=== PATIENT | female | born 1950 | race Caucasian/White ===

== ENCOUNTER → 2020-01-16 13:05 | Outpatient (BNVA) | payer MEDICARE, MEDICAID, SELFPAY | PROVIDERS: PCP Internal Medicine; Referring Provider Internal Medicine; Visit Provider Internal Medicine Cardiovascular Disease | DX: I49.3 Ventricular premature depolarization (principal); I10 Essential (primary) hypertension; R00.0 Tachycardia, unspecified; T42.4X5D Adverse effect of benzodiazepines, subsequent encounter | CPT/HCPCS: 99213 ==

== ENCOUNTER → 2020-01-19 10:00 | Outpatient (REF) | payer MEDICARE, MEDICAID, SELFPAY ==
--- NOTE | 2020-01-19 | NM_ITS ---
EXAMINATION: THYROID UPTAKE AND SCAN CLINICAL INFORMATION: Hyperthyroidism. COMPARISON: No previous thyroid uptake and scan is available for comparison. Thyroid ultrasound dated 10/31/2019 is available for comparison. TECHNIQUE: Following the oral administration of 288 microcuries of I-123 sodium iodide, thyroid uptake was performed and expressed as a percentage of the administrated dose. Gamma scintillation camera images of the thyroid in the anterior and right and left anterior oblique views were obtained using a pinhole collimator following the administration of 10 mCi Tc-99m pertechnetate. FINDINGS: The uptake is 21.2% at 4 hours and 53.3% at 24 hours (Normal radioiodine uptake at 24 hours is 10% to 30%). The radioiodine uptake is moderately elevated. The radiopertechnetate thyroid scintigram demonstrates the thyroid gland to be normal in size, shape, and position. There is homogeneous distribution of activity within the the gland with no focal abnormalities noted. A faint pyramidal lobe is visualized. The trapping function appears moderately increased diffusely. A single anterior radioiodine image obtained at the time of the 24-hour uptake measurement is similar to the radio pertechnetate image. NM/NM thyroid w uptake IMPRESSION: Moderately increased radioiodine uptake and trapping function diffusely. Normal thyroid scan with no nodules visualized. Small subcentimeter thyroid nodules visualized on the 10/31/2019 thyroid ultrasound are below the resolution of this radionuclide technique and are not visualized. In the clinical setting of hyperthyroidism, these findings are most consistent with Graves' disease.
== END ==
LOC: HO.NUCMED 10:00
PROVIDERS: PCP Internal Medicine; Visit Provider Internal Medicine Endocrinology, Diabetes & Metabolism
DX: E05.90 Thyrotoxicosis, unspecified without thyrotoxic crisis or storm (principal)
CPT/HCPCS: 78014; A9512; A9516

== ENCOUNTER → 2020-02-13 10:19 | Outpatient (BNVA) | payer MEDICARE, MEDICAID, SELFPAY | PROVIDERS: PCP Internal Medicine; Visit Provider Internal Medicine Endocrinology, Diabetes & Metabolism | DX: Z13.89 Encounter for screening for other disorder (principal) | CPT/HCPCS: Q3014 ==

== ENCOUNTER 2020-02-28 13:16 | Inpatient (IN) | payer MEDICARE, MEDICAID, SELFPAY ==
[2020-02-28] VITALS (7 sets, daily range): BP systolic 91–105; BP diastolic 43–58; PULSE 100–108; RESP 18–33; TEMP 36.9–37.3; O2SAT 92–95; BMI 19.3
--- NOTE | 2020-02-28 13:25 | ED.URI ---
HPI - URI/Sore Throat General Chief Complaint: Weakness Stated Complaint: WEAKNESS Time Seen by Provider: 02/28/20 13:22 Source: patient Mode of arrival: ambulatory Limitations: no limitations History of Present Illness HPI Narrative: Ms. Gerber is a 69-year-old female who resides at the [facility] she has a history of depression, bipolar disorder as well as history of COPD, diabetes, gastroesophageal reflux disease, hypertension, hyperlipidemia, hypernatremia, IgA, essential tremor, TIA in the past 2012, she was diagnosed with lung CA about a year ago so according to the staff at bedside currently undergoing chemotherapy here followed by Dr. Tony whom she actually saw today for planned chemo however today she appeared slightly more lethargic and weak which she usually somewhat more active and usually gets like this when she either has aspiration pneumonia or a UTI. Per staff at bedside patient did complain of some chest pain over the past 2 days at the house she was given Tylenol by the nursing staff and she has had similar complaint of past where she had the aspiration pneumonia. In addition she also had urinary incontinence this morning which is unusual for her. Patient otherwise does soft/slow spoken she is alert and oriented x3. She overall reports is feeling more lethargic over past day or so but denies any pain or discomfort at this time. Per staff there was also a in direct contact with another staff member who was exposed to a person with COVID but patient does not have any direct exposure to COVID. Denies any cough or runny nose. No abdominal pain, nausea vomiting or diarrhea. Related Data Home Medications Medication Instructions Recorded Confirmed acetaminophen 650 mg PO Q6H PRN 01/04/20 02/28/20 albuterol 90 mcg INHALATION Q6H PRN 01/04/20 02/28/20 ascorbic acid (vitamin C) [Vitamin 500 mg PO BID 01/04/20 02/28/20 C] aspirin 81 mg PO DAILY 01/04/20 02/29/20 benztropine [Cogentin] 1 mg PO BID 01/04/20 02/28/20 carvedilol [Coreg] 3.125 mg PO BID 01/04/20 02/28/20 cholecalciferol (vitamin D3) 50 mcg PO DAILY 01/04/20 02/28/20 [Vitamin D3] clozapine [Clozaril] 50 mg PO BEDTIME 01/04/20 02/28/20 ferrous sulfate 325 mg PO BID 01/04/20 02/28/20 fluticasone propion-salmeterol 1 inh INHALATION BID 01/04/20 02/28/20 [Advair Diskus] haloperidol [Haldol] 5 mg PO BEDTIME 01/04/20 02/28/20 mirabegron 50 mg PO DAILY 01/04/20 02/28/20 nivolumab [Opdivo] 240 mg IV Q2W 01/04/20 02/28/20 trazodone 100 mg PO BEDTIME 01/04/20 02/28/20 valproic acid 750 mg PO BID 01/04/20 02/28/20 estradiol [Estrace] 1 g VAGINAL BEDTIME 01/31/20 02/28/20 glipizide 1 tab PO DAILY 02/28/20 02/28/20 Previous Rx's Medication Instructions Recorded omeprazole 20 mg capsule,delayed 20 mg PO QAM #30 cap 01/02/20 release atorvastatin 10 mg tablet 10 mg PO BEDTIME #30 tab 01/23/20 methimazole 10 mg tablet 10 mg PO DAILY 30 Days #30 tab 02/07/20 blood sugar diagnostic #150 ea 02/13/20 metformin 500 mg tablet 500 mg PO BID 30 Days #60 tab 02/13/20 alendronate 35 mg tablet 35 mg PO QWEEK #4 tab 02/27/20 Allergies Allergy/AdvReac Type Severity Reaction Status Date / Time No Known Allergies Allergy Verified 01/16/20 13:13 [No Known Allergies*] [facility] Past Medical History Medical History (Updated 02/29/20 @ 01:53 by CALVIN Nolasco) Anemia Charcot's arthropathy COPD (chronic obstructive pulmonary disease) Diabetes Diabetes type 2, uncontrolled GERD (gastroesophageal reflux disease) Hyperlipidemia Hypernatremia Hypertension Hypertension Hyperthyroidism Iron deficiency anemia Lung mass Osteopenia Osteoporosis PVC (premature ventricular contraction) Tachycardia TIA (transient ischemic attack) (~2012) Tremor Umbilical hernia Surgical History (Updated 01/17/20 @ 14:35 by Mari Tony MD) History of appendectomy Family History Family History (Updated 01/03/20 @ 11:43 by Manasa Rodriguez RN) Father Lung cancer Mother Colorectal cancer Social History Social History Alcohol intake: never Smoking Status: Former smoker Packs Per Day: 1 Years Smoked: 50 Smoked in Last 30 Days: No Use of substances other than those prescribed or required for medical reasons: No Currently Displaying Signs/Symptoms of Drug Intoxication Withdrawal: No Advance Directives: No Advance Directives Information Provided: No Do you have thoughts of harming others: None Do you have a plan to hurt others: No Plan service: No Current occupational status: disabled Physical Exam Vital Signs: Vital Signs: Last Vital Signs Temp 97.4 F 02/29/20 08:00 Pulse 104 H 02/29/20 09:27 Resp 18 02/29/20 08:00 BP 103/58 L 02/29/20 08:00 Pulse Ox 95 02/29/20 08:00 Body Mass Index 19.3 Course Consultations Consultation #1: CDW Hospitalist for admit MDM - URI/Sore Throat MDM Narrative Medical decision making narrative: 1345 Patient had a CBC/Chem outpatient basis this is pending Additional workup as ordered including influenza/RSV/COVID screen, lactic acid blood cultures and chest x-ray. Patient on room air 87% with 2 L improved to 98 to 99%. Offers no complaints Will treat with gradual fluids, neb and steroid. 1420 CBC without leukocytosis. Labs are pending Labs have not yet been drawn. 1600 Chest x-ray shows increase density in the right hilar region and right lung base question mass versus adenopathy versus pneumonia/atelectasis. CT of the chest ordered. Will be given dose of Levaquin. Medical Records Attestation: I reviewed the patient's medical records. Lab Data Attestation: I reviewed the patient's lab results. Labs: Lab Results 02/28/20 02/28/20 02/28/20 Range/Units 14:16 14:16 15:45 PT (10.8-13.0) SEC INR (0.9-1.1) APTT (24.1-38.0) SEC Lactic Acid (0.5-2.0) mmol/L Lactate Dehydrogenase (122-220) U/L Troponin I High Sens (<3.5-17.0) ng/L B-Natriuretic Peptide (<100) pg/mL Procalcitonin 0.11 ng/mL Urine Color YELLOW Urine Appearance CLOUDY Urine pH 6.0 (5.0-8.0) Ur Specific [place] 1.015 (1.005-1.025) Urine Protein TRACE (NEG-TRACE) MG/DL Urine Glucose (UA) NEG (NEG) MG/DL Urine Ketones NEG (NEG) MG/DL Urine Blood NEG (NEG) Urine Nitrite NEG (NEG) Ur Leukocyte Esterase 3+ H (NEG) Urine RBC 1-4 (0) /HPF Urine WBC 76-150 H (0-4) /HPF Ur Squamous Epith Cells 3+ /LPF Urine Bacteria 1+ /LPF Coronavirus (PCR) NEGATIVE (Negative) Influenza Type A (PCR) NEGATIVE (Negative) Influenza Type B (PCR) NEGATIVE (Negative) RSV RNA Qual (PCR) NEGATIVE (Negative) 02/28/20 02/28/20 02/28/20 Range/Units 15:45 15:45 15:45 PT 17.6 H (10.8-13.0) SEC INR 1.5 H (0.9-1.1) APTT 46.3 H (24.1-38.0) SEC Lactic Acid (0.5-2.0) mmol/L Lactate Dehydrogenase (122-220) U/L Troponin I High Sens < 3.5 (<3.5-17.0) ng/L B-Natriuretic Peptide 48 (<100) pg/mL Procalcitonin ng/mL Urine Color Urine Appearance Urine pH (5.0-8.0) Ur Specific [place] (1.005-1.025) Urine Protein (NEG-TRACE) MG/DL Urine Glucose (UA) (NEG) MG/DL Urine Ketones (NEG) MG/DL Urine Blood (NEG) Urine Nitrite (NEG) Ur Leukocyte Esterase (NEG) Urine RBC (0) /HPF Urine WBC (0-4) /HPF Ur Squamous Epith Cells /LPF Urine Bacteria /LPF Coronavirus (PCR) (Negative) Influenza Type A (PCR) (Negative) Influenza Type B (PCR) (Negative) RSV RNA Qual (PCR) (Negative) 02/28/20 02/28/20 Range/Units 15:46 15:46 PT (10.8-13.0) SEC INR (0.9-1.1) APTT (24.1-38.0) SEC Lactic Acid 0.8 (0.5-2.0) mmol/L Lactate Dehydrogenase 87 L (122-220) U/L Troponin I High Sens (<3.5-17.0) ng/L B-Natriuretic Peptide (<100) pg/mL Procalcitonin ng/mL Urine Color Urine Appearance Urine pH (5.0-8.0) Ur Specific [place] (1.005-1.025) Urine Protein (NEG-TRACE) MG/DL Urine Glucose (UA) (NEG) MG/DL Urine Ketones (NEG) MG/DL Urine Blood (NEG) Urine Nitrite (NEG) Ur Leukocyte Esterase (NEG) Urine RBC (0) /HPF Urine WBC (0-4) /HPF Ur Squamous Epith Cells /LPF Urine Bacteria /LPF Coronavirus (PCR) (Negative) Influenza Type A (PCR) (Negative) Influenza Type B (PCR) (Negative) RSV RNA Qual (PCR) (Negative) Imaging Data Chest x-ray: Radiologist's impression: [place] [id number] XRay Report Signed Patient: Lupe Gerber#: [id number] : 1Acct:[id number] Age/Sex: 69 / FADM Date: 02/28/20 Loc: .ED Attending Dr: Ordering Physician: Sha Duron NP Date of Service: 02/28/20 Procedure(s): XR chest 1V Accession Number(s): [id number] cc: Sha Duron ELASTIC ATTACHER CHAINSTITCH~ EXAMINATION: XR CHEST CLINICAL INFORMATION: Weakness COMPARISON: Previous chest x-ray most recent August [address] of the chest November 2019 TECHNIQUE: Frontal view of the chest was obtained. FINDINGS: The cardiac silhouette does not appear enlarged. There is increasing density at the right lung base and right hilar region. Appearance is a questionable for worsening central mass or adenopathy and postobstructive atelectasis or pneumonia. There is an increasing [id number] right pleural effusion. This may be loculated in a fissure. The left lung is clear. There is no left pleural effusion. There is a left jugular port with tip projecting over the SVC. XR/XR chest 1V IMPRESSION: Increasing density in the right hilar region and the right lung base, question representing increasing central mass or adenopathy and postobstructive atelectasis/pneumonia. Increasing right pleural effusion. 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
--- NOTE | 2020-02-28 13:28 | XR_ITS ---
EXAMINATION: XR CHEST CLINICAL INFORMATION: Weakness COMPARISON: Previous chest x-ray most recent August [address] of the chest November 2019 TECHNIQUE: Frontal view of the chest was obtained. FINDINGS: The cardiac silhouette does not appear enlarged. There is increasing density at the right lung base and right hilar region. Appearance is a questionable for worsening central mass or adenopathy and postobstructive atelectasis or pneumonia. There is an increasing [id number] right pleural effusion. This may be loculated in a fissure. The left lung is clear. There is no left pleural effusion. There is a left jugular port with tip projecting over the SVC. XR/XR chest 1V IMPRESSION: Increasing density in the right hilar region and the right lung base, question representing increasing central mass or adenopathy and postobstructive atelectasis/pneumonia. Increasing right pleural effusion.
--- NOTE | 2020-02-28 13:28 | ECG_ITS ---
Test Reason : WEAKNESS Blood Pressure : / mmHG Vent. Rate : 105 BPM Atrial Rate : 105 BPM P-R Int : 184 ms QRS Dur : 094 ms QT Int : 358 ms P-R-T Axes : 030 016 005 degrees QTc Int : 473 ms Sinus tachycardia Low voltage QRS Nonspecific T wave abnormality Abnormal ECG When compared to the previous EKG of Premature ventricular complexes are no longer Present Referred By: Sha Duron Electronically Signed By:HARMONY HERNANDEZ MD
[2020-02-28] MEDS: 0.9 % Sodium Chloride 1,000 ML 1000 ML IV (14:05)
[2020-02-28 14:31] LABS: Glucose Urine UA NEG (NEG); Leukocyte Esterase Urine 3+ (NEG); Nitrite Urine NEG (NEG); Specific Gravity - Urine 1.015 (1.005-1.025); Urine Blood NEG (NEG); Urine Ketones NEG (NEG); Urine Protein TRACE MG/DL (NEG-TRACE)
[2020-02-28 14:34] LABS: Appearance Urine CLOUDY; Color Urine YELLOW
[2020-02-28 14:47] LABS: Bacteria Urine 1+ /LPF; Squamous Epithelial Cell Urine 3+ /LPF
[2020-02-28 15:42] LABS: Influenza A PCR NEGATIVE (Negative); Influenza B PCR NEGATIVE (Negative); Resp Syncy Virus RNA Qual PCR NEGATIVE (Negative); SARS COV2 PCR INHOUSE NEGATIVE (Negative)
--- NOTE | 2020-02-28 16:06 | CT_ITS ---
EXAMINATION: CT CHEST WITHOUT CONTRAST CLINICAL INFORMATION: Lung cancer. Abnormal chest x-ray. COMPARISON: Chest x-ray 02/28/2020. CT chest 12/21/2019. TECHNIQUE: Multidetector volumetric CT imaging of the chest was done. Axial MIP volume rendering provided. Sagittal and coronal reformatted images were obtained. This CT examination was performed using dose optimization techniques as appropriate, variously including the following: *Automated exposure control *Adjustment of mA and/or kV according to patient size (this includes techniques or standardized protocols for targeted exams where dose is matched to indication/reason for exam; i.e. extremities or head) *Use of iterative reconstruction technique DLP: 195 mGy-cm FINDINGS: LUNGS: Worsening disease in the lungs since prior CT scan 12/21/2019. There is increasing volume loss overall of the right hemithorax. There is increasing parenchymal opacity in the right perihilar lung. Focal area of consolidation at the posterior medial right lung base increased since November 2019. Left lung remains normally aerated. MEDIASTINUM: Difficult to assess hilar regions without IV contrast. There is confluent opacity from the consolidation of atelectasis around the right hilum. Left hilum is unchanged since prior study. No mediastinal significant lymphadenopathy. Small shotty subcentimeter lymph nodes in the pretracheal retrovascular space and AP window. PLEURA: Large volume right pleural effusion. Increasing volume of right pleural effusion extending around the entire right hemithorax pleural space. No left pleural effusion. AXILLA: No lymphadenopathy. UPPER ABDOMEN: Unremarkable OSSEOUS STRUCTURES: Degenerative spondylosis of the spine. CT/CT chest wo con IMPRESSION: Worsening disease in the right hemithorax since prior study of 12/21/2019. There is increasing airspace opacity and confluent density in the right perihilar lung and posterior medial right lung base. There is increasing volume of the right pleural pleural effusion. The volume of the right pleural effusion is now large extending around the entire right pleural space.
[2020-02-28 16:12] LABS: INTERNATIONAL NORM RATIO 1.5 (0.9-1.1); Prothrombin Time 17.6 SEC (10.8-13.0)
[2020-02-28 16:14] LABS: Partial Thromboplastin Time 46.3 SEC (24.1-38.0)
[2020-02-28 16:17] LABS: Lactic Acid 0.8 mmol/L (0.5-2.0)
--- NOTE | 2020-02-28 16:23 | PC.NURSE ---
pt to radiology via stretcher
[2020-02-28] MEDS: levoFLOXacin/D5W 750 MG/150 ML PIGGYBACK 100 MG IV (16:31)
[2020-02-28 16:32] LABS: Lactate Dehydrogenase 87 U/L (122-220)
[2020-02-28 16:37] LABS: Troponin-I High Sensitivity < 3.5 ng/L (<3.5-17.0)
[2020-02-28 16:38] LABS: B Type Natriuretic Peptide 48 pg/mL (<100)
[2020-02-28 16:52] LABS: Procalcitonin 0.11 ng/mL
[2020-02-28] MEDS: Albuterol Sulfate 90 MCG 8 GM INHALER 4 PUFF INHALE (18:09)
[2020-02-28] MEDS: methylPREDNISolone Sod Succ/PF 125 MG/2 ML VIAL IVPUSH (18:12)
--- NOTE | 2020-02-28 18:40 | PC.NURSE ---
hospitalist at bedside. pt eating ground food at this time.
--- NOTE | 2020-02-28 20:08 | PC.NURSE ---
[place] [facility] [place] ROSIE MARIANO STATES THAT PATIENT IS TO BE HELD IN THE ED.
--- NOTE | 2020-02-28 20:40 | PC.NURSE ---
On bedpan for urine. Unlabored resp. Awaiting transfer to floor.
[2020-02-29] VITALS (10 sets, daily range): BP systolic 95–114; BP diastolic 28–73; PULSE 64–112; RESP 16–30; TEMP 36.2–37.1; O2SAT 95–100
--- NOTE | 2020-02-29 | XR_ITS ---
EXAMINATION: XR CHEST CLINICAL INFORMATION: Post thoracentesis COMPARISON: February 28, 2020 TECHNIQUE: AP portable view of the chest was obtained. FINDINGS: Since previous study of the right pleural effusion is smaller. No pneumothorax is evident. Left sided port catheter seen in place with tip in junction of the left nominate vein and superior vena cava. Heart normal size. No evidence of pulmonary edema. Right lung mass density present in the region of the hilum. XR/XR chest 1V IMPRESSION: Somewhat improved right pleural effusion status post thoracentesis. No pneumothorax.
--- NOTE | 2020-02-29 | US_ITS ---
EXAMINATION: RIGHT THORACENTESIS CLINICAL INFORMATION: Pleural effusion. COMPARISON: February 28, 2020 TECHNIQUE: Ultrasound-guided thoracentesis FINDINGS: Ultrasound scanning demonstrates a large right pleural effusion. Informed consent was obtained from the patient prior to the procedure. During this process, the procedure and potential alternatives were explained, along with the intended outcome and benefits. The risks of the procedure, as well as the risk of not doing the procedure, were discussed. The patient was given the opportunity to ask questions regarding the procedure and appeared competent to make medical decisions. A signed consent form which documents this discussion was placed in the medical record. Using sterile technique and ultrasound guidance a 5 Bengali Yueh needle was placed into the right pleural space from a posterior approach. Approximately 1.1 L of clear yellow-greenish fluid was then drained. Patient tolerated procedure without difficulty. US/US thoracentesis IMPRESSION: Right thoracentesis with removal of 1.1 L of fluid.
--- NOTE | 2020-02-29 02:41 | PM.EVENT ---
Event Note Date of Service: 02/29/20 Event Note: 69 y/o female who presented from home due to worening lethargy and malaise. To be admitted due to COPD exacerbation likely secondary to suspected post obstructive PNA and worsening right pleural effusion. ROS and Physical exam as per H and P. PMHX: Anemia Charcot's arthropathy COPD (chronic obstructive pulmonary disease) Diabetes Diabetes type 2, uncontrolled GERD (gastroesophageal reflux disease) Hyperlipidemia Hypernatremia Hypertension Hypertension Hyperthyroidism Iron deficiency anemia Lung mass Osteopenia Osteoporosis PVC (premature ventricular contraction) Tachycardia TIA (transient ischemic attack) Onset Date: ~2012 Tremor Umbilical hernia PSx: Appendectomy Toxic habits: No hx of alcohol abuse, smoking or IVDA Assessment/plan: 1- COPD exacerbation likely secondary to post obstructive PNA and worsening pleural effusion: Continue with Oxygen supplementation and titrate off as tolerated Continue with IV antbx and follow up Bcx Continue with IV steroid and taper as tolerated Thoracentesis to be done as ordered Dr Tony Oncology Pulmonology consult in am Rest of the plan as discussed with JONI Allan per H and P
[2020-02-29] MEDS: Albuterol/Iprat 2.5/0.5MG 3 ML AMPUL.NEB INHALE ×3 (07:27→19:32)
--- NOTE | 2020-02-29 08:04 | PC.NURSE ---
Meenakshi was admitted to room 458-1 from the ED at approximately 06:45, VSS, she is alert/talkative and understands why she is being admitted today. Her breath sounds are coarse rhonchi, she has a non productive cough, she denies any pain. Her portacath is accessed on the left chest, she denies any dysuria upon assessing her. She stated she was recently treated for a urinary tract infection. Her skin is completely intact, she was placed on her left side upon admit to her room here on [facility] and education was done with regards to turning/repositioning for pressure relief. She verbalized an understanding of this education via teach back method. White board updated, admission assessment completed.
[2020-02-29] MEDS: levoFLOXacin/D5W 500 MG/100 ML PIGGYBACK 100 MG IV (08:23)
[2020-02-29] MEDS: Valproic Acid 250 MG CAPSULE 750 MG PO ×2 (08:23→19:41)
[2020-02-29] MEDS: Omeprazole 20 MG CAPSULE.DR PO (08:23)
[2020-02-29] MEDS: Cholecalciferol (Vitamin D3) 25 MCG TABLET 50 MCG PO (08:23)
[2020-02-29] MEDS: metFORMIN HCl 500 MG TABLET PO ×2 (08:23→22:48)
[2020-02-29] MEDS: Ferrous Sulfate 324 MG TABLET.DR PO ×2 (08:23→19:42)
[2020-02-29] MEDS: Ascorbic Acid 500 MG TABLET PO ×2 (08:24→19:42)
[2020-02-29] MEDS: Benztropine Mesylate 1 MG TABLET PO ×2 (08:24→19:41)
--- NOTE | 2020-02-29 09:00 | MHC.CM.PN ---
CM met with Patient. Patient lives in a [address] in [place] and the goal is for her to return there. CM has initiated and will follow for dc planning. IMM addressed with Patient and the original has been given to her and a copy has been placed on the chart. /Lukasz at [phone] is the HCP and Dr. Valery Kilpatrick is the PCP.Patient has both a cane and a walker to assist with mobility PRN.
[2020-02-29] MEDS: Fluticasone/Vilanterol 100/25 BLST.W.DEV 1 PUFF INHALE (09:24)
[2020-02-29] MEDS: glipiZIDE XL 2.5 MG TAB.ER.24 PO (10:17)
[2020-02-29] MEDS: methIMAzole 10 MG TABLET PO (10:17)
[2020-02-29] MEDS: 0.9 % Sodium Chloride Flush 3 ML SYRINGE IVFLUSH ×3 (10:17→22:51)
[2020-02-29] MEDS: Mirabegron 50 MG TAB.ER.24H PO (10:18)
[2020-02-29 11:04] LABS: Lactate Dehydrogenase 77 U/L (122-220)
[2020-02-29] MEDS: Lidocaine HCl 1 % MPF 5 ML VIAL SUBCUT (12:41)
[2020-02-29 12:44] LABS: Glucose, Whole Blood 142 mg/dL (60-115)
[2020-02-29 13:20] LABS: MN% 92.5 %; PMN% 7.5 %; WBC Pleural Fluid 0.361 X10*3/uL
[2020-02-29 13:21] LABS: RBC Pleural Fluid < 0.002 X10*3/uL
[2020-02-29 13:53] LABS: BF Shift QC OK YES; Eosinophils Pleural Fluid 1 %; Lymphocytes Pleural Fluid 2 %; Monocytes Pleural Fluid 8 %; Neutrophils Pleural Fluid 10 %; Other Cells Plerual Fl 79 %
--- NOTE | 2020-02-29 14:04 | P.CONPL_ITS ---
History of Present Illness History of Present Illness Consult date: 02/29/20 Reason for consult: pneumonia and pleural effusion Chief complaint: COPD,UTI,CAP Narrative: Ms. Gerber is a 69-year-old female who resides at the [facility] she has a history of depression, bipolar disorder as well as history of COPD, or and history of postobstructive pneumonia due to lung cancer. She did have significant endobronchial obstruction in biopsy-proven squamous cell carcinoma. She was treated with radiation a along with chemotherapy and now receiving immune therapy. She has been getting therapies closely through Oncology at [facility] and radiation she has completed at [facility]. On the day of the admission she was evaluated by her oncologist who felt that she was having some issues with shortness of breath malaise and lethargy. Therefore the patient is transferred to the ER for further evaluation. She did undergo a CT scan of the chest demonstrating moderate-sized pleural effusion along with increasing airspace disease and also consistent with lung cancer and likely postobstructive pneumonia. She was placed on IV antibiotics and also underwent a thoracentesis draining out a little more than a L of pleural fluid. She is currently on nasal cannula oxygen. Overall she feels well. It is likely that she has further progression of her cancer. Review of Systems Constitutional: Constitutional: Reports fatigue, Reports lethargy, Reports malaise and Denies night sweats ENT: Denies change in voice, Denies lip swelling, Denies mouth pain, Reports nasal congestion, Reports nasal discharge and Denies tongue swelling Cardiovascular: Cardiovascular: Denies chest pain and Reports dyspnea Respiratory: Respiratory: Reports cough and Reports dyspnea Gastrointestinal: Gastrointestinal: Denies abdominal pain Musculoskeletal: Musculoskeletal: Denies no additional musculoskeletal complaints Neurologic: Denies Neuro-related abnormal movements Psychiatric: Psychiatric: Denies no additional psychiatric complaints Endocrine: Endocrine: Reports fatigue Hematologic/Lymphatic: Hematologic/Lymphatic: Denies easy bleeding and Denies lymphadenopathy Allergic/Immunologic: Allergic/Immunologic: Denies lip swelling and Denies tongue swelling [facility] Past Medical History Medical History (Updated 02/29/20 @ 14:13 by Chaparro Allan MD) Anemia Charcot's arthropathy COPD (chronic obstructive pulmonary disease) Diabetes Diabetes type 2, uncontrolled GERD (gastroesophageal reflux disease) Hyperlipidemia Hypernatremia Hypertension Hypertension Hyperthyroidism Iron deficiency anemia Lung mass Osteopenia Osteoporosis Pleural effusion PVC (premature ventricular contraction) Tachycardia TIA (transient ischemic attack) (~2012) Tremor Umbilical hernia Family History Family History (Updated 01/03/20 @ 11:43 by Manasa Rodriguez RN) Father Lung cancer Mother Colorectal cancer Surgical History Surgical History (Updated 01/17/20 @ 14:35 by Mari Tony MD) History of appendectomy Social History Social History Alcohol intake: never Smoking Status: Former smoker Packs Per Day: 1 Years Smoked: 50 Smoked in Last 30 Days: No Use of substances other than those prescribed or required for medical reasons: No Currently Displaying Signs/Symptoms of Drug Intoxication Withdrawal: No Advance Directives: No Advance Directives Information Provided: No Do you have thoughts of harming others: None Do you have a plan to hurt others: No Plan service: No Current occupational status: disabled Meds Allergies Allergy/AdvReac Type Severity Reaction Status Date / Time No Known Allergies Allergy Verified 01/16/20 13:13 [No Known Allergies*] Home Medications Medication Instructions Recorded Confirmed Type acetaminophen 650 mg PO Q6H PRN 01/04/20 02/28/20 History albuterol 90 mcg INHALATION Q6H PRN 01/04/20 02/28/20 History ascorbic acid (vitamin C) [Vitamin 500 mg PO BID 01/04/20 02/28/20 History C] aspirin 81 mg PO DAILY 01/04/20 02/29/20 History benztropine [Cogentin] 1 mg PO BID 01/04/20 02/28/20 History carvedilol [Coreg] 3.125 mg PO BID 01/04/20 02/28/20 History cholecalciferol (vitamin D3) 50 mcg PO DAILY 01/04/20 02/28/20 History [Vitamin D3] clozapine [Clozaril] 50 mg PO BEDTIME 01/04/20 02/28/20 History ferrous sulfate 325 mg PO BID 01/04/20 02/28/20 History fluticasone propion-salmeterol 1 inh INHALATION BID 01/04/20 02/28/20 History [Advair Diskus] haloperidol [Haldol] 5 mg PO BEDTIME 01/04/20 02/28/20 History mirabegron 50 mg PO DAILY 01/04/20 02/28/20 History nivolumab [Opdivo] 240 mg IV Q2W 01/04/20 02/28/20 History trazodone 100 mg PO BEDTIME 01/04/20 02/28/20 History valproic acid 750 mg PO BID 01/04/20 02/28/20 History estradiol [Estrace] 1 g VAGINAL BEDTIME 01/31/20 02/28/20 History glipizide 1 tab PO DAILY 02/28/20 02/28/20 History Physical Exam Vital Signs: Vital Signs: Last Vital Signs Temp 97.4 F 02/29/20 08:00 Pulse 104 H 02/29/20 09:27 Resp 18 02/29/20 08:00 BP 103/58 L 02/29/20 08:00 Pulse Ox 95 02/29/20 08:00 Body Mass Index 19.3 Const: General: alert HENMT: General nose exam: Abnormal external nose present and Nasal discharge present Eyes: Pupils: Equal, round and reactive pupils present Neck: Neck: Yes normal visual inspection, Yes full ROM and Yes no lymphadenopathy Chest: Chest palpation & inspection: normal inspection of the chest Resp: Auscultation: diminished lung sounds Cardio: Rate: regular rate Rhythm: regular rhythm Heart sounds: S1 normal heart sound present and S2 normal heart sound present GI: Palpation (GI): Soft to palpation and nontender Auscultation: normal bowel sounds : General: Yes no CVA tenderness Back/Spine/Pelvis: Back: no CVA tenderness Skin: General skin exam: rashes and/or lesions noted Neuro: Cranial nerves: Yes Equal, round and reactive pupils present Results Laboratory Findings ABG, PT/INR, D-dimer: PT/INR, D-dimer PT 17.6 SEC (10.8-13.0) H 02/28/20 15:45 INR 1.5 (0.9-1.1) H 02/28/20 15:45 Abnormal lab findings: Abnormal Labs 02/28/20 02/28/20 02/28/20 14:16 15:45 15:46 PT 17.6 H INR 1.5 H APTT 46.3 H POC Glucose Lactate Dehydrogenase 87 L Ur Leukocyte Esterase 3+ H Urine WBC 76-150 H 02/29/20 02/29/20 10:18 12:37 PT INR APTT POC Glucose 142 H Lactate Dehydrogenase 77 L Ur Leukocyte Esterase Urine WBC Microbiology: Microbiology 02/28/20 14:35 Urine clean catch - Clean Catch Midstream Urine Culture - Final Assessment and Plan (1) Pneumonia: Status: Acute Continue current IV antibiotics (2) Non-small cell carcinoma of lung: Problem details: The patient has nonoperable squamous cell carcinoma. 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 However, also likely has progression of the cancer. Currently taking immune therapy. The patient does carry a poor prognosis. Specially now with what appears to be progression of her cancer. Status: Acute (3) Pleural effusion: Problem details: Likely malignant from progression of her cancer. Status: Acute I waiting results of the thoracentesis including cytology and also the LDH and protein.
--- NOTE | 2020-02-29 15:17 | HO.PM.IMPN ---
Subjective Subjective Date of Service: 03/01/20 Interval History: pneumonia Review of Systems Patient still mild short of breath, has some cough. Otherwise denies any chest pain or abdominal pain or fever or chills or palpitations. Physical Exam Vital Signs: Vital Signs: Last Vital Signs Temp 97.4 F 02/29/20 08:00 Pulse 104 H 02/29/20 09:27 Resp 18 02/29/20 08:00 BP 103/58 L 02/29/20 08:00 Pulse Ox 95 02/29/20 08:00 Body Mass Index 19.3 Physical exam: heent: eyes anicteric , no discharge Cvs: rrr, [id number] , no murmur res: Grossly fair air entry, diminished at the right base more than left. abd: no rebound or guarding ,nt, bs present. ext pulses present , no cyanosis neuro: axo3 , nonfocal. Objective Data Current Medications Generic Name Dose Route Start Last Admin Trade Name Freq PRN Reason Stop Dose Admin Acetaminophen 650 mg 02/29/20 05:34 Acetaminophen 325 Mg Tablet PO Q6H PRN Pain, Mild (Pain Scale 1-3) Albuterol/Ipratropium 3 ml 02/29/20 05:34 02/29/20 12:06 Albuterol/Iprat 2.5/0.5mg 3 Ml Ampul.Neb INHALE Not Given RQ4H WHILE AWAKE ANUJ Ascorbic Acid 500 mg 02/29/20 05:34 02/29/20 08:24 Ascorbic Acid 500 Mg Tablet PO 500 mg BID ANUJ Administration Atorvastatin Calcium 10 mg 02/29/20 05:34 02/29/20 05:44 Atorvastatin Calcium 10 Mg Tablet PO Not Given BEDTIME ANUJ Benztropine Mesylate 1 mg 02/29/20 05:34 02/29/20 08:24 Benztropine Mesylate 1 Mg Tablet PO 1 mg BID ANUJ Administration Clozapine 50 mg 02/29/20 21:00 Clozapine 25 Mg Tablet PO BEDTIME ANUJ Ferrous Sulfate 324 mg 02/29/20 09:00 02/29/20 08:23 Ferrous Sulfate 324 Mg Tablet. PO 324 mg BID ANUJ Administration Fluticasone/Vilanterol 1 puff 02/29/20 09:00 02/29/20 09:24 Fluticasone/Vilanterol 100/25 Blst.W.Dev INHALE 1 puff DAILY ANUJ Administration Glipizide 2.5 mg 02/29/20 09:00 02/29/20 10:17 Glipizide Xl 2.5 Mg Tab.Er.24 PO 2.5 mg DAILY [facility] Administration Haloperidol 5 mg 02/29/20 05:34 02/29/20 05:44 Haloperidol 5 Mg Tablet PO Not Given BEDTIME ANUJ Levofloxacin 500 mg in 100 mls @ 100 mls/hr 02/29/20 08:00 02/29/20 10:10 Levaquin IV Infused Q24H [facility] Infusion Insulin Human Lispro 0 unit 02/29/20 05:34 02/29/20 12:41 Insulin Lispro 100 Unit/Ml 3 Ml Vial SUBCUT Not Given QIDACHS [facility] Protocol Metformin HCl 500 mg 02/29/20 05:34 02/29/20 08:23 Metformin Hcl 500 Mg Tablet PO 500 mg BID [facility] Administration Methimazole 10 mg 02/29/20 09:00 02/29/20 10:17 Methimazole 10 Mg Tablet PO 10 mg DAILY [facility] Administration Methylprednisolone Sodium Succinate 40 mg 02/29/20 05:34 02/29/20 14:20 Methylprednisolone Sod Succ/Pf 40 Mg/Ml Vial IVPUSH 40 mg Q8H [facility] Administration Mirabegron 50 mg 02/29/20 09:00 02/29/20 10:18 Mirabegron 50 Mg Tab.Er.24h PO 50 mg DAILY [facility] Administration Non-Formulary Medication 35 mg 02/29/20 05:34 Alendronate PO Finney [facility] Omeprazole 20 mg 02/29/20 06:30 02/29/20 08:23 Omeprazole 20 Mg Capsule.Dr PO 20 mg DAILY@0630 [facility] Administration Ondansetron HCl 4 mg 02/29/20 05:34 Ondansetron Hcl 4 Mg/2 Ml Vial IVPUSH Q8H PRN Nausea and Vomiting Pharmacy Consult 1 each 02/28/20 18:48 Consult Rx Perform Med Rec MISCELLANE ONCE PRN Consult order Sodium Chloride 3 ml 02/29/20 05:34 02/29/20 10:17 0.9 % Sodium Chloride Flush 3 Ml Syringe IVFLUSH 3 ml QSHIFT [facility] Administration Trazodone HCl 100 mg 02/29/20 05:34 02/29/20 05:47 Trazodone Hcl 100 Mg Tablet PO Not Given BEDTIME [facility] Valproic Acid 750 mg 02/29/20 05:34 02/29/20 08:23 Valproic Acid 250 Mg Capsule PO 750 mg BID [facility] Administration Vitamin D 50 mcg 02/29/20 09:00 02/29/20 08:23 Cholecalciferol (Vitamin D3) 25 Mcg Tablet PO 50 mcg DAILY ANUJ Administration Microbiology Microbiology Results: Microbiology 02/28/20 14:35 Urine clean catch - Clean Catch Midstream Urine Culture - Final Assessment and Plan (1) Pleural effusion: Problem details: Likely malignant from progression of her cancer. Status: Acute (2) Pneumonia: Problem details: Concern over aspiration There is concern over anerobes,gram negative, Status: Acute (3) Acute exacerbation of chronic obstructive pulmonary disease: Problem details: Likely infectious process exacerbating the breathing. Although, the immune therapy for her cancer can also resulting worsening respiratory since Status: Acute Assessment and Plan: 69-year-old woman who is being admitted with chronic obstructive pulmonary disease exacerbation, urinary tract infection and pleural effusion. She possibly has a pneumonia to which may be better seen after her thoracentesis. 1. Community-acquired pneumonia. continue IV Levaquin, continue supplemental oxygen as needed ,status post thoracentesis, pleural fluid prelim-seems more exudative Urine culture and culture, pleural culture also sent Seen by infectious disease and pulmonary: Patient probably has non-small cell lung cancer as per Pulmonary. 2. Urinary tract infection. Levaquin. Follow urine culture. 3. Chronic obstructive pulmonary disease exacerbation. Continue DuoNebs every 4 hours while awake and IV Solu-Medrol. 4.Hypotension. hold carvedilol for now. She is not on any other antihypertensives. 5.Hyperthyroidism. Continue home medications. 6. Diabetes mellitus sliding scale, ADA diet. Continue metformin and glipizide. 7. Anemia. Continue iron supplementation. 8. Depression. Continue home medications. 10. Hyperlipidemia. Continue statin. 11. Gastroesophageal reflux disease. Continue PPI.
--- NOTE | 2020-02-29 15:31 | HP_ITS ---
DATE OF SERVICE: 02/28/2020 CHIEF COMPLAINT: Weakness. HISTORY OF PRESENT ILLNESS: A 69-year-old woman with multiple medical problems, who resides in a care home, is presenting from her oncologist's office. She had a planned chemotherapy session. However, she appeared weak and lethargic. She also had an episode of urinary incontinence at her care home this morning. She denies chest pain. She reported some mild shortness of breath with dry cough. She did not have a fever. Her coronavirus PCR was negative. No white blood cell count noted. She was noted to be anemic, which is chronic. AST was 62, ALT 38, alkaline phosphatase 322. Urinalysis showed 3+ leukocyte esterase and 76 to 150 wbc's with 1+ bacteria. She had a chest CT, which showed worsening disease in the right hemithorax with increasing airspace opacity and confluent density in the right perihilar lung and posterior medial right lung base. There appears to be increase in volume of the right pleural effusion extending around the entire right pleural space. She currently is under treatment for non-small cell lung cancer and being treated by [facility]. At this time, she appears that she has urinary tract infection and possible pneumonia, but she does have a large pleural effusion, which may need to get drained. She received Levaquin, a liter of IV fluids, Solu-Medrol, and albuterol. She will be admitted for further management and treatment of pneumonia and UTI. PAST MEDICAL HISTORY: 1. Non-small cell lung cancer. 2. Anemia. 3. Charcot arthropathy. 4. COPD. 5. GERD. 6. Hyperlipidemia. 7. Hypertension. 8. Hyperthyroidism. 9. Osteopenia. 10. Osteoporosis. 11. PVC. 12. TIA. 13. Chronic tremors. 14. Umbilical hernia. FAMILY HISTORY: Father had lung cancer. Mother had colorectal cancer. SURGICAL HISTORY: History of appendectomy. SOCIAL HISTORY: Former smoker. Denies alcohol or illicit drugs. ALLERGIES: NO KNOWN ALLERGIES. MEDICATIONS: 1. Acetaminophen 650 mg p.o. q.6 hours p.r.n. 2. Albuterol 90 mcg inhalation q.6 hours p.r.n. 3. Alendronate 35 mg tablets q.week. 4. Ascorbic acid and vitamin C 500 mg p.o. b.i.d. 5. Aspirin 81 mg p.o. daily. 6. Atorvastatin calcium 10 mg p.o. at bedtime. 7. Cogentin 1 mg p.o. b.i.d. 8. Carvedilol 3.125 mg p.o. b.i.d. 9. Cholecalciferol 50 mcg p.o. daily. 10. Clozaril 50 mg p.o. at bedtime. 11. Estradiol 1 g vaginally at bedtime. 12. Ferrous sulfate 325 mg p.o. b.i.d. 13. Advair 1 inhalation b.i.d. 14. Glipizide 1 tab p.o. daily. 15. Haloperidol 5 mg p.o. at bedtime. 16. Metformin 500 mg p.o. b.i.d. 17. Methimazole 10 mg p.o. daily. 18. Mirabegron 50 mg p.o. daily. 19. Opdivo 240 mg IV q.2 weeks. 20. Omeprazole 20 mg p.o. daily. 21. Trazodone 100 mg p.o. at bedtime. 22. Valproic acid 750 mg p.o. b.i.d. REVIEW OF SYSTEMS: CONSTITUTIONAL: Denies any recent fever, decrease in appetite. RESPIRATORY: See HPI. CARDIOVASCULAR: Denies any chest pain, orthopnea, PND, or edema. GASTROINTESTINAL: Denies any dysphagia, abdominal pain, nausea, vomiting, or diarrhea. GENITOURINARY: Denies any dysuria, frequency, or hematuria. MUSCULOSKELETAL: Denies any joint pain or swelling. NEUROPSYCH: Denies any weakness or seizures. All other systems are reviewed and are negative. PHYSICAL EXAMINATION: CONSTITUTIONAL: Resting in bed. No acute distress. VITAL SIGNS: 99.2, 22, 102, 93/55, and 95% on 3 L. SKIN: Intact. No recent or open sores. HEENT: Head is normocephalic, atraumatic. Eyes, pupils are PERRLA. Sclerae anicteric. Mouth and throat, mucous membranes are intact and moist. NECK: Supple. No lymphadenopathy. No JVD noted. CHEST: Diminished throughout. HEART: Regular rate and rhythm, clear S2. No murmurs, rubs, gallops. ABDOMEN: Positive bowel sounds. Soft, nontender. No hepatomegaly or splenomegaly noted. NEURO: The patient is alert and oriented x3. Cranial nerves II through XII are grossly intact without focal deficits. LABORATORY DATA: Sodium 138, potassium 3.8, chloride 109, BUN is 19, creatinine is 1.14. WBC 7.6, hemoglobin 10.7, hematocrit 36.2, and platelets 256. Urinalysis positive. COVID-19 negative. ASSESSMENT AND PLAN: A 69-year-old woman who is being admitted with chronic obstructive pulmonary disease exacerbation, urinary tract infection and pleural effusion. She possibly has a pneumonia to which may be better seen after her thoracentesis. 1. Community-acquired pneumonia. We will treat with IV Levaquin, continue supplemental oxygen as needed. 2. Urinary tract infection. Levaquin. Follow urine culture. 3. Chronic obstructive pulmonary disease exacerbation. Mild. DuoNebs every 4 hours while awake and IV Solu-Medrol. 4. Large pleural effusion. Increased from previous CAT scan. Thoracentesis for tomorrow. 5. Hypotension. Monitor blood pressure closely. We will hold carvedilol for now. She is not on any other antihypertensives. 6. Hyperthyroidism. Continue home medications. 7. Diabetes mellitus sliding scale, ADA diet. Continue metformin and glipizide. 8. Anemia. Continue iron supplementation. 9. Depression. Continue home medications. 10. Hyperlipidemia. Continue statin. 11. Gastroesophageal reflux disease. Continue PPI. 12. Deep vein thrombosis prophylaxis with heparin. 13. Case discussed with Dr. Sal. 14. Full code. JONI Lozada JR/ELLA / [id number]
--- NOTE | 2020-02-29 15:46 | W.PM.IDCN ---
History of Present Illness Data of Consult Service Date: 02/29/20 Requesting physician: Eufemia Reinoso Primary Care Provider: Valery Kilpatrick MD HPI Reason for consult: CAP She presents to hospital with chest pain She has 7/10 chest pain She has pneumonia with effusion right and tap done Results are pending Review of Systems Respiratory: Respiratory: Reports pain on inspiration Neurologic: Denies Neuro-related abnormal movements PMFSH Past Medical History Medical History Anemia Charcot's arthropathy COPD (chronic obstructive pulmonary disease) Diabetes Diabetes type 2, uncontrolled GERD (gastroesophageal reflux disease) Hyperlipidemia Hypernatremia Hypertension Hypertension Hyperthyroidism Iron deficiency anemia Lung mass Osteopenia Osteoporosis Pleural effusion PVC (premature ventricular contraction) Tachycardia TIA (transient ischemic attack) (~2012) Tremor Umbilical hernia Family History Family History Father Lung cancer Mother Colorectal cancer Surgical History Surgical History History of appendectomy Social History Social History Alcohol intake: never Smoking Status: Former smoker Packs Per Day: 1 Years Smoked: 50 Smoked in Last 30 Days: No Use of substances other than those prescribed or required for medical reasons: No Currently Displaying Signs/Symptoms of Drug Intoxication Withdrawal: No Advance Directives: No Advance Directives Information Provided: No Do you have thoughts of harming others: None Do you have a plan to hurt others: No Plan service: No Current occupational status: disabled Meds Allergies Allergy/AdvReac Type Severity Reaction Status Date / Time No Known Allergies Allergy Verified 01/16/20 13:13 [No Known Allergies*] Home Medications Medication Instructions Recorded Confirmed Type acetaminophen 650 mg PO Q6H PRN 01/04/20 02/28/20 History albuterol 90 mcg INHALATION Q6H PRN 01/04/20 02/28/20 History ascorbic acid (vitamin C) [Vitamin 500 mg PO BID 01/04/20 02/28/20 History C] aspirin 81 mg PO DAILY 01/04/20 02/29/20 History benztropine [Cogentin] 1 mg PO BID 01/04/20 02/28/20 History carvedilol [Coreg] 3.125 mg PO BID 01/04/20 02/28/20 History cholecalciferol (vitamin D3) 50 mcg PO DAILY 01/04/20 02/28/20 History [Vitamin D3] clozapine [Clozaril] 50 mg PO BEDTIME 01/04/20 02/28/20 History ferrous sulfate 325 mg PO BID 01/04/20 02/28/20 History fluticasone propion-salmeterol 1 inh INHALATION BID 01/04/20 02/28/20 History [Advair Diskus] haloperidol [Haldol] 5 mg PO BEDTIME 01/04/20 02/28/20 History mirabegron 50 mg PO DAILY 01/04/20 02/28/20 History nivolumab [Opdivo] 240 mg IV Q2W 01/04/20 02/28/20 History trazodone 100 mg PO BEDTIME 01/04/20 02/28/20 History valproic acid 750 mg PO BID 01/04/20 02/28/20 History estradiol [Estrace] 1 g VAGINAL BEDTIME 01/31/20 02/28/20 History glipizide 1 tab PO DAILY 02/28/20 02/28/20 History Physical Exam Vital Signs: Vital Signs: Last Vital Signs Temp 97.4 F 02/29/20 08:00 Pulse 104 H 02/29/20 09:27 Resp 18 02/29/20 08:00 BP 103/58 L 02/29/20 08:00 Pulse Ox 95 02/29/20 08:00 Body Mass Index 19.3 Const: General: cooperative HENMT: Head: Yes normal to inspection Eyes: General: appearance normal, both eyes and all related structures Resp: Effort & Inspection: normal respiratory effort Cardio: Rate: regular rate Rhythm: regular rhythm GI: Inspection: Yes normal to inspection Extrem: General: Yes normal to inspection Assessment and Plan (1) Pleural effusion: Problem details: Likely malignant from progression of her cancer. Status: Acute (2) Pneumonia: Problem details: Concern over aspiration There is concern over anerobes,gram negative, Status: Acute Would continue coverage Levaquin Await pleural effusion studies Results Microbiology Microbiology Results: Microbiology 02/28/20 14:35 Urine clean catch - Clean Catch Midstream Urine Culture - Final
[2020-02-29 16:39] LABS: Glucose, Whole Blood 221 mg/dL (60-115)
[2020-02-29] MEDS: Insulin Lispro 100 UNIT/ML 3 ML VIAL SUBCUT ×2 (18:28→22:49)
[2020-02-29] MEDS: Atorvastatin Calcium 10 MG TABLET PO (19:40)
[2020-02-29] MEDS: traZODone HCL 100 MG TABLET PO (19:41)
[2020-02-29] MEDS: HaloperidoL 5 MG TABLET PO (19:41)
[2020-02-29] MEDS: cloZAPine 25 MG TABLET 50 MG PO (19:41)
[2020-02-29 21:29] LABS: Glucose, Whole Blood 190 mg/dL (60-115)
[2020-02-29] MEDS: Heparin Sodium,Porcine 5,000 UNIT/ML VIAL 5000 UNIT SUBCUT (22:49)
[2020-03-01] VITALS (10 sets, daily range): BP systolic 94–110; BP diastolic 50–65; PULSE 102–115; RESP 18–20; TEMP 36.4–36.7; O2SAT 93–100
[2020-03-01] MEDS: Omeprazole 20 MG CAPSULE.DR PO (05:58)
[2020-03-01 07:02] LABS: pH Pleural Fluid 7.38
[2020-03-01 07:11] LABS: Total Protein Pleural Fluid 4.8
[2020-03-01 07:12] LABS: Glucose Pleural Fluid 175
[2020-03-01] MEDS: Albuterol/Iprat 2.5/0.5MG 3 ML AMPUL.NEB INHALE ×4 (07:40→20:17)
[2020-03-01] MEDS: Fluticasone/Vilanterol 100/25 BLST.W.DEV 1 PUFF INHALE (07:40)
[2020-03-01 07:43] LABS: Glucose, Whole Blood 174 mg/dL (60-115)
[2020-03-01] MEDS: levoFLOXacin/D5W 500 MG/100 ML PIGGYBACK 100 MG IV (08:09)
[2020-03-01] MEDS: 0.9 % Sodium Chloride Flush 3 ML SYRINGE IVFLUSH ×2 (08:09→14:29)
[2020-03-01] MEDS: Cholecalciferol (Vitamin D3) 25 MCG TABLET 50 MCG PO (08:10)
[2020-03-01] MEDS: Mirabegron 50 MG TAB.ER.24H PO (08:10)
[2020-03-01] MEDS: Benztropine Mesylate 1 MG TABLET PO ×2 (08:10→21:44)
[2020-03-01] MEDS: Valproic Acid 250 MG CAPSULE 750 MG PO ×2 (08:10→21:38)
[2020-03-01] MEDS: glipiZIDE XL 2.5 MG TAB.ER.24 PO (08:10)
[2020-03-01] MEDS: metFORMIN HCl 500 MG TABLET PO ×2 (08:10→21:39)
[2020-03-01] MEDS: Ferrous Sulfate 324 MG TABLET.DR PO ×2 (08:10→21:39)
[2020-03-01] MEDS: methIMAzole 10 MG TABLET PO (08:10)
[2020-03-01] MEDS: Ascorbic Acid 500 MG TABLET PO ×2 (08:10→21:38)
[2020-03-01] MEDS: Insulin Lispro 100 UNIT/ML 3 ML VIAL SUBCUT ×2 (08:33→12:18)
[2020-03-01] MEDS: Heparin Sodium,Porcine 5,000 UNIT/ML VIAL 5000 UNIT SUBCUT ×2 (10:49→21:48)
[2020-03-01 11:52] LABS: Glucose, Whole Blood 186 mg/dL (60-115)
--- NOTE | 2020-03-01 13:25 | PM.PNPUL ---
Subjective Subjective Date of Service: 03/01/20 Interval history: Patient was seen on exam. She is feeling a little better after the thoracentesis. Still having some shortness of breath. Her x-ray post thoracentesis still demonstrates significant opacity due to her malignancy and likely some degree of radiation changes. Objective Data Labs Labs: Laboratory Results - last 24 hr 02/29/20 02/29/20 02/29/20 12:01 12:57 12:57 POC Glucose Pleural pH 7.38 Pleural Neutrophils 10 Pleural Lymphocytes 2 Pleural Monocytes 8 Pleural Eosinophils 1 Pleural Other Cells 79 Pleural Total Protein 4.8 Pleural Glucose 175 02/29/20 02/29/20 03/01/20 16:34 21:11 07:33 POC Glucose 221 H 190 H 174 H Pleural pH Pleural Neutrophils Pleural Lymphocytes Pleural Monocytes Pleural Eosinophils Pleural Other Cells Pleural Total Protein Pleural Glucose 03/01/20 11:44 POC Glucose 186 H Pleural pH Pleural Neutrophils Pleural Lymphocytes Pleural Monocytes Pleural Eosinophils Pleural Other Cells Pleural Total Protein Pleural Glucose Microbiology Microbiology Results: Microbiology 02/29/20 Unknown Pleural Fluid Gram Stain - Final 02/29/20 Unknown Pleural Fluid Routine Culture - Preliminary No growth to date. 02/28/20 16:31 Blood - Venous Blood Culture - Preliminary No growth after 24 hours. 02/28/20 15:45 Blood - Venous Blood Culture - Preliminary No growth after 24 hours. 02/28/20 14:35 Urine clean catch - Clean Catch Midstream Urine Culture - Final Review of Systems Constitutional: Denies night sweats Denies change in voice, Denies lip swelling, Denies mouth pain, Reports nasal congestion, Reports nasal discharge and Denies tongue swelling Cardiovascular: Denies chest pain and Reports dyspnea Respiratory: Reports cough and Reports dyspnea Gastrointestinal: Denies abdominal pain Musculoskeletal: Denies no additional musculoskeletal complaints Denies Neuro-related abnormal movements Psychiatric: Denies no additional psychiatric complaints Hematologic/Lymphatic: Denies easy bleeding and Denies lymphadenopathy Allergic/Immunologic: Denies lip swelling and Denies tongue swelling Physical Exam Vital Signs: Vital Signs: Last Vital Signs Temp 97.9 F 03/01/20 12:00 Pulse 113 H 03/01/20 12:00 Resp 18 03/01/20 12:00 BP 96/58 L 03/01/20 12:00 Pulse Ox 99 03/01/20 12:00 Body Mass Index 19.3 Const: General: alert HENMT: General nose exam: Abnormal external nose present and Nasal discharge present Eyes: Pupils: Equal, round and reactive pupils present Neck: Neck: Yes normal visual inspection, Yes full ROM and Yes no lymphadenopathy Chest: Chest palpation & inspection: normal inspection of the chest Resp: Auscultation: diminished lung sounds Cardio: Rate: regular rate Rhythm: regular rhythm Heart sounds: S1 normal heart sound present and S2 normal heart sound present GI: Palpation (GI): Soft to palpation and nontender Auscultation: normal bowel sounds : General: Yes no CVA tenderness Back/Spine/Pelvis: Back: no CVA tenderness Skin: General skin exam: rashes and/or lesions noted Neuro: Cranial nerves: Yes Equal, round and reactive pupils present Assessment and Plan Assessment and plan (1) Pleural effusion: Problem details: Likely malignant from progression of her cancer. Status: Acute Assessment and Plan: Status post thoracentesis. Awaiting cytology results. Hopefully the pleural effusion does not come back to quickly. If it does a PleurX catheter may be warranted. The patient will need close follow-up as an outpatient (2) Pneumonia: Problem details: Concern over aspiration There is concern over anerobes,gram negative, Status: Acute Assessment and Plan: Continue IV antibiotics Continue oxygen therapy Consider rehab Close outpatient follow-up upon discharge. (3) Acute exacerbation of chronic obstructive pulmonary disease: Problem details: Likely infectious process exacerbating the breathing. Although, the immune therapy for her cancer can also resulting worsening respiratory since Status: Acute (4) Non-small cell carcinoma of lung: Problem details: The patient has nonoperable squamous cell carcinoma. 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 However, also likely has progression of the cancer. Currently taking immune therapy. The patient does carry a poor prognosis. Specially now with what appears to be progression of her cancer. Status: Acute Assessment and Plan: The patient carries a poor prognosis with did is nonoperable cancer now on immune therapy. Unfortunately the prednisone will be affecting the benefits that she will get from the immune therapy. Time Spent With Patient Time: Total time spent is greater than 50% in coordination of care (as documented) at patient's floor/unit and/or counseling patient: Time with patient: 15 - 24 minutes
--- NOTE | 2020-03-01 15:32 | P.PNIM_ITS ---
Subjective Subjective Date of Service: 03/01/20 Interval History: pneumonia Review of Systems Patient still has shortness of breath denies any cough No fever or abdominal pain or urinary complaints or weakness or numbness. Physical Exam Vital Signs: Vital Signs: Last Vital Signs Temp 97.9 F 03/01/20 12:00 Pulse 113 H 03/01/20 12:00 Resp 18 03/01/20 12:00 BP 96/58 L 03/01/20 12:00 Pulse Ox 99 03/01/20 12:00 Body Mass Index 19.3 Physical exam: Constitutional: Does not seem to be in distress Lying comfortably Cvs: rrr, [id number] , no murmur res:Grossly fair air entry, diminished at the right base more than left. abd: no rebound or guarding ,nt, bs present. ext pulses present , no cyanosis neuro: axo3 , nonfocal. Objective Data Current Medications Generic Name Dose Route Start Last Admin Trade Name Freq PRN Reason Stop Dose Admin Acetaminophen 650 mg 02/29/20 05:34 Acetaminophen 325 Mg Tablet PO Q6H PRN Pain, Mild (Pain Scale 1-3) Albuterol/Ipratropium 3 ml 02/29/20 05:34 03/01/20 15:30 Albuterol/Iprat 2.5/0.5mg 3 Ml Ampul.Neb INHALE 3 ml RQ4H WHILE AWAKE ANUJ Administration Ascorbic Acid 500 mg 02/29/20 05:34 03/01/20 08:10 Ascorbic Acid 500 Mg Tablet PO 500 mg BID ANUJ Administration Atorvastatin Calcium 10 mg 02/29/20 05:34 02/29/20 19:40 Atorvastatin Calcium 10 Mg Tablet PO 10 mg BEDTIME ANUJ Administration Benztropine Mesylate 1 mg 02/29/20 05:34 03/01/20 08:10 Benztropine Mesylate 1 Mg Tablet PO 1 mg BID ANUJ Administration Clozapine 50 mg 02/29/20 21:00 02/29/20 19:41 Clozapine 25 Mg Tablet PO 50 mg BEDTIME ANUJ Administration Ferrous Sulfate 324 mg 02/29/20 09:00 03/01/20 08:10 Ferrous Sulfate 324 Mg Tablet. PO 324 mg BID ANUJ Administration Fluticasone/Vilanterol 1 puff 02/29/20 09:00 03/01/20 07:40 Fluticasone/Vilanterol 100/25 Blst.W.Dev INHALE 1 puff DAILY ANUJ Administration Glipizide 2.5 mg 02/29/20 09:00 03/01/20 08:10 Glipizide Xl 2.5 Mg Tab.Er.24 PO 2.5 mg DAILY ANUJ Administration Haloperidol 5 mg 02/29/20 05:34 02/29/20 19:41 Haloperidol 5 Mg Tablet PO 5 mg BEDTIME ANUJ Administration Heparin Sodium (Porcine) 5,000 unit 02/29/20 22:00 03/01/20 10:49 Heparin Sodium,Porcine 5,000 Unit/Ml Vial SUBCUT 5,000 unit Q12H ANUJ Administration Levofloxacin 500 mg in 100 mls @ 100 mls/hr 02/29/20 08:00 03/01/20 09:31 Levaquin IV Infused Q24H ANUJ Infusion Insulin Human Lispro 0 unit 02/29/20 05:34 03/01/20 12:18 Insulin Lispro 100 Unit/Ml 3 Ml Vial SUBCUT 2 unit QIDACHS ANUJ Administration Protocol Metformin HCl 500 mg 02/29/20 05:34 03/01/20 08:10 Metformin Hcl 500 Mg Tablet PO 500 mg BID ANUJ Administration Methimazole 10 mg 02/29/20 09:00 03/01/20 08:10 Methimazole 10 Mg Tablet PO 10 mg DAILY ANUJ Administration Methylprednisolone Sodium Succinate 40 mg 02/29/20 05:34 03/01/20 14:29 Methylprednisolone Sod Succ/Pf 40 Mg/Ml Vial IVPUSH 40 mg Q8H ANUJ Administration Mirabegron 50 mg 02/29/20 09:00 03/01/20 08:10 Mirabegron 50 Mg Tab.Er.24h PO 50 mg DAILY ANUJ Administration Omeprazole 20 mg 02/29/20 06:30 03/01/20 05:58 Omeprazole 20 Mg Capsule.Dr PO 20 mg DAILY@0630 ANUJ Administration Ondansetron HCl 4 mg 02/29/20 05:34 Ondansetron Hcl 4 Mg/2 Ml Vial IVPUSH Q8H PRN Nausea and Vomiting Pharmacy Consult 1 each 02/28/20 18:48 Consult Rx Perform Med Rec MISCELLANE ONCE PRN Consult order Sodium Chloride 3 ml 02/29/20 05:34 03/01/20 14:29 0.9 % Sodium Chloride Flush 3 Ml Syringe IVFLUSH 3 ml QSHIFT ANUJ Administration Trazodone HCl 100 mg 02/29/20 05:34 02/29/20 19:41 Trazodone Hcl 100 Mg Tablet PO 100 mg BEDTIME ANUJ Administration Valproic Acid 750 mg 02/29/20 05:34 03/01/20 08:10 Valproic Acid 250 Mg Capsule PO 750 mg BID ANUJ Administration Vitamin D 50 mcg 02/29/20 09:00 03/01/20 08:10 Cholecalciferol (Vitamin D3) 25 Mcg Tablet PO 50 mcg DAILY ANUJ Administration Microbiology Microbiology Results: Microbiology 02/29/20 Unknown Pleural Fluid Gram Stain - Final 02/29/20 Unknown Pleural Fluid Routine Culture - Preliminary No growth to date. 02/28/20 16:31 Blood - Venous Blood Culture - Preliminary No growth after 24 hours. 02/28/20 15:45 Blood - Venous Blood Culture - Preliminary No growth after 24 hours. 02/28/20 14:35 Urine clean catch - Clean Catch Midstream Urine Culture - Final Assessment and Plan (1) Pneumonia: Status: Acute (2) Pleural effusion: Problem details: Likely malignant from progression of her cancer. Status: Acute (3) Acute exacerbation of chronic obstructive pulmonary disease: Problem details: Likely infectious process exacerbating the breathing. Although, the immune th erapy for her cancer can also resulting worsening respiratory since Status: Acute Assessment and Plan: 69-year-old woman who is being admitted with chronic obstructive pulmonary disease exacerbation, urinary tract infection and pleural effusion. She possibly has a pneumonia to which may be better seen after her thoracentesis. 1. Community-acquired pneumonia. continue IV Levaquin, continue supplemental oxygen as needed ,status post thoracentesis, pleural fluid prelim-seems more exudative Urine culture and culture, pleural culture pending Seen by infectious disease and pulmonary: Patient probably has non-small cell lung cancer as per Pulmonary. pleural studies seems more transudative 2. Urinary tract infection. Levaquin. Follow urine culture. 3. Chronic obstructive pulmonary disease exacerbation. Continue DuoNebs every 4hr hours while awake and IV Solu-Medrol. 4. Blood pressure fluctuating on the softer side: hold carvedilol . 5.Hyperthyroidism. Continue home medications. 6. Diabetes mellitus sliding scale, ADA diet. fs 140-180 Continue metformin and glipizide. 7. Anemia. Continue iron supplementation. 8. Depression. Continue home medications. 10. Hyperlipidemia. Continue statin. 11. Gastroesophageal reflux disease. Continue PPI.
--- NOTE | 2020-03-01 18:49 | PC.NURSE ---
1844 Patient up to bathroom, Rn returned patient to bed and found port tubing on night side table, questioning patient what happened, she stated, I pulled it out, to see the blood return.
[2020-03-01 20:53] LABS: Glucose, Whole Blood 124 mg/dL (60-115)
[2020-03-01] MEDS: Atorvastatin Calcium 10 MG TABLET PO (21:39)
[2020-03-01] MEDS: cloZAPine 25 MG TABLET 50 MG PO (21:42)
[2020-03-01] MEDS: HaloperidoL 5 MG TABLET PO (21:44)
[2020-03-01] MEDS: traZODone HCL 100 MG TABLET PO (21:44)
[2020-03-02] VITALS (11 sets, daily range): BP systolic 93–133; BP diastolic 61–71; PULSE 80–114; RESP 18–20; TEMP 36.1–37; O2SAT 95–99
[2020-03-02] MEDS: 0.9 % Sodium Chloride Flush 3 ML SYRINGE IVFLUSH ×4 (00:11→23:35)
[2020-03-02] MEDS: Omeprazole 20 MG CAPSULE.DR PO (06:06)
[2020-03-02] MEDS: Fluticasone/Vilanterol 100/25 BLST.W.DEV 1 PUFF INHALE (07:31)
[2020-03-02] MEDS: Albuterol/Iprat 2.5/0.5MG 3 ML AMPUL.NEB INHALE ×4 (07:31→19:46)
[2020-03-02 08:03] LABS: Glucose, Whole Blood 141 mg/dL (60-115)
[2020-03-02 08:56] LABS: Basophils Percent Auto 0.2 % (0-2); Hematocrit 33.2 % (37-47); Imm Gran Abs Auto 0.12 X10*3/uL (0.00-0.03); Imm Gran Pct Auto 2.1 % (0.0-0.4); Lymphocytes Absolute Auto 0.7 X10*3/uL (1.2-4.9); Lymphocytes Percent Auto 11.7 % (20-40); MANUAL DIFF FLAG SCAN; Mean Corpuscular HGB Conc 30.1 g/dl (31.0-35.0); Mean Corpuscular Volume 96.2 fL (80-98); Mean Platelet Volume 9.4 fL (9.4-12.3); Monocytes Absolute Auto 0.2 X10*3/uL (0.1-1.2); Monocytes Percent Auto 3.6 % (2-11); Neutrophils Absolute Auto 4.8 X10*3/uL (2.0-8.3); Neutrophils Percent Auto 82.4 % (45-73); Platelet Count 275 X10*3/uL (160-400); Red Blood Count 3.45 X10*6/uL (4.20-5.50); Red Cell Distribution Width 14.4 % (11.0-16.0); SCAN SMEAR FLAG 1; White Blood Count 5.8 X10*3/uL (4.8-10.8)
[2020-03-02 09:22] LABS: Anion Gap 10 (12-20); Blood Urea Nitrogen 30 mg/dL (9-16); Calcium 10.4 mg/dL (8.4-10.2); Carbon Dioxide 23 mmol/L (22-29); Chloride 107 mmol/L (96-108); Creatinine Clr Calc Pharmacy 43.3; Estimated Glomerular Filt Rate 60; Glucose Random 153 mg/dL (60-115); Potassium 4.4 mmol/l (3.3-5.1); Sodium 136 mmol/L (135-145)
[2020-03-02 09:38] LABS: SLIDE REVIEW VERIFIED
[2020-03-02] MEDS: Mirabegron 50 MG TAB.ER.24H PO (10:07)
[2020-03-02] MEDS: levoFLOXacin/D5W 500 MG/100 ML PIGGYBACK 100 MG IV (10:08)
[2020-03-02] MEDS: Cholecalciferol (Vitamin D3) 25 MCG TABLET 50 MCG PO (10:09)
[2020-03-02] MEDS: Heparin Sodium,Porcine 5,000 UNIT/ML VIAL 5000 UNIT SUBCUT ×2 (10:09→20:40)
[2020-03-02] MEDS: Benztropine Mesylate 1 MG TABLET PO ×2 (10:09→20:41)
[2020-03-02] MEDS: methIMAzole 10 MG TABLET PO (10:09)
[2020-03-02] MEDS: Ferrous Sulfate 324 MG TABLET.DR PO ×2 (10:09→20:44)
[2020-03-02] MEDS: Valproic Acid 250 MG CAPSULE 750 MG PO ×2 (10:09→20:46)
[2020-03-02] MEDS: glipiZIDE XL 2.5 MG TAB.ER.24 PO (10:09)
[2020-03-02] MEDS: metFORMIN HCl 500 MG TABLET PO (10:10)
[2020-03-02] MEDS: Ascorbic Acid 500 MG TABLET PO ×2 (10:10→20:40)
[2020-03-02 11:28] LABS: Glucose, Whole Blood 214 mg/dL (60-115)
[2020-03-02] MEDS: Insulin Lispro 100 UNIT/ML 3 ML VIAL SUBCUT (12:00)
--- NOTE | 2020-03-02 13:07 | MHC.CM.PN ---
Addendum entered by Machelle Jeong 03/02/20 14:43: CM spoke with Christa who reports patient is alert and oriented x 4. Instructed MD wants to keep her another day. House number to [facility] is [phone], Pharmacy used closes at 2pm Thursday so will need discharge meds faxed prior to then. Original Note: MARY spoke with Christa from [facility] [phone] who states their fax/phone is not working, unable to fax paperwork needed at discharge. Christa states a signed discharge summary will do for discharge orders. CM will continue to follow for discharge needs.
--- NOTE | 2020-03-02 15:27 | HO.PM.IMPN ---
Subjective Subjective Date of Service: 03/02/20 Interval History: pneumonia Review of Systems Patient seen and examined at bedside Patient reported shortness of breath improving Physical Exam Vital Signs: Vital Signs: Last Vital Signs Temp 97.8 F 03/02/20 15:08 Pulse 114 H 03/02/20 15:11 Resp 19 03/02/20 15:08 BP 93/66 03/02/20 15:08 Pulse Ox 97 03/02/20 15:08 Body Mass Index 19.3 Const: General: cooperative and alert HENMT: Head: Yes normal to inspection General nose exam: Abnormal external nose present and Nasal discharge present Eyes: General: appearance normal, both eyes and all related structures Pupils: Equal, round and reactive pupils present Neck: Neck: Yes normal visual inspection, Yes full ROM and Yes no lymphadenopathy Chest: Chest palpation & inspection: normal inspection of the chest Resp: Effort & Inspection: normal respiratory effort Auscultation: diminished lung sounds Cardio: Rate: regular rate Rhythm: regular rhythm Heart sounds: S1 normal heart sound present and S2 normal heart sound present GI: Inspection: Yes normal to inspection Palpation (GI): Soft to palpation and nontender Auscultation: normal bowel sounds : General: Yes no CVA tenderness Back/Spine/Pelvis: Back: no CVA tenderness Skin: General skin exam: rashes and/or lesions noted Neuro: Cranial nerves: Yes Equal, round and reactive pupils present Extrem: General: Yes normal to inspection Objective Data Current Medications Generic Name Dose Route Start Last Admin Trade Name Freq PRN Reason Stop Dose Admin Acetaminophen 650 mg 02/29/20 05:34 Acetaminophen 325 Mg Tablet PO Q6H PRN Pain, Mild (Pain Scale 1-3) Albuterol/Ipratropium 3 ml 02/29/20 05:34 03/02/20 15:07 Albuterol/Iprat 2.5/0.5mg 3 Ml Ampul.Neb INHALE 3 ml RQ4H WHILE AWAKE ANUJ Administration Ascorbic Acid 500 mg 02/29/20 05:34 03/02/20 10:10 Ascorbic Acid 500 Mg Tablet PO 500 mg BID ANUJ Administration Atorvastatin Calcium 10 mg 02/29/20 05:34 03/01/20 21:39 Atorvastatin Calcium 10 Mg Tablet PO 10 mg BEDTIME ANUJ Administration Benztropine Mesylate 1 mg 02/29/20 05:34 03/02/20 10:09 Benztropine Mesylate 1 Mg Tablet PO 1 mg BID ANUJ Administration Clozapine 50 mg 02/29/20 21:00 03/01/20 21:42 Clozapine 25 Mg Tablet PO 50 mg BEDTIME ANUJ Administration Ferrous Sulfate 324 mg 02/29/20 09:00 03/02/20 10:09 Ferrous Sulfate 324 Mg Tablet.Dr PO 324 mg BID ANUJ Administration Fluticasone/Vilanterol 1 puff 02/29/20 09:00 03/02/20 07:31 Fluticasone/Vilanterol 100/25 Blst.W.Dev INHALE 1 puff DAILY ANUJ Administration Glipizide 2.5 mg 02/29/20 09:00 03/02/20 10:09 Glipizide Xl 2.5 Mg Tab.Er.24 PO 2.5 mg DAILY ANUJ Administration Haloperidol 5 mg 02/29/20 05:34 03/01/20 21:44 Haloperidol 5 Mg Tablet PO 5 mg BEDTIME ANUJ Administration Heparin Sodium (Porcine) 5,000 unit 02/29/20 22:00 03/02/20 10:09 Heparin Sodium,Porcine 5,000 Unit/Ml Vial SUBCUT 5,000 unit Q12H ANUJ Administration Levofloxacin 500 mg in 100 mls @ 100 mls/hr 02/29/20 08:00 03/02/20 11:11 Levaquin IV Infused Q24H ANUJ Infusion Insulin Human Lispro 0 unit 02/29/20 05:34 03/02/20 12:00 Insulin Lispro 100 Unit/Ml 3 Ml Vial SUBCUT 4 unit QIDACHS ANUJ Administration Protocol Metformin HCl 500 mg 02/29/20 05:34 03/02/20 10:10 Metformin Hcl 500 Mg Tablet PO 500 mg BID ANUJ Administration Methimazole 10 mg 02/29/20 09:00 03/02/20 10:09 Methimazole 10 Mg Tablet PO 10 mg DAILY ANUJ Administration Methylprednisolone Sodium Succinate 40 mg 02/29/20 05:34 03/02/20 13:18 Methylprednisolone Sod Succ/Pf 40 Mg/Ml Vial IVPUSH 40 mg Q8H ANUJ Administration Mirabegron 50 mg 02/29/20 09:00 03/02/20 10:07 Mirabegron 50 Mg Tab.Er.24h PO 50 mg DAILY ANUJ Administration Omeprazole 20 mg 02/29/20 06:30 03/02/20 06:06 Omeprazole 20 Mg Capsule. PO 20 mg DAILY@0630 ANUJ Administration Ondansetron HCl 4 mg 02/29/20 05:34 Ondansetron Hcl 4 Mg/2 Ml Vial IVPUSH Q8H PRN Nausea and Vomiting Pharmacy Consult 1 each 02/28/20 18:48 Consult Rx Perform Med Rec MISCELLANE ONCE PRN Consult order Sodium Chloride 3 ml 02/29/20 05:34 03/02/20 10:05 0.9 % Sodium Chloride Flush 3 Ml Syringe IVFLUSH 3 ml QSHIFT ANUJ Administration Trazodone HCl 100 mg 02/29/20 05:34 03/01/20 21:44 Trazodone Hcl 100 Mg Tablet PO 100 mg BEDTIME ANUJ Administration Valproic Acid 750 mg 02/29/20 05:34 03/02/20 10:09 Valproic Acid 250 Mg Capsule PO 750 mg BID ANUJ Administration Vitamin D 50 mcg 02/29/20 09:00 03/02/20 10:09 Cholecalciferol (Vitamin D3) 25 Mcg Tablet PO 50 mcg DAILY ANUJ Administration Labs CBC & Chem 7: 03/02/20 08:29 03/02/20 08:29 Microbiology Microbiology Results: Microbiology 02/29/20 Unknown Pleural Fluid Gram Stain - Final 02/29/20 Unknown Pleural Fluid Routine Culture - Final No growth after 2 days 02/28/20 16:31 Blood - Venous Blood Culture - Preliminary No growth after 48 hours. 02/28/20 15:45 Blood - Venous Blood Culture - Preliminary No growth after 48 hours. 02/28/20 14:35 Urine clean catch - Clean Catch Midstream Urine Culture - Final Assessment and Plan (1) Pneumonia: Status: Acute (2) Pleural effusion: Problem details: Likely malignant from progression of her cancer. Status: Acute (3) Acute exacerbation of chronic obstructive pulmonary disease: Problem details: Likely infectious process exacerbating the breathing. Although, the immune therapy for her cancer can also resulting worsening respiratory since Status: Acute Assessment and Plan: 69-year-old woman who is being admitted with chronic obstructive pulmonary disease exacerbation, urinary tract infection and pleural effusion. She possibly has a pneumonia to which may be better seen after her thoracentesis. Community-acquired pneumonia. continue IV Levaquin, continue supplemental oxygen as needed ,status post thoracentesis, pleural fluid prelim-seems more exudative Urine culture and culture, pleural culture pending Seen by infectious disease and pulmonary: Patient probably has non-small cell lung cancer as per Pulmonary. pleural studies seems more transudative Urinary tract infection. received Levaquin urine culture grew multiple organism will switch to p.o. Ceftin Chronic obstructive pulmonary disease exacerbation. improving Continue DuoNebs every 4hr hours while awake and IV Solu-Medrol. .Hyperthyroidism. Continue home medications. Diabetes mellitus continue sliding scale, ADA diet. fs 140-180 Continue metformin and glipizide. Anemia. Continue iron supplementation. Depression. Continue home medications. Hyperlipidemia. Continue statin. Gastroesophageal reflux disease. Continue PPI. DVT prophylaxis heparin subcu
[2020-03-02 15:54] LABS: Pt Ventilation O2% ROOM AIR
[2020-03-02 15:57] LABS: ABG PCO2 37 mmhg (32-45); HCO3 ABG 21 mmol/l (22-26); PO2 ABG 72 mmhg (83-108); pH ABG 7.38 (7.35-7.45)
[2020-03-02 15:58] LABS: Base Excess ABG -3.3; Oxygen Saturation ABG 94.6 %
[2020-03-02 16:05] LABS: Glucose, Whole Blood 116 mg/dL (60-115)
[2020-03-02] MEDS: carvediloL 3.125 MG TABLET PO (20:40)
[2020-03-02] MEDS: cloZAPine 25 MG TABLET 50 MG PO (20:41)
[2020-03-02] MEDS: HaloperidoL 5 MG TABLET PO (20:44)
[2020-03-02] MEDS: traZODone HCL 100 MG TABLET PO (20:44)
[2020-03-02 20:45] LABS: Glucose, Whole Blood 52 mg/dL (60-115)
[2020-03-02] MEDS: Atorvastatin Calcium 10 MG TABLET PO (21:08)
--- NOTE | 2020-03-02 22:52 | PC.NURSE ---
Pt has been very restless and made several attempts to exit bed without assistance. She is able to get OOB easily and had to be redirected several times back to bed. Pt hears voices and has conversations with these voices. She states there are people in the room but is oriented and able to report where she is and why she is here, and will converse appropriately.
[2020-03-03] VITALS (11 sets, daily range): BP systolic 95–138; BP diastolic 53–74; PULSE 85–109; RESP 18–19; TEMP 35.8–37; O2SAT 94–97
[2020-03-03 01:41] LABS: Glucose, Whole Blood 130 mg/dL (60-115)
[2020-03-03] MEDS: Omeprazole 20 MG CAPSULE.DR PO (06:20)
[2020-03-03 06:32] LABS: MANUAL DIFF FLAG NO
[2020-03-03 07:05] LABS: Basophils Percent Auto 0.2 % (0-2); Hematocrit 39.3 % (37-47); Hemoglobin 11.9 g/dl (12.0-16.0); Imm Gran Abs Auto 0.19 X10*3/uL (0.00-0.03); Lymphocytes Absolute Auto 1.3 X10*3/uL (1.2-4.9); Lymphocytes Percent Auto 20.5 % (20-40); Mean Corpuscular HGB Conc 30.3 g/dl (31.0-35.0); Mean Corpuscular Hemoglobin 29.2 pg (27.0-33.0); Mean Corpuscular Volume 96.6 fL (80-98); Mean Platelet Volume 9.9 fL (9.4-12.3); Monocytes Absolute Auto 0.5 X10*3/uL (0.1-1.2); Monocytes Percent Auto 7.4 % (2-11); Neutrophils Absolute Auto 4.3 X10*3/uL (2.0-8.3); Neutrophils Percent Auto 68.9 % (45-73); Platelet Count 295 X10*3/uL (160-400); Red Blood Count 4.07 X10*6/uL (4.20-5.50); Red Cell Distribution Width 14.6 % (11.0-16.0); White Blood Count 6.2 X10*3/uL (4.8-10.8)
[2020-03-03 07:28] LABS: Glucose, Whole Blood 108 mg/dL (60-115)
[2020-03-03] MEDS: Albuterol/Iprat 2.5/0.5MG 3 ML AMPUL.NEB INHALE ×3 (07:41→19:59)
[2020-03-03] MEDS: Fluticasone/Vilanterol 100/25 BLST.W.DEV 1 PUFF INHALE (07:43)
[2020-03-03 08:10] LABS: Anion Gap 15 (12-20); Blood Urea Nitrogen 26 mg/dL (9-16); Calcium 10.4 mg/dL (8.4-10.2); Carbon Dioxide 21 mmol/L (22-29); Chloride 108 mmol/L (96-108); Creatinine Clr Calc Pharmacy 45.2; Estimated Glomerular Filt Rate > 60; Glucose Random 122 mg/dL (60-115); Potassium 5.9 mmol/l (3.3-5.1); Sodium 138 mmol/L (135-145)
[2020-03-03] MEDS: Heparin Sodium,Porcine 5,000 UNIT/ML VIAL 5000 UNIT SUBCUT ×2 (09:02→21:36)
[2020-03-03] MEDS: methIMAzole 10 MG TABLET PO (09:03)
[2020-03-03] MEDS: Valproic Acid 250 MG CAPSULE 750 MG PO ×2 (09:03→21:36)
[2020-03-03] MEDS: Cholecalciferol (Vitamin D3) 25 MCG TABLET 50 MCG PO (09:03)
[2020-03-03] MEDS: metFORMIN HCl 500 MG TABLET PO ×2 (09:04→21:36)
[2020-03-03] MEDS: Benztropine Mesylate 1 MG TABLET PO ×2 (09:04→21:36)
[2020-03-03] MEDS: Ascorbic Acid 500 MG TABLET PO ×2 (09:04→21:36)
[2020-03-03] MEDS: glipiZIDE XL 2.5 MG TAB.ER.24 PO (09:04)
[2020-03-03] MEDS: carvediloL 3.125 MG TABLET PO ×2 (09:04→21:36)
[2020-03-03] MEDS: Ferrous Sulfate 324 MG TABLET.DR PO ×2 (09:04→21:36)
[2020-03-03] MEDS: Mirabegron 50 MG TAB.ER.24H PO (09:04)
[2020-03-03] MEDS: 0.9 % Sodium Chloride Flush 3 ML SYRINGE IVFLUSH ×2 (09:09→16:55)
[2020-03-03 09:10] LABS: Potassium 4.9 mmol/l (3.3-5.1)
--- NOTE | 2020-03-03 11:03 | P.DS_ITS ---
DS: Providers Provider Date of admission: 02/28/20 19:40 Primary care physician: Valery Kilpatrick MD Consults: 02/29/20 07:48 Consult to Pulmonology Routine Consulting Provider: Chaparro Allan Reason for consultation: Pneumonia/copd exceerbation , lung ca Has provider been notified: No 02/29/20 07:49 Consult to Infectious Diseases Routine Consulting Provider: Chary Hutchins Reason for consultation: lung ca/ pneumonia/ hx of cdiff Has provider been notified: No DS: Diagnosis Discharge Diagnosis (1) Pneumonia: Status: Acute (2) Pleural effusion: Status: Acute Problem details: Likely malignant from progression of her cancer. (3) Acute exacerbation of chronic obstructive pulmonary disease: Status: Acute Problem details: Likely infectious process exacerbating the breathing. Although, the immune therapy for her cancer can also resulting worsening respiratory since DS: Medications Discharge Medications Home Medications: Home Medications Medication Instructions Recorded Confirmed Opdivo 240 mg IV Q2W 01/04/20 02/28/20 acetaminophen 650 mg PO Q6H PRN 01/04/20 02/28/20 albuterol 90 mcg INHALATION Q6H PRN 01/04/20 02/28/20 ascorbic acid (vitamin C) [Vitamin 500 mg PO BID 01/04/20 02/28/20 C] aspirin 81 mg PO DAILY 01/04/20 02/29/20 benztropine 1 mg PO BID 01/04/20 02/28/20 carvedilol [Coreg] 3.125 mg PO BID 01/04/20 02/28/20 cholecalciferol (vitamin D3) 50 mcg PO DAILY 01/04/20 02/28/20 [Vitamin D3] clozapine [Clozaril] 50 mg PO BEDTIME 01/04/20 02/28/20 ferrous sulfate 325 mg PO BID 01/04/20 02/28/20 fluticasone propion-salmeterol 1 inh INHALATION BID 01/04/20 02/28/20 [Advair Diskus] haloperidol 5 mg PO BEDTIME 01/04/20 02/28/20 mirabegron 50 mg PO DAILY 01/04/20 02/28/20 trazodone 100 mg PO BEDTIME 01/04/20 02/28/20 valproic acid 750 mg PO BID 01/04/20 02/28/20 estradiol [Estrace] 1 g VAGINAL BEDTIME 01/31/20 02/28/20 glipizide 1 tab PO DAILY 02/28/20 02/28/20 Previous Rx's Medication Instructions Recorded omeprazole 20 mg capsule,delayed 20 mg PO QAM #30 cap 01/02/20 release atorvastatin 10 mg tablet 10 mg PO BEDTIME #30 tab 01/23/20 methimazole 10 mg tablet 10 mg PO DAILY 30 Days #30 tab 02/07/20 blood sugar diagnostic #150 ea 02/13/20 metformin 500 mg tablet 500 mg PO BID 30 Days #60 tab 02/13/20 alendronate 35 mg tablet 35 mg PO QWEEK #4 tab 02/27/20 cefuroxime axetil 500 mg PO BID 5 Days #10 tab 03/03/20 prednisone 20 mg PO DAILY #5 tab 03/03/20 DS: Summary Time Spent with Patient Time attestation: Total time spent providing and/or coordinating discharge services: Physical Exam Vital Signs: Vital Signs: Last Vital Signs Temp 97.4 F 03/03/20 07:57 Pulse 93 03/03/20 09:04 Resp 18 03/03/20 07:57 BP 113/74 03/03/20 09:04 Pulse Ox 97 03/03/20 07:57 Body Mass Index 19.3 DS: Data Data Completed and Pending Pending studies at discharge: Pending at discharge 02/29/20 09:21 Cytology [PTH] Routine 02/29/20 16:58 Cytology [PTH] Urgent Labs on day of discharge: 02/28/20 13:27 0.9 % Sodium Chloride [Ns] 1,000 ml IV 1,000 mls/hr 02/28/20 13:28 ECG 12 lead EKG Stat EKG Documentation DIRECTED XR chest 1V Stat 02/28/20 14:16 SARS-CoV2/FLU/RSV Stat 02/28/20 14:35 Urine Culture Routine 02/28/20 15:45 B Type Natriuretic Peptide Stat Partial Thromboplastin Time Stat Procalcitonin Stat Prothrombin Time INR Stat Troponin-I High Sensitivity Stat 02/28/20 15:46 Lactate Dehydrogenase Stat Lactic Acid Stat 02/28/20 16:06 CT chest wo con Stat levoFLOXacin/D5W [Levaquin] 750 mg in 150 ml IV ONCE 02/28/20 17:39 Albuterol Sulfate [Ventolin] 4 puff INHALE ONCE ONE methylPREDNISolone Sod Succ/PF [SOLU-MedroL] 125 mg IVPUSH ONCE ONE 02/28/20 19:35 Transfer Order Routine 02/29/20 XR chest 1V Stat Routine Culture w Gram Stain Routine US thoracentesis Routine 02/29/20 05:34 alendronate 35 mg PO [place] levoFLOXacin/D5W [Levaquin] 500 mg in 100 ml IV Q24H 02/29/20 05:34 Vital Signs Q4H 02/29/20 08:00 levoFLOXacin/D5W [Levaquin] 500 mg in 100 ml IV Q24H 02/29/20 09:21 Vital Signs Q4H 02/29/20 09:32 Vital Signs Q4H 02/29/20 Breakfast Low Sodium Diet 02/29/20 10:18 Lactate Dehydrogenase Routine 02/29/20 12:01 pH Pleural Fluid Routine Lidocaine HCl 1 % MPF [Xylocaine 1 % MPF] 5 ml SUBCUT ONCE ONE 02/29/20 12:37 Glucose, Whole Blood Routine 02/29/20 12:57 Cell Count w Diff Pleural Fld Routine Glucose Pleural Fluid Routine Total Protein Pleural Fluid Routine 02/29/20 16:34 Glucose, Whole Blood Routine 02/29/20 18:13 Add Laboratory Test Stat 02/29/20 21:11 Glucose, Whole Blood Routine 03/01/20 07:33 Glucose, Whole Blood Routine 03/01/20 11:44 Glucose, Whole Blood Routine 03/01/20 20:47 Glucose, Whole Blood Routine 03/02/20 07:59 Glucose, Whole Blood Routine 03/02/20 08:29 Basic Metabolic Panel Routine Complete Blood Count Auto Diff Routine SLIDE REVIEW Routine 03/02/20 11:25 Glucose, Whole Blood Routine 03/02/20 15:43 Arterial Blood Gas Routine 03/02/20 15:58 Glucose, Whole Blood Routine 03/02/20 19:37 Albuterol/Iprat 2.5/0.5MG 3 ML [Duoneb] 3 ml INHALE .STK-MED ONE 03/02/20 20:35 Glucose, Whole Blood Routine 03/03/20 01:38 Glucose, Whole Blood Routine 03/03/20 05:50 Basic Metabolic Panel DAILY@0600 Complete Blood Count Auto Diff DAILY@0600 03/03/20 07:16 Glucose, Whole Blood Routine 03/03/20 08:35 Potassium Stat Laboratory Last Values WBC 6.2 X10*3/uL (4.8-10.8) 03/03/20 05:50 RBC 4.07 X10*6/uL (4.20-5.50) L 03/03/20 05:50 Hgb 11.9 g/dl (12.0-16.0) L 03/03/20 05:50 Hct 39.3 % (37-47) 03/03/20 05:50 MCV 96.6 fL (80-98) 03/03/20 05:50 MCH 29.2 pg (27.0-33.0) 03/03/20 05:50 MCHC 30.3 g/dl (31.0-35.0) L 03/03/20 05:50 RDW 14.6 % (11.0-16.0) 03/03/20 05:50 Plt Count 295 X10*3/uL (160-400) 03/03/20 05:50 MPV 9.9 fL (9.4-12.3) 03/03/20 05:50 Immature Gran % (Auto) 3.0 % (0.0-0.4) H 03/03/20 05:50 Neut % (Auto) 68.9 % (45-73) 03/03/20 05:50 Lymph % (Auto) 20.5 % (20-40) 03/03/20 05:50 [place] % (Auto) 7.4 % (2-11) 03/03/20 05:50 Eos % (Auto) 0.0 % (0-4) 03/03/20 05:50 Baso % (Auto) 0.2 % (0-2) 03/03/20 05:50 Lymph # (Auto) 1.3 X10*3/uL (1.2-4.9) 03/03/20 05:50 [place] # (Auto) 0.5 X10*3/uL (0.1-1.2) 03/03/20 05:50 Eos # (Auto) 0.0 X10*3/uL (0.0-0.4) 03/03/20 05:50 Baso # (Auto) 0.0 X10*3/uL (0.0-0.2) 03/03/20 05:50 Abs Immat Gran (auto) 0.19 X10*3/uL (0.00-0.03) H 03/03/20 05:50 Absolute Neuts (auto) 4.3 X10*3/uL (2.0-8.3) 03/03/20 05:50 Absolute Nucleated RBC 0.000 X10*3/uL (0.0-0.012) 03/03/20 05:50 Nucleated RBC % (auto) 0.0 /100WBC (0.0-0.2) 03/03/20 05:50 Smear Tech's Comments VERIFIED 03/02/20 08:29 PT 17.6 SEC (10.8-13.0) H 02/28/20 15:45 INR 1.5 (0.9-1.1) H 02/28/20 15:45 APTT 46.3 SEC (24.1-38.0) H 02/28/20 15:45 ABG pH 7.38 (7.35-7.45) 03/02/20 15:43 ABG pCO2 37 mmhg (32-45) 03/02/20 15:43 ABG pO2 72 mmhg (83-108) L 03/02/20 15:43 ABG HCO3 21 mmol/l (22-26) L 03/02/20 15:43 ABG O2 Saturation 94.6 % 03/02/20 15:43 ABG Base Excess -3.3 03/02/20 15:43 Oxygen Given ROOM AIR 03/02/20 15:43 Sodium 138 mmol/L (135-145) 03/03/20 05:50 Potassium 4.9 mmol/l (3.3-5.1) 03/03/20 08:35 Chloride 108 mmol/L (96-108) 03/03/20 05:50 Carbon Dioxide 21 mmol/L (22-29) L 03/03/20 05:50 Anion Gap 15 (-20) 03/03/20 05:50 BUN 26 mg/dL (9-16) H 03/03/20 05:50 Creatinine 0.89 mg/dL (0.5-1.4) 03/03/20 05:50 Estim Creat Clear Calc 45.2 03/03/20 05:50 Estimated GFR > 60 03/03/20 05:50 POC Glucose 108 mg/dL (60-115) 03/03/20 07:16 Random Glucose 122 mg/dL (60-115) H 03/03/20 05:50 Lactic Acid 0.8 mmol/L (0.5-2.0) 02/28/20 15:46 Calcium 10.4 mg/dL (8.4-10.2) H 03/03/20 05:50 Lactate Dehydrogenase 77 U/L (122-220) L 02/29/20 10:18 Troponin I High Sens < 3.5 ng/L (<3.5-17.0) 02/28/20 15:45 B-Natriuretic Peptide 48 pg/mL (<100) 02/28/20 15:45 Procalcitonin 0.11 ng/mL 02/28/20 15:45 Urine Color YELLOW 02/28/20 14:16 Urine Appearance CLOUDY 02/28/20 14:16 Urine pH 6.0 (5.0-8.0) 02/28/20 14:16 Ur Specific [place] 1.015 (1.005-1.025) 02/28/20 14:16 Urine Protein TRACE MG/DL (NEG-TRACE) 02/28/20 14:16 Urine Glucose (UA) NEG MG/DL (NEG) 02/28/20 14:16 Urine Ketones NEG MG/DL (NEG) 02/28/20 14:16 Urine Blood NEG (NEG) 02/28/20 14:16 Urine Nitrite NEG (NEG) 02/28/20 14:16 Ur Leukocyte Esterase 3+ (NEG) H 02/28/20 14:16 Urine RBC 1-4 /HPF (0) 02/28/20 14:16 Urine WBC 76-150 /HPF (0-4) H 02/28/20 14:16 Ur Squamous Epith Cells 3+ /LPF 02/28/20 14:16 Urine Bacteria 1+ /LPF 02/28/20 14:16 Pleural pH 7.38 02/29/20 12:01 Pleural WBC 0.361 X10*3/uL 02/29/20 12:57 Pleural RBC < 0.002 X10*3/uL 02/29/20 12:57 Pleural Neutrophils 10 % 02/29/20 12:57 Pleural Lymphocytes 2 % 02/29/20 12:57 Pleural Monocytes 8 % 02/29/20 12:57 Pleural Eosinophils 1 % 02/29/20 12:57 Pleural Other Cells 79 % 02/29/20 12:57 Pleural Total Protein 4.8 02/29/20 12:57 Pleural Glucose 175 02/29/20 12:57 Coronavirus (PCR) NEGATIVE (Negative) 02/28/20 14:16 Influenza Type A (PCR) NEGATIVE (Negative) 02/28/20 14:16 Influenza Type B (PCR) NEGATIVE (Negative) 02/28/20 14:16 RSV RNA Qual (PCR) NEGATIVE (Negative) 02/28/20 14:16 Preliminary micro results at discharge 02/28/20 16:31 Blood Culture - Preliminary Blood - Venous No growth after 48 hours. 02/28/20 15:45 Blood Culture - Preliminary Blood - Venous No growth after 48 hours. Discharge Plan Discharge Anticipated Discharge Date/Time: 03/03/20 11:01 Patient Disposition: Xfer Other Referrals: Valery Kilpatrick MD [Primary Care Provider] - Discharge Medications: New cefuroxime axetil 500 mg tablet 500 mg PO BID 5 Days Qty: 10 RF: 0 prednisone 20 mg tablet 20 mg PO DAILY Qty: 5 RF: 0 Continued omeprazole 20 mg capsule,delayed release(DR/EC) 20 mg PO QAM Qty: 30 RF: 6 atorvastatin 10 mg tablet 10 mg PO BEDTIME Qty: 30 RF: 5 methimazole 10 mg tablet 10 mg PO DAILY 30 Days Qty: 30 RF: 4 alendronate 35 mg tablet 35 mg PO QWEEK Qty: 4 RF: 5 haloperidol 5 mg Tablet 5 mg PO BEDTIME RF: 0 valproic acid 250 mg Capsule 750 mg PO BID RF: 0 acetaminophen 650 mg Tablet 650 mg PO Q6H PRN (Reason: Fever Or Pain) RF: 0 carvedilol [Coreg] 3.125 mg Tablet 3.125 mg PO BID RF: 0 ascorbic acid (vitamin C) [Vitamin C] 500 mg Tablet 500 mg PO BID RF: 0 trazodone 100 mg Tablet 100 mg PO BEDTIME RF: 0 ferrous sulfate 325 mg (65 mg iron) Tablet 325 mg PO BID RF: 0 benztropine 1 mg Tablet 1 mg PO BID RF: 0 aspirin 81 mg Tablet 81 mg PO DAILY RF: 0 albuterol 90 mcg/actuation Aerosol 90 mcg INHALATION Q6H PRN (Reason: Wheezing) RF: 0 fluticasone propion-salmeterol [Advair Diskus] 100-50 mcg/dose Blister With Device 1 inh INHALATION BID RF: 0 clozapine [Clozaril] 50 mg Tablet 50 mg PO BEDTIME RF: 0 cholecalciferol (vitamin D3) [Vitamin D3] 50 mcg (2,000 unit) Capsule 50 mcg PO DAILY RF: 0 mirabegron 50 mg Tablet Extended Release 24 Hr 50 mg PO DAILY RF: 0 Opdivo 240 mg/24 mL Solution 240 mg IV Q2W RF: 0 estradiol [Estrace] 0.01 % (0.1 mg/gram) cream 1 g vaginal BEDTIME RF: 0 glipizide 2.5 mg tablet extended release 24hr 1 tab PO DAILY RF: 0 metformin 500 mg tablet 500 mg PO BID 30 Days Qty: 60 RF: 5 No Action (DME) Contour Next Test Strips Strip See Rx Instructions .ROUTE .MEDSUPPLY Qty: 150 RF: 6 Discharge Orders: Discharge Order (Routine); Ordered 03/03/20 Ordered By: Julio Perez Diet: advance to usual diet Activity on Discharge: As tolerated Visit Report Forms: Patient Portal Discharge page Care Plan Goals: treat copd and pneumonia Health Concerns: pneumonia lung cancer Plan of Treatment: po antibiotics and small cell cancer
[2020-03-03 11:41] LABS: Glucose, Whole Blood 173 mg/dL (60-115)
[2020-03-03] MEDS: Insulin Lispro 100 UNIT/ML 3 ML VIAL SUBCUT (12:46)
--- NOTE | 2020-03-03 13:33 | MHC.CM.PN ---
CM called [facility] several times and left 3 VM messages at [phone]. MARY also left a VM for Christa, the director of [facility] ([phone]) informing her that the pt would be discharged today and that CM contacted pharmacy to ensure the meds were ready
--- NOTE | 2020-03-03 13:53 | MHC.CM.PN ---
CM called [facility] ([phone]) and spoke to the pharmacist who reports he has been trying to contact the [facility]ts [facility] all day to arrange for the [employer] of her meds. He reports no one has answered. He reports he will continue to try to reach [facility] staff and plans to be there until about 1500 hours. Of note, previous CM PN indicates the [facility] was having difficulty with their telephone/fax lines. CM will continue to attempt to contact [facility] staff
--- NOTE | 2020-03-03 15:39 | HO.PM.IMPN ---
Subjective Subjective Date of Service: 03/03/20 Interval History: pneumonia Review of Systems Patient seen and examined at bedside Patient reported feeling better Constitutional Constitutional: Reports fatigue, Reports lethargy, Reports malaise and Denies night sweats ENT Ears, Nose, Mouth, and Throat: Denies change in voice, Denies lip swelling, Denies mouth pain, Reports nasal congestion, Reports nasal discharge and Denies tongue swelling Cardiovascular Cardiovascular: Denies chest pain and Reports dyspnea Respiratory Respiratory: Reports cough, Reports pain on inspiration and Reports dyspnea Gastrointestinal Gastrointestinal: Denies abdominal pain Musculoskeletal Musculoskeletal: Denies no additional musculoskeletal complaints Neurologic Neurologic: Denies Neuro-related abnormal movements Psychiatric Psychiatric: Denies no additional psychiatric complaints Endocrine Endocrine: Reports fatigue Hematologic/Lymphatic Hematologic/Lymphatic: Denies easy bleeding and Denies lymphadenopathy Allergic/Immunologic Allergic/Immunologic: Denies lip swelling and Denies tongue swelling Physical Exam Vital Signs: Vital Signs: Last Vital Signs Temp 97.5 F 03/03/20 15:10 Pulse 100 03/03/20 15:10 Resp 19 03/03/20 15:10 BP 102/54 L 03/03/20 15:10 Pulse Ox 97 03/03/20 15:10 Body Mass Index 19.3 Const: General: cooperative and alert HENMT: Head: Yes normal to inspection General nose exam: Abnormal external nose present and Nasal discharge present Eyes: General: appearance normal, both eyes and all related structures Pupils: Equal, round and reactive pupils present Neck: Neck: Yes normal visual inspection, Yes full ROM and Yes no lymphadenopathy Chest: Chest palpation & inspection: normal inspection of the chest Resp: Effort & Inspection: normal respiratory effort Auscultation: diminished lung sounds Cardio: Rate: regular rate Rhythm: regular rhythm Heart sounds: S1 normal heart sound present and S2 normal heart sound present GI: Inspection: Yes normal to inspection Palpation (GI): Soft to palpation and nontender Auscultation: normal bowel sounds : General: Yes no CVA tenderness Back/Spine/Pelvis: Back: no CVA tenderness Skin: General skin exam: rashes and/or lesions noted Neuro: Cranial nerves: Yes Equal, round and reactive pupils present Extrem: General: Yes normal to inspection Objective Data Current Medications Generic Name Dose Route Start Last Admin Trade Name Freq PRN Reason Stop Dose Admin Acetaminophen 650 mg 02/29/20 05:34 Acetaminophen 325 Mg Tablet PO Q6H PRN Pain, Mild (Pain Scale 1-3) Albuterol/Ipratropium 3 ml 02/29/20 05:34 03/03/20 15:17 Albuterol/Iprat 2.5/0.5mg 3 Ml Ampul.Neb INHALE Not Given RQ4H WHILE AWAKE ANUJ Ascorbic Acid 500 mg 02/29/20 05:34 03/03/20 09:04 Ascorbic Acid 500 Mg Tablet PO 500 mg BID ANUJ Administration Atorvastatin Calcium 10 mg 02/29/20 05:34 03/02/20 21:08 Atorvastatin Calcium 10 Mg Tablet PO 10 mg BEDTIME ANUJ Administration Benztropine Mesylate 1 mg 02/29/20 05:34 03/03/20 09:04 Benztropine Mesylate 1 Mg Tablet PO 1 mg BID ANUJ Administration Carvedilol 3.125 mg 03/02/20 21:00 03/03/20 09:04 Carvedilol 3.125 Mg Tablet PO 3.125 mg BID ANUJ Administration Protocol Cefuroxime Axetil 250 mg 03/02/20 17:00 03/03/20 06:19 Cefuroxime Axetil 250 Mg Tablet PO 250 mg Q12H ANUJ Administration Clozapine 50 mg 02/29/20 21:00 03/02/20 20:41 Clozapine 25 Mg Tablet PO 50 mg BEDTIME ANUJ Administration Ferrous Sulfate 324 mg 02/29/20 09:00 03/03/20 09:04 Ferrous Sulfate 324 Mg Tablet.Dr PO 324 mg BID ANUJ Administration Fluticasone/Vilanterol 1 puff 02/29/20 09:00 03/03/20 07:43 Fluticasone/Vilanterol 100/25 Blst.W.Dev INHALE 1 puff DAILY ANUJ Administration Glipizide 2.5 mg 02/29/20 09:00 03/03/20 09:04 Glipizide Xl 2.5 Mg Tab.Er.24 PO 2.5 mg DAILY ANUJ Administration Haloperidol 5 mg 02/29/20 05:34 03/02/20 20:44 Haloperidol 5 Mg Tablet PO 5 mg BEDTIME ANUJ Administration Heparin Sodium (Porcine) 5,000 unit 02/29/20 22:00 03/03/20 09:02 Heparin Sodium,Porcine 5,000 Unit/Ml Vial SUBCUT 5,000 unit Q12H ANUJ Administration Insulin Human Lispro 0 unit 02/29/20 05:34 03/03/20 12:46 Insulin Lispro 100 Unit/Ml 3 Ml Vial SUBCUT 2 unit QIDACHS [facility] Administration Protocol Metformin HCl 500 mg 02/29/20 05:34 03/03/20 09:04 Metformin Hcl 500 Mg Tablet PO 500 mg BID ANUJ Administration Methimazole 10 mg 02/29/20 09:00 03/03/20 09:03 Methimazole 10 Mg Tablet PO 10 mg DAILY ANUJ Administration Methylprednisolone Sodium Succinate 40 mg 02/29/20 05:34 03/03/20 12:47 Methylprednisolone Sod Succ/Pf 40 Mg/Ml Vial IVPUSH 40 mg Q8H ANUJ Administration Mirabegron 50 mg 02/29/20 09:00 03/03/20 09:04 Mirabegron 50 Mg Tab.Er.24h PO 50 mg DAILY ANUJ Administration Omeprazole 20 mg 02/29/20 06:30 03/03/20 06:20 Omeprazole 20 Mg Capsule.Dr PO 20 mg DAILY@0630 [facility] Administration Ondansetron HCl 4 mg 02/29/20 05:34 Ondansetron Hcl 4 Mg/2 Ml Vial IVPUSH Q8H PRN Nausea and Vomiting Pharmacy Consult 1 each 02/28/20 18:48 Consult Rx Perform Med Rec MISCELLANE ONCE PRN Consult order Sodium Chloride 3 ml 02/29/20 05:34 03/03/20 09:09 0.9 % Sodium Chloride Flush 3 Ml Syringe IVFLUSH 3 ml QSHIFT [facility] Administration Trazodone HCl 100 mg 02/29/20 05:34 03/02/20 20:44 Trazodone Hcl 100 Mg Tablet PO 100 mg BEDTIME ANUJ Administration Valproic Acid 750 mg 02/29/20 05:34 03/03/20 09:03 Valproic Acid 250 Mg Capsule PO 750 mg BID [facility] Administration Vitamin D 50 mcg 02/29/20 09:00 03/03/20 09:03 Cholecalciferol (Vitamin D3) 25 Mcg Tablet PO 50 mcg DAILY [facility] Administration Labs CBC & Chem 7: 03/03/20 05:50 03/03/20 08:35 Microbiology Microbiology Results: Microbiology 02/29/20 Unknown Pleural Fluid Gram Stain - Final 02/29/20 Unknown Pleural Fluid Routine Culture - Final No growth after 2 days 02/28/20 16:31 Blood - Venous Blood Culture - Preliminary No growth after 48 hours. 02/28/20 15:45 Blood - Venous Blood Culture - Preliminary No growth after 48 hours. 02/28/20 14:35 Urine clean catch - Clean Catch Midstream Urine Culture - Final Assessment and Plan (1) Pneumonia: Status: Acute (2) Pleural effusion: Problem details: Likely malignant from progression of her cancer. Status: Acute (3) Acute exacerbation of chronic obstructive pulmonary disease: Problem details: Likely infectious process exacerbating the breathing. Although, the immune therapy for her cancer can also resulting worsening respiratory since Status: Acute Assessment and Plan: 69-year-old woman who is being admitted with chronic obstructive pulmonary disease exacerbation, urinary tract infection and pleural effusion. She possibly has a pneumonia to which may be better seen after her thoracentesis. Community-acquired pneumonia. resolving status post thoracentesis, Received IV Levaquin, switched to p.o. Ceftin continue supplemental oxygen as needed , pleural fluid seems more exudative blood culture and fluid culture negative Seen by infectious disease and pulmonary Urinary tract infection. received Levaquin urine culture grew multiple organism switch to p.o. Ceftin Chronic obstructive pulmonary disease exacerbation. improving Continue DuoNebs every 4hr hours while awake received IV Solu-Medrol. .Hyperthyroidism. Continue home medications. Diabetes mellitus continue sliding scale, ADA diet. Anemia. Continue iron supplementation Depression. Continue home medications. Hyperlipidemia. Continue statin. Gastroesophageal reflux disease. Continue PPI. DVT prophylaxis heparin subcu medically stable case management tried contacting intermediate multiple times , per case management no response from intermediate, possible discharge tomorrow
[2020-03-03 15:53] LABS: Glucose, Whole Blood 139 mg/dL (60-115)
--- NOTE | 2020-03-03 18:24 | PC.NURSE ---
Patient pulled out adame needle to left check port and placed on bedside table. Nursing supervisor/port director notified to obtain new adame needle to have port reaccessed.
[2020-03-03 20:54] LABS: Glucose, Whole Blood 211 mg/dL (60-115)
[2020-03-03] MEDS: cloZAPine 25 MG TABLET 50 MG PO (21:36)
[2020-03-03] MEDS: Atorvastatin Calcium 10 MG TABLET PO (21:36)
[2020-03-03] MEDS: HaloperidoL 5 MG TABLET PO (21:36)
[2020-03-03] MEDS: traZODone HCL 100 MG TABLET PO (21:36)
[2020-03-04] VITALS (12 sets, daily range): BP systolic 94–146; BP diastolic 52–80; PULSE 66–120; RESP 16–19; TEMP 36–36.9; O2SAT 93–98
--- NOTE | 2020-03-04 | XR_ITS ---
EXAMINATION: XR CHEST CLINICAL INFORMATION: Pleural effusion. Lung cancer. COMPARISON: Recent priors. CT scan of 02/27. TECHNIQUE: 2 views of the chest were obtained. FINDINGS: The left IJ Port-A-Cath remains in stable position with the tip at the level of the mid SVC. There is a residual small right pleural effusion status post thoracentesis. No pneumothorax. There is persistent patchy airspace opacity in the right mid and lower lung consistent with atelectasis and/or pneumonia. There is minimal patchy opacity at the left base. Heart size is normal. XR/XR chest 2V IMPRESSION: Small right pleural effusion status post thoracentesis. No pneumothorax. Persistent patchy airspace opacity right mid and lower lung with minimal patchy opacity at the left base.
[2020-03-04 06:21] LABS: MANUAL DIFF FLAG NO
[2020-03-04] MEDS: Omeprazole 20 MG CAPSULE.DR PO (06:40)
[2020-03-04 06:53] LABS: Basophils Percent Auto 0.2 % (0-2); Eosinophils Percent Auto 0.6 % (0-4); Hematocrit 36.1 % (37-47); Hemoglobin 10.8 g/dl (12.0-16.0); Imm Gran Abs Auto 0.26 X10*3/uL (0.00-0.03); Imm Gran Pct Auto 4.2 % (0.0-0.4); Lymphocytes Percent Auto 32.6 % (20-40); Mean Corpuscular HGB Conc 29.9 g/dl (31.0-35.0); Mean Corpuscular Hemoglobin 28.9 pg (27.0-33.0); Mean Corpuscular Volume 96.5 fL (80-98); Mean Platelet Volume 9.4 fL (9.4-12.3); Monocytes Absolute Auto 0.7 X10*3/uL (0.1-1.2); Neutrophils Absolute Auto 3.1 X10*3/uL (2.0-8.3); Neutrophils Percent Auto 50.4 % (45-73); Platelet Count 263 X10*3/uL (160-400); Red Blood Count 3.74 X10*6/uL (4.20-5.50); Red Cell Distribution Width 14.7 % (11.0-16.0); White Blood Count 6.2 X10*3/uL (4.8-10.8)
[2020-03-04 07:05] LABS: Anion Gap 12 (12-20); Blood Urea Nitrogen 29 mg/dL (9-16); Calcium 10.2 mg/dL (8.4-10.2); Carbon Dioxide 23 mmol/L (22-29); Chloride 109 mmol/L (96-108); Creatinine Clr Calc Pharmacy 51.6; Estimated Glomerular Filt Rate > 60; Glucose Random 73 mg/dL (60-115); Potassium 4.3 mmol/l (3.3-5.1); Sodium 140 mmol/L (135-145)
[2020-03-04] MEDS: Fluticasone/Vilanterol 100/25 BLST.W.DEV 1 PUFF INHALE (07:41)
[2020-03-04] MEDS: Albuterol/Iprat 2.5/0.5MG 3 ML AMPUL.NEB INHALE ×3 (07:41→19:50)
[2020-03-04] MEDS: glipiZIDE XL 2.5 MG TAB.ER.24 PO (08:12)
[2020-03-04] MEDS: Ferrous Sulfate 324 MG TABLET.DR PO ×2 (08:12→20:00)
[2020-03-04] MEDS: methIMAzole 10 MG TABLET PO (08:12)
[2020-03-04] MEDS: Cholecalciferol (Vitamin D3) 25 MCG TABLET 50 MCG PO (08:12)
[2020-03-04] MEDS: Valproic Acid 250 MG CAPSULE 750 MG PO ×2 (08:12→19:59)
[2020-03-04] MEDS: carvediloL 3.125 MG TABLET PO ×2 (08:12→20:01)
[2020-03-04] MEDS: Ascorbic Acid 500 MG TABLET PO ×2 (08:12→20:02)
[2020-03-04 08:13] LABS: Glucose, Whole Blood 65 mg/dL (60-115)
[2020-03-04] MEDS: metFORMIN HCl 500 MG TABLET PO ×2 (08:13→20:01)
[2020-03-04] MEDS: Benztropine Mesylate 1 MG TABLET PO ×2 (08:13→20:02)
[2020-03-04] MEDS: Mirabegron 50 MG TAB.ER.24H PO (08:13)
[2020-03-04 09:06] LABS: Procalcitonin 0.04 ng/mL
[2020-03-04] MEDS: Heparin Sodium,Porcine 5,000 UNIT/ML VIAL 5000 UNIT SUBCUT ×2 (09:42→20:03)
[2020-03-04] MEDS: predniSONE 20 MG TABLET 40 MG PO (09:43)
[2020-03-04 12:01] LABS: Glucose, Whole Blood 91 mg/dL (60-115)
--- NOTE | 2020-03-04 13:56 | HO.PM.IMPN ---
Subjective Subjective Date of Service: 03/04/20 Interval History: Cough/dyspnea improved Denies chest pain No fever Physical Exam Vital Signs: Vital Signs: Last Vital Signs Temp 97.1 F 03/04/20 07:26 Pulse 96 03/04/20 11:34 Resp 16 03/04/20 11:34 BP 102/52 L 03/04/20 11:34 Pulse Ox 95 03/04/20 11:34 Body Mass Index 19.3 Gen: in no acute distress HEENT: sclera anicteric, moist mucus membranes Neck: supple Lungs: lung sounds diminished at R base Heart: regular rate and rhythm, no murmurs Abd: soft, non-tender, non-distended Ext: no edema Skin: warm/well-perfused Neuro: alert and oriented x3, no focal findings Psych: tangential speech Objective Data Current Medications Generic Name Dose Route Start Last Admin Trade Name Freq PRN Reason Stop Dose Admin Acetaminophen 650 mg 02/29/20 05:34 Acetaminophen 325 Mg Tablet PO Q6H PRN Pain, Mild (Pain Scale 1-3) Albuterol/Ipratropium 3 ml 02/29/20 05:34 03/04/20 11:10 Albuterol/Iprat 2.5/0.5mg 3 Ml Ampul.Neb INHALE Not Given RQ4H WHILE AWAKE ANUJ Ascorbic Acid 500 mg 02/29/20 05:34 03/04/20 08:12 Ascorbic Acid 500 Mg Tablet PO 500 mg BID ANUJ Administration Atorvastatin Calcium 10 mg 02/29/20 05:34 03/03/20 21:36 Atorvastatin Calcium 10 Mg Tablet PO 10 mg BEDTIME ANUJ Administration Benztropine Mesylate 1 mg 02/29/20 05:34 03/04/20 08:13 Benztropine Mesylate 1 Mg Tablet PO 1 mg BID ANUJ Administration Carvedilol 3.125 mg 03/02/20 21:00 03/04/20 08:12 Carvedilol 3.125 Mg Tablet PO 3.125 mg BID ANUJ Administration Protocol Cefuroxime Axetil 250 mg 03/02/20 17:00 03/04/20 06:41 Cefuroxime Axetil 250 Mg Tablet PO 250 mg Q12H ANUJ Administration Clozapine 50 mg 02/29/20 21:00 03/03/20 21:36 Clozapine 25 Mg Tablet PO 50 mg BEDTIME ANUJ Administration Ferrous Sulfate 324 mg 02/29/20 09:00 03/04/20 08:12 Ferrous Sulfate 324 Mg Tablet. PO 324 mg BID ANUJ Administration Fluticasone/Vilanterol 1 puff 02/29/20 09:00 03/04/20 07:41 Fluticasone/Vilanterol 100/25 Blst.W.Dev INHALE 1 puff DAILY ANUJ Administration Glipizide 2.5 mg 02/29/20 09:00 03/04/20 08:12 Glipizide Xl 2.5 Mg Tab.Er.24 PO 2.5 mg DAILY ANUJ Administration Haloperidol 5 mg 02/29/20 05:34 03/03/20 21:36 Haloperidol 5 Mg Tablet PO 5 mg BEDTIME ANUJ Administration Heparin Sodium (Porcine) 5,000 unit 02/29/20 22:00 03/04/20 09:42 Heparin Sodium,Porcine 5,000 Unit/Ml Vial SUBCUT 5,000 unit Q12H ANUJ Administration Insulin Human Lispro 0 unit 02/29/20 05:34 03/04/20 12:03 Insulin Lispro 100 Unit/Ml 3 Ml Vial SUBCUT Not Given [facility] Protocol Metformin HCl 500 mg 02/29/20 05:34 03/04/20 08:13 Metformin Hcl 500 Mg Tablet PO 500 mg BID ANUJ Administration Methimazole 10 mg 02/29/20 09:00 03/04/20 08:12 Methimazole 10 Mg Tablet PO 10 mg DAILY ANUJ Administration Mirabegron 50 mg 02/29/20 09:00 03/04/20 08:13 Mirabegron 50 Mg Tab.Er.24h PO 50 mg DAILY ANUJ Administration Omeprazole 20 mg 02/29/20 06:30 03/04/20 06:40 Omeprazole 20 Mg Capsule. PO 20 mg DAILY@0630 [facility] Administration Ondansetron HCl 4 mg 02/29/20 05:34 Ondansetron Hcl 4 Mg/2 Ml Vial IVPUSH Q8H PRN Nausea and Vomiting Pharmacy Consult 1 each 02/28/20 18:48 Consult Rx Perform Med Rec MISCELLANE ONCE PRN Consult order Prednisone 40 mg 03/04/20 09:00 03/04/20 09:43 Prednisone 20 Mg Tablet PO 40 mg DAILY ANUJ Administration Sodium Chloride 3 ml 02/29/20 05:34 03/04/20 08:11 0.9 % Sodium Chloride Flush 3 Ml Syringe IVFLUSH Not Given QSHIFT ANUJ Trazodone HCl 100 mg 02/29/20 05:34 03/03/20 21:36 Trazodone Hcl 100 Mg Tablet PO 100 mg BEDTIME ANUJ Administration Valproic Acid 750 mg 02/29/20 05:34 03/04/20 08:12 Valproic Acid 250 Mg Capsule PO 750 mg BID ANUJ Administration Vitamin D 50 mcg 02/29/20 09:00 03/04/20 08:12 Cholecalciferol (Vitamin D3) 25 Mcg Tablet PO 50 mcg DAILY ANUJ Administration Labs CBC & Chem 7: 03/04/20 06:00 03/04/20 06:00 Labs: Impressions Chest X-Ray 03/04/20 00:00 IMPRESSION: Small right pleural effusion status post thoracentesis. No pneumothorax. Persistent patchy airspace opacity right mid and lower lung with minimal patchy opacity at the left base. Laboratory Results - last 24 hr 03/03/20 03/03/20 03/04/20 15:43 20:51 06:00 WBC 6.2 RBC 3.74 L Hgb 10.8 L Hct 36.1 L MCV 96.5 MCH 28.9 MCHC 29.9 L RDW 14.7 Plt Count 263 MPV 9.4 Immature Gran % (Auto) 4.2 H Neut % (Auto) 50.4 Lymph % (Auto) 32.6 [place] % (Auto) 12.0 H Eos % (Auto) 0.6 Baso % (Auto) 0.2 Lymph # (Auto) 2.0 [place] # (Auto) 0.7 Eos # (Auto) 0.0 Baso # (Auto) 0.0 Abs Immat Gran (auto) 0.26 H Absolute Neuts (auto) 3.1 Absolute Nucleated RBC 0.000 Nucleated RBC % (auto) 0.0 Sodium Potassium Chloride Carbon Dioxide Anion Gap BUN Creatinine Estim Creat Clear Calc Estimated GFR POC Glucose 139 H 211 H Random Glucose Calcium Procalcitonin 03/04/20 03/04/20 03/04/20 06:00 06:00 08:09 WBC RBC Hgb Hct MCV MCH MCHC RDW Plt Count MPV Immature Gran % (Auto) Neut % (Auto) Lymph % (Auto) [place] % (Auto) Eos % (Auto) Baso % (Auto) Lymph # (Auto) [place] # (Auto) Eos # (Auto) Baso # (Auto) Abs Immat Gran (auto) Absolute Neuts (auto) Absolute Nucleated RBC Nucleated RBC % (auto) Sodium 140 Potassium 4.3 Chloride 109 H Carbon Dioxide 23 Anion Gap 12 BUN 29 H Creatinine 0.78 Estim Creat Clear Calc 51.6 Estimated GFR > 60 POC Glucose 65 Random Glucose 73 D Calcium 10.2 Procalcitonin 0.04 03/04/20 11:55 WBC RBC Hgb Hct MCV MCH MCHC RDW Plt Count MPV Immature Gran % (Auto) Neut % (Auto) Lymph % (Auto) [place] % (Auto) Eos % (Auto) Baso % (Auto) Lymph # (Auto) [place] # (Auto) Eos # (Auto) Baso # (Auto) Abs Immat Gran (auto) Absolute Neuts (auto) Absolute Nucleated RBC Nucleated RBC % (auto) Sodium Potassium Chloride Carbon Dioxide Anion Gap BUN Creatinine Estim Creat Clear Calc Estimated GFR POC Glucose 91 Random Glucose Calcium Procalcitonin Microbiology Microbiology Results: Microbiology 02/29/20 Unknown Pleural Fluid Gram Stain - Final 02/29/20 Unknown Pleural Fluid Routine Culture - Final No growth after 2 days 02/28/20 16:31 Blood - Venous Blood Culture - Preliminary No growth after 48 hours. 02/28/20 15:45 Blood - Venous Blood Culture - Preliminary No growth after 48 hours. 02/28/20 14:35 Urine clean catch - Clean Catch Midstream Urine Culture - Final Assessment and Plan (1) Pneumonia: Status: Acute (2) Pleural effusion: Problem details: Likely malignant from progression of her cancer. Status: Acute (3) Acute exacerbation of chronic obstructive pulmonary disease: Problem details: Likely infectious process exacerbating the breathing. Although, the immune therapy for her cancer can also resulting worsening respiratory since Status: Acute Assessment and Plan: hospital d#6 for 69yo F with NSCLC, COPD admitted from Oncology clinic due to pleural effusion and COPD exacerbation # pleural effusion - s/p thoracentesis 02/29/20, exudate, culture-negative, cytology pending - should have repeat CXR as outpt in 1-2 wk to monitor for fluid reaccumulation # COPD exacerbation - taper steroids- change IV to PO, continue nebulized YESIKA/NELSON + controller ICS/LABA # CAP - continue cefuroxime d#3, previously had 3d of levofloxacin # acute hypoxic respiratory failure - resolved, off supplemental O2 # UTI - UCx contaminated, getting ABX for CAP # NSCLC - will need Oncology f/u to resume immune-based chemotherapy with nivolumab # HTN - continue carvedilol # hyperthyroidism - continue MMZ # DM2 - correction-dose lispro; continue GPZ + MTF # HLD - continue statin # GERD - continue PPI # INA - continue Fe supplementation # psychiatric disorder - continue clozapine, haloperidol, benztropine, valproate # VTE ppx - continue UFH # dispo - awaiting response from shelter and their pharmacy doesn't open until tomorrow
[2020-03-04 16:12] LABS: Glucose, Whole Blood 107 mg/dL (60-115)
[2020-03-04 19:55] LABS: Glucose, Whole Blood 67 mg/dL (60-115)
[2020-03-04] MEDS: HaloperidoL 5 MG TABLET PO (20:00)
[2020-03-04] MEDS: cloZAPine 25 MG TABLET 50 MG PO (20:00)
[2020-03-04] MEDS: Atorvastatin Calcium 10 MG TABLET PO (20:00)
[2020-03-04] MEDS: traZODone HCL 100 MG TABLET PO (20:01)
[2020-03-05 03:10] VITALS: BP 98/74; PULSE 105; RESP 18; TEMP 36.9; O2SAT 95
[2020-03-05] MEDS: Omeprazole 20 MG CAPSULE.DR PO (04:12)
[2020-03-05 05:59] LABS: MANUAL DIFF FLAG NO
[2020-03-05 06:04] LABS: Basophils Percent Auto 0.3 % (0-2); Eosinophils Absolute Auto 0.1 X10*3/uL (0.0-0.4); Hematocrit 38.2 % (37-47); Hemoglobin 11.7 g/dl (12.0-16.0); Imm Gran Abs Auto 0.29 X10*3/uL (0.00-0.03); Imm Gran Pct Auto 3.3 % (0.0-0.4); Lymphocytes Absolute Auto 2.1 X10*3/uL (1.2-4.9); Lymphocytes Percent Auto 24.2 % (20-40); Mean Corpuscular HGB Conc 30.6 g/dl (31.0-35.0); Mean Corpuscular Hemoglobin 29.3 pg (27.0-33.0); Mean Corpuscular Volume 95.7 fL (80-98); Mean Platelet Volume 9.3 fL (9.4-12.3); Monocytes Absolute Auto 1.2 X10*3/uL (0.1-1.2); Monocytes Percent Auto 13.9 % (2-11); Neutrophils Absolute Auto 5.1 X10*3/uL (2.0-8.3); Neutrophils Percent Auto 57.3 % (45-73); Platelet Count 261 X10*3/uL (160-400); Red Blood Count 3.99 X10*6/uL (4.20-5.50); Red Cell Distribution Width 14.5 % (11.0-16.0); White Blood Count 8.9 X10*3/uL (4.8-10.8)
[2020-03-05 06:35] LABS: Anion Gap 12 (12-20); Blood Urea Nitrogen 21 mg/dL (9-16); Calcium 10.3 mg/dL (8.4-10.2); Carbon Dioxide 25 mmol/L (22-29); Chloride 106 mmol/L (96-108); Creatinine Clr Calc Pharmacy 52.3; Estimated Glomerular Filt Rate > 60; Glucose Random 88 mg/dL (60-115); Potassium 4.3 mmol/l (3.3-5.1); Sodium 139 mmol/L (135-145)
[2020-03-05] MEDS: Albuterol/Iprat 2.5/0.5MG 3 ML AMPUL.NEB INHALE ×2 (07:38→11:41)
[2020-03-05 07:42] VITALS: PULSE 113; O2SAT 91
[2020-03-05] MEDS: Fluticasone/Vilanterol 100/25 BLST.W.DEV 1 PUFF INHALE (07:44)
[2020-03-05 07:45] VITALS: PULSE 113; O2SAT 91
[2020-03-05 07:46] LABS: Glucose, Whole Blood 71 mg/dL (60-115)
[2020-03-05 08:00] VITALS: BP 94/57; PULSE 122; RESP 18; TEMP 36.2; O2SAT 95
--- NOTE | 2020-03-05 08:31 | MHC.CM.PN ---
MARY contacted pts detention ([phone]) and spoke to Peyman. MARY explained pt was cleared to DC over the weekend however there was no answer at the detention. Peyman reported the detention telephone had not been working. Peyman reported someone could pick the pt up this morning as well as the pts prescriptions that are at [facility]. Peyman also requested pts med forms be signed by the MD per [facility] requirements. Initially the DC was set for 1000 hours however, MARY called back shortly after and spoke to Shantel. DC moved to 1200 hours. Pt will discharge back to detention at 1200 hours today. jail staff will transport.
[2020-03-05] MEDS: Valproic Acid 250 MG CAPSULE 750 MG PO (09:05)
[2020-03-05] MEDS: Mirabegron 50 MG TAB.ER.24H PO (09:05)
[2020-03-05] MEDS: predniSONE 20 MG TABLET 40 MG PO (09:05)
[2020-03-05] MEDS: metFORMIN HCl 500 MG TABLET PO (09:05)
[2020-03-05] MEDS: Benztropine Mesylate 1 MG TABLET PO (09:05)
[2020-03-05] MEDS: glipiZIDE XL 2.5 MG TAB.ER.24 PO (09:05)
[2020-03-05] MEDS: Ferrous Sulfate 324 MG TABLET.DR PO (09:05)
[2020-03-05] MEDS: Cholecalciferol (Vitamin D3) 25 MCG TABLET 50 MCG PO (09:05)
[2020-03-05] MEDS: methIMAzole 10 MG TABLET PO (09:06)
[2020-03-05] MEDS: Ascorbic Acid 500 MG TABLET PO (09:06)
[2020-03-05] MEDS: Heparin Sodium,Porcine 5,000 UNIT/ML VIAL 5000 UNIT SUBCUT (09:10)
[2020-03-05] MEDS: carvediloL 3.125 MG TABLET PO (10:05)
--- NOTE | 2020-03-05 10:22 | PC.NURSE ---
Pt BP 94/57, pulse 122. Scheduled coreg due at 0900. Dr. Chavarria made aware. Stated to give scheduled coreg. Coreg given. Will continue to monitor.
--- NOTE | 2020-03-05 11:05 | MHC.CM.PN ---
per MD request, MARY contacted pts [facility] and changed DC time to 1430 hours. retirement staff member, Kori, reported they would be able to pick pt up at that time.
[2020-03-05 11:32] LABS: Glucose, Whole Blood 118 mg/dL (60-115)
[2020-03-05 11:48] VITALS: PULSE 110; O2SAT 93
[2020-03-05 12:00] VITALS: BP 100/68; PULSE 113; RESP 18; TEMP 37.2; O2SAT 96
--- NOTE | 2020-03-05 13:13 | P.DS_ITS ---
DS: Providers Provider Date of admission: 02/28/20 19:40 Primary care physician: Valery Kilpatrick MD Consults: 02/29/20 07:48 Consult to Pulmonology Routine Consulting Provider: Chaparro Allan Reason for consultation: Pneumonia/copd exceerbation , lung ca Has provider been notified: No 02/29/20 07:49 Consult to Infectious Diseases Routine Consulting Provider: Chary Hutchins Reason for consultation: lung ca/ pneumonia/ hx of cdiff Has provider been notified: No DS: Diagnosis Discharge Diagnosis (1) Pneumonia: Status: Acute (2) Pleural effusion: Status: Acute Problem details: Likely malignant from progression of her cancer. (3) Acute exacerbation of chronic obstructive pulmonary disease: Status: Acute Problem details: Likely infectious process exacerbating the breathing. Although, the immune therapy for her cancer can also resulting worsening respiratory since (4) Non-small cell carcinoma of lung: Status: Acute Problem details: The patient has nonoperable squamous cell carcinoma. 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 However, also likely has progression of the cancer. Currently taking immune therapy. The patient does carry a poor prognosis. Specially now with what appears to be progression of her cancer. (5) Acute respiratory failure with hypoxia: Status: Acute DS: Medications Discharge Medications Home Medications: Home Medications Medication Instructions Recorded Confirmed Opdivo 240 mg IV Q2W 01/04/20 02/28/20 acetaminophen 650 mg PO Q6H PRN 01/04/20 02/28/20 albuterol 90 mcg INHALATION Q6H PRN 01/04/20 02/28/20 ascorbic acid (vitamin C) [Vitamin 500 mg PO BID 01/04/20 02/28/20 C] aspirin 81 mg PO DAILY 01/04/20 02/29/20 benztropine 1 mg PO BID 01/04/20 02/28/20 carvedilol [Coreg] 3.125 mg PO BID 01/04/20 02/28/20 cholecalciferol (vitamin D3) 50 mcg PO DAILY 01/04/20 02/28/20 [Vitamin D3] clozapine [Clozaril] 50 mg PO BEDTIME 01/04/20 02/28/20 ferrous sulfate 325 mg PO BID 01/04/20 02/28/20 fluticasone propion-salmeterol 1 inh INHALATION BID 01/04/20 02/28/20 [Advair Diskus] haloperidol 5 mg PO BEDTIME 01/04/20 02/28/20 mirabegron 50 mg PO DAILY 01/04/20 02/28/20 trazodone 100 mg PO BEDTIME 01/04/20 02/28/20 valproic acid 750 mg PO BID 01/04/20 02/28/20 estradiol [Estrace] 1 g VAGINAL BEDTIME 01/31/20 02/28/20 glipizide 1 tab PO DAILY 02/28/20 02/28/20 Previous Rx's Medication Instructions Recorded omeprazole 20 mg capsule,delayed 20 mg PO QAM #30 cap 01/02/20 release atorvastatin 10 mg tablet 10 mg PO BEDTIME #30 tab 01/23/20 methimazole 10 mg tablet 10 mg PO DAILY 30 Days #30 tab 02/07/20 blood sugar diagnostic #150 ea 02/13/20 metformin 500 mg tablet 500 mg PO BID 30 Days #60 tab 02/13/20 alendronate 35 mg tablet 35 mg PO QWEEK #4 tab 02/27/20 cefuroxime axetil 500 mg PO BID 3 Days #6 tab 03/05/20 prednisone 20 mg PO daily x 2 days, then 10 mg PO daily x 2 days 03/05/20 #6 tab DS: Summary Hospital Course Hospital Course: From the admission history and physical by hospitalist JONI Allan, 02/28/20: A 69-year-old woman with multiple medical problems, who resides in a senior care, is presenting from her oncologist's office. She had a planned chemotherapy session. However, she appeared weak and lethargic. She also had an episode of urinary incontinence at her senior care this morning. She denies chest pain. She reported some mild shortness of breath with dry cough. She did not have a fever. Her coronavirus PCR was negative. No white blood cell count noted. She was noted to be anemic, which is chronic. AST was 62, ALT 38, alkaline phosphatase 322. Urinalysis showed 3+ leukocyte esterase and 76 to 150 wbc's with 1+ bacteria. She had a chest CT, which showed worsening disease in the right hemithorax with increasing airspace opacity and confluent density in the right perihilar lung and posterior medial right lung base. There appears to be increase in volume of the right pleural effusion extending around the entire right pleural space. She currently is under treatment for non-small cell lung cancer and being treated by [facility]. At this time, she appears that she has urinary tract infection and possible pneumonia, but she does have a large pleural effusion, which may need to get drained. She received Levaquin, a liter of IV fluids, Solu-Medrol, and albuterol. She will be admitted for further management and treatment of pneumonia and UTI. The patient was admitted to the [facility] [place]. She underwent thoracentesis 02/29/20 of exudative fluid that was culture-negative; cytology is pending at the time of discharge. She was treated with levofloxacin, followed by cefuroxime, for pneumonia. She was also treated with steroids for COPD exacerbation. She was weaned off of supplemental oxygen. She should follow up with her oncologist as schedule 03/13/20 to continue immune-based chemotherapy with nivolumab. She should have a repeat CXR at that time to ensure the pleural effusion has not reaccumulated excessively. Time Spent with Patient Time attestation: Total time spent providing and/or coordinating discharge services: 40 Physical Exam Vital Signs: Vital Signs: Last Vital Signs Temp 98.9 F 03/05/20 12:00 Pulse 113 H 03/05/20 12:00 Resp 18 03/05/20 12:00 BP 100/68 03/05/20 12:00 Pulse Ox 96 03/05/20 12:00 Body Mass Index 19.3 Gen: in no acute distress HEENT: sclera anicteric, moist mucus membranes Neck: supple Lungs: lung sounds diminished at R base Heart: regular rate and rhythm, no murmurs Abd: soft, non-tender, non-distended Ext: no edema Skin: warm/well-perfused Neuro: no focal findings Psych: tangential speech DS: Data Data Completed and Pending Completed studies during hospitalization [Text1]: Laboratory Tests 02/28/20 02/28/20 02/28/20 14:16 14:16 15:45 WBC RBC Hgb Hct MCV MCH MCHC RDW Plt Count MPV Immature Gran % (Auto) Neut % (Auto) Lymph % (Auto) Reagan % (Auto) Eos % (Auto) Baso % (Auto) Lymph # (Auto) Reagan # (Auto) Eos # (Auto) Baso # (Auto) Abs Immat Gran (auto) Absolute Neuts (auto) Absolute Nucleated RBC Nucleated RBC % (auto) Smear Tech's Comments PT INR APTT ABG pH ABG pCO2 ABG pO2 ABG HCO3 ABG O2 Saturation ABG Base Excess Oxygen Given Sodium Potassium Chloride Carbon Dioxide Anion Gap BUN Creatinine Estim Creat Clear Calc Estimated GFR POC Glucose Random Glucose Lactic Acid Calcium Lactate Dehydrogenase Troponin I High Sens B-Natriuretic Peptide Procalcitonin 0.11 Urine Color YELLOW Urine Appearance CLOUDY Urine pH 6.0 Ur Specific [place] 1.015 Urine Protein TRACE Urine Glucose (UA) NEG Urine Ketones NEG Urine Blood NEG Urine Nitrite NEG Ur Leukocyte Esterase 3+ H Urine RBC 1-4 Urine WBC 76-150 H Ur Squamous Epith Cells 3+ Urine Bacteria 1+ Pleural pH Pleural WBC Pleural RBC Pleural Neutrophils Pleural Lymphocytes Pleural Monocytes Pleural Eosinophils Pleural Other Cells Pleural Total Protein Pleural Glucose Coronavirus (PCR) NEGATIVE Influenza Type A (PCR) NEGATIVE Influenza Type B (PCR) NEGATIVE RSV RNA Qual (PCR) NEGATIVE 02/28/20 02/28/20 02/28/20 15:45 15:45 15:45 WBC RBC Hgb Hct MCV MCH MCHC RDW Plt Count MPV Immature Gran % (Auto) Neut % (Auto) Lymph % (Auto) Reagan % (Auto) Eos % (Auto) Baso % (Auto) Lymph # (Auto) Reagan # (Auto) Eos # (Auto) Baso # (Auto) Abs Immat Gran (auto) Absolute Neuts (auto) Absolute Nucleated RBC Nucleated RBC % (auto) Smear Tech's Comments PT 17.6 H INR 1.5 H APTT 46.3 H ABG pH ABG pCO2 ABG pO2 ABG HCO3 ABG O2 Saturation ABG Base Excess Oxygen Given Sodium Potassium Chloride Carbon Dioxide Anion Gap BUN Creatinine Estim Creat Clear Calc Estimated GFR POC Glucose Random Glucose Lactic Acid Calcium Lactate Dehydrogenase Troponin I High Sens < 3.5 B-Natriuretic Peptide 48 Procalcitonin Urine Color Urine Appearance Urine pH Ur Specific [place] Urine Protein Urine Glucose (UA) Urine Ketones Urine Blood Urine Nitrite Ur Leukocyte Esterase Urine RBC Urine WBC Ur Squamous Epith Cells Urine Bacteria Pleural pH Pleural WBC Pleural RBC Pleural Neutrophils Pleural Lymphocytes Pleural Monocytes Pleural Eosinophils Pleural Other Cells Pleural Total Protein Pleural Glucose Coronavirus (PCR) Influenza Type A (PCR) Influenza Type B (PCR) RSV RNA Qual (PCR) 02/28/20 02/28/20 02/29/20 15:46 15:46 10:18 WBC RBC Hgb Hct MCV MCH MCHC RDW Plt Count MPV Immature Gran % (Auto) Neut % (Auto) Lymph % (Auto) Reagan % (Auto) Eos % (Auto) Baso % (Auto) Lymph # (Auto) Reagan # (Auto) Eos # (Auto) Baso # (Auto) Abs Immat Gran (auto) Absolute Neuts (auto) Absolute Nucleated RBC Nucleated RBC % (auto) Smear Tech's Comments PT INR APTT ABG pH ABG pCO2 ABG pO2 ABG HCO3 ABG O2 Saturation ABG Base Excess Oxygen Given Sodium Potassium Chloride Carbon Dioxide Anion Gap BUN Creatinine Estim Creat Clear Calc Estimated GFR POC Glucose Random Glucose Lactic Acid 0.8 Calcium Lactate Dehydrogenase 87 L 77 L Troponin I High Sens B-Natriuretic Peptide Procalcitonin Urine Color Urine Appearance Urine pH Ur Specific [place] Urine Protein Urine Glucose (UA) Urine Ketones Urine Blood Urine Nitrite Ur Leukocyte Esterase Urine RBC Urine WBC Ur Squamous Epith Cells Urine Bacteria Pleural pH Pleural WBC Pleural RBC Pleural Neutrophils Pleural Lymphocytes Pleural Monocytes Pleural Eosinophils Pleural Other Cells Pleural Total Protein Pleural Glucose Coronavirus (PCR) Influenza Type A (PCR) Influenza Type B (PCR) RSV RNA Qual (PCR) 02/29/20 02/29/20 02/29/20 12:01 12:37 12:57 WBC RBC Hgb Hct MCV MCH MCHC RDW Plt Count MPV Immature Gran % (Auto) Neut % (Auto) Lymph % (Auto) Reagan % (Auto) Eos % (Auto) Baso % (Auto) Lymph # (Auto) Reagan # (Auto) Eos # (Auto) Baso # (Auto) Abs Immat Gran (auto) Absolute Neuts (auto) Absolute Nucleated RBC Nucleated RBC % (auto) Smear Tech's Comments PT INR APTT ABG pH ABG pCO2 ABG pO2 ABG HCO3 ABG O2 Saturation ABG Base Excess Oxygen Given Sodium Potassium Chloride Carbon Dioxide Anion Gap BUN Creatinine Estim Creat Clear Calc Estimated GFR POC Glucose 142 H Random Glucose Lactic Acid Calcium Lactate Dehydrogenase Troponin I High Sens B-Natriuretic Peptide Procalcitonin Urine Color Urine Appearance Urine pH Ur Specific [place] Urine Protein Urine Glucose (UA) Urine Ketones Urine Blood Urine Nitrite Ur Leukocyte Esterase Urine RBC Urine WBC Ur Squamous Epith Cells Urine Bacteria Pleural pH 7.38 Pleural WBC 0.361 Pleural RBC < 0.002 Pleural Neutrophils 10 Pleural Lymphocytes 2 Pleural Monocytes 8 Pleural Eosinophils 1 Pleural Other Cells 79 Pleural Total Protein Pleural Glucose Coronavirus (PCR) Influenza Type A (PCR) Influenza Type B (PCR) RSV RNA Qual (PCR) 02/29/20 02/29/20 02/29/20 12:57 16:34 21:11 WBC RBC Hgb Hct MCV MCH MCHC RDW Plt Count MPV Immature Gran % (Auto) Neut % (Auto) Lymph % (Auto) Reagan % (Auto) Eos % (Auto) Baso % (Auto) Lymph # (Auto) Reagan # (Auto) Eos # (Auto) Baso # (Auto) Abs Immat Gran (auto) Absolute Neuts (auto) Absolute Nucleated RBC Nucleated RBC % (auto) Smear Tech's Comments PT INR APTT ABG pH ABG pCO2 ABG pO2 ABG HCO3 ABG O2 Saturation ABG Base Excess Oxygen Given Sodium Potassium Chloride Carbon Dioxide Anion Gap BUN Creatinine Estim Creat Clear Calc Estimated GFR POC Glucose 221 H 190 H Random Glucose Lactic Acid Calcium Lactate Dehydrogenase Troponin I High Sens B-Natriuretic Peptide Procalcitonin Urine Color Urine Appearance Urine pH Ur Specific [place] Urine Protein Urine Glucose (UA) Urine Ketones Urine Blood Urine Nitrite Ur Leukocyte Esterase Urine RBC Urine WBC Ur Squamous Epith Cells Urine Bacteria Pleural pH Pleural WBC Pleural RBC Pleural Neutrophils Pleural Lymphocytes Pleural Monocytes Pleural Eosinophils Pleural Other Cells Pleural Total Protein 4.8 Pleural Glucose 175 Coronavirus (PCR) Influenza Type A (PCR) Influenza Type B (PCR) RSV RNA Qual (PCR) 03/01/20 03/01/20 03/01/20 07:33 11:44 20:47 WBC RBC Hgb Hct MCV MCH MCHC RDW Plt Count MPV Immature Gran % (Auto) Neut % (Auto) Lymph % (Auto) Reagan % (Auto) Eos % (Auto) Baso % (Auto) Lymph # (Auto) Reagan # (Auto) Eos # (Auto) Baso # (Auto) Abs Immat Gran (auto) Absolute Neuts (auto) Absolute Nucleated RBC Nucleated RBC % (auto) Smear Tech's Comments PT INR APTT ABG pH ABG pCO2 ABG pO2 ABG HCO3 ABG O2 Saturation ABG Base Excess Oxygen Given Sodium Potassium Chloride Carbon Dioxide Anion Gap BUN Creatinine Estim Creat Clear Calc Estimated GFR POC Glucose 174 H 186 H 124 H Random Glucose Lactic Acid Calcium Lactate Dehydrogenase Troponin I High Sens B-Natriuretic Peptide Procalcitonin Urine Color Urine Appearance Urine pH Ur Specific [place] Urine Protein Urine Glucose (UA) Urine Ketones Urine Blood Urine Nitrite Ur Leukocyte Esterase Urine RBC Urine WBC Ur Squamous Epith Cells Urine Bacteria Pleural pH Pleural WBC Pleural RBC Pleural Neutrophils Pleural Lymphocytes Pleural Monocytes Pleural Eosinophils Pleural Other Cells Pleural Total Protein Pleural Glucose Coronavirus (PCR) Influenza Type A (PCR) Influenza Type B (PCR) RSV RNA Qual (PCR) 03/02/20 03/02/20 03/02/20 07:59 08:29 08:29 WBC 5.8 RBC 3.45 L Hgb 10.0 L Hct 33.2 L MCV 96.2 MCH 29.0 MCHC 30.1 L RDW 14.4 Plt Count 275 MPV 9.4 Immature Gran % (Auto) 2.1 H Neut % (Auto) 82.4 H Lymph % (Auto) 11.7 L Reagan % (Auto) 3.6 Eos % (Auto) 0.0 Baso % (Auto) 0.2 Lymph # (Auto) 0.7 L Reagan # (Auto) 0.2 Eos # (Auto) 0.0 Baso # (Auto) 0.0 Abs Immat Gran (auto) 0.12 H Absolute Neuts (auto) 4.8 Absolute Nucleated RBC 0.000 Nucleated RBC % (auto) 0.0 Smear Tech's Comments VERIFIED PT INR APTT ABG pH ABG pCO2 ABG pO2 ABG HCO3 ABG O2 Saturation ABG Base Excess Oxygen Given Sodium 136 Potassium 4.4 Chloride 107 Carbon Dioxide 23 Anion Gap 10 L BUN 30 H D Creatinine 0.93 Estim Creat Clear Calc 43.3 Estimated GFR 60 POC Glucose 141 H Random Glucose 153 H Lactic Acid Calcium 10.4 H Lactate Dehydrogenase Troponin I High Sens B-Natriuretic Peptide Procalcitonin Urine Color Urine Appearance Urine pH Ur Specific [place] Urine Protein Urine Glucose (UA) Urine Ketones Urine Blood Urine Nitrite Ur Leukocyte Esterase Urine RBC Urine WBC Ur Squamous Epith Cells Urine Bacteria Pleural pH Pleural WBC Pleural RBC Pleural Neutrophils Pleural Lymphocytes Pleural Monocytes Pleural Eosinophils Pleural Other Cells Pleural Total Protein Pleural Glucose Coronavirus (PCR) Influenza Type A (PCR) Influenza Type B (PCR) RSV RNA Qual (PCR) 03/02/20 03/02/20 03/02/20 11:25 15:43 15:58 WBC RBC Hgb Hct MCV MCH MCHC RDW Plt Count MPV Immature Gran % (Auto) Neut % (Auto) Lymph % (Auto) Reagan % (Auto) Eos % (Auto) Baso % (Auto) Lymph # (Auto) Reagan # (Auto) Eos # (Auto) Baso # (Auto) Abs Immat Gran (auto) Absolute Neuts (auto) Absolute Nucleated RBC Nucleated RBC % (auto) Smear Tech's Comments PT INR APTT ABG pH 7.38 ABG pCO2 37 ABG pO2 72 L ABG HCO3 21 L ABG O2 Saturation 94.6 ABG Base Excess -3.3 Oxygen Given ROOM AIR Sodium Potassium Chloride Carbon Dioxide Anion Gap BUN Creatinine Estim Creat Clear Calc Estimated GFR POC Glucose 214 H 116 H Random Glucose Lactic Acid Calcium Lactate Dehydrogenase Troponin I High Sens B-Natriuretic Peptide Procalcitonin Urine Color Urine Appearance Urine pH Ur Specific [place] Urine Protein Urine Glucose (UA) Urine Ketones Urine Blood Urine Nitrite Ur Leukocyte Esterase Urine RBC Urine WBC Ur Squamous Epith Cells Urine Bacteria Pleural pH Pleural WBC Pleural RBC Pleural Neutrophils Pleural Lymphocytes Pleural Monocytes Pleural Eosinophils Pleural Other Cells Pleural Total Protein Pleural Glucose Coronavirus (PCR) Influenza Type A (PCR) Influenza Type B (PCR) RSV RNA Qual (PCR) 03/02/20 03/03/20 03/03/20 20:35 01:38 05:50 WBC 6.2 RBC 4.07 L Hgb 11.9 L Hct 39.3 MCV 96.6 MCH 29.2 MCHC 30.3 L RDW 14.6 Plt Count 295 MPV 9.9 Immature Gran % (Auto) 3.0 H Neut % (Auto) 68.9 Lymph % (Auto) 20.5 Reagan % (Auto) 7.4 Eos % (Auto) 0.0 Baso % (Auto) 0.2 Lymph # (Auto) 1.3 Reagan # (Auto) 0.5 Eos # (Auto) 0.0 Baso # (Auto) 0.0 Abs Immat Gran (auto) 0.19 H Absolute Neuts (auto) 4.3 Absolute Nucleated RBC 0.000 Nucleated RBC % (auto) 0.0 Smear Tech's Comments PT INR APTT ABG pH ABG pCO2 ABG pO2 ABG HCO3 ABG O2 Saturation ABG Base Excess Oxygen Given Sodium Potassium Chloride Carbon Dioxide Anion Gap BUN Creatinine Estim Creat Clear Calc Estimated GFR POC Glucose 52 L* 130 H Random Glucose Lactic Acid Calcium Lactate Dehydrogenase Troponin I High Sens B-Natriuretic Peptide Procalcitonin Urine Color Urine Appearance Urine pH Ur Specific [place] Urine Protein Urine Glucose (UA) Urine Ketones Urine Blood Urine Nitrite Ur Leukocyte Esterase Urine RBC Urine WBC Ur Squamous Epith Cells Urine Bacteria Pleural pH Pleural WBC Pleural RBC Pleural Neutrophils Pleural Lymphocytes Pleural Monocytes Pleural Eosinophils Pleural Other Cells Pleural Total Protein Pleural Glucose Coronavirus (PCR) Influenza Type A (PCR) Influenza Type B (PCR) RSV RNA Qual (PCR) 03/03/20 03/03/20 03/03/20 05:50 07:16 08:35 WBC RBC Hgb Hct MCV MCH MCHC RDW Plt Count MPV Immature Gran % (Auto) Neut % (Auto) Lymph % (Auto) Reagan % (Auto) Eos % (Auto) Baso % (Auto) Lymph # (Auto) Reagan # (Auto) Eos # (Auto) Baso # (Auto) Abs Immat Gran (auto) Absolute Neuts (auto) Absolute Nucleated RBC Nucleated RBC % (auto) Smear Tech's Comments PT INR APTT ABG pH ABG pCO2 ABG pO2 ABG HCO3 ABG O2 Saturation ABG Base Excess Oxygen Given Sodium 138 Potassium 5.9 H D 4.9 Chloride 108 Carbon Dioxide 21 L Anion Gap 15 BUN 26 H Creatinine 0.89 Estim Creat Clear Calc 45.2 Estimated GFR > 60 POC Glucose 108 Random Glucose 122 H Lactic Acid Calcium 10.4 H Lactate Dehydrogenase Troponin I High Sens B-Natriuretic Peptide Procalcitonin Urine Color Urine Appearance Urine pH Ur Specific [place] Urine Protein Urine Glucose (UA) Urine Ketones Urine Blood Urine Nitrite Ur Leukocyte Esterase Urine RBC Urine WBC Ur Squamous Epith Cells Urine Bacteria Pleural pH Pleural WBC Pleural RBC Pleural Neutrophils Pleural Lymphocytes Pleural Monocytes Pleural Eosinophils Pleural Other Cells Pleural Total Protein Pleural Glucose Coronavirus (PCR) Influenza Type A (PCR) Influenza Type B (PCR) RSV RNA Qual (PCR) 03/03/20 03/03/20 03/03/20 11:25 15:43 20:51 WBC RBC Hgb Hct MCV MCH MCHC RDW Plt Count MPV Immature Gran % (Auto) Neut % (Auto) Lymph % (Auto) Reagan % (Auto) Eos % (Auto) Baso % (Auto) Lymph # (Auto) Reagan # (Auto) Eos # (Auto) Baso # (Auto) Abs Immat Gran (auto) Absolute Neuts (auto) Absolute Nucleated RBC Nucleated RBC % (auto) Smear Tech's Comments PT INR APTT ABG pH ABG pCO2 ABG pO2 ABG HCO3 ABG O2 Saturation ABG Base Excess Oxygen Given Sodium Potassium Chloride Carbon Dioxide Anion Gap BUN Creatinine Estim Creat Clear Calc Estimated GFR POC Glucose 173 H 139 H 211 H Random Glucose Lactic Acid Calcium Lactate Dehydrogenase Troponin I High Sens B-Natriuretic Peptide Procalcitonin Urine Color Urine Appearance Urine pH Ur Specific [place] Urine Protein Urine Glucose (UA) Urine Ketones Urine Blood Urine Nitrite Ur Leukocyte Esterase Urine RBC Urine WBC Ur Squamous Epith Cells Urine Bacteria Pleural pH Pleural WBC Pleural RBC Pleural Neutrophils Pleural Lymphocytes Pleural Monocytes Pleural Eosinophils Pleural Other Cells Pleural Total Protein Pleural Glucose Coronavirus (PCR) Influenza Type A (PCR) Influenza Type B (PCR) RSV RNA Qual (PCR) 03/04/20 03/04/20 03/04/20 06:00 06:00 06:00 WBC 6.2 RBC 3.74 L Hgb 10.8 L Hct 36.1 L MCV 96.5 MCH 28.9 MCHC 29.9 L RDW 14.7 Plt Count 263 MPV 9.4 Immature Gran % (Auto) 4.2 H Neut % (Auto) 50.4 Lymph % (Auto) 32.6 Reagan % (Auto) 12.0 H Eos % (Auto) 0.6 Baso % (Auto) 0.2 Lymph # (Auto) 2.0 Reagan # (Auto) 0.7 Eos # (Auto) 0.0 Baso # (Auto) 0.0 Abs Immat Gran (auto) 0.26 H Absolute Neuts (auto) 3.1 Absolute Nucleated RBC 0.000 Nucleated RBC % (auto) 0.0 Smear Tech's Comments PT INR APTT ABG pH ABG pCO2 ABG pO2 ABG HCO3 ABG O2 Saturation ABG Base Excess Oxygen Given Sodium 140 Potassium 4.3 Chloride 109 H Carbon Dioxide 23 Anion Gap 12 BUN 29 H Creatinine 0.78 Estim Creat Clear Calc 51.6 Estimated GFR > 60 POC Glucose Random Glucose 73 D Lactic Acid Calcium 10.2 Lactate Dehydrogenase Troponin I High Sens B-Natriuretic Peptide Procalcitonin 0.04 Urine Color Urine Appearance Urine pH Ur Specific [place] Urine Protein Urine Glucose (UA) Urine Ketones Urine Blood Urine Nitrite Ur Leukocyte Esterase Urine RBC Urine WBC Ur Squamous Epith Cells Urine Bacteria Pleural pH Pleural WBC Pleural RBC Pleural Neutrophils Pleural Lymphocytes Pleural Monocytes Pleural Eosinophils Pleural Other Cells Pleural Total Protein Pleural Glucose Coronavirus (PCR) Influenza Type A (PCR) Influenza Type B (PCR) RSV RNA Qual (PCR) 03/04/20 03/04/20 03/04/20 08:09 11:55 16:06 WBC RBC Hgb Hct MCV MCH MCHC RDW Plt Count MPV Immature Gran % (Auto) Neut % (Auto) Lymph % (Auto) Reagan % (Auto) Eos % (Auto) Baso % (Auto) Lymph # (Auto) Reagan # (Auto) Eos # (Auto) Baso # (Auto) Abs Immat Gran (auto) Absolute Neuts (auto) Absolute Nucleated RBC Nucleated RBC % (auto) Smear Tech's Comments PT INR APTT ABG pH ABG pCO2 ABG pO2 ABG HCO3 ABG O2 Saturation ABG Base Excess Oxygen Given Sodium Potassium Chloride Carbon Dioxide Anion Gap BUN Creatinine Estim Creat Clear Calc Estimated GFR POC Glucose 65 91 107 Random Glucose Lactic Acid Calcium Lactate Dehydrogenase Troponin I High Sens B-Natriuretic Peptide Procalcitonin Urine Color Urine Appearance Urine pH Ur Specific [place] Urine Protein Urine Glucose (UA) Urine Ketones Urine Blood Urine Nitrite Ur Leukocyte Esterase Urine RBC Urine WBC Ur Squamous Epith Cells Urine Bacteria Pleural pH Pleural WBC Pleural RBC Pleural Neutrophils Pleural Lymphocytes Pleural Monocytes Pleural Eosinophils Pleural Other Cells Pleural Total Protein Pleural Glucose Coronavirus (PCR) Influenza Type A (PCR) Influenza Type B (PCR) RSV RNA Qual (PCR) 03/04/20 03/05/20 03/05/20 19:50 05:43 05:43 WBC 8.9 RBC 3.99 L Hgb 11.7 L Hct 38.2 MCV 95.7 MCH 29.3 MCHC 30.6 L RDW 14.5 Plt Count 261 MPV 9.3 L Immature Gran % (Auto) 3.3 H Neut % (Auto) 57.3 Lymph % (Auto) 24.2 Reagan % (Auto) 13.9 H Eos % (Auto) 1.0 Baso % (Auto) 0.3 Lymph # (Auto) 2.1 Reagan # (Auto) 1.2 Eos # (Auto) 0.1 Baso # (Auto) 0.0 Abs Immat Gran (auto) 0.29 H Absolute Neuts (auto) 5.1 Absolute Nucleated RBC 0.000 Nucleated RBC % (auto) 0.0 Smear Tech's Comments PT INR APTT ABG pH ABG pCO2 ABG pO2 ABG HCO3 ABG O2 Saturation ABG Base Excess Oxygen Given Sodium 139 Potassium 4.3 Chloride 106 Carbon Dioxide 25 Anion Gap 12 BUN 21 H Creatinine 0.77 Estim Creat Clear Calc 52.3 Estimated GFR > 60 POC Glucose 67 Random Glucose 88 Lactic Acid Calcium 10.3 H Lactate Dehydrogenase Troponin I High Sens B-Natriuretic Peptide Procalcitonin Urine Color Urine Appearance Urine pH Ur Specific [place] Urine Protein Urine Glucose (UA) Urine Ketones Urine Blood Urine Nitrite Ur Leukocyte Esterase Urine RBC Urine WBC Ur Squamous Epith Cells Urine Bacteria Pleural pH Pleural WBC Pleural RBC Pleural Neutrophils Pleural Lymphocytes Pleural Monocytes Pleural Eosinophils Pleural Other Cells Pleural Total Protein Pleural Glucose Coronavirus (PCR) Influenza Type A (PCR) Influenza Type B (PCR) RSV RNA Qual (PCR) 03/05/20 03/05/20 07:33 11:23 WBC RBC Hgb Hct MCV MCH MCHC RDW Plt Count MPV Immature Gran % (Auto) Neut % (Auto) Lymph % (Auto) Reagan % (Auto) Eos % (Auto) Baso % (Auto) Lymph # (Auto) Reagan # (Auto) Eos # (Auto) Baso # (Auto) Abs Immat Gran (auto) Absolute Neuts (auto) Absolute Nucleated RBC Nucleated RBC % (auto) Smear Tech's Comments PT INR APTT ABG pH ABG pCO2 ABG pO2 ABG HCO3 ABG O2 Saturation ABG Base Excess Oxygen Given Sodium Potassium Chloride Carbon Dioxide Anion Gap BUN Creatinine Estim Creat Clear Calc Estimated GFR POC Glucose 71 118 H Random Glucose Lactic Acid Calcium Lactate Dehydrogenase Troponin I High Sens B-Natriuretic Peptide Procalcitonin Urine Color Urine Appearance Urine pH Ur Specific [place] Urine Protein Urine Glucose (UA) Urine Ketones Urine Blood Urine Nitrite Ur Leukocyte Esterase Urine RBC Urine WBC Ur Squamous Epith Cells Urine Bacteria Pleural pH Pleural WBC Pleural RBC Pleural Neutrophils Pleural Lymphocytes Pleural Monocytes Pleural Eosinophils Pleural Other Cells Pleural Total Protein Pleural Glucose Coronavirus (PCR) Influenza Type A (PCR) Influenza Type B (PCR) RSV RNA Qual (PCR) Impressions Chest CT 02/28/20 16:06 IMPRESSION: Worsening disease in the right hemithorax since prior study of 12/21/2019. There is increasing airspace opacity and confluent density in the right perihilar lung and posterior medial right lung base. There is increasing volume of the right pleural pleural effusion. The volume of the right pleural effusion is now large extending around the entire right pleural space. Thoracentesis Ultrasound 02/29/20 00:00 IMPRESSION: Right thoracentesis with removal of 1.1 L of fluid. Chest X-Ray 03/04/20 00:00 IMPRESSION: Small right pleural effusion status post thoracentesis. No pneumothorax. Persistent patchy airspace opacity right mid and lower lung with minimal patchy opacity at the left base. Pending at discharge 02/29/20 09:21 Cytology [PTH] Routine Discharge Plan Discharge Anticipated Discharge Date/Time: 03/03/20 11:01 Patient Disposition: Xfer Other Referrals: [facility] [Other] (PT WILL RETURN TO [facility] ) Valery Kilpatrick MD [Primary Care Provider] - Mari Tony MD [Physician] - (RESUME CHEMOTHERAPY TREATMENT MARCH 13, 2020 AT 1000 HOURS) Discharge Medications: New cefuroxime axetil 500 mg tablet 500 mg PO BID 5 Days Qty: 10 RF: 0 prednisone 10 mg tablet See Rx Instructions .ROUTE .COMPLEX Qty: 6 RF: 0 Continued omeprazole 20 mg capsule,delayed release(DR/EC) 20 mg PO QAM Qty: 30 RF: 6 atorvastatin 10 mg tablet 10 mg PO BEDTIME Qty: 30 RF: 5 methimazole 10 mg tablet 10 mg PO DAILY 30 Days Qty: 30 RF: 4 alendronate 35 mg tablet 35 mg PO QWEEK Qty: 4 RF: 5 haloperidol 5 mg Tablet 5 mg PO BEDTIME RF: 0 valproic acid 250 mg Capsule 750 mg PO BID RF: 0 acetaminophen 650 mg Tablet 650 mg PO Q6H PRN (Reason: Fever Or Pain) RF: 0 carvedilol [Coreg] 3.125 mg Tablet 3.125 mg PO BID RF: 0 ascorbic acid (vitamin C) [Vitamin C] 500 mg Tablet 500 mg PO BID RF: 0 trazodone 100 mg Tablet 100 mg PO BEDTIME RF: 0 ferrous sulfate 325 mg (65 mg iron) Tablet 325 mg PO BID RF: 0 benztropine 1 mg Tablet 1 mg PO BID RF: 0 aspirin 81 mg Tablet 81 mg PO DAILY RF: 0 albuterol 90 mcg/actuation Aerosol 90 mcg INHALATION Q6H PRN (Reason: Wheezing) RF: 0 fluticasone propion-salmeterol [Advair Diskus] 100-50 mcg/dose Blister With Device 1 inh INHALATION BID RF: 0 clozapine [Clozaril] 50 mg Tablet 50 mg PO BEDTIME RF: 0 cholecalciferol (vitamin D3) [Vitamin D3] 50 mcg (2,000 unit) Capsule 50 mcg PO DAILY RF: 0 mirabegron 50 mg Tablet Extended Release 24 Hr 50 mg PO DAILY RF: 0 Opdivo 240 mg/24 mL Solution 240 mg IV Q2W RF: 0 estradiol [Estrace] 0.01 % (0.1 mg/gram) cream 1 g vaginal BEDTIME RF: 0 glipizide 2.5 mg tablet extended release 24hr 1 tab PO DAILY RF: 0 metformin 500 mg tablet 500 mg PO BID 30 Days Qty: 60 RF: 5 No Action (DME) Contour Next Test Strips Strip See Rx Instructions .ROUTE .MEDSUPPLY Qty: 150 RF: 6 Discharge Orders: Discharge Order (Routine); Ordered 03/03/20 Ordered By: Julio Perez Diet: diabetic diet Activity on Discharge: As tolerated Patient Instructions: Pneumonia (DC) Other Ambulatory Orders: XR chest 2V (Routine) Timeframe: [id number] Facility: [facility] - Location: Radiology Ordered By: Sanjuana Chavarria Visit Report Forms: Patient Portal Discharge page Care Plan Goals: treat copd and pneumonia Health Concerns: pneumonia, COPD, pleural effusion, lung cancer Plan of Treatment: cefuroxime 500 mg twice daily for 3 days prednisone 20 mg once daily for 2 days, then 10 mg once daily for 2 days follow up with oncologist Dr Tony on 03/13/20. repeat chest X-ray on 03/13/20 follow up with PCP Dr Kilpatrick in 1 week return to ED for any worsening shortness of breath
--- NOTE | 2020-03-05 14:32 | MHC.CM.PN ---
[facility] at 1430. CM attempted to contact pts brotherLukasz ([phone]) twice. Line was busy.
== END 2020-03-05 14:45 | disposition other institution (70) | DRG 193 ==
LOC: HO.ED 02-29 01:53 → HO.IMC 02-29 06:14
PROVIDERS: Internal Medicine; Nurse Practitioner Primary Care; Admitting Provider Internal Medicine; Emergency Provider Emergency Medicine; PCP Internal Medicine; Visit Provider Family Medicine
DX: J18.9 Pneumonia, unspecified organism (principal); J96.01 Acute respiratory failure with hypoxia; J44.0 Chronic obstructive pulmonary disease with (acute) lower respiratory infection; J44.1 Chronic obstructive pulmonary disease with (acute) exacerbation; N39.0 Urinary tract infection, site not specified; C34.90 Malignant neoplasm of unspecified part of unspecified bronchus or lung; J91.0 Malignant pleural effusion; E03.9 Hypothyroidism, unspecified; E78.5 Hyperlipidemia, unspecified; K21.9 Gastro-esophageal reflux disease without esophagitis; F31.9 Bipolar disorder, unspecified; Z86.73 Personal history of transient ischemic attack (TIA), and cerebral infarction without residual deficits; I95.9 Hypotension, unspecified; E05.90 Thyrotoxicosis, unspecified without thyrotoxic crisis or storm; D50.9 Iron deficiency anemia, unspecified; E11.9 Type 2 diabetes mellitus without complications; Z20.828 Contact with and (suspected) exposure to other viral communicable diseases; Z87.891 Personal history of nicotine dependence; Z79.4 Long term (current) use of insulin; Z79.51 Long term (current) use of inhaled steroids; Z79.82 Long term (current) use of aspirin; Z79.899 Other long term (current) drug therapy
CPT/HCPCS: 0241U; 32555; 36415; 36600; 71045; 71046; 71250; 80048; 81001; 82803; 82945; 82947; 83605; 83615; 83880; 83986; 84132; 84145; 84157; 84484; 85025; 85610; 85730; 87040; 87071; 87086; 87205; 88112; 88305; 89051; 93005; 94640; 96361; 96365; 96366; 96375; 99285; J1956; J2920; J2930

== ENCOUNTER 2020-02-28 16:00 | Outpatient (RCR) | payer MEDICARE, MEDICAID, SELFPAY ==
[2019-12-20 11:22] VITALS: BMI 23.3
[2020-01-03 10:35] VITALS: BP 123/60; PULSE 96; RESP 18; TEMP 36.2; O2SAT 97; BMI 24.0
[2020-01-03 11:14] LABS: MANUAL DIFF FLAG NO
[2020-01-03 11:21] LABS: Basophils Percent Auto 0.3 % (0-2); Eosinophils Absolute Auto 0.1 X10*3/uL (0.0-0.4); Hematocrit 33.5 % (37-47); Hemoglobin 10.2 g/dl (12.0-16.0); Imm Gran Abs Auto 0.09 X10*3/uL (0.00-0.03); Imm Gran Pct Auto 1.6 % (0.0-0.4); Lymphocytes Absolute Auto 1.3 X10*3/uL (1.2-4.9); Lymphocytes Percent Auto 23.1 % (20-40); Mean Corpuscular HGB Conc 30.4 g/dl (31.0-35.0); Mean Corpuscular Hemoglobin 30.1 pg (27.0-33.0); Mean Corpuscular Volume 98.8 fL (80-98); Mean Platelet Volume 9.4 fL (9.4-12.3); Monocytes Absolute Auto 0.5 X10*3/uL (0.1-1.2); Monocytes Percent Auto 8.2 % (2-11); Neutrophils Absolute Auto 3.8 X10*3/uL (2.0-8.3); Neutrophils Percent Auto 65.8 % (45-73); Platelet Count 234 X10*3/uL (160-400); Red Blood Count 3.39 X10*6/uL (4.20-5.50); Red Cell Distribution Width 15.4 % (11.0-16.0); White Blood Count 5.7 X10*3/uL (4.8-10.8)
[2020-01-03 11:44] LABS: Alanine Aminotransferase 8 U/L (0-31); Albumin Level 3.5 g/dL (3.5-5.0); Alkaline Phosphatase 96 U/L (39-117); Anion Gap 13 (12-20); Aspartate Amino Transferase 7 U/L (5-31); Bilirubin Total 0.2 mg/dL (0.0-1.0); Blood Urea Nitrogen 29 mg/dL (9-16); Calcium 9.5 mg/dL (8.4-10.2); Carbon Dioxide 23 mmol/L (22-29); Chloride 107 mmol/L (96-108); Estimated Glomerular Filt Rate 47; Glucose Random 276 mg/dL (60-115); Potassium 4.5 mmol/l (3.3-5.1); Sodium 138 mmol/L (135-145); Total Protein 7.1 g/dL (6.5-8.0)
[2020-01-03] MEDS: Heparin Sodium,Porcine Flush 500 UNIT/5 ML SYRINGE IVFLUSH (14:53)
--- NOTE | 2020-01-03 16:01 | MHC.HEMONC ---
Patient here for treatment today. Labs drawn, WNL. Tolerated infusion well.
[2020-01-17 10:24] VITALS: BMI 24.3
[2020-01-17 11:42] LABS: MANUAL DIFF FLAG NO
[2020-01-17 11:48] LABS: Basophils Percent Auto 0.3 % (0-2); Eosinophils Absolute Auto 0.1 X10*3/uL (0.0-0.4); Hematocrit 34.2 % (37-47); Hemoglobin 10.2 g/dl (12.0-16.0); Imm Gran Abs Auto 0.07 X10*3/uL (0.00-0.03); Imm Gran Pct Auto 1.2 % (0.0-0.4); Lymphocytes Absolute Auto 1.2 X10*3/uL (1.2-4.9); Lymphocytes Percent Auto 19.8 % (20-40); Mean Corpuscular HGB Conc 29.8 g/dl (31.0-35.0); Mean Corpuscular Hemoglobin 29.9 pg (27.0-33.0); Mean Corpuscular Volume 100.3 fL (80-98); Mean Platelet Volume 9.7 fL (9.4-12.3); Monocytes Absolute Auto 0.5 X10*3/uL (0.1-1.2); Monocytes Percent Auto 7.8 % (2-11); Neutrophils Absolute Auto 4.2 X10*3/uL (2.0-8.3); Neutrophils Percent Auto 69.9 % (45-73); Platelet Count 206 X10*3/uL (160-400); Red Blood Count 3.41 X10*6/uL (4.20-5.50); Red Cell Distribution Width 15.3 % (11.0-16.0); White Blood Count 6.1 X10*3/uL (4.8-10.8)
[2020-01-17 12:07] LABS: Alanine Aminotransferase 10 U/L (0-31); Albumin Level 3.4 g/dL (3.5-5.0); Alkaline Phosphatase 95 U/L (39-117); Anion Gap 13 (12-20); Aspartate Amino Transferase 9 U/L (5-31); Bilirubin Total < 0.2 mg/dL (0.0-1.0); Blood Urea Nitrogen 27 mg/dL (9-16); Calcium 9.2 mg/dL (8.4-10.2); Carbon Dioxide 20 mmol/L (22-29); Chloride 108 mmol/L (96-108); Creatinine Clr Calc Pharmacy 37.2; Estimated Glomerular Filt Rate 46; Glucose Random 315 mg/dL (60-115); Potassium 4.2 mmol/l (3.3-5.1); Sodium 137 mmol/L (135-145)
[2020-01-17 13:15] VITALS: BP 104/53; PULSE 111; RESP 18; TEMP 37; O2SAT 95
--- NOTE | 2020-01-17 14:33 | PM.HEMONCPN ---
Medical Summary - Medical Summary Chief complaint: follow-up for: Non-small cell lung carcinoma. Here for nivolumab. Medical Summary: DIAGNOSIS: Anemia. Lung mass. PATHOLOGY from April 20 revealed: Squamous cell carcinoma, moderately differentiated. PD-L1 analysis:1%. Right adrenal gland biopsy was benign. CURRENT THERAPY: Combined modality therapy with chemo along with radiation. Started low-dose Carbo/Taxol May 29, completed July 03. Started nivolumab on September 05. Here for cycle 5, day 1. Interval History Interval history: This is a pleasant 69-year-old lady, here for a follow-up visit. She has been doing quite well. Denies any major complaints. She has been tolerating the nivolumab without any problems. She has not noted any skin rash nor pruritus. She denies any headache no dizziness. She denies any feelings of heat, palpitations, nor tremors. She denies any chest pain. No trouble breathing. She denies cough nor sputum. No fever nor chills. No abdominal pain nausea vomiting heartburn indigestion. Bowels are working without any gross blood in it. She used to have a hard time swallowing, that has improved. Her diet has been advanced to soft with thin liquids. Appetite is still low, however she has gained weight. She is in good spirits. Rest of the review of systems is unremarkable. She has been started on Mathimazole. Review of Systems - Constitutional Reports fatigue, Reports weight gain - Eyes Denies blurry vision - ENT Reports system reviewed and no additional complaints, except as documented - Cardiovascular Denies chest pain at rest - Respiratory Denies cough - Gastrointestinal Denies abdominal pain, Denies constant urge to pass stool - Musculoskeletal Reports joint pain - Neurologic Reports system reviewed and no additional complaints, except as documented - Psychiatric Reports behavioral changes - Endocrine Reports cold intolerance - Hematologic/Lymphatic Denies easy bleeding - Allergic/Immunologic Denies GI upset with certain foods PMFSH Medical History: Medical History (Last Reviewed 01/17/20 @ 12:59 by Manasa Rodriguez RN) Anemia Charcot's arthropathy COPD (chronic obstructive pulmonary disease) Diabetes GERD (gastroesophageal reflux disease) Hyperlipidemia Hypernatremia Hypertension Hypertension Iron deficiency anemia Lung mass Osteopenia PVC (premature ventricular contraction) Tachycardia TIA (transient ischemic attack) Onset Date: ~2012 Tremor Umbilical hernia Family History: Family History (Last Updated 01/03/20 @ 11:43 by Manasa Rodriguez RN) Father Lung cancer Mother Colorectal cancer Surgical History: Surgical History (Last Reviewed 01/17/20 @ 12:59 by Manasa Rodriguez RN) History of appendectomy Smoking status: Former smoker Home Medications and Allergies Current Medications: Current Medications Generic Name Dose Route Start Last Admin Trade Name Freq PRN Reason Stop Dose Admin Heparin Sodium (Porcine) 500 unit 01/17/20 00:00 Heparin Sodium,Porcine Flush 500 Unit/5 Ml Syringe IVFLUSH 01/17/20 23:59 ONCE ANUJ Nivolumab 240 mg/ Sodium 124 mls @ 124 mls/hr 01/17/20 13:00 01/17/20 13:31 Chloride IV 124 mls/hr ONCE ANUJ Administration Ondansetron HCl 8 mg 01/17/20 00:00 01/17/20 12:55 Ondansetron Odt 8 Mg Tab.Rapdis TRANSLINGU 01/17/20 23:59 8 mg ONCE ANUJ Administration Home Medications Medication Instructions Recorded Confirmed Type Lactobacillus rhamnosus GG 1 cap PO DAILY 01/04/20 01/16/20 History [Culturelle] acetaminophen 650 mg PO Q4H PRN 01/04/20 01/16/20 History albuterol 90 mcg INHALATION BID 01/04/20 01/17/20 History alendronate 35 mg PO QWEEK 01/04/20 01/16/20 History ascorbic acid (vitamin C) [Vitamin 500 mg PO BID 01/04/20 01/16/20 History C] aspirin 81 mg PO DAILY 01/04/20 01/16/20 History atorvastatin 10 mg PO BEDTIME 01/04/20 01/16/20 History benztropine [Cogentin] 1 mg PO BID 01/04/20 01/16/20 History carvedilol [Coreg] 3.125 mg PO BID 01/04/20 01/16/20 History cholecalciferol (vitamin D3) 50 mcg PO DAILY 01/04/20 01/16/20 History [Vitamin D3] clozapine [Clozaril] 50 mg PO DAILY 01/04/20 01/16/20 History dextrose [Glucose Gel] 15 g PO Q15M PRN 01/04/20 01/16/20 History ferrous sulfate 325 mg PO BID 01/04/20 01/16/20 History fluticasone propion-salmeterol 1 inh INHALATION BID 01/04/20 01/16/20 History [Advair Diskus] haloperidol [Haldol] 5 mg PO BEDTIME 01/04/20 01/16/20 History magnesium hydroxide [Milk of 400 mg PO DAILY PRN 01/04/20 01/16/20 History Magnesia] metformin 500 mg PO DAILY 01/04/20 01/16/20 History methimazole 20 mg PO DAILY 01/04/20 01/16/20 History mirabegron 50 mg PO DAILY 01/04/20 01/16/20 History nivolumab 240 mg IV Q2W 01/04/20 01/16/20 History ondansetron 8 mg PO Q8H PRN 01/04/20 01/16/20 History trazodone 100 mg PO BEDTIME 01/04/20 01/16/20 History valproic acid 750 mg PO BID 01/04/20 01/16/20 History Allergies Allergy/AdvReac Type Severity Reaction Status Date / Time No Known Allergies Allergy Verified 01/16/20 13:13 [No Known Allergies*] Exam Vital signs: Vital Signs Temp 98.6 F 01/17/20 13:15 Pulse 111 H 01/17/20 13:15 Resp 18 01/17/20 13:15 BP 104/53 L 01/17/20 13:15 Pulse Ox 95 01/17/20 13:15 Intake & Output 01/16/20 01/17/20 01/17/20 18:59 06:59 18:59 Other: Weight 58.3 kg Weight 58.3 kg Body Mass Index 24.3 - Constitutional Present: no acute distress - Routine HEENT Exam Head: Present: normal inspection ENT: Present: mucous membranes moist - Routine Neck Exam Present: full ROM - Routine Extremities Exam Present: nontender - Routine Back/Spine/Pelvis Exam Back/Spine: Absent: CVA tenderness - Routine Skin Exam Present: intact - Routine Neurological Exam Present: alert, oriented X3 - Detailed Neurological Exam: Coma Scale Eye Opening: Spontaneous (4) Motor Response: Obeys commands (6) - Routine Psychiatric Exam Present: normal affect Data - Labs CBC & Chem 7: 01/17/20 11:40 01/17/20 11:40 Labs: Laboratory Results - last 24 hr 01/17/20 01/17/20 11:40 11:40 WBC 6.1 RBC 3.41 L Hgb 10.2 L Hct 34.2 L MCV 100.3 H MCH 29.9 MCHC 29.8 L RDW 15.3 Plt Count 206 MPV 9.7 Immature Gran % (Auto) 1.2 H Neut % (Auto) 69.9 Lymph % (Auto) 19.8 L Patrick % (Auto) 7.8 Eos % (Auto) 1.0 Baso % (Auto) 0.3 Lymph # (Auto) 1.2 Patrick # (Auto) 0.5 Eos # (Auto) 0.1 Baso # (Auto) 0.0 Abs Immat Gran (auto) 0.07 H Absolute Neuts (auto) 4.2 Absolute Nucleated RBC 0.000 Nucleated RBC % (auto) 0.0 Sodium 137 Potassium 4.2 Chloride 108 Carbon Dioxide 20 L Anion Gap 13 BUN 27 H Creatinine 1.17 Estim Creat Clear Calc 37.2 Estimated GFR 46 Random Glucose 315 H Calcium 9.2 Total Bilirubin < 0.2 AST 9 ALT 10 Alkaline Phosphatase 95 Total Protein 7.0 Albumin 3.4 L Progress Note: A/P (1) Non-small cell carcinoma of lung Status: Acute Assessment and plan: Impression and Plan: This is a an unfortunate 69 year-old lady, with recently diagnosed: 1. Anemia: She has been noted to have had a chronic normochromic normocytic Anemia. Her iron studies: IRON 204 Sep 05, 19 IBC 425 Oct 01, 19 SATURATION 48 Oct 01, 19 FERRITIN 11 Oct 01, 19. Differential considered: 1. Iron Deficiency Anemia: Iron 83, IBC 384, saturation 22, ferritin 17. She actually had a colonoscopy back on August 11 which revealed a couple of hyperplastic polyps. 2. Hemolytic anemia: Retic 1.3, haptoglobin 152, LDH 122. 3. B12 folate deficiency: B12 537, folate 10.5. 4. Anemia of chronic disease: 5. Underlying myelo infiltrative disorder: Multiple myeloma versus MDS. SIEP: Within normal limits. l proceeded with further evaluation, as detailed above. 2. Right sided Lung Mass. She had a PET scan done on May 02, at [facility] which revealed: Right lower lobe mass, contagiosum with right hilum consistent with neoplasm. 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 Nodular adrenal glands, showing higher metabolic activity than that of the liver, concerning for metastatic involvement, especially on the right. Diffuse wall thickening in the colon and diffuse hypermetabolism is consistent with history of recent C diff colitis. Evidence for gastroenteritis. Hiatus hernia. She had a bronchoscopy by Dr. Allan on April 20. Pathology revealed: Lung, bronchus intermedius mass, biopsy: Squamous cell carcinoma, moderately differentiated. PD-L1 analysis:1%. Right adrenal gland biopsy negative. Left adrenal, not considered suspicious enough. She was deemed to have disease localized to the chest. We proceeded with combined modality therapy, with radiation along with systemic chemotherapy. I had picked weekly carboplatin and Taxol based regimen. She started treatment May 29. She tolerated it very well. She completed treatment July 03. She had a PET scan, September 04 at [facility]: Right lower lobe lung mass is difficult to discretely visualized given partial collapse/consolidation of the right lower lobe, likely due to a combination of postobstructive change and radiation change. Residual right lower lobe lung mass is likely decrease in size from previous exam and is decreased in metabolic activity. Decreased FDG uptake in the bilateral adrenal glands. No new or worsening sites of lung cancer. She had residual disease, after completion of her chemotherapy. She has been started on the targeted agent Nivolumab. She has been tolerating it very well. She is here to start cycle 5. PLAN: She will get day 1 today. She will return in 2 weeks for labs and her day 14 dose. She will continue on this treatment and be re-stage in 1 month's time. She will continue to follow up with Dr. Lao. Thank you, CC: Dr. Candice Kilpatrick. Dr. Allan. Dr. Lao. Code Status FULL CODE - Time Spent With Patient Total time spent is greater than 50% in coordination of care (as documented) at patient's floor/unit and/or counseling patient: 25 - 35 minutes
[2020-01-17] MEDS: Heparin Sodium,Porcine Flush 500 UNIT/5 ML SYRINGE IVFLUSH (14:36)
[2020-01-31 08:57] VITALS: BMI 24.3
[2020-01-31 10:32] VITALS: BP 112/66; PULSE 112; RESP 18; TEMP 36.6; O2SAT 96; BMI 23.8
[2020-01-31 11:22] LABS: MANUAL DIFF FLAG NO
[2020-01-31 11:27] LABS: Basophils Percent Auto 0.5 % (0-2); Eosinophils Absolute Auto 0.1 X10*3/uL (0.0-0.4); Eosinophils Percent Auto 1.9 % (0-4); Hematocrit 33.7 % (37-47); Hemoglobin 10.2 g/dl (12.0-16.0); Imm Gran Abs Auto 0.08 X10*3/uL (0.00-0.03); Imm Gran Pct Auto 1.4 % (0.0-0.4); Lymphocytes Absolute Auto 1.1 X10*3/uL (1.2-4.9); Lymphocytes Percent Auto 18.3 % (20-40); Mean Corpuscular HGB Conc 30.3 g/dl (31.0-35.0); Mean Corpuscular Hemoglobin 29.9 pg (27.0-33.0); Mean Corpuscular Volume 98.8 fL (80-98); Mean Platelet Volume 9.2 fL (9.4-12.3); Monocytes Absolute Auto 0.7 X10*3/uL (0.1-1.2); Monocytes Percent Auto 12.6 % (2-11); Neutrophils Absolute Auto 3.8 X10*3/uL (2.0-8.3); Neutrophils Percent Auto 65.3 % (45-73); Platelet Count 224 X10*3/uL (160-400); Red Blood Count 3.41 X10*6/uL (4.20-5.50); Red Cell Distribution Width 14.1 % (11.0-16.0); White Blood Count 5.8 X10*3/uL (4.8-10.8)
[2020-01-31 12:16] LABS: Alanine Aminotransferase 7 U/L (0-31); Albumin Level 3.3 g/dL (3.5-5.0); Alkaline Phosphatase 100 U/L (39-117); Anion Gap 14 (12-20); Aspartate Amino Transferase 11 U/L (5-31); Bilirubin Total 0.4 mg/dL (0.0-1.0); Blood Urea Nitrogen 39 mg/dL (9-16); Calcium 9.4 mg/dL (8.4-10.2); Carbon Dioxide 20 mmol/L (22-29); Chloride 105 mmol/L (96-108); Creatinine Clr Calc Pharmacy 33.7; Estimated Glomerular Filt Rate 45; Glucose Random 470 mg/dL (60-115); Potassium 4.9 mmol/l (3.3-5.1); Sodium 134 mmol/L (135-145)
[2020-01-31 13:01] LABS: Thyroid Stimulating Hormone 8.37 mIU/mL (0.32-4.0)
[2020-01-31] MEDS: Insulin Regular, Human 100 UNIT/ML 3 ML VIAL 10 UNIT SUBCUT (13:18)
[2020-01-31] MEDS: Heparin Sodium,Porcine Flush 500 UNIT/5 ML SYRINGE IVFLUSH (15:01)
[2020-01-31 15:05] LABS: Glucose, Whole Blood 321 mg/dL (60-115)
--- NOTE | 2020-01-31 15:51 | MHC.HEMONC ---
Addendum entered by Nat Butts RN 01/31/20 16:14: No significant side effects noted. Glucose and TSH results faxed to Dr Garnett Original Note: Pt here with personalization specialist for chemo infusion. Port accessed, good blood return. Labs obtained and sent to lab. Labs reviewed, glucose 470, reported to Dr Payne. Received regular insulin 10 units @1318. Chemo infusion completed and pt tolerated well. POC BS 321 at 1500, reported to Dr Payne. Ok for pt to go home, and will follow up with primary care physician.
[2020-02-14 10:23] VITALS: BMI 23.6
[2020-02-14 10:29] VITALS: BP 110/54; PULSE 105; RESP 20; TEMP 36.2; O2SAT 95
[2020-02-14 11:16] LABS: MANUAL DIFF FLAG NO
[2020-02-14 11:19] LABS: Basophils Percent Auto 0.2 % (0-2); Eosinophils Absolute Auto 0.2 X10*3/uL (0.0-0.4); Eosinophils Percent Auto 2.1 % (0-4); Hematocrit 33.5 % (37-47); Hemoglobin 10.1 g/dl (12.0-16.0); Imm Gran Pct Auto 1.2 % (0.0-0.4); Lymphocytes Absolute Auto 1.2 X10*3/uL (1.2-4.9); Lymphocytes Percent Auto 15.2 % (20-40); Mean Corpuscular HGB Conc 30.1 g/dl (31.0-35.0); Mean Corpuscular Hemoglobin 29.5 pg (27.0-33.0); Mean Platelet Volume 9.2 fL (9.4-12.3); Monocytes Absolute Auto 0.8 X10*3/uL (0.1-1.2); Neutrophils Absolute Auto 5.8 X10*3/uL (2.0-8.3); Neutrophils Percent Auto 71.3 % (45-73); Platelet Count 202 X10*3/uL (160-400); Red Blood Count 3.42 X10*6/uL (4.20-5.50); Red Cell Distribution Width 13.7 % (11.0-16.0); White Blood Count 8.1 X10*3/uL (4.8-10.8)
[2020-02-14 12:17] LABS: Alanine Aminotransferase 7 U/L (0-31); Albumin Level 3.2 g/dL (3.5-5.0); Alkaline Phosphatase 86 U/L (39-117); Anion Gap 12 (12-20); Aspartate Amino Transferase 12 U/L (5-31); Bilirubin Total < 0.2 mg/dL (0.0-1.0); Blood Urea Nitrogen 22 mg/dL (9-16); Calcium 9.5 mg/dL (8.4-10.2); Carbon Dioxide 24 mmol/L (22-29); Chloride 105 mmol/L (96-108); Creatinine Clr Calc Pharmacy 34.8; Estimated Glomerular Filt Rate 47; Glucose Random 256 mg/dL (60-115); Potassium 4.2 mmol/l (3.3-5.1); Sodium 137 mmol/L (135-145)
[2020-02-14] MEDS: Heparin Sodium,Porcine Flush 500 UNIT/5 ML SYRINGE IVFLUSH (14:28)
[2020-02-27 18:00] VITALS: BMI 23.6
[2020-02-28 10:55] VITALS: BMI 22.6
[2020-02-28 11:00] VITALS: BP 84/52; PULSE 108; RESP 28; TEMP 36.2; O2SAT 88
[2020-02-28 11:15] VITALS: BP 91/51; PULSE 108; O2SAT 93
--- NOTE | 2020-02-28 11:28 | P.PNHO_ITS ---
Medical Summary - Medical Summary Date of Service: 02/28/20 Chief complaint: follow-up for non-small cell lung cancer. Medical Summary: DIAGNOSIS: Anemia. Lung mass. PATHOLOGY from April 20 revealed: Squamous cell carcinoma, moderately differentiated. PD-L1 analysis:1%. Right adrenal gland biopsy was benign. CURRENT THERAPY: Combined modality therapy with chemo along with radiation. Started low-dose Carbo/Taxol May 29, completed July 03. Started nivolumab on September 05. Here for cycle 6, day 1. Interval History Interval history: This is a pleasant 69-year-old lady, here for a follow-up visit. She has not been doing too well. She does not seem like her usual self. She was wobbly on her feet. She appears rather lethargic. Her initial blood pressure was low, 88 systolic. Later with hydration it came up to 90/50. Heart rate was up at 01:05. Her respiratory rate was 40 per minute. O2 sat was in the 80s. Came up to 93% on 2 L. She was afebrile. However, the nurse who came with her tells me that a visitor came and he later tested positive for COVID. Prior to this she had been doing well. She has been tolerating the nivolumab without any problems. She has not noted any skin rash nor pruritus. She denies any headache no dizziness. She denies any feelings of heat, palpitations, nor tremors. She denies any chest pain. She appears to be having some trouble breathing. She denies cough nor sputum. No fever nor chills. No abdominal pain nausea vomiting heartburn indigestion. Bowels are working without any gross blood in it. She used to have a hard time swallowing, that has improved. Her diet has been advanced to soft with thin liquids. Appetite is still low, she has lost weight. Her spirits are down. Rest of the review of systems is unremarkable. She has been started on Mathimazole. Review of Systems - Constitutional Reports no additional constitutional complaints, Reports anorexia, Reports daytime sleepiness, Reports fatigue, Denies fever(s), Reports weakness, Reports weight loss - Eyes Reports no additional eye complaints - ENT Reports no additional ear, nose, mouth, and throat complaints - Cardiovascular Reports no additional cardiovascular complaints, Reports rapid, pounding, or irregular heartbeat, Reports shortness of breath - Respiratory Reports no additional respiratory complaints, Reports dyspnea - Gastrointestinal Reports no additional gastrointestinal complaints - Genitourinary Reports no additional female genitourinary complaints - Musculoskeletal Reports no additional musculoskeletal complaints, Reports body aches - Integumentary/Breasts Skin/Breast: Reports no additional skin complaints - Neurologic Reports no additional neurologic complaints, Reports behavioral changes - Psychiatric Reports no additional psychiatric complaints - Endocrine Reports no additional endocrine complaints - Hematologic/Lymphatic Reports no additional hematologic/lymphatic complaints - Allergic/Immunologic Reports no additional allergic/immunologic complaints [facility] Medical History: Medical History (Last Updated 02/13/20 @ 12:32 by Karishma Sage MD) Anemia Charcot's arthropathy COPD (chronic obstructive pulmonary disease) Diabetes Diabetes type 2, uncontrolled GERD (gastroesophageal reflux disease) Hyperlipidemia Hypernatremia Hypertension Hypertension Hyperthyroidism Iron deficiency anemia Lung mass Osteopenia Osteoporosis PVC (premature ventricular contraction) Tachycardia TIA (transient ischemic attack) Onset Date: ~2012 Tremor Umbilical hernia Functional capacity: uses cane/walker Patient : No Family History: Family History (Last Updated 01/03/20 @ 11:43 by Manasa Rodriguez RN) Father Lung cancer Mother Colorectal cancer Surgical History: Surgical History (Last Reviewed 01/17/20 @ 12:59 by Manasa Rodriguez RN) History of appendectomy Smoking status: Former smoker Home Medications and Allergies Current Medications: Current Medications Generic Name Dose Route Start Last Admin Trade Name Freq PRN Reason Stop Dose Admin Heparin Sodium (Porcine) 500 unit 02/28/20 00:00 Heparin Sodium,Porcine Flush 500 Unit/5 Ml Syringe IVFLUSH 02/28/20 23:59 ONCE [facility] Nivolumab 240 mg/ Sodium 124 mls @ 124 mls/hr 01/17/20 13:00 01/17/20 14:31 Chloride IV Infused ONCE [facility] Infusion Ondansetron HCl 8 mg 02/28/20 00:00 Ondansetron Odt 8 Mg Tab.Rapdis TRANSLINGU 02/28/20 23:59 ONCE [facility] Home Medications Medication Instructions Recorded Confirmed Type acetaminophen 650 mg PO Q6H PRN 01/04/20 02/13/20 History albuterol 90 mcg INHALATION Q6H PRN 01/04/20 02/13/20 History ascorbic acid (vitamin C) [Vitamin 500 mg PO BID 01/04/20 02/13/20 History C] aspirin 81 mg PO DAILY 01/04/20 02/13/20 History benztropine [Cogentin] 1 mg PO BID 01/04/20 02/13/20 History carvedilol [Coreg] 3.125 mg PO BID 01/04/20 02/13/20 History cholecalciferol (vitamin D3) 50 mcg PO DAILY 01/04/20 02/13/20 History [Vitamin D3] clozapine [Clozaril] 50 mg PO BEDTIME 01/04/20 02/13/20 History dextrose [Glucose Gel] 15 g PO Q15M PRN 01/04/20 02/13/20 History ferrous sulfate 325 mg PO BID 01/04/20 02/13/20 History fluticasone propion-salmeterol 1 inh INHALATION BID 01/04/20 02/13/20 History [Advair Diskus] haloperidol [Haldol] 5 mg PO BEDTIME 01/04/20 02/13/20 History magnesium hydroxide [Milk of 400 mg PO DAILY PRN 01/04/20 02/13/20 History Magnesia] mirabegron 50 mg PO DAILY 01/04/20 02/13/20 History nivolumab 240 mg IV Q2W 01/04/20 02/13/20 History ondansetron 8 mg PO Q8H PRN 01/04/20 02/13/20 History trazodone 100 mg PO BEDTIME 01/04/20 02/13/20 History valproic acid 750 mg PO BID 01/04/20 02/13/20 History bisacodyl [Dulcolax (bisacodyl)] 10 mg FL DAILY PRN 01/31/20 02/13/20 History estradiol [Estrace] 1 g VAGINAL BEDTIME 01/31/20 02/13/20 History lidocaine-prilocaine TOPICAL 01/31/20 02/13/20 History Lactobacillus acidophilus 10 mg PO BEDTIME 02/13/20 02/14/20 History Allergies Allergy/AdvReac Type Severity Reaction Status Date / Time No Known Allergies Allergy Verified 01/16/20 13:13 [No Known Allergies*] Exam Vital signs: Vital Signs Temp 97.2 F 02/28/20 11:00 Pulse 108 H 02/28/20 11:00 Resp 28 H 02/28/20 11:00 BP 84/52 L 02/28/20 11:00 Pulse Ox 88 L 02/28/20 11:00 Intake & Output 02/27/20 02/28/20 02/28/20 18:59 06:59 18:59 Other: Weight 56.8 kg 54.3 kg Weight 54.3 kg Body Mass Index 22.6 - Constitutional Present: no acute distress - Routine HEENT Exam Head: Present: normal inspection - Routine Neck Exam Present: full ROM - Routine Extremities Exam Present: nontender - Routine Back/Spine/Pelvis Exam Back/Spine: Absent: CVA tenderness - Routine Skin Exam Present: intact - Routine Neurological Exam Present: alert, oriented X3 - Detailed Neurological Exam: Coma Scale Eye Opening: Spontaneous (4) - Routine Psychiatric Exam Present: normal affect Data - Labs CBC & Chem 7: 02/28/20 11:20 02/14/20 11:05 Labs: 01/03/20 00:00 Acetaminophen [Tylenol] 650 mg PO ONCE ONE Heparin Sodium,Porcine Flush 500 unit IVFLUSH ONCE Nivolumab [Opdivo] 200 mg Nivolumab [Opdivo] 40 mg 0.9 % Sodium Chloride [Ns] 100 ml IV ONCE diphenhydrAMINE HCL [Benadryl] 25 mg IVPUSH ONCE ONE ondansetron ODT [Zofran ODT] 8 mg TRANSLINGU ONCE 01/03/20 11:10 Complete Blood Count Auto Diff Routine Comprehensive Met. Panel Routine 01/17/20 00:00 Heparin Sodium,Porcine Flush 500 unit IVFLUSH ONCE ondansetron ODT [Zofran ODT] 8 mg TRANSLINGU ONCE 01/17/20 11:40 Complete Blood Count Auto Diff Routine Comprehensive Met. Panel Routine 01/31/20 00:00 Heparin Sodium,Porcine Flush 500 unit IVFLUSH ONCE Nivolumab [Opdivo] 200 mg Nivolumab [Opdivo] 40 mg 0.9 % Sodium Chloride [Ns] 100 ml IV ONCE ondansetron ODT [Zofran ODT] 8 mg TRANSLINGU ONCE 01/31/20 11:15 Complete Blood Count Auto Diff Routine Comprehensive Met. Panel Routine Thyroid Stimulating Hormone Routine 01/31/20 12:27 Add Laboratory Test Routine 01/31/20 12:37 Insulin Regular, Human [Humulin R] 10 unit SUBCUT ONCE ONE 01/31/20 14:58 Glucose, Whole Blood Routine 02/14/20 00:00 Heparin Sodium,Porcine Flush 500 unit IVFLUSH ONCE Nivolumab [Opdivo] 200 mg Nivolumab [Opdivo] 40 mg 0.9 % Sodium Chloride [Ns] 100 ml IV ONCE ondansetron ODT [Zofran ODT] 8 mg TRANSLINGU ONCE 02/14/20 11:05 Complete Blood Count Auto Diff Routine Comprehensive Met. Panel Routine Laboratory Last Values WBC 8.1 X10*3/uL (4.8-10.8) 02/14/20 11:05 RBC 3.42 X10*6/uL (4.20-5.50) L 02/14/20 11:05 Hgb 10.1 g/dl (12.0-16.0) L 02/14/20 11:05 Hct 33.5 % (37-47) L 02/14/20 11:05 MCV 98.0 fL (80-98) 02/14/20 11:05 MCH 29.5 pg (27.0-33.0) 02/14/20 11:05 MCHC 30.1 g/dl (31.0-35.0) L 02/14/20 11:05 RDW 13.7 % (11.0-16.0) 02/14/20 11:05 Plt Count 202 X10*3/uL (160-400) 02/14/20 11:05 MPV 9.2 fL (9.4-12.3) L 02/14/20 11:05 Immature Gran % (Auto) 1.2 % (0.0-0.4) H 02/14/20 11:05 Neut % (Auto) 71.3 % (45-73) 02/14/20 11:05 Lymph % (Auto) 15.2 % (20-40) L 02/14/20 11:05 [place] % (Auto) 10.0 % (2-11) 02/14/20 11:05 Eos % (Auto) 2.1 % (0-4) 02/14/20 11:05 Baso % (Auto) 0.2 % (0-2) 02/14/20 11:05 Neut # (Auto) 3.8 X10*3/uL (2.0-8.3) 01/03/20 11:10 Lymph # (Auto) 1.2 X10*3/uL (1.2-4.9) 02/14/20 11:05 [place] # (Auto) 0.8 X10*3/uL (0.1-1.2) 02/14/20 11:05 Eos # (Auto) 0.2 X10*3/uL (0.0-0.4) 02/14/20 11:05 Baso # (Auto) 0.0 X10*3/uL (0.0-0.2) 02/14/20 11:05 Abs Immat Gran (auto) 0.10 X10*3/uL (0.00-0.03) H 02/14/20 11:05 Absolute Neuts (auto) 5.8 X10*3/uL (2.0-8.3) 02/14/20 11:05 Absolute Nucleated RBC 0.000 X10*3/uL (0.0-0.012) 02/14/20 11:05 Nucleated RBC % (auto) 0.0 /100WBC (0.0-0.2) 02/14/20 11:05 Sodium 137 mmol/L (135-145) 02/14/20 11:05 Potassium 4.2 mmol/l (3.3-5.1) 02/14/20 11:05 Chloride 105 mmol/L (96-108) 02/14/20 11:05 Carbon Dioxide 24 mmol/L (22-29) 02/14/20 11:05 Anion Gap 12 (12-20) 02/14/20 11:05 BUN 22 mg/dL (9-16) H 02/14/20 11:05 Creatinine 1.15 mg/dL (0.5-1.4) 02/14/20 11:05 Estim Creat Clear Calc 34.8 02/14/20 11:05 Estimated GFR 47 02/14/20 11:05 POC Glucose 321 mg/dL (60-115) H 01/31/20 14:58 Random Glucose 256 mg/dL (60-115) H D 02/14/20 11:05 Calcium 9.5 mg/dL (8.4-10.2) 02/14/20 11:05 Total Bilirubin < 0.2 mg/dL (0.0-1.0) 02/14/20 11:05 AST 12 U/L (5-31) 02/14/20 11:05 ALT 7 U/L (0-31) 02/14/20 11:05 Alkaline Phosphatase 86 U/L (39-117) 02/14/20 11:05 Total Protein 7.0 g/dL (6.5-8.0) 02/14/20 11:05 Albumin 3.2 g/dL (3.5-5.0) L 02/14/20 11:05 TSH 8.37 mIU/mL (0.32-4.0) H 01/31/20 11:15 Progress Note: A/P (1) Non-small cell carcinoma of lung Status: Acute Assessment and plan: 2. Right sided Lung Mass. She had a PET scan done on May 02, at [facility] which revealed: Right lower lobe mass, contagiosum with right hilum consistent with neoplasm. 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 Nodular adrenal glands, showing higher metabolic activity than that of the liver, concerning for metastatic involvement, especially on the right. Diffuse wall thickening in the colon and diffuse hypermetabolism is consistent with history of recent C diff colitis. Evidence for gastroenteritis. Hiatus hernia. She had a bronchoscopy by Dr. Allan on April 20. Pathology revealed: Lung, bronchus intermedius mass, biopsy: Squamous cell carcinoma, moderately differentiated. PD-L1 analysis:1%. Right adrenal gland biopsy negative. Left adrenal, not considered suspicious enough. She was deemed to have disease localized to the chest. We proceeded with combined modality therapy, with radiation along with systemic chemotherapy. I had picked weekly carboplatin and Taxol based regimen. She started treatment May 29. She tolerated it very well. She completed treatment July 03. She had a PET scan, September 04 at [facility]: Right lower lobe lung mass is difficult to discretely visualized given partial collapse/consolidation of the right lower lobe, likely due to a combination of postobstructive change and radiation change. Residual right lower lobe lung mass is likely decrease in size from previous exam and is decreased in metabolic activity. Decreased FDG uptake in the bilateral adrenal glands. No new or worsening sites of lung cancer. She had residual disease, after completion of her chemotherapy. She has been started on the targeted agent Nivolumab. She has been tolerating it very well. She was here to start cycle 6. However she did not seem to be herself. She was rather lethargic and wobbly. She was tachycardic hypotensive and tachypneic. O2 sat was 85 initially went up to 93% on 2 L. She has a tendency to develop aspiration pneumonia. In addition there is concern she may have been exposed to COVID 19. PLAN: She will be referred to the emergency room for further evaluation. I have spoken to [facility], who has graciously accepted her to his care. Her treatment will be postponed today. She will return in a week or 2 weeks for labs and her next dose. She will continue on this treatment and be re-stage in 1 month's time. She will continue to follow up with Dr. Lao. Thank you, CC: Dr. Candice Morataya. Dr. Allan. Dr. Lao. Code Status FULL CODE Copies To: MOO MORATAYA MD; ULYSSES GARCÍA MD; FEDERICO ALLAN MD; KARISHMA LIANG MD Quality Measures Smoking Smoking Status: FORMER SMOKER >30DAYS Smoking Counseling: Counseling Provided: - Time Spent With Patient Total time spent is greater than 50% in coordination of care (as documented) at patient's floor/unit and/or counseling patient: 25 - 35 minutes
[2020-02-28 11:39] LABS: MANUAL DIFF FLAG NO
[2020-02-28 11:40] VITALS: BP 90/55; PULSE 105; RESP 40; O2SAT 93
[2020-02-28 11:42] LABS: Basophils Percent Auto 0.3 % (0-2); Eosinophils Absolute Auto 0.1 X10*3/uL (0.0-0.4); Eosinophils Percent Auto 1.6 % (0-4); Hematocrit 36.2 % (37-47); Hemoglobin 10.7 g/dl (12.0-16.0); Imm Gran Abs Auto 0.14 X10*3/uL (0.00-0.03); Imm Gran Pct Auto 1.8 % (0.0-0.4); Lymphocytes Absolute Auto 1.5 X10*3/uL (1.2-4.9); Lymphocytes Percent Auto 19.3 % (20-40); Mean Corpuscular HGB Conc 29.6 g/dl (31.0-35.0); Mean Corpuscular Hemoglobin 28.8 pg (27.0-33.0); Mean Corpuscular Volume 97.6 fL (80-98); Mean Platelet Volume 9.4 fL (9.4-12.3); Neutrophils Absolute Auto 4.9 X10*3/uL (2.0-8.3); Platelet Count 256 X10*3/uL (160-400); Red Blood Count 3.71 X10*6/uL (4.20-5.50); Red Cell Distribution Width 14.2 % (11.0-16.0); White Blood Count 7.6 X10*3/uL (4.8-10.8)
--- NOTE | 2020-02-28 12:00 | MHC.HEMONC ---
Pt here for chemo treatment. Meenakshi is not feeling well today. She has been feeling pain in her back, ribs, and chest for the last few days. Her worker from the snf states she has had tylenol for the pain and has had good effects, with no pain after tylenol. Meenakshi is feeling weak, unsteady on her feet today. Blood pressure is 84/51, O2 SAT 85-91% on room air. Nasal canula placed at 2L, with O2 sat increased to 93%. Pt feeling tired, napping. RR 40. IV fluid infusing at 500cc/hr. Dr Tony aware of above and will be in to see pt. Labs drawn
[2020-02-28 12:25] VITALS: BP 96/54; PULSE 101; RESP 40; TEMP 36.8; O2SAT 93
[2020-02-28 13:02] LABS: Alanine Aminotransferase 38 U/L (0-31); Albumin Level 2.9 g/dL (3.5-5.0); Alkaline Phosphatase 322 U/L (39-117); Anion Gap 14 (12-20); Aspartate Amino Transferase 62 U/L (5-31); Bilirubin Total 0.3 mg/dL (0.0-1.0); Blood Urea Nitrogen 19 mg/dL (9-16); Carbon Dioxide 19 mmol/L (22-29); Chloride 109 mmol/L (96-108); Creatinine Clr Calc Pharmacy 35.1; Estimated Glomerular Filt Rate 47; Glucose Random 153 mg/dL (60-115); Potassium 3.8 mmol/l (3.3-5.1); Sodium 138 mmol/L (135-145); Total Protein 6.9 g/dL (6.5-8.0)
--- NOTE | 2020-02-28 13:30 | MHC.HEMONC ---
Dr Tony in to evaluate pt. Pt to be evaluated in ED. Placed on stretcher and brought to ED. Report given.
[2020-02-28 13:31] LABS: Calcium 10.5 mg/dL (8.4-10.2)
--- NOTE | 2020-02-28 14:49 | MHC.HEMONCSW ---
pt does not feel well, accompanied by her mental health provider. she was sent to er for further evaluation, // aspiration.
--- NOTE | 2020-03-13 08:44 | MHC.HEMONC ---
pt is inpatient. Will cancel chemo for today.
== END 2020-04-03 23:00 | disposition home or self-care (01) ==
LOC: HO.ONC 16:00
PROVIDERS: Internal Medicine; PCP Internal Medicine; Visit Provider Internal Medicine Medical Oncology
DX: Z51.12 Encounter for antineoplastic immunotherapy (principal); C34.31 Malignant neoplasm of lower lobe, right bronchus or lung; R53.83 Other fatigue; I95.9 Hypotension, unspecified; R00.0 Tachycardia, unspecified; D64.9 Anemia, unspecified
CPT/HCPCS: 36415; 80053; 82947; 84443; 85025; 96372; 96413; 99214; J1200; J1642; J9299

== ENCOUNTER 2020-03-06 01:39 | Inpatient (IN) | payer MEDICARE, MEDICAID, SELFPAY ==
[2020-03-06] VITALS (8 sets, daily range): BP systolic 90–107; BP diastolic 51–70; PULSE 102–115; RESP 17–20; TEMP 36.3–37.1; O2SAT 91–97; BMI 23.0
--- NOTE | 2020-03-06 | XR_ITS ---
EXAMINATION: XR CHEST CLINICAL INFORMATION: Pleural effusion. COMPARISON: Chest 03/04/2020 TECHNIQUE: Frontal view of the chest was obtained. FINDINGS: There is a small right pleural effusion with underlying atelectasis. Patchy opacity in the right midlung in the parahilar region appears slightly improved. The left lung remains clear. Heart size and pulmonary vascularity is normal. There is a single left fourth with its tip at the brachiocephalic venous junction no gross bony abnormality. XR/XR chest 1V IMPRESSION: Residual right pleural effusion with underlying atelectasis are stable. Slightly improving right midlung airspace opacity. No change in left port catheter.
--- NOTE | 2020-03-06 02:52 | PC.NURSE ---
contact made to [facility]. 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
--- NOTE | 2020-03-06 02:55 | ED_ITS ---
HPI - General Adult General Chief complaint: General Medical Stated complaint: AMS Time Seen by Provider: 03/06/20 02:35 Source: EMS Mode of arrival: EMS Limitations: altered mental status History of Present Illness HPI narrative: patient comes to the emergency room via EMS, patient is being transferred from [facility]. Earlier yesterday, patient was discharged from this facility, patient was treated for pneumonia, pleural effusion, non operable squamous cell carcinoma and COPD. Patient was discharged and sent back to her retirement. However, when she arrived to her retirement, her blood pressure was noted to be 84/72 with a heart rate of 127. patient requested to come to [place], however EMS decided to take her to [facility]. Patient had a CT scan of the head, of the chest, labs done and given 1 L of normal saline. I received a phone call from Dr. Gustafson, who took care of the patient. Since all of the patient's medical care is here in [place] and patient requested to come here, patient was transferred to us. patient is somnolent, unable to give any history. MD complaint: Hypertension, weakness Related Data Home Medications Medication Instructions Recorded Confirmed Opdivo 240 mg IV Q2W 01/04/20 03/06/20 acetaminophen 650 mg PO Q6H PRN 01/04/20 03/06/20 albuterol 90 mcg INHALATION Q6H PRN 01/04/20 03/06/20 ascorbic acid (vitamin C) [Vitamin 500 mg PO BID 01/04/20 03/06/20 C] aspirin 81 mg PO DAILY 01/04/20 03/06/20 benztropine 1 mg PO BID 01/04/20 03/06/20 carvedilol [Coreg] 3.125 mg PO BID 01/04/20 03/06/20 cholecalciferol (vitamin D3) 50 mcg PO DAILY 01/04/20 03/06/20 [Vitamin D3] clozapine [Clozaril] 50 mg PO BEDTIME 01/04/20 03/06/20 ferrous sulfate 325 mg PO BID 01/04/20 03/06/20 fluticasone propion-salmeterol 1 inh INHALATION BID 01/04/20 03/06/20 [Advair Diskus] haloperidol 5 mg PO BEDTIME 01/04/20 03/06/20 mirabegron 50 mg PO DAILY 01/04/20 03/06/20 trazodone 100 mg PO BEDTIME 01/04/20 03/06/20 valproic acid 750 mg PO BID 01/04/20 03/06/20 estradiol [Estrace] 1 g VAGINAL BEDTIME 01/31/20 03/06/20 glipizide 1 tab PO DAILY 02/28/20 03/06/20 Previous Rx's Medication Instructions Recorded omeprazole 20 mg capsule,delayed 20 mg PO QAM #30 cap 01/02/20 release atorvastatin 10 mg tablet 10 mg PO BEDTIME #30 tab 01/23/20 methimazole 10 mg tablet 10 mg PO DAILY 30 Days #30 tab 02/07/20 blood sugar diagnostic #150 ea 02/13/20 metformin 500 mg tablet 500 mg PO BID 30 Days #60 tab 02/13/20 alendronate 35 mg tablet 35 mg PO QWEEK #4 tab 02/27/20 cefuroxime axetil 500 mg PO BID 5 Days #10 tab 03/03/20 prednisone See Rx Instructions .ROUTE 03/05/20 .COMPLEX #6 tab Allergies Allergy/AdvReac Type Severity Reaction Status Date / Time No Known Allergies Allergy Verified 01/16/20 13:13 [No Known Allergies*] Review of Systems Review of Systems: Yes Unobtainable due to mental condition PMFSH Past Medical History Medical History Anemia Charcot's arthropathy COPD (chronic obstructive pulmonary disease) Diabetes Diabetes type 2, uncontrolled GERD (gastroesophageal reflux disease) Hyperlipidemia Hypernatremia Hypertension Hypertension Hyperthyroidism Iron deficiency anemia Lung mass Osteopenia Osteoporosis Pleural effusion PVC (premature ventricular contraction) Tachycardia TIA (transient ischemic attack) (~2012) Tremor Umbilical hernia Surgical History History of appendectomy Family History Family History Father Lung cancer Mother Colorectal cancer Social History Social History Alcohol intake: never Smoking Status: Former smoker Packs Per Day: 1 Years Smoked: 50 Advance Directives: No Advance Directives Information Provided: Yes service: No Current occupational status: disabled Physical Exam Vital Signs: Vital Signs: Last Vital Signs Temp 97.7 F 03/06/20 01:54 Pulse 106 H 03/06/20 01:54 Resp 20 03/06/20 01:54 BP 96/51 L 03/06/20 01:54 Pulse Ox 91 L 03/06/20 01:54 Body Mass Index 23.0 Appearance: Somnolent, arousable to sternal rub Eyes: Pupils equal, round and reactive to light. ENT: Pharynx normal. Neck: Normal inspection. No crepitus CVS: Normal heart rate and rhythm. Pulses normal. Normal S1 and S2 Respiratory: No respiratory distress. oxygen saturation dropped to 88 while sleeping, bilateral rales Abdomen: Soft and nontender. No rigidity. No distention. good BS x4 Skin: Skin warm and dry. Extremities: +2 pitting edema bilaterally, No Lacerations. No Rash Neuro: somnolent, easily arousable, moves all extremities Course Course Course Narrative: patient had labs today before she was transferred. At this time the only labs that we obtained was blood cultures and lactic acid. In the other facility, patient only received 1 L of normal saline. On arrival to [facility], patient was given IV levofloxacin, which is the IV medication that she was getting prior to discharge from [facility], she was given 1 more L of normal saline. Patient stable, heart rate 100, blood pressure 96/51, respirations 20, temperature 97.7 degrees. Since patient desaturates was sleeping, she was placed on nasal cannula 2 L, oxygen saturation 97% head CT at [facility] results: No CT evidence of acute intracranial hemorrhage, mass effect or territorial infarcts. Chest CT at [facility] results: Persistent right lower lobe consolidation with a possible cavitary focus centrally. Enlarging right pleural effusion which appears loculated superiorly I discussed the patient with our hospitalist, patient being readmitted Discharge Plan Discharge Clinical Impression: Pneumonia, Non-small cell carcinoma of lung, Pleural effusion Patient Disposition: Admitted As Inpatient Prescriptions: No Action omeprazole 20 mg capsule,delayed release(DR/EC) 20 mg PO QAM Qty: 30 RF: 6 atorvastatin 10 mg tablet 10 mg PO BEDTIME Qty: 30 RF: 5 methimazole 10 mg tablet 10 mg PO DAILY 30 Days Qty: 30 RF: 4 alendronate 35 mg tablet 35 mg PO QWEEK Qty: 4 RF: 5 haloperidol 5 mg Tablet 5 mg PO BEDTIME RF: 0 valproic acid 250 mg Capsule 750 mg PO BID RF: 0 acetaminophen 650 mg Tablet 650 mg PO Q6H PRN (Reason: Fever Or Pain) RF: 0 carvedilol [Coreg] 3.125 mg Tablet 3.125 mg PO BID RF: 0 ascorbic acid (vitamin C) [Vitamin C] 500 mg Tablet 500 mg PO BID RF: 0 trazodone 100 mg Tablet 100 mg PO BEDTIME RF: 0 ferrous sulfate 325 mg (65 mg iron) Tablet 325 mg PO BID RF: 0 benztropine 1 mg Tablet 1 mg PO BID RF: 0 aspirin 81 mg Tablet 81 mg PO DAILY RF: 0 albuterol 90 mcg/actuation Aerosol 90 mcg INHALATION Q6H PRN (Reason: Wheezing) RF: 0 fluticasone propion-salmeterol [Advair Diskus] 100-50 mcg/dose Blister With Device 1 inh INHALATION BID RF: 0 clozapine [Clozaril] 50 mg Tablet 50 mg PO BEDTIME RF: 0 cholecalciferol (vitamin D3) [Vitamin D3] 50 mcg (2,000 unit) Capsule 50 mcg PO DAILY RF: 0 mirabegron 50 mg Tablet Extended Release 24 Hr 50 mg PO DAILY RF: 0 Opdivo 240 mg/24 mL Solution 240 mg IV Q2W RF: 0 estradiol [Estrace] 0.01 % (0.1 mg/gram) cream 1 g vaginal BEDTIME RF: 0 glipizide 2.5 mg tablet extended release 24hr 1 tab PO DAILY RF: 0 cefuroxime axetil 500 mg tablet 500 mg PO BID 5 Days Qty: 10 RF: 0 prednisone 10 mg tablet See Rx Instructions .ROUTE .COMPLEX Qty: 6 RF: 0 metformin 500 mg tablet 500 mg PO BID 30 Days Qty: 60 RF: 5 (DME) Contour Next Test Strips Strip See Rx Instructions .ROUTE .MEDSUPPLY Qty: 150 RF: 6
[2020-03-06] MEDS: 0.9 % Sodium Chloride 1,000 ML 999 ML IVCONT (03:33)
--- NOTE | 2020-03-06 03:33 | PC.NURSE ---
phelbotomy contacted for blood draw
[2020-03-06 04:17] LABS: Lactic Acid 0.9 mmol/L (0.5-2.0)
[2020-03-06] MEDS: levoFLOXacin/D5W 500 MG/100 ML PIGGYBACK 100 MG IV (04:51)
--- NOTE | 2020-03-06 04:57 | PM.IMHP ---
History of Present Illness Date of Service: 03/06/20 Chief Complaint: hypotension this is a 69-year-old female with an extensive past medical history as below who presents to the hospital after being discharged earlier today. Patient was admitted to the [facility] on 02/28 for management of community-acquired pneumonia. She was treated with levofloxacin. She was discharged home on cefuroxime for pneumonia. She was given steroids for COPD exacerbation. At that time she was weaned off supplemental oxygen sent home to her [facility]. This a.m. at the [facility] patient was found to be hypotensive and therefore she was sent to [facility]. Given her recent presentation to [place] the ED physician at [facility] felt that she would benefit from being transferred back to [facility]. Patient is alert oriented, has no complaint, denies any headache, change in vision, shortness of breath, any chest pain, she has no cough, she has no fever or chills, no abdominal pain nausea or vomiting. Patient denies any diarrhea. She has no lower extremity edema. On arrival to the ED patient vitals are significant for heart rate of 122, blood pressure of 94/57, respiratory rate of 18, 95% on room air. Her current blood pressure is 108/55 Labs obtained at the outside hospital showed WBC count of 11.9, sodium of 134, creatinine of 1.2. Lactic acid of 0.9. PAST MEDICAL HISTORY: 1. Non-small cell lung cancer. 2. Anemia. 3. Charcot arthropathy. 4. COPD. 5. GERD. 6. Hyperlipidemia. 7. Hypertension. 8. Hyperthyroidism. 9. Osteopenia. 10. Osteoporosis. 11. PVC. 12. TIA. 13. Chronic tremors. 14. Umbilical hernia. FAMILY HISTORY: Father had lung cancer. Mother had colorectal cancer. SURGICAL HISTORY: History of appendectomy. SOCIAL HISTORY: comes from [facility],Former smoker. Denies alcohol or illicit drugs. Review of Systems Review of Systems: Yes all other systems are reviewed and are negative [facility] Medical History Anemia Charcot's arthropathy COPD (chronic obstructive pulmonary disease) Diabetes Diabetes type 2, uncontrolled GERD (gastroesophageal reflux disease) Hyperlipidemia Hypernatremia Hypertension Hypertension Hyperthyroidism Iron deficiency anemia Lung mass Osteopenia Osteoporosis Pleural effusion PVC (premature ventricular contraction) Tachycardia TIA (transient ischemic attack) (~2012) Tremor Umbilical hernia Family History Father Lung cancer Mother Colorectal cancer Surgical History History of appendectomy Social History Alcohol intake: never Smoking Status: Former smoker Packs Per Day: 1 Years Smoked: 50 Advance Directives: No Advance Directives Information Provided: Yes service: No Current occupational status: disabled Meds Allergies Allergy/AdvReac Type Severity Reaction Status Date / Time No Known Allergies Allergy Verified 01/16/20 13:13 [No Known Allergies*] Home Medications Medication Instructions Recorded Confirmed Type Opdivo 240 mg IV Q2W 01/04/20 03/06/20 History acetaminophen 650 mg PO Q6H PRN 01/04/20 03/06/20 History albuterol 90 mcg INHALATION Q6H PRN 01/04/20 03/06/20 History ascorbic acid (vitamin C) [Vitamin 500 mg PO BID 01/04/20 03/06/20 History C] aspirin 81 mg PO DAILY 01/04/20 03/06/20 History benztropine 1 mg PO BID 01/04/20 03/06/20 History carvedilol [Coreg] 3.125 mg PO BID 01/04/20 03/06/20 History cholecalciferol (vitamin D3) 50 mcg PO DAILY 01/04/20 03/06/20 History [Vitamin D3] clozapine [Clozaril] 50 mg PO BEDTIME 01/04/20 03/06/20 History ferrous sulfate 325 mg PO BID 01/04/20 03/06/20 History fluticasone propion-salmeterol 1 inh INHALATION BID 01/04/20 03/06/20 History [Advair Diskus] haloperidol 5 mg PO BEDTIME 01/04/20 03/06/20 History mirabegron 50 mg PO DAILY 01/04/20 03/06/20 History trazodone 100 mg PO BEDTIME 01/04/20 03/06/20 History valproic acid 750 mg PO BID 01/04/20 03/06/20 History estradiol [Estrace] 1 g VAGINAL BEDTIME 01/31/20 03/06/20 History glipizide 1 tab PO DAILY 02/28/20 03/06/20 History Physical Exam Vital Signs and Narrative: Vital Signs: Last Vital Signs Temp 97.7 F 03/06/20 01:54 Pulse 106 H 03/06/20 01:54 Resp 20 03/06/20 01:54 BP 96/51 L 03/06/20 01:54 Pulse Ox 91 L 03/06/20 01:54 Body Mass Index 23.0 Const: General: cooperative and no acute distress Orientation/consciousness: patient oriented x3 Eyes: General: appearance normal, both eyes and all related structures Pupils: Equal, round and reactive pupils present Resp: Effort & Inspection: normal respiratory effort and able to speak in complete sentences Auscultation: clear to auscultation bilaterally Cardio: Rate: regular rate Rhythm: regular rhythm GI: Palpation (GI): Soft to palpation Auscultation: normal bowel sounds Skin: General skin exam: no rashes or lesions noted Neuro: General: patient oriented x3 Cranial nerves: Yes Equal, round and reactive pupils present Cognition (Neuro): normal cognition Extrem: General: Yes normal to inspection and Yes no pedal edema Results Labs Labs: Laboratory Results - last 24 hr 03/06/20 03:49 Lactic Acid 0.9 Assessment and Plan (1) Sepsis: Status: Acute (2) Pneumonia: Qualifiers: Laterality: unspecified laterality Lung location: unspecified part of lung Pneumonia type: due to unspecified organism Qualified Code(s): J18.9 - Pneumonia, unspecified organism Status: Acute (3) Diabetes type 2, uncontrolled: Status: Acute (4) Hyperthyroidism: Status: Acute (5) Hypertension: Status: Acute 69-year-old female with past medical history as above who was recently discharged after being managed for community-acquired pneumonia returns today with hypotension. # Sepsis - most likely secondary to pneumonia - has tachycardia, leukocytosis, lactic acid of 0.9 - patient had workup done at the outside hospital - blood cultures from 02/28 negative, patient afebrile plan: - Started on levofloxacin again- will continue - blood cultured, will follow the results - monitor blood pressure # hypotension - most likely secondary to above - will hold carvedilol, # community-acquired pneumonia - levofloxacin - follow blood cultures # diabetes mellitus - will place on diabetic diet, low sliding scale insulin # COPD - does not appear to be in exacerbation at this time will continue p.r.n. albuterol # large pleural effusion - patient had a large pleural effusion previous admission was treated were thoracocentesis - will order chest x-ray in the morning to follow size/ progression - currently not hypoxic DVT prophylaxis: Lovenox
[2020-03-06 05:31] LABS: COVID-19 Test Negative (Negative)
[2020-03-06 06:39] LABS: Glucose Urine UA NEG (NEG); Leukocyte Esterase Urine NEG (NEG); Nitrite Urine NEG (NEG); Urine Blood NEG (NEG); Urine Ketones NEG (NEG); Urine Protein NEG (NEG-TRACE)
[2020-03-06 06:40] LABS: Appearance Urine CLEAR; Color Urine YELLOW; UACC Culture Trigger NO
[2020-03-06] MEDS: 0.9 % Sodium Chloride 1,000 ML 100 ML IVCONT (08:13)
[2020-03-06] MEDS: 0.9 % Sodium Chloride Flush 3 ML SYRINGE IVFLUSH (08:14)
[2020-03-06 08:23] LABS: Glucose, Whole Blood 56 mg/dL (60-115)
[2020-03-06 08:59] LABS: Glucose, Whole Blood 103 mg/dL (60-115)
--- NOTE | 2020-03-06 09:47 | PM.EVENT ---
Event Note Date of Service: 03/06/20 (I have seen this pt. for Pulmonary Eval. and advice .Complete note is dictated .A: 1- 2- Parapneumonic Pl. effusion , s/p thoracentesis on 02/28, Now has only small residual effusion .3-No evidence of active pneumonia at this time .4- past h/o small cell ca of rt lung , tretaed with chemotherapy . , )
[2020-03-06] MEDS: Ascorbic Acid 500 MG TABLET PO ×2 (10:15→21:06)
[2020-03-06] MEDS: methIMAzole 10 MG TABLET PO (10:15)
[2020-03-06] MEDS: Mirabegron 50 MG TAB.ER.24H PO (10:16)
[2020-03-06] MEDS: Aspirin Enteric Coated 81 MG TABLET.DR PO (10:16)
[2020-03-06] MEDS: Omeprazole 20 MG CAPSULE.DR PO (10:16)
[2020-03-06] MEDS: Enoxaparin Sodium 40 MG/0.4 ML SYRINGE SUBCUT (10:16)
[2020-03-06] MEDS: Benztropine Mesylate 1 MG TABLET PO ×2 (10:16→21:07)
[2020-03-06] MEDS: Cholecalciferol (Vitamin D3) 25 MCG TABLET 50 MCG PO (10:16)
[2020-03-06] MEDS: Ferrous Sulfate 324 MG TABLET.DR PO ×2 (10:16→21:06)
--- NOTE | 2020-03-06 10:39 | CONS_ITS ---
DATE OF SERVICE: 03/06/2020 HISTORY OF PRESENT ILLNESS: This 69-year-old female is readmitted yesterday because of increased shortness of breath and persistent generalized weakness. The patient is not able to provide any history. I have obtained the information mostly from her electronic records and notes by the emergency room, as well as the hospitalist. She was here in the hospital last week with shortness of breath and weakness. Her chest x-ray and CT scan had shown moderate-sized pleural effusion. She had thoracenteses and more than 1000 mL of fluid was removed from the right chest. The fluid analysis showed negative for malignant cells, increased protein and WBCs consistent with parapneumonic effusion. The Gram stain and cultures on the fluid were negative. Anyway, the patient had improved after this. She had received a course of antibiotic with IV Levaquin, and her oxygenation had improved, and she was sent back to her residence, which is a residential. She had developed increased shortness of breath again and thus, she was sent initially to the emergency room of [facility], then transferred here to [facility] for continued care. During this ordeal, she is not noted to be febrile. She is anxious, usually hyperventilating, but was not noted to be in distress. Her blood pressure was more on the low side and heart rate was up to 120. I think this was taken as possible indicators of sepsis. However, her lactic acid was 0.9 and the white cell count 11.9. 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 Thereafter, she has been treated with chemotherapy and now she is receiving nivolumab and according to note from Dr. Tony, she is not having any reaction to this agent. The patient does have chronic obstructive pulmonary disease, but she is not requiring oxygen supplementation. She has chronic anemia, marked arthritis of the spine, hyperlipidemia, hypertension, hyperthyroidism, history of chronic tremors. Most importantly, she is a case of bipolar disorder and schizophrenic disorder and this is being treated with antipsychotic medications. REVIEW OF SYSTEMS: What is actually contained in the history and physical. The patient not able to give any more details. PHYSICAL EXAMINATION: GENERAL: A 69-year-old female of a thin build, is somewhat anxious, not communicating appropriately, but denies any acute distress at this time. VITAL SIGNS: Heart rate is 106, respiratory rate 20, temperature 97. EAR, NOSE, THROAT: Examination shows no acute abnormality. NECK: No JVD. Trachea in midline. No lymphadenopathy. CHEST: The patient has marked dextroscoliosis of the spine. Percussion note is resonant on both sides. Breath sounds are slightly decreased over the right lower chest with a few inspiratory crepitations with no wheezes are heard. CARDIAC: PMI is not palpable. Heart sounds are normal. No murmur or gallop. ABDOMEN: Flat, soft, and nontender. EXTREMITIES: No pitting edema. Peripheral pulses faintly palpable. IMAGING: Chest x-ray is reviewed and it shows small residual effusion on the right side, increased bronchovascular markings in the right perihilar area. But compared to her chest x-ray of 02/28, actually, the opacity and haziness are much improved. There is no evidence of any consolidation at this time. LABORATORY DATA: I think I have reviewed the results of pleural fluid drained on 02/29/2020. White cell count 361, RBCs only 2, neutrophils 10, protein is 4.8, glucose is 175. White cell count is 8.9, hemoglobin 11.7, platelet count 261. Current O2 saturation 94% on 2 L/minute. CLINICAL IMPRESSION: 1. Recent pneumonia, treated. 2. Pleural effusion on right side, parapneumonic, post thoracentesis with only small residual amount of fluid. 3. Past history of small cell carcinoma of the right lung. The patient has been treated with chemotherapy and currently on nivolumab. 4. Chronic schizophrenic/bipolar disorder. 5. Past history of smoking, quit 3 years ago. 6. The patient probably does have significant chronic obstructive pulmonary disease as well, but there is no evidence of acute exacerbation. RECOMMENDATION: 1. No need to do any more thoracenteses at this time. 2. May treat empirically with Levaquin for 1 more week. 3. Oxygen supplementation only as needed. 4. Breo 200/25 one inhalation daily. 5. DuoNeb updrafts q.4 hours 6 hours p.r.n. for acute distress. 6. Aspiration precautions. Thank you very much for asking me to see this patient. I will be glad to follow her along as needed. Sincerely, MD AARON Regalado/ELLA / [id number]
[2020-03-06 11:33] LABS: Glucose, Whole Blood 85 mg/dL (60-115)
[2020-03-06 11:58] LABS: Estimated Average Glucose 180 mg/dL; Hemoglobin A1c % 7.9 %
--- NOTE | 2020-03-06 12:19 | MHC.CM.PN ---
Patient readmitted from long-term today for SOB and HR 127. Patient needs assistance with all ADL's, IADL's which she receives from Nursing Home staff. Patient amb with a walker. CM sppoke with Mary Alice at nursing home [phone] and HCP Lukasz [phone] who are aware patient is back at the hospital. Discharge plan is to return to nursing home who will provide transport. Requested nursing home fax over D/C paperwork. CM will continue to follow patient for discharge needs. IMM addressed with HCP.
[2020-03-06 12:50] LABS: Procalcitonin 0.13 ng/mL
[2020-03-06 14:09] LABS: Estimated Average Glucose 157 mg/dL; Hemoglobin A1c % 7.1 %
--- NOTE | 2020-03-06 15:20 | W.PM.IDCN ---
History of Present Illness Data of Consult Service Date: 03/06/20 Requesting physician: Sanjuana Chavarria Primary Care Provider: Unknown Physician HPI Reason for consult: altered mental status She presents via ambulance to [facility] [place]. She was initially transferred to [facility] and then returned to [facility] She had altered level of consciousness reported in fpc. She has metastatic lung cancer and increased work of breathing. She had chemotherapy a week ago. Her bp in ambulance 84/72 and heart rate [address] scan [facility] shows persistent collapse of the superior segment right lower lobe due to obstructing right infrahilar lung mass,previously documented squamous cell carcinoma. There is persistent cavitary lesion within superior segment right lower lobe. Given the known primary tumor, it is difficult by report to separate primary tumor/necrotic tumor from abscess and pneumonia. There is increasing right pleural effusion which appears loculated in upper posterior chest She was afebrile and WBC 11.9 Review of Systems Review of Systems: Yes Unobtainable due to mental status PMFSH Past Medical History Medical History (Updated 03/24/20 @ 16:10 by Roshni Gilliam MD) Anemia Charcot's arthropathy COPD (chronic obstructive pulmonary disease) Diabetes Diabetes type 2, uncontrolled Fever of unknown origin GERD (gastroesophageal reflux disease) Hyperlipidemia Hypernatremia Hypertension Hypertension Hyperthyroidism Iron deficiency anemia Lung mass Osteopenia Osteoporosis Pleural effusion PVC (premature ventricular contraction) Tachycardia TIA (transient ischemic attack) (~2012) Tremor Umbilical hernia Family History Family History Father Lung cancer Mother Colorectal cancer Surgical History Surgical History History of appendectomy Social History Social History Household Members: Other Household Members Other:: [facility] Alcohol intake: former Smoking Status: Former smoker Packs Per Day: 1 Years Smoked: 50 Smoked in Last 30 Days: No Use of substances other than those prescribed or required for medical reasons: No Currently Displaying Signs/Symptoms of Drug Intoxication Withdrawal: No Advance Directives: No Advance Directives Information Provided: Yes Do you have thoughts of harming others: None Do you have a plan to hurt others: No Plan Recently lost weight without trying: Unsure service: No Current occupational status: disabled Meds Allergies Allergy/AdvReac Type Severity Reaction Status Date / Time No Known Allergies Allergy Verified 01/16/20 13:13 [No Known Allergies*] Home Medications Medication Instructions Recorded Confirmed Type Opdivo 240 mg IV Q2W 01/04/20 03/06/20 History acetaminophen 650 mg PO Q6H PRN 01/04/20 03/06/20 History albuterol 90 mcg INHALATION Q6H PRN 01/04/20 03/06/20 History ascorbic acid (vitamin C) [Vitamin 500 mg PO BID 01/04/20 03/06/20 History C] aspirin 81 mg PO DAILY 01/04/20 03/06/20 History benztropine 1 mg PO BID 01/04/20 03/06/20 History cholecalciferol (vitamin D3) 50 mcg PO DAILY 01/04/20 03/06/20 History [Vitamin D3] clozapine [Clozaril] 50 mg PO BEDTIME 01/04/20 03/06/20 History ferrous sulfate 325 mg PO BID 01/04/20 03/06/20 History fluticasone propion-salmeterol 1 inh INHALATION BID 01/04/20 03/06/20 History [Advair Diskus] haloperidol 5 mg PO BEDTIME 01/04/20 03/06/20 History mirabegron 50 mg PO DAILY 01/04/20 03/06/20 History trazodone 100 mg PO BEDTIME 01/04/20 03/06/20 History valproic acid 750 mg PO BID 01/04/20 03/06/20 History estradiol [Estrace] 1 g VAGINAL BEDTIME 01/31/20 03/06/20 History glipizide 1 tab PO DAILY 02/28/20 03/06/20 History Physical Exam Vital Signs: Vital Signs: Last Vital Signs Temp 98.0 F 03/06/20 12:00 Pulse 107 H 03/06/20 12:00 Resp 17 03/06/20 12:00 BP 94/51 L 03/06/20 12:00 Pulse Ox 97 03/06/20 12:00 Body Mass Index 23.0 Const: General: cooperative Orientation/consciousness: oriented to person, oriented to place and oriented to time HENMT: Head: Yes normal to inspection Mouth: Normal oral and palatal mucosa present Eyes: General: appearance normal, both eyes and all related structures Resp: Effort & Inspection: decreased respiratory effort Cardio: Rate: tachycardic Rhythm: regular rhythm GI: Inspection: Yes normal to inspection Skin: General skin exam: no rashes or lesions noted Neuro: General: oriented to person, oriented to place and oriented to time Extrem: General: Yes normal to inspection Assessment and Plan (1) Acute respiratory failure with hypoxia: Status: Acute Would give po Levaquin for 10 days (2) Pleural effusion: Status: Resolved (3) Pneumonia: Qualifiers: Laterality: unspecified laterality Lung location: unspecified part of lung Pneumonia type: due to unspecified organism Qualified Code(s): J18.9 - Pneumonia, unspecified organism Status: Resolved Results Labs CBC & Chem 7: 03/24/20 05:26 03/24/20 05:26 Labs: Urine 03/06/20 Range/Units 05:47 Urine Color YELLOW Urine Appearance CLEAR Urine pH 6.0 (5.0-8.0) Ur Specific [place] 1.010 (1.005-1.025) Urine Protein NEG (NEG-TRACE) MG/DL Urine Glucose (UA) NEG (NEG) MG/DL
--- NOTE | 2020-03-06 15:22 | P.PNIM_ITS ---
Subjective Subjective Date of Service: 03/06/20 Interval History: readmitted due to hypotension, tachycardia ?cavitary lesion on CT chest + loculated pleural effusion [place] [facility] unable to obtain reliable ROS due to pt's psychological condition Physical Exam Vital Signs: Vital Signs: Last Vital Signs Temp 98.0 F 03/06/20 12:00 Pulse 107 H 03/06/20 12:00 Resp 17 03/06/20 12:00 BP 94/51 L 03/06/20 12:00 Pulse Ox 97 03/06/20 12:00 Body Mass Index 23.0 Gen: in no acute distress HEENT: sclera anicteric, moist mucus membranes Neck: supple Lungs: lung sounds diminished lower R hemithorax Heart: regular rate and rhythm, no murmurs Abd: soft, non-tender, non-distended Ext: no edema Skin: warm/well-perfused Neuro: alert and oriented x3, no focal findings Psych: tangential speech Objective Data Current Medications Generic Name Dose Route Start Last Admin Trade Name Freq PRN Reason Stop Dose Admin Acetaminophen 650 mg 03/06/20 07:11 Acetaminophen 325 Mg Tablet PO Q6H PRN Pain, Mild (Pain Scale 1-3) Albuterol Sulfate 90 puff 03/06/20 12:00 Albuterol Sulfate 90 Mcg 18 Gm Inhaler INHALE RQ6H PRN Wheezing Ascorbic Acid 500 mg 03/06/20 09:00 03/06/20 10:15 Ascorbic Acid 500 Mg Tablet PO 500 mg BID ANJU Administration Aspirin 81 mg 03/06/20 09:00 03/06/20 10:16 Aspirin Enteric Coated 81 Mg Tablet.Dr PO 81 mg DAILY ANUJ Administration Atorvastatin Calcium 10 mg 03/06/20 21:00 Atorvastatin Calcium 10 Mg Tablet PO BEDTIME ANUJ Benztropine Mesylate 1 mg 03/06/20 09:00 03/06/20 10:16 Benztropine Mesylate 1 Mg Tablet PO 1 mg BID ANUJ Administration Clozapine 50 mg 03/06/20 21:00 Clozapine 25 Mg Tablet PO BEDTIME ANUJ Docusate Sodium 100 mg 03/06/20 07:11 Docusate Sodium 100 Mg Capsule PO DAILY PRN Constipation Enoxaparin Sodium 40 mg 03/06/20 08:00 03/06/20 10:16 Enoxaparin Sodium 40 Mg/0.4 Ml Syringe SUBCUT 40 mg Q24H ANUJ Administration Ferrous Sulfate 324 mg 03/06/20 09:00 03/06/20 10:16 Ferrous Sulfate 324 Mg Tablet. PO 324 mg BID ANUJ Administration Fluticasone/Vilanterol 1 puff 03/07/20 08:00 Fluticasone/Vilanterol 100/25 Blst.W.Dev INHALE RDAILY [facility] Haloperidol 5 mg 03/06/20 21:00 Haloperidol 5 Mg Tablet PO BEDTIME [facility] Sodium Chloride 1,000 mls @ 100 mls/hr 03/06/20 05:15 03/06/20 08:15 Ns IVCONT Not Given .Q10H ANUJ Levofloxacin 750 mg in 150 mls @ 100 mls/hr 03/06/20 08:00 03/06/20 08:16 Levaquin IV Not Given Q24H [facility] Insulin Human Lispro 0 unit 03/06/20 07:30 03/06/20 11:39 Insulin Lispro 100 Unit/Ml 3 Ml Vial SUBCUT Not Given QIDACHS [facility] Protocol Methimazole 10 mg 03/06/20 09:00 03/06/20 10:15 Methimazole 10 Mg Tablet PO 10 mg DAILY [facility] Administration Mirabegron 50 mg 03/06/20 09:00 03/06/20 10:16 Mirabegron 50 Mg Tab.Er.24h PO 50 mg DAILY [facility] Administration Non-Formulary Medication 240 mg 03/06/20 07:11 Nivolumab IV Q14D ANUJ Omeprazole 20 mg 03/06/20 09:00 03/06/20 10:16 Omeprazole 20 Mg Capsule. PO 20 mg DAILY [facility] Administration Ondansetron HCl 4 mg 03/06/20 07:11 Ondansetron Hcl 4 Mg/2 Ml Vial IVPUSH Q8H PRN Nausea and Vomiting Pharmacy Consult 1 each 03/06/20 04:00 Consult Rx Perform Med Rec MISCELLANE ONCE PRN Consult order Sodium Chloride 3 ml 03/06/20 08:00 03/06/20 08:14 0.9 % Sodium Chloride Flush 3 Ml Syringe IVFLUSH 3 ml QSHIFT ANUJ Administration Trazodone HCl 100 mg 03/06/20 21:00 Trazodone Hcl 100 Mg Tablet PO BEDTIME ANUJ Valproic Acid 750 mg 03/06/20 09:00 03/06/20 11:24 Valproic Acid 250 Mg Capsule PO Not Given BID [facility] Vitamin D 50 mcg 03/06/20 09:00 03/06/20 10:16 Cholecalciferol (Vitamin D3) 25 Mcg Tablet PO 50 mcg DAILY ANUJ Administration Labs Labs: Laboratory Results - last 24 hr 03/06/20 03/06/20 03/06/20 03:49 05:13 05:47 POC Glucose Estimat Average Glucose Hemoglobin A1c % Lactic Acid 0.9 Procalcitonin Urine Color YELLOW Urine Appearance CLEAR Urine pH 6.0 Ur Specific [place] 1.010 Urine Protein NEG Urine Glucose (UA) NEG Urine Ketones NEG Urine Blood NEG Urine Nitrite NEG Ur Leukocyte Esterase NEG COVID-19 ([facility]) Negative COVID-19 Clin Com See Note 03/06/20 03/06/20 03/06/20 08:18 08:56 11:22 POC Glucose 56 L* 103 85 Estimat Average Glucose Hemoglobin A1c % Lactic Acid Procalcitonin Urine Color Urine Appearance Urine pH Ur Specific [place] Urine Protein Urine Glucose (UA) Urine Ketones Urine Blood Urine Nitrite Ur Leukocyte Esterase COVID-19 ([facility]) COVID-19 Clin Com 03/06/20 03/06/20 03/06/20 11:32 11:32 13:19 POC Glucose Estimat Average Glucose 180 157 Hemoglobin A1c % 7.9 7.1 Lactic Acid Procalcitonin 0.13 Urine Color Urine Appearance Urine pH Ur Specific [place] Urine Protein Urine Glucose (UA) Urine Ketones Urine Blood Urine Nitrite Ur Leukocyte Esterase COVID-19 ([facility]) COVID-19 Clin [place]ango Assessment and Plan (1) Pneumonia: Status: Acute (2) Pleural effusion: Problem details: Likely malignant from progression of her cancer. Status: Acute (3) Acute exacerbation of chronic obstructive pulmonary disease: Problem details: Likely infectious process exacerbating the breathing. Although, the immune therapy for her cancer can also resulting worsening respiratory since Status: Acute Assessment and Plan: hospital d#1 for 69yo F with NSCLC, COPD admitted from Oncology clinic due to pleural effusion and COPD exacerbation 02/27-03/05/20 readmitted with hypotension, tachycardia, concern of cavitary PNA/loculated pleural effusion on CT chest # hypotension - holding carvedilol and giving IV fluids. not septic. # pleural effusion # ?cavitary pneumonia - s/p thoracentesis 02/29/20, exudate, culture-negative, cytology benign - treated with 3d of levofloxacin and 4d of cefuroxime. back on levofloxacin. - consult Pulmonology + ID, will ask for CT chest done at [facility] to be uploaded to our PACS system # COPD exacerbation - complete 4d prednisone taper, continue controller ICS/LABA, prn YESIKA # acute hypoxic respiratory failure - supplemental O2, wean as tolerated # NSCLC - followed by Dr Tony, on immune-based chemotherapy with nivolumab # hyperthyroidism - continue MMZ # DM2, A1c 7.1, with hypoglycemia - d/c oral hypoglycemics # HLD - continue statin # GERD - continue PPI # INA - continue Fe supplementation # psychiatric disorder - continue clozapine, haloperidol, benztropine, valproate # VTE ppx - LMWH
[2020-03-06 16:17] LABS: Glucose, Whole Blood 89 mg/dL (60-115)
[2020-03-06] MEDS: predniSONE 20 MG TABLET PO (19:23)
[2020-03-06 20:47] LABS: Glucose, Whole Blood 141 mg/dL (60-115)
[2020-03-06] MEDS: HaloperidoL 5 MG TABLET PO (21:05)
[2020-03-06] MEDS: cloZAPine 25 MG TABLET 50 MG PO (21:05)
[2020-03-06] MEDS: Valproic Acid 250 MG CAPSULE 750 MG PO (21:05)
[2020-03-06] MEDS: traZODone HCL 100 MG TABLET PO (21:06)
[2020-03-06] MEDS: Atorvastatin Calcium 10 MG TABLET PO (21:07)
[2020-03-07] MEDS: 0.9 % Sodium Chloride 1,000 ML 100 ML IVCONT ×3 (01:42→19:48)
[2020-03-07 04:00] VITALS: BP 104/78; PULSE 107; RESP 18; TEMP 36.4; O2SAT 97
[2020-03-07 05:51] LABS: MANUAL DIFF FLAG NO
[2020-03-07] MEDS: levoFLOXacin 750 MG TABLET PO (05:51)
[2020-03-07 06:06] LABS: Basophils Percent Auto 0.3 % (0-2); Hematocrit 32.4 % (37-47); Hemoglobin 9.7 g/dl (12.0-16.0); Imm Gran Abs Auto 0.36 X10*3/uL (0.00-0.03); Imm Gran Pct Auto 4.8 % (0.0-0.4); Lymphocytes Absolute Auto 0.9 X10*3/uL (1.2-4.9); Lymphocytes Percent Auto 12.3 % (20-40); Mean Corpuscular HGB Conc 29.9 g/dl (31.0-35.0); Mean Corpuscular Hemoglobin 28.9 pg (27.0-33.0); Mean Corpuscular Volume 96.4 fL (80-98); Mean Platelet Volume 9.5 fL (9.4-12.3); Monocytes Absolute Auto 0.4 X10*3/uL (0.1-1.2); Monocytes Percent Auto 5.6 % (2-11); Neutrophils Absolute Auto 5.7 X10*3/uL (2.0-8.3); Platelet Count 205 X10*3/uL (160-400); Red Blood Count 3.36 X10*6/uL (4.20-5.50); Red Cell Distribution Width 14.8 % (11.0-16.0); White Blood Count 7.5 X10*3/uL (4.8-10.8)
[2020-03-07 06:23] LABS: Anion Gap 11 (12-20); Blood Urea Nitrogen 20 mg/dL (9-16); Calcium 8.9 mg/dL (8.4-10.2); Carbon Dioxide 22 mmol/L (22-29); Chloride 111 mmol/L (96-108); Creatinine Clr Calc Pharmacy 62.7; Estimated Glomerular Filt Rate > 60; Glucose Random 172 mg/dL (60-115); Potassium 4.6 mmol/l (3.3-5.1); Sodium 139 mmol/L (135-145)
--- NOTE | 2020-03-07 06:44 | PC.NURSE ---
Pt has garbaled speech at baseline. Occasionally needed redirection for attempts to get out of bed. Easily redirected. Pt swallowed pills well.
[2020-03-07 07:27] VITALS: BP 110/60; PULSE 100; RESP 16; TEMP 36.4; O2SAT 94
[2020-03-07 07:58] LABS: Glucose, Whole Blood 122 mg/dL (60-115)
[2020-03-07] MEDS: Enoxaparin Sodium 40 MG/0.4 ML SYRINGE SUBCUT (07:59)
[2020-03-07] MEDS: predniSONE 20 MG TABLET PO (08:00)
[2020-03-07] MEDS: Aspirin Enteric Coated 81 MG TABLET.DR PO (08:00)
[2020-03-07] MEDS: Mirabegron 50 MG TAB.ER.24H PO (08:00)
[2020-03-07] MEDS: methIMAzole 10 MG TABLET PO (08:00)
[2020-03-07] MEDS: Ferrous Sulfate 324 MG TABLET.DR PO ×2 (08:00→19:47)
[2020-03-07] MEDS: Valproic Acid 250 MG CAPSULE 750 MG PO ×2 (08:00→19:47)
[2020-03-07] MEDS: Cholecalciferol (Vitamin D3) 25 MCG TABLET 50 MCG PO (08:00)
[2020-03-07] MEDS: Benztropine Mesylate 1 MG TABLET PO ×2 (08:01→19:47)
[2020-03-07] MEDS: Omeprazole 20 MG CAPSULE.DR PO (08:01)
[2020-03-07] MEDS: Ascorbic Acid 500 MG TABLET PO ×2 (08:01→19:47)
--- NOTE | 2020-03-07 09:15 | MHC.CDI.CONC ---
CDI Concurrent Query Service Date: 03/07/20 Documentation Clarification: Please clarify if you are treating a probable/suspected/likely or confirmed: Sepsis due to Pneumonia (txt/ rule out/ poa) Pneumonia Please specify if known Provider Response: Other Other Diagnosis: not septic- no leukocytosis PLEASE DO NOT DELETE/MODIFY EXISTING CONTENT Additional information is needed in order to code to the highest accuracy and appropriate Severity of Illness (SOI). Please clarify the information noted below in your progress notes and discharge summary. Risk Factors/Clinical Indicators/Treatments H&P: Assessment/plan: Sepsis, acute Sepsis most likely secondary to pneumonia. Tachycardia, leukocytosis, LA 0.9 HR 126 RR 20 WBC 11.9 BP 94/57 Pulmonary consult. Levofloxacin b/c, monitor BP Hypotension most likely 2nd to pna. Halie Avalos, [facility], CDIS Ext . [phone] Please Review the information above and exercise your independent professional judgment in responding to the query. If you concur, pleas document in the PROGRESS NOTES and DISCHARGE SUMMARY. If you do not agree with the query, please document in the query above. THIS QUERY IS PART OF THE PERMANENT MEDICAL RECORD
[2020-03-07 11:22] LABS: Glucose, Whole Blood 142 mg/dL (60-115)
[2020-03-07 11:32] VITALS: BP 99/55; PULSE 109; RESP 18; TEMP 36.7; O2SAT 95
--- NOTE | 2020-03-07 12:46 | P.PNIM_ITS ---
Subjective Subjective Date of Service: 03/07/20 Interval History: denies cough or dyspnea but not a consistent historian due to psychiatric condition Physical Exam Vital Signs: Vital Signs: Last Vital Signs Temp 98.0 F 03/07/20 11:32 Pulse 109 H 03/07/20 11:32 Resp 18 03/07/20 11:32 BP 99/55 L 03/07/20 11:32 Pulse Ox 95 03/07/20 11:32 Body Mass Index 23.0 Gen: in no acute distress HEENT: sclera anicteric, moist mucus membranes Neck: supple Lungs: lung sounds diminished lower R hemithorax Heart: regular rate and rhythm, no murmurs Abd: soft, non-tender, non-distended Ext: no edema Skin: warm/well-perfused Neuro: alert and oriented x3, no focal findings Psych: tangential speech Objective Data Current Medications Generic Name Dose Route Start Last Admin Trade Name Freq PRN Reason Stop Dose Admin Acetaminophen 650 mg 03/06/20 07:11 Acetaminophen 325 Mg Tablet PO Q6H PRN Pain, Mild (Pain Scale 1-3) Albuterol Sulfate 90 puff 03/06/20 12:00 Albuterol Sulfate 90 Mcg 18 Gm Inhaler INHALE RQ6H PRN Wheezing Ascorbic Acid 500 mg 03/06/20 09:00 03/07/20 08:01 Ascorbic Acid 500 Mg Tablet PO 500 mg BID ANUJ Administration Aspirin 81 mg 03/06/20 09:00 03/07/20 08:00 Aspirin Enteric Coated 81 Mg Tablet.Dr PO 81 mg DAILY ANUJ Administration Atorvastatin Calcium 10 mg 03/06/20 21:00 03/06/20 21:07 Atorvastatin Calcium 10 Mg Tablet PO 10 mg BEDTIME ANUJ Administration Benztropine Mesylate 1 mg 03/06/20 09:00 03/07/20 08:01 Benztropine Mesylate 1 Mg Tablet PO 1 mg BID ANUJ Administration Clozapine 50 mg 03/06/20 21:00 03/06/20 21:05 Clozapine 25 Mg Tablet PO 50 mg BEDTIME ANUJ Administration Docusate Sodium 100 mg 03/06/20 07:11 Docusate Sodium 100 Mg Capsule PO DAILY PRN Constipation Enoxaparin Sodium 40 mg 03/06/20 08:00 03/07/20 07:59 Enoxaparin Sodium 40 Mg/0.4 Ml Syringe SUBCUT 40 mg Q24H ANUJ Administration Ferrous Sulfate 324 mg 03/06/20 09:00 03/07/20 08:00 Ferrous Sulfate 324 Mg Tablet. PO 324 mg BID ANUJ Administration Fluticasone/Vilanterol 1 puff 03/07/20 08:00 03/07/20 07:45 Fluticasone/Vilanterol 100/25 Blst.W.Dev INHALE Not Given RDAILY ANUJ Haloperidol 5 mg 03/06/20 21:00 03/06/20 21:05 Haloperidol 5 Mg Tablet PO 5 mg BEDTIME ANUJ Administration Sodium Chloride 1,000 mls @ 100 mls/hr 03/06/20 05:15 03/07/20 10:35 Ns IVCONT 100 mls/hr .Q10H ANUJ Administration Insulin Human Lispro 0 unit 03/06/20 07:30 03/07/20 12:34 Insulin Lispro 100 Unit/Ml 3 Ml Vial SUBCUT Not Given QIDACHS [facility] Protocol Levofloxacin 750 mg 03/07/20 06:00 03/07/20 05:51 Levofloxacin 750 Mg Tablet PO 750 mg Q24H ANUJ Administration Methimazole 10 mg 03/06/20 09:00 03/07/20 08:00 Methimazole 10 Mg Tablet PO 10 mg DAILY ANUJ Administration Mirabegron 50 mg 03/06/20 09:00 03/07/20 08:00 Mirabegron 50 Mg Tab.Er.24h PO 50 mg DAILY ANUJ Administration Omeprazole 20 mg 03/06/20 09:00 03/07/20 08:01 Omeprazole 20 Mg Capsule. PO 20 mg DAILY ANUJ Administration Ondansetron HCl 4 mg 03/06/20 07:11 Ondansetron Hcl 4 Mg/2 Ml Vial IVPUSH Q8H PRN Nausea and Vomiting Pharmacy Consult 1 each 03/06/20 04:00 Consult Rx Perform Med Rec MISCELLANE ONCE PRN Consult order Prednisone 10 mg 03/08/20 09:00 Prednisone 10 Mg Tablet PO 03/09/20 09:01 DAILY ANUJ Sodium Chloride 3 ml 03/06/20 08:00 03/07/20 07:59 0.9 % Sodium Chloride Flush 3 Ml Syringe IVFLUSH Not Given QSHIFT [facility] Trazodone HCl 100 mg 03/06/20 21:00 03/06/20 21:06 Trazodone Hcl 100 Mg Tablet PO 100 mg BEDTIME ANUJ Administration Valproic Acid 750 mg 03/06/20 09:00 03/07/20 08:00 Valproic Acid 250 Mg Capsule PO 750 mg BID ANUJ Administration Vitamin D 50 mcg 03/06/20 09:00 03/07/20 08:00 Cholecalciferol (Vitamin D3) 25 Mcg Tablet PO 50 mcg DAILY ANUJ Administration Labs CBC & Chem 7: 03/07/20 05:28 03/07/20 05:28 Labs: Laboratory Results - last 24 hr 03/06/20 03/06/20 03/06/20 13:19 16:09 20:44 WBC RBC Hgb Hct MCV MCH MCHC RDW Plt Count MPV Immature Gran % (Auto) Neut % (Auto) Lymph % (Auto) [place] % (Auto) Eos % (Auto) Baso % (Auto) Lymph # (Auto) [place] # (Auto) Eos # (Auto) Baso # (Auto) Abs Immat Gran (auto) Absolute Neuts (auto) Absolute Nucleated RBC Nucleated RBC % (auto) Sodium Potassium Chloride Carbon Dioxide Anion Gap BUN Creatinine Estim Creat Clear Calc Estimated GFR POC Glucose 89 141 H Random Glucose Estimat Average Glucose 157 Hemoglobin A1c % 7.1 Calcium 03/07/20 03/07/20 03/07/20 05:28 05:28 07:30 WBC 7.5 RBC 3.36 L Hgb 9.7 L Hct 32.4 L MCV 96.4 MCH 28.9 MCHC 29.9 L RDW 14.8 Plt Count 205 MPV 9.5 Immature Gran % (Auto) 4.8 H Neut % (Auto) 77.0 H Lymph % (Auto) 12.3 L [place] % (Auto) 5.6 Eos % (Auto) 0.0 Baso % (Auto) 0.3 Lymph # (Auto) 0.9 L [place] # (Auto) 0.4 Eos # (Auto) 0.0 Baso # (Auto) 0.0 Abs Immat Gran (auto) 0.36 H Absolute Neuts (auto) 5.7 Absolute Nucleated RBC 0.000 Nucleated RBC % (auto) 0.0 Sodium 139 Potassium 4.6 Chloride 111 H Carbon Dioxide 22 Anion Gap 11 L BUN 20 H Creatinine 0.73 Estim Creat Clear Calc 62.7 Estimated GFR > 60 POC Glucose 122 H Random Glucose 172 H D Estimat Average Glucose Hemoglobin A1c % Calcium 8.9 D 03/07/20 11:12 WBC RBC Hgb Hct MCV MCH MCHC RDW Plt Count MPV Immature Gran % (Auto) Neut % (Auto) Lymph % (Auto) [place] % (Auto) Eos % (Auto) Baso % (Auto) Lymph # (Auto) [place] # (Auto) Eos # (Auto) Baso # (Auto) Abs Immat Gran (auto) Absolute Neuts (auto) Absolute Nucleated RBC Nucleated RBC % (auto) Sodium Potassium Chloride Carbon Dioxide Anion Gap BUN Creatinine Estim Creat Clear Calc Estimated GFR POC Glucose 142 H Random Glucose Estimat Average Glucose Hemoglobin A1c % Calcium Microbiology Microbiology Results: Microbiology 03/06/20 03:50 Blood - Venous Blood Culture - Preliminary No growth after 24 hours. 03/06/20 03:49 Blood - Venous Blood Culture - Preliminary No growth after 24 hours. Assessment and Plan (1) Pneumonia: Status: Acute (2) Pleural effusion: Problem details: Likely malignant from progression of her cancer. possibly Thoracic evaluation or IR drain and culture pleural effusion Status: Acute (3) Acute exacerbation of chronic obstructive pulmonary disease: Problem details: Likely infectious process exacerbating the breathing. Although, the immune therapy for her cancer can also resulting worsening respiratory since Status: Acute Assessment and Plan: hospital d#2 for 69yo F with NSCLC, COPD admitted from Oncology clinic due to pleural effusion and COPD exacerbation 02/27-03/05/20 readmitted with hypotension, tachycardia, concern of cavitary PNA/loculated pleural effusion on CT chest # hypotension - holding carvedilol and giving IV fluids. not septic. # pleural effusion # ?cavitary pneumonia - s/p thoracentesis 02/29/20, exudate, culture-negative, cytology benign - treated with 3d of levofloxacin and 4d of cefuroxime. back on levofloxacin. - consulted Pulmonology + ID, discuss with pt's oncologist, ?Thoracic # COPD exacerbation - complete 4d prednisone taper prescribed 03/05/20, continue controller ICS/LABA, prn YESIKA # acute hypoxic respiratory failure - supplemental O2, wean as tolerated # NSCLC - followed by Dr Tony, on immune-based chemotherapy with nivolumab # hyperthyroidism - continue MMZ # DM2, A1c 7.1, with hypoglycemia - d/c oral hypoglycemics # HLD - continue statin # GERD - continue PPI # INA - continue Fe supplementation # psychiatric disorder - continue clozapine, haloperidol, benztropine, valproate # VTE ppx - LMWH
--- NOTE | 2020-03-07 13:13 | MHC.CM.PN ---
Patient continues on IV fluids, strep PNA is pending. Discharge plan is to return to long-term when stable. CM will continue to follow patient for discharge needs.
[2020-03-07 14:53] VITALS: BP 97/62; PULSE 80; RESP 19; TEMP 36.6; O2SAT 96
[2020-03-07 16:06] LABS: Glucose, Whole Blood 180 mg/dL (60-115)
[2020-03-07] MEDS: Insulin Lispro 100 UNIT/ML 3 ML VIAL SUBCUT ×2 (16:53→21:04)
--- NOTE | 2020-03-07 17:37 | PM.CNGS ---
History of Present Illness Consult details Consult date: 03/07/20 Reason for consult: other (pleural effusion ) Requesting physician: Sanjuana Chavarria Narrative: Patient is a 69-year-old female with a past medical history of non-small cell lung cancer, s/p radiation therapy with plans for future chemotherapy followed by Oncology, COPD who was previously admitted on 02/27for management of community-acquired pneumonia, found to have a large right-sided pleural effusion which was tapped on at 02/28to be ultrasound-guided thoracentesis for 1100 cc of yellow/green pleural fluid. Pleural fluid analysis showed exudative process, culture yielded no growth, pleural fluid cytology showed no malignancy identified. Patient was discharged from hospital on 03/05 and reportedly went to the [facility] where she had a CT scan performed which images are not available two-view at this time however according to hospitalist CT did question areas of loculation of pleural fluid. Chest x-ray was performed yesterday which showed only small stable residual right-sided pleural effusion with improvement in a patient of opacifications when compared to CXR on 03/04, for which thoracic surgery was consulted for. After my physical exam this evening patient does not seem to be in any respiratory distress with no increased work of breathing or accessory muscle usage. Patient is a poor historian and remains pleasantly confused which reportedly is her baseline. Patient denies any shortness of breath, cough, fever or chills. Patient is able to speak in full complete sentences and is currently on room air with no visible signs of cyanosis. All other review of systems unable to obtain due to patient's mental status. Review of Systems Review of Systems: Yes Unobtainable due to mental status Neurologic: Reports confusion Psychiatric: Psychiatric: Reports confusion [facility] Past Medical History Medical History Anemia Charcot's arthropathy COPD (chronic obstructive pulmonary disease) Diabetes Diabetes type 2, uncontrolled GERD (gastroesophageal reflux disease) Hyperlipidemia Hypernatremia Hypertension Hypertension Hyperthyroidism Iron deficiency anemia Lung mass Osteopenia Osteoporosis Pleural effusion PVC (premature ventricular contraction) Tachycardia TIA (transient ischemic attack) (~2012) Tremor Umbilical hernia Family History Family History Father Lung cancer Mother Colorectal cancer Surgical History Surgical History History of appendectomy Social History Social History Household Members: Other Alcohol intake: former Smoking Status: Former smoker Packs Per Day: 1 Years Smoked: 50 service: No Current occupational status: disabled Meds Allergies Allergy/AdvReac Type Severity Reaction Status Date / Time No Known Allergies Allergy Verified 01/16/20 13:13 [No Known Allergies*] Home Medications Medication Instructions Recorded Confirmed Type Opdivo 240 mg IV Q2W 01/04/20 03/06/20 History acetaminophen 650 mg PO Q6H PRN 01/04/20 03/06/20 History albuterol 90 mcg INHALATION Q6H PRN 01/04/20 03/06/20 History ascorbic acid (vitamin C) [Vitamin 500 mg PO BID 01/04/20 03/06/20 History C] aspirin 81 mg PO DAILY 01/04/20 03/06/20 History benztropine 1 mg PO BID 01/04/20 03/06/20 History carvedilol [Coreg] 3.125 mg PO BID 01/04/20 03/06/20 History cholecalciferol (vitamin D3) 50 mcg PO DAILY 01/04/20 03/06/20 History [Vitamin D3] clozapine [Clozaril] 50 mg PO BEDTIME 01/04/20 03/06/20 History ferrous sulfate 325 mg PO BID 01/04/20 03/06/20 History fluticasone propion-salmeterol 1 inh INHALATION BID 01/04/20 03/06/20 History [Advair Diskus] haloperidol 5 mg PO BEDTIME 01/04/20 03/06/20 History mirabegron 50 mg PO DAILY 01/04/20 03/06/20 History trazodone 100 mg PO BEDTIME 01/04/20 03/06/20 History valproic acid 750 mg PO BID 01/04/20 03/06/20 History estradiol [Estrace] 1 g VAGINAL BEDTIME 01/31/20 03/06/20 History glipizide 1 tab PO DAILY 02/28/20 03/06/20 History Physical Exam Vital Signs: Vital Signs: Last Vital Signs Temp 97.9 F 03/07/20 14:53 Pulse 80 03/07/20 14:53 Resp 19 03/07/20 14:53 BP 97/62 03/07/20 14:53 Pulse Ox 96 03/07/20 14:53 Body Mass Index 23.0 Const: General: cooperative, no acute distress and confusion Orientation/consciousness: confusion HENMT: Head: Yes normal to inspection Neck: Neck: Yes normal visual inspection, Yes trachea midline and Yes supple Resp: Other: Breast sounds are diminished on posterior right lower lobe with good aeration in remaining lung willard with no adventitious sounds such as wheezes or rhonchi. Cardio: Jugular venous distension: no JVD Rate: regular rate Rhythm: regular rhythm Heart sounds: S1 normal heart sound present and S2 normal heart sound present GI: Inspection: Yes normal to inspection Palpation (GI): Soft to palpation and nontender Skin: Other: Warm and dry throughout Neuro: General: confusion Extrem: General: Yes normal to inspection and Yes no clubbing, cyanosis or edema Results Labs Result diagrams: 03/07/20 05:28 03/07/20 05:28 Labs: Abnormal lab results 03/06/20 03/07/20 03/07/20 Range/Units 20:44 05:28 05:28 RBC 3.36 L (4.20-5.50) X10*6/uL Hgb 9.7 L (12.0-16.0) g/dl Hct 32.4 L (37-47) % MCHC 29.9 L (31.0-35.0) g/dl Immature Gran % (Auto) 4.8 H (0.0-0.4) % Neut % (Auto) 77.0 H (45-73) % Lymph % (Auto) 12.3 L (20-40) % Lymph # (Auto) 0.9 L (1.2-4.9) X10*3/uL Abs Immat Gran (auto) 0.36 H (0.00-0.03) X10*3/uL Chloride 111 H (96-108) mmol/L Anion Gap 11 L (12-20) BUN 20 H (9-16) mg/dL POC Glucose 141 H (60-115) mg/dL Random Glucose 172 H D (60-115) mg/dL 03/07/20 03/07/20 03/07/20 Range/Units 07:30 11:12 16:00 RBC (4.20-5.50) X10*6/uL Hgb (12.0-16.0) g/dl Hct (37-47) % MCHC (31.0-35.0) g/dl Immature Gran % (Auto) (0.0-0.4) % Neut % (Auto) (45-73) % Lymph % (Auto) (20-40) % Lymph # (Auto) (1.2-4.9) X10*3/uL Abs Immat Gran (auto) (0.00-0.03) X10*3/uL Chloride (96-108) mmol/L Anion Gap (12-20) BUN (9-16) mg/dL POC Glucose 122 H 142 H 180 H (60-115) mg/dL Random Glucose (60-115) mg/dL Short CBC 03/07/20 Range/Units 05:28 WBC 7.5 (4.8-10.8) X10*3/uL Hgb 9.7 L (12.0-16.0) g/dl Hct 32.4 L (37-47) % Plt Count 205 (160-400) X10*3/uL BMP 03/07/20 05:28 Sodium 139 Potassium 4.6 Chloride 111 H Carbon Dioxide 22 BUN 20 H Creatinine 0.73 Calcium 8.9 D Urine 03/06/20 Range/Units 05:47 Urine Color YELLOW Urine Appearance CLEAR Urine pH 6.0 (5.0-8.0) Ur Specific [place]nard 1.010 (1.005-1.025) Urine Protein NEG (NEG-TRACE) MG/DL Urine Glucose (UA) NEG (NEG) MG/DL All other labs normal. Assessment and Plan (1) Pleural effusion, right: Status: Acute This is a 69-year-old female with a past medical history of [id number] lung cancer, s/p radiation therapy with plans for future chemotherapy followed by Oncology, COPD who was previously admitted on 02/27 for cap and treated with Levaquin, found to have a large right-sided pleural effusion on CT scan which prompted ultrasound-guided thoracentesis performed by IR for 1000 cc of yellow/clean pleural fluid. Pleural fluid analysis culture showed no growth, exudative process with cytology negative for malignancy. Chest x-ray performed 03/06/2020 showed small residual stable right-sided pleural effusion with improved opacifications when compared to previous x-ray on 03/04/2020. I had the pleasure of speaking with from Medicine who does not feel a chest CT is warranted at this time based off of latest x-ray findings and states that he will discuss this option with her oncologist. At this time both thoracic surgery and Medicine team are in agreement that it may be best to repeat a chest x-ray 6 days from now to assess if right-sided pleural effusion reaccumulates, as patient is not in any distress and pleural effusion is very small. Thank you for allowing me to participate in this patient's care. Any questions or concerns please do not hesitate to contact the thoracic surgery office.
[2020-03-07 19:03] VITALS: BP 98/59; PULSE 100; RESP 19; TEMP 36; O2SAT 97
[2020-03-07] MEDS: cloZAPine 25 MG TABLET 50 MG PO (19:46)
[2020-03-07] MEDS: Atorvastatin Calcium 10 MG TABLET PO (19:46)
[2020-03-07] MEDS: HaloperidoL 5 MG TABLET PO (19:47)
[2020-03-07] MEDS: traZODone HCL 100 MG TABLET PO (19:47)
[2020-03-07 19:53] LABS: Glucose, Whole Blood 180 mg/dL (60-115)
[2020-03-07 23:30] VITALS: BP 131/71; PULSE 104; RESP 18; TEMP 36.1; O2SAT 96
[2020-03-07] MEDS: 0.9 % Sodium Chloride Flush 3 ML SYRINGE IVFLUSH (23:59)
[2020-03-08 04:00] VITALS: BP 116/67; PULSE 103; RESP 18; TEMP 36.8; O2SAT 97
[2020-03-08] MEDS: 0.9 % Sodium Chloride 1,000 ML 100 ML IVCONT (05:30)
[2020-03-08] MEDS: levoFLOXacin 750 MG TABLET PO (05:30)
[2020-03-08 07:05] LABS: MANUAL DIFF FLAG NO
[2020-03-08 07:17] LABS: Basophils Percent Auto 0.3 % (0-2); Eosinophils Absolute Auto 0.1 X10*3/uL (0.0-0.4); Hematocrit 34.6 % (37-47); Hemoglobin 10.3 g/dl (12.0-16.0); Imm Gran Abs Auto 0.27 X10*3/uL (0.00-0.03); Imm Gran Pct Auto 3.8 % (0.0-0.4); Lymphocytes Absolute Auto 1.6 X10*3/uL (1.2-4.9); Lymphocytes Percent Auto 21.8 % (20-40); Mean Corpuscular HGB Conc 29.8 g/dl (31.0-35.0); Mean Corpuscular Hemoglobin 29.3 pg (27.0-33.0); Mean Corpuscular Volume 98.3 fL (80-98); Mean Platelet Volume 9.5 fL (9.4-12.3); Monocytes Absolute Auto 0.9 X10*3/uL (0.1-1.2); Monocytes Percent Auto 12.2 % (2-11); Neutrophils Absolute Auto 4.4 X10*3/uL (2.0-8.3); Neutrophils Percent Auto 60.9 % (45-73); Platelet Count 230 X10*3/uL (160-400); Red Blood Count 3.52 X10*6/uL (4.20-5.50); Red Cell Distribution Width 15.1 % (11.0-16.0); White Blood Count 7.2 X10*3/uL (4.8-10.8)
[2020-03-08 07:37] LABS: Glucose, Whole Blood 61 mg/dL (60-115)
[2020-03-08 07:47] VITALS: PULSE 110; RESP 20; TEMP 36.8; O2SAT 96
[2020-03-08 07:47] LABS: Anion Gap 10 (12-20); Blood Urea Nitrogen 14 mg/dL (9-16); Calcium 9.1 mg/dL (8.4-10.2); Carbon Dioxide 21 mmol/L (22-29); Chloride 114 mmol/L (96-108); Creatinine Clr Calc Pharmacy 66.4; Estimated Glomerular Filt Rate > 60; Glucose Random 67 mg/dL (60-115); Potassium 4.4 mmol/l (3.3-5.1); Sodium 141 mmol/L (135-145)
[2020-03-08 07:52] VITALS: BP 106/54
[2020-03-08 07:53] LABS: Glucose, Whole Blood 89 mg/dL (60-115)
[2020-03-08 08:10] LABS: Procalcitonin 0.07 ng/mL
[2020-03-08] MEDS: Ascorbic Acid 500 MG TABLET PO ×2 (08:29→21:43)
[2020-03-08] MEDS: Enoxaparin Sodium 40 MG/0.4 ML SYRINGE SUBCUT (08:29)
[2020-03-08] MEDS: Omeprazole 20 MG CAPSULE.DR PO (08:29)
[2020-03-08] MEDS: Benztropine Mesylate 1 MG TABLET PO ×2 (08:29→21:43)
[2020-03-08] MEDS: Aspirin Enteric Coated 81 MG TABLET.DR PO (08:30)
[2020-03-08] MEDS: Cholecalciferol (Vitamin D3) 25 MCG TABLET 50 MCG PO (08:30)
[2020-03-08] MEDS: Mirabegron 50 MG TAB.ER.24H PO (08:30)
[2020-03-08] MEDS: methIMAzole 10 MG TABLET PO (08:30)
[2020-03-08] MEDS: Ferrous Sulfate 324 MG TABLET.DR PO ×2 (08:30→21:43)
[2020-03-08] MEDS: Valproic Acid 250 MG CAPSULE 750 MG PO ×2 (08:30→21:43)
[2020-03-08] MEDS: predniSONE 10 MG TABLET PO (08:30)
[2020-03-08] MEDS: Fluticasone/Vilanterol 100/25 BLST.W.DEV 1 PUFF INHALE (08:50)
[2020-03-08 11:32] LABS: Glucose, Whole Blood 105 mg/dL (60-115)
--- NOTE | 2020-03-08 11:34 | P.PNTS_ITS ---
Subjective Subjective Date of Service: 03/08/20 Patient reports: no new complaints Interval history: Patient was seen and examined this morning. Patient continues to deny any shortness of breath, cough, fevers or chills remains on 2 L nasal cannula with no signs of respiratory distress or increased work of breathing speaking in full sentences. Physical Exam Vital Signs: Vital Signs: Last Vital Signs Temp 98.3 F 03/08/20 07:47 Pulse 110 H 03/08/20 07:47 Resp 20 03/08/20 07:47 BP 106/54 L 03/08/20 07:52 Pulse Ox 96 03/08/20 07:47 Body Mass Index 23.0 Const: General: cooperative, no acute distress and confusion Orientation/consciousness: oriented to person, oriented to place, oriented to time, patient oriented x3 and confusion HENMT: Head: Yes normal to inspection Mouth: Normal oral and palatal mucosa present Eyes: General: appearance normal, both eyes and all related structures Pupils: Equal, round and reactive pupils present Neck: Neck: Yes normal visual inspection, Yes trachea midline and Yes supple Resp: Other: Breast sounds are diminished on posterior right lower lobe with good aeration in remaining lung willard with no adventitious sounds such as wheezes or rhonchi. Effort & Inspection: able to speak in complete sentences Cardio: Jugular venous distension: no JVD Rate: regular rate Rhythm: regular rhythm Heart sounds: S1 normal heart sound present GI: Inspection: Yes normal to inspection Palpation (GI): Soft to palpation and nontender Auscultation: normal bowel sounds Skin: Other: Warm and dry throughout General skin exam: no rashes or lesions noted Neuro: General: oriented to person, oriented to place, oriented to time, patient oriented x3 and confusion Cranial nerves: Yes Equal, round and reactive pupils present Extrem: General: Yes normal to inspection and Yes no clubbing, cyanosis or edema Progress Note: A&P Assessment and plan (1) Pleural effusion, right: Status: Acute Assessment and Plan: This is a 69-year-old female with a past medical history of trm-[id number] lung cancer, s/p radiation therapy with plans for future chemotherapy followed by Oncology, COPD who was previously admitted on 02/27 for cap and treated with Levaquin, found to have a large right-sided pleural effusion on CT scan which prompted ultrasound-guided thoracentesis performed by IR for 1000 cc of yellow/clean pleural fluid. Pleural fluid analysis culture showed no growth, exudative process with cytology negative for malignancy. Chest x-ray performed 03/06/2020 showed small residual stable right-sided pleural effusion with improved opacifications when compared to previous x-ray on 03/04/2020. I had the pleasure of speaking with from Medicine who does not feel a chest CT is warranted at this time based off of latest x-ray findings and states that he discussed this option with her oncologist who agrees and the plan moving forward is to that it may be best to repeat a chest x-ray in 1-2 weeks from now to assess if right-sided pleural effusion reaccumulates, as patient is not in any distress and pleural effusion is very small. Thank you for allowing me to participate in this patient's care. At this time thoracic surgery will be signing off. Any questions or concerns please do not hesitate to contact the thoracic surgery office. Fall Risk Details Current Medications: Current Medications Generic Name Dose Route Start Last Admin Trade Name Freq PRN Reason Stop Dose Admin Acetaminophen 650 mg 03/06/20 07:11 Acetaminophen 325 Mg Tablet PO Q6H PRN Pain, Mild (Pain Scale 1-3) Albuterol Sulfate 90 puff 03/06/20 12:00 Albuterol Sulfate 90 Mcg 18 Gm Inhaler INHALE RQ6H PRN Wheezing Ascorbic Acid 500 mg 03/06/20 09:00 03/08/20 08:29 Ascorbic Acid 500 Mg Tablet PO 500 mg BID ANUJ Administration Aspirin 81 mg 03/06/20 09:00 03/08/20 08:30 Aspirin Enteric Coated 81 Mg Tablet. PO 81 mg DAILY ANUJ Administration Atorvastatin Calcium 10 mg 03/06/20 21:00 03/07/20 19:46 Atorvastatin Calcium 10 Mg Tablet PO 10 mg BEDTIME ANUJ Administration Benztropine Mesylate 1 mg 03/06/20 09:00 03/08/20 08:29 Benztropine Mesylate 1 Mg Tablet PO 1 mg BID ANUJ Administration Clozapine 50 mg 03/06/20 21:00 03/07/20 19:46 Clozapine 25 Mg Tablet PO 50 mg BEDTIME ANUJ Administration Docusate Sodium 100 mg 03/06/20 07:11 Docusate Sodium 100 Mg Capsule PO DAILY PRN Constipation Enoxaparin Sodium 40 mg 03/06/20 08:00 03/08/20 08:29 Enoxaparin Sodium 40 Mg/0.4 Ml Syringe SUBCUT 40 mg Q24H ANUJ Administration Ferrous Sulfate 324 mg 03/06/20 09:00 03/08/20 08:30 Ferrous Sulfate 324 Mg Tablet. PO 324 mg BID ANUJ Administration Fluticasone/Vilanterol 1 puff 03/07/20 08:00 03/08/20 08:50 Fluticasone/Vilanterol 100/25 Blst.W.Dev INHALE 1 puff RDAILY ANUJ Administration Haloperidol 5 mg 03/06/20 21:00 03/07/20 19:47 Haloperidol 5 Mg Tablet PO 5 mg BEDTIME ANUJ Administration Insulin Human Lispro 0 unit 03/06/20 07:30 03/08/20 11:33 Insulin Lispro 100 Unit/Ml 3 Ml Vial SUBCUT Not Given QIDACHS [facility] Protocol Levofloxacin 750 mg 03/07/20 06:00 03/08/20 05:30 Levofloxacin 750 Mg Tablet PO 750 mg Q24H ANUJ Administration Methimazole 10 mg 03/06/20 09:00 03/08/20 08:30 Methimazole 10 Mg Tablet PO 10 mg DAILY ANUJ Administration Mirabegron 50 mg 03/06/20 09:00 03/08/20 08:30 Mirabegron 50 Mg Tab.Er.24h PO 50 mg DAILY ANUJ Administration Omeprazole 20 mg 03/06/20 09:00 03/08/20 08:29 Omeprazole 20 Mg Capsule. PO 20 mg DAILY ANUJ Administration Ondansetron HCl 4 mg 03/06/20 07:11 Ondansetron Hcl 4 Mg/2 Ml Vial IVPUSH Q8H PRN Nausea and Vomiting Pharmacy Consult 1 each 03/06/20 04:00 Consult Rx Perform Med Rec MISCELLANE ONCE PRN Consult order Prednisone 10 mg 03/08/20 09:00 03/08/20 08:30 Prednisone 10 Mg Tablet PO 03/09/20 09:01 10 mg DAILY ANUJ Administration Sodium Chloride 3 ml 03/06/20 08:00 03/08/20 08:29 0.9 % Sodium Chloride Flush 3 Ml Syringe IVFLUSH Not Given QSHIFT ANUJ Trazodone HCl 100 mg 03/06/20 21:00 03/07/20 19:47 Trazodone Hcl 100 Mg Tablet PO 100 mg BEDTIME ANUJ Administration Valproic Acid 750 mg 03/06/20 09:00 03/08/20 08:30 Valproic Acid 250 Mg Capsule PO 750 mg BID ANUJ Administration Vitamin D 50 mcg 03/06/20 09:00 03/08/20 08:30 Cholecalciferol (Vitamin D3) 25 Mcg Tablet PO 50 mcg DAILY ANUJ Administration Time Spent With Patient Time: Total time spent is greater than 50% in coordination of care (as documented) at patient's floor/unit and/or counseling patient: Time with patient: 15 - 24 minutes
[2020-03-08 12:00] VITALS: BP 103/57; PULSE 110; RESP 16; TEMP 36.1; O2SAT 97
--- NOTE | 2020-03-08 13:53 | P.PNIM_ITS ---
Subjective Subjective Date of Service: 03/08/20 Interval History: No fever. Pt denies dyspnea or cough. Unable to obtain full ROS due to pt's psychiatric condition. Physical Exam Vital Signs: Vital Signs: Last Vital Signs Temp 97.0 F 03/08/20 12:00 Pulse 110 H 03/08/20 12:00 Resp 16 03/08/20 12:00 BP 103/57 L 03/08/20 12:00 Pulse Ox 97 03/08/20 12:00 Body Mass Index 23.0 Gen: in no acute distress HEENT: sclera anicteric, moist mucus membranes Neck: supple Lungs: lung sounds diminished lower R hemithorax Heart: regular rate and rhythm, no murmurs Abd: soft, non-tender, non-distended Ext: no edema Skin: warm/well-perfused Neuro: alert and oriented x3, no focal findings Psych: tangential speech Objective Data Current Medications Generic Name Dose Route Start Last Admin Trade Name Freq PRN Reason Stop Dose Admin Acetaminophen 650 mg 03/06/20 07:11 Acetaminophen 325 Mg Tablet PO Q6H PRN Pain, Mild (Pain Scale 1-3) Albuterol Sulfate 90 puff 03/06/20 12:00 Albuterol Sulfate 90 Mcg 18 Gm Inhaler INHALE RQ6H PRN Wheezing Ascorbic Acid 500 mg 03/06/20 09:00 03/08/20 08:29 Ascorbic Acid 500 Mg Tablet PO 500 mg BID ANUJ Administration Aspirin 81 mg 03/06/20 09:00 03/08/20 08:30 Aspirin Enteric Coated 81 Mg Tablet.Dr PO 81 mg DAILY ANUJ Administration Atorvastatin Calcium 10 mg 03/06/20 21:00 03/07/20 19:46 Atorvastatin Calcium 10 Mg Tablet PO 10 mg BEDTIME ANUJ Administration Benztropine Mesylate 1 mg 03/06/20 09:00 03/08/20 08:29 Benztropine Mesylate 1 Mg Tablet PO 1 mg BID ANUJ Administration Clozapine 50 mg 03/06/20 21:00 03/07/20 19:46 Clozapine 25 Mg Tablet PO 50 mg BEDTIME ANUJ Administration Docusate Sodium 100 mg 03/06/20 07:11 Docusate Sodium 100 Mg Capsule PO DAILY PRN Constipation Enoxaparin Sodium 40 mg 03/06/20 08:00 03/08/20 08:29 Enoxaparin Sodium 40 Mg/0.4 Ml Syringe SUBCUT 40 mg Q24H ANUJ Administration Ferrous Sulfate 324 mg 03/06/20 09:00 03/08/20 08:30 Ferrous Sulfate 324 Mg Tablet. PO 324 mg BID ANUJ Administration Fluticasone/Vilanterol 1 puff 03/07/20 08:00 03/08/20 08:50 Fluticasone/Vilanterol 100/25 Blst.W.Dev INHALE 1 puff RDAILY ANUJ Administration Haloperidol 5 mg 03/06/20 21:00 03/07/20 19:47 Haloperidol 5 Mg Tablet PO 5 mg BEDTIME ANUJ Administration Insulin Human Lispro 0 unit 03/06/20 07:30 03/08/20 11:33 Insulin Lispro 100 Unit/Ml 3 Ml Vial SUBCUT Not Given QIDACHS [facility] Protocol Levofloxacin 750 mg 03/07/20 06:00 03/08/20 05:30 Levofloxacin 750 Mg Tablet PO 750 mg Q24H ANUJ Administration Methimazole 10 mg 03/06/20 09:00 03/08/20 08:30 Methimazole 10 Mg Tablet PO 10 mg DAILY ANUJ Administration Mirabegron 50 mg 03/06/20 09:00 03/08/20 08:30 Mirabegron 50 Mg Tab.Er.24h PO 50 mg DAILY ANUJ Administration Omeprazole 20 mg 03/06/20 09:00 03/08/20 08:29 Omeprazole 20 Mg Capsule. PO 20 mg DAILY ANUJ Administration Ondansetron HCl 4 mg 03/06/20 07:11 Ondansetron Hcl 4 Mg/2 Ml Vial IVPUSH Q8H PRN Nausea and Vomiting Pharmacy Consult 1 each 03/06/20 04:00 Consult Rx Perform Med Rec MISCELLANE ONCE PRN Consult order Prednisone 10 mg 03/08/20 09:00 03/08/20 08:30 Prednisone 10 Mg Tablet PO 03/09/20 09:01 10 mg DAILY ANUJ Administration Sodium Chloride 3 ml 03/06/20 08:00 03/08/20 08:29 0.9 % Sodium Chloride Flush 3 Ml Syringe IVFLUSH Not Given QSHIFT ANUJ Trazodone HCl 100 mg 03/06/20 21:00 03/07/20 19:47 Trazodone Hcl 100 Mg Tablet PO 100 mg BEDTIME ANUJ Administration Valproic Acid 750 mg 03/06/20 09:00 03/08/20 08:30 Valproic Acid 250 Mg Capsule PO 750 mg BID ANUJ Administration Vitamin D 50 mcg 03/06/20 09:00 03/08/20 08:30 Cholecalciferol (Vitamin D3) 25 Mcg Tablet PO 50 mcg DAILY ANUJ Administration Labs CBC & Chem 7: 03/08/20 05:47 03/08/20 06:01 Labs: Laboratory Results - last 24 hr 03/07/20 03/07/20 03/08/20 16:00 19:47 05:47 WBC RBC Hgb Hct MCV MCH MCHC RDW Plt Count MPV Immature Gran % (Auto) Neut % (Auto) Lymph % (Auto) [place] % (Auto) Eos % (Auto) Baso % (Auto) Lymph # (Auto) [place] # (Auto) Eos # (Auto) Baso # (Auto) Abs Immat Gran (auto) Absolute Neuts (auto) Absolute Nucleated RBC Nucleated RBC % (auto) PT 12.0 D INR 1.0 Sodium Potassium Chloride Carbon Dioxide Anion Gap BUN Creatinine Estim Creat Clear Calc Estimated GFR POC Glucose 180 H 180 H Random Glucose Calcium Procalcitonin 03/08/20 03/08/20 03/08/20 05:47 06:01 06:10 WBC 7.2 RBC 3.52 L Hgb 10.3 L Hct 34.6 L MCV 98.3 H MCH 29.3 MCHC 29.8 L RDW 15.1 Plt Count 230 MPV 9.5 Immature Gran % (Auto) 3.8 H Neut % (Auto) 60.9 Lymph % (Auto) 21.8 [place] % (Auto) 12.2 H Eos % (Auto) 1.0 Baso % (Auto) 0.3 Lymph # (Auto) 1.6 [place] # (Auto) 0.9 Eos # (Auto) 0.1 Baso # (Auto) 0.0 Abs Immat Gran (auto) 0.27 H Absolute Neuts (auto) 4.4 Absolute Nucleated RBC 0.000 Nucleated RBC % (auto) 0.0 PT INR Sodium 141 Potassium 4.4 Chloride 114 H Carbon Dioxide 21 L Anion Gap 10 L BUN 14 Creatinine 0.69 Estim Creat Clear Calc 66.4 Estimated GFR > 60 POC Glucose Random Glucose 67 D Calcium 9.1 Procalcitonin 0.07 03/08/20 03/08/20 03/08/20 07:20 07:49 11:17 WBC RBC Hgb Hct MCV MCH MCHC RDW Plt Count MPV Immature Gran % (Auto) Neut % (Auto) Lymph % (Auto) [place] % (Auto) Eos % (Auto) Baso % (Auto) Lymph # (Auto) [place] # (Auto) Eos # (Auto) Baso # (Auto) Abs Immat Gran (auto) Absolute Neuts (auto) Absolute Nucleated RBC Nucleated RBC % (auto) PT INR Sodium Potassium Chloride Carbon Dioxide Anion Gap BUN Creatinine Estim Creat Clear Calc Estimated GFR POC Glucose 61 89 105 Random Glucose Calcium Procalcitonin Microbiology Microbiology Results: Microbiology 03/06/20 03:50 Blood - Venous Blood Culture - Preliminary No growth after 48 hours. 03/06/20 03:49 Blood - Venous Blood Culture - Preliminary No growth after 48 hours. Assessment and Plan (1) Pneumonia: Status: Acute (2) Pleural effusion: Status: Acute (3) Acute exacerbation of chronic obstructive pulmonary disease: Status: Acute Assessment and Plan: hospital d#3 for 69yo F with NSCLC, COPD previously admitted from Oncology clinic due to pleural effusion and COPD exacerbation 02/27-03/05/20 readmitted with hypotension, tachycardia, concern of cavitary PNA/loculated pleural effusion on CT chest # hypotension - held carvedilol, d/c IV fluids # pleural effusion # ?cavitary pneumonia - s/p thoracentesis 02/29/20, exudate, culture-negative, cytology benign - treated with 3d of levofloxacin and 4d of cefuroxime. back on levofloxacin, d#06/06 - consulted Pulmonology + ID, discussed with pt's oncologist Dr Tony and plan is to manage expectantly for now and repeat CXR in 1-2 wk; updated Thoracic Surgery # COPD exacerbation - complete 4d prednisone taper prescribed 03/05/20, continue controller ICS/LABA, prn YESIKA # acute hypoxic respiratory failure - supplemental O2, wean as tolerated # NSCLC - followed by Dr Tony, on immune-based chemotherapy with nivolumab # hyperthyroidism - continue MMZ # DM2, A1c 7.1, with hypoglycemia - d/c'ed oral hypoglycemics # HLD - continue statin # GERD - continue PPI # INA - continue Fe supplementation # psychiatric disorder - continue clozapine, haloperidol, benztropine, valproate # VTE ppx - LMWH
[2020-03-08] MEDS: 0.9 % Sodium Chloride Flush 3 ML SYRINGE IVFLUSH ×2 (15:21→21:43)
[2020-03-08 15:23] VITALS: BP 106/59; PULSE 109; RESP 18; TEMP 36.8; O2SAT 95
[2020-03-08 16:27] LABS: Glucose, Whole Blood 148 mg/dL (60-115)
[2020-03-08 19:10] VITALS: BP 104/64; PULSE 106; RESP 20; TEMP 36.4; O2SAT 96
[2020-03-08 21:00] LABS: Glucose, Whole Blood 125 mg/dL (60-115)
[2020-03-08] MEDS: traZODone HCL 100 MG TABLET PO (21:43)
[2020-03-08] MEDS: Atorvastatin Calcium 10 MG TABLET PO (21:43)
[2020-03-08] MEDS: HaloperidoL 5 MG TABLET PO (21:43)
[2020-03-08] MEDS: cloZAPine 25 MG TABLET 50 MG PO (21:43)
[2020-03-09] VITALS (8 sets, daily range): BP systolic 105–140; BP diastolic 62–75; PULSE 102–119; RESP 18–20; TEMP 36.8–37.1; O2SAT 92–96
--- NOTE | 2020-03-09 | CT_ITS ---
EXAMINATION: CT HEAD WITH CONTRAST CLINICAL INFORMATION: Encephalopathy. History of lung cancer. COMPARISON: Brain MRI from 04/24/2019. TECHNIQUE: Contiguous axial imaging was performed from the skull base to vertex following the administration of 85 mL Omnipaque [address] examination was performed using dose optimization techniques as appropriate, variously including the following: *Automated exposure control. *Adjustment of mA and/or kV according to patient size (this includes techniques or standardized protocols for targeted exams where dose is matched to indication/reason for exam; i.e. extremities or head). *Use of iterative reconstruction technique. DLP: 814 mGy-cm FINDINGS: There is no evidence of acute intracranial hemorrhage or edematous territorial infarction. There is no abnormal attenuation within the brain parenchyma. Warner-white matter differentiation is preserved. The ventricles are normal in size and configuration. No evidence for obstructive hydrocephalus. No abnormal mass effect or midline shift. No extra-axial fluid collections. No demonstrated abnormal intracranial enhancement. No acute soft tissue or osseous abnormalities. Congenital nonunion of the posterior arch of C1. Moderate leftward nasal septal deviation with spurring. Mild mucosal thickening of the paranasal sinuses. The mastoid air cells and middle ear cavities remain well aerated. CT/CT head/brain w con IMPRESSION: 1. No evidence of acute intracranial hemorrhage or edematous territorial infarction. 2. Chronic extensive underlying white matter change and moderate generalized cerebral volume loss. 3. No demonstrated abnormal intracranial enhancement.
[2020-03-09] MEDS: levoFLOXacin 750 MG TABLET PO (06:33)
[2020-03-09 07:43] LABS: Glucose, Whole Blood 86 mg/dL (60-115)
[2020-03-09] MEDS: Mirabegron 50 MG TAB.ER.24H PO (08:19)
[2020-03-09] MEDS: 0.9 % Sodium Chloride Flush 3 ML SYRINGE IVFLUSH ×3 (08:19→21:33)
[2020-03-09] MEDS: Aspirin Enteric Coated 81 MG TABLET.DR PO (08:19)
[2020-03-09] MEDS: Omeprazole 20 MG CAPSULE.DR PO (08:19)
[2020-03-09] MEDS: Enoxaparin Sodium 40 MG/0.4 ML SYRINGE SUBCUT (08:19)
[2020-03-09] MEDS: Benztropine Mesylate 1 MG TABLET PO ×2 (08:20→21:32)
[2020-03-09] MEDS: Cholecalciferol (Vitamin D3) 25 MCG TABLET 50 MCG PO (08:20)
[2020-03-09] MEDS: Ascorbic Acid 500 MG TABLET PO ×2 (08:20→21:31)
[2020-03-09] MEDS: Valproic Acid 250 MG CAPSULE 750 MG PO ×2 (08:20→21:31)
[2020-03-09] MEDS: methIMAzole 10 MG TABLET PO (08:20)
[2020-03-09] MEDS: predniSONE 10 MG TABLET PO (08:20)
[2020-03-09] MEDS: Ferrous Sulfate 324 MG TABLET.DR PO ×2 (08:20→21:33)
[2020-03-09 10:19] LABS: MANUAL DIFF FLAG NO
[2020-03-09 10:27] LABS: Basophils Percent Auto 0.4 % (0-2); Eosinophils Absolute Auto 0.1 X10*3/uL (0.0-0.4); Eosinophils Percent Auto 1.3 % (0-4); Hematocrit 33.1 % (37-47); Hemoglobin 9.9 g/dl (12.0-16.0); Imm Gran Abs Auto 0.19 X10*3/uL (0.00-0.03); Imm Gran Pct Auto 2.3 % (0.0-0.4); Lymphocytes Absolute Auto 1.2 X10*3/uL (1.2-4.9); Lymphocytes Percent Auto 14.3 % (20-40); Mean Corpuscular HGB Conc 29.9 g/dl (31.0-35.0); Mean Corpuscular Hemoglobin 29.2 pg (27.0-33.0); Mean Corpuscular Volume 97.6 fL (80-98); Mean Platelet Volume 9.2 fL (9.4-12.3); Monocytes Absolute Auto 0.8 X10*3/uL (0.1-1.2); Monocytes Percent Auto 9.8 % (2-11); Neutrophils Percent Auto 71.9 % (45-73); Platelet Count 225 X10*3/uL (160-400); Red Blood Count 3.39 X10*6/uL (4.20-5.50); Red Cell Distribution Width 15.2 % (11.0-16.0); White Blood Count 8.4 X10*3/uL (4.8-10.8)
[2020-03-09 10:59] LABS: D Dimer 316 NG/ML
[2020-03-09 11:12] LABS: Thyroid Stimulating Hormone 9.64 uIU/mL (0.32-4.0)
[2020-03-09 11:26] LABS: Glucose, Whole Blood 130 mg/dL (60-115)
[2020-03-09 11:44] LABS: Anion Gap 13 (12-20); Blood Urea Nitrogen 12 mg/dL (9-16); Carbon Dioxide 21 mmol/L (22-29); Chloride 112 mmol/L (96-108); Creatinine Clr Calc Pharmacy 61.1; Potassium 4.6 mmol/l (3.3-5.1); Sodium 141 mmol/L (135-145)
[2020-03-09 11:45] LABS: Calcium 9.3 mg/dL (8.4-10.2); Estimated Glomerular Filt Rate > 60; Glucose Random 153 mg/dL (60-115)
--- NOTE | 2020-03-09 14:17 | HO.PM.IMPN ---
Subjective Subjective Date of Service: 03/09/20 Interval History: Pt with very disorganized thought/speech. Per nurse at senior care, Christa Collins, [phone], this is not her baseline at all. No recent psych med changes. Pt persistently tachycardic but not hypoxic Physical Exam Vital Signs: Vital Signs: Last Vital Signs Temp 98.8 F 03/09/20 11:51 Pulse 114 H 03/09/20 11:51 Resp 20 03/09/20 11:51 BP 105/71 03/09/20 11:51 Pulse Ox 96 03/09/20 11:51 Body Mass Index 23.0 Gen: in no acute distress HEENT: sclera anicteric, moist mucus membranes Neck: supple Lungs: lung sounds diminished lower R hemithorax Heart: regular rate and rhythm, no murmurs Abd: soft, non-tender, non-distended Ext: no edema Skin: warm/well-perfused Neuro: disoriented Psych: disorganized speech Objective Data Current Medications Generic Name Dose Route Start Last Admin Trade Name Bobq PRN Reason Stop Dose Admin Acetaminophen 650 mg 03/06/20 07:11 Acetaminophen 325 Mg Tablet PO Q6H PRN Pain, Mild (Pain Scale 1-3) Albuterol Sulfate 90 puff 03/06/20 12:00 Albuterol Sulfate 90 Mcg 18 Gm Inhaler INHALE RQ6H PRN Wheezing Ascorbic Acid 500 mg 03/06/20 09:00 03/09/20 08:20 Ascorbic Acid 500 Mg Tablet PO 500 mg BID ANUJ Administration Aspirin 81 mg 03/06/20 09:00 03/09/20 08:19 Aspirin Enteric Coated 81 Mg Tablet. PO 81 mg DAILY ANUJ Administration Atorvastatin Calcium 10 mg 03/06/20 21:00 03/08/20 21:43 Atorvastatin Calcium 10 Mg Tablet PO 10 mg BEDTIME ANUJ Administration Benztropine Mesylate 1 mg 03/06/20 09:00 03/09/20 08:20 Benztropine Mesylate 1 Mg Tablet PO 1 mg BID ANUJ Administration Clozapine 50 mg 03/06/20 21:00 03/08/20 21:43 Clozapine 25 Mg Tablet PO 50 mg BEDTIME ANUJ Administration Docusate Sodium 100 mg 03/06/20 07:11 Docusate Sodium 100 Mg Capsule PO DAILY PRN Constipation Enoxaparin Sodium 40 mg 03/06/20 08:00 03/09/20 08:19 Enoxaparin Sodium 40 Mg/0.4 Ml Syringe SUBCUT 40 mg Q24H ANUJ Administration Ferrous Sulfate 324 mg 03/06/20 09:00 03/09/20 08:20 Ferrous Sulfate 324 Mg Tablet. PO 324 mg BID ANUJ Administration Fluticasone/Vilanterol 1 puff 03/07/20 08:00 03/09/20 07:59 Fluticasone/Vilanterol 100/25 Blst.W.Dev INHALE Not Given RDAILY [facility] Haloperidol 5 mg 03/06/20 21:00 03/08/20 21:43 Haloperidol 5 Mg Tablet PO 5 mg BEDTIME ANUJ Administration Insulin Human Lispro 0 unit 03/06/20 07:30 03/09/20 11:19 Insulin Lispro 100 Unit/Ml 3 Ml Vial SUBCUT Not Given QIDACHS [facility] Protocol Levofloxacin 750 mg 03/07/20 06:00 03/09/20 06:33 Levofloxacin 750 Mg Tablet PO 750 mg Q24H ANUJ Administration Methimazole 10 mg 03/06/20 09:00 03/09/20 08:20 Methimazole 10 Mg Tablet PO 10 mg DAILY [facility] Administration Mirabegron 50 mg 03/06/20 09:00 03/09/20 08:19 Mirabegron 50 Mg Tab.Er.24h PO 50 mg DAILY ANUJ Administration Omeprazole 20 mg 03/06/20 09:00 03/09/20 08:19 Omeprazole 20 Mg Capsule. PO 20 mg DAILY ANUJ Administration Ondansetron HCl 4 mg 03/06/20 07:11 Ondansetron Hcl 4 Mg/2 Ml Vial IVPUSH Q8H PRN Nausea and Vomiting Pharmacy Consult 1 each 03/06/20 04:00 Consult Rx Perform Med Rec MISCELLANE ONCE PRN Consult order Sodium Chloride 3 ml 03/06/20 08:00 03/09/20 08:19 0.9 % Sodium Chloride Flush 3 Ml Syringe IVFLUSH 3 ml QSHIFT ANUJ Administration Trazodone HCl 100 mg 03/06/20 21:00 03/08/20 21:43 Trazodone Hcl 100 Mg Tablet PO 100 mg BEDTIME ANUJ Administration Valproic Acid 750 mg 03/06/20 09:00 03/09/20 08:20 Valproic Acid 250 Mg Capsule PO 750 mg BID ANUJ Administration Vitamin D 50 mcg 03/06/20 09:00 03/09/20 08:20 Cholecalciferol (Vitamin D3) 25 Mcg Tablet PO 50 mcg DAILY ANUJ Administration Labs CBC & Chem 7: 03/09/20 10:02 03/09/20 11:19 Microbiology Microbiology Results: Microbiology 03/06/20 03:50 Blood - Venous Blood Culture - Preliminary No growth after 48 hours. 03/06/20 03:49 Blood - Venous Blood Culture - Preliminary No growth after 48 hours. Assessment and Plan (1) Pneumonia: Status: Acute (2) Pleural effusion: Status: Acute (3) Acute exacerbation of chronic obstructive pulmonary disease: Status: Acute Assessment and Plan: hospital d#3 for 69yo F with NSCLC, COPD, psychotic disorder previously admitted from Oncology clinic due to pleural effusion and COPD exacerbation 02/27-03/05/20 readmitted with hypotension, tachycardia, concern of cavitary PNA/loculated pleural effusion on CT chest # encephalopathy - check CT of brain + contrast to r/o brain mets- unable to stay still for MRI - TSH as below - ?due to psychiatric compensation; consult psych # hypotension - resolved, will restart carvedilol # tachycardia - likely b-chelsea withdrawal, restart carvedilol - if persistent, t/c VTE workup # pleural effusion # ?cavitary pneumonia - s/p thoracentesis 02/29/20, exudate, culture-negative, cytology benign - treated with 3d of levofloxacin and 4d of cefuroxime. back on levofloxacin, d#07/07 - consulted Pulmonology + ID + Thoracic; discussed with pt's oncologist Dr Tony and plan is to manage expectantly for now and repeat CXR in 1-2 wk; upd # COPD exacerbation, resolved - prednisone taper completed yesterday, continue controller ICS/LABA + prn YESIKA # acute hypoxic respiratory failure - resolved, weaned off O2 # NSCLC - followed by Dr Tony, on immune-based chemotherapy with nivolumab # hyperthyroidism - TSH 9.64. check free T3 + T4, decrease MMZ. # DM2, A1c 7.1, with hypoglycemia - d/c'ed oral hypoglycemics # HLD - continue statin # GERD - continue PPI # INA - continue Fe supplementation # psychiatric disorder - continue clozapine, haloperidol, benztropine, valproate # VTE ppx - LMWH
[2020-03-09] MEDS: iohexoL 350 MG/ML 100 ML INFUS..BTL 85 ML IV (15:12)
[2020-03-09 15:14] LABS: Free T4 (Free Thyroxine) 0.94 ng/dL (0.71-1.85)
--- NOTE | 2020-03-09 16:07 | PM.PSYCN ---
History of Present Illness Date of Service: 03/09/2020 Chief Complaint: PNEUMONIA Reason for Consult: disorganized thought process change from baseline Requesting physician: Sanjuana Chavarria Discussed with referring provider: No Sources of Information: patient interviewed and chart reviewed HPI Narrative: Patient is a 69 year old female with multiple chronic health issues including lung ca, and unspecified psychotic disorder. She was recently discharged and readmitted from her [facility]. long term RN and patient's brother both reporting patient's current presentation is not her baseline. Patient seen in room 450. Awake alert. Unable to assess orientation as patient was talking nonstop about numerous unrelated things--also her speech was difficult to understand at times. She was pleasant and nursing reports she has been in behavioral control during admission, but the majority of the time she is not making any sense when she is communicating with them. Medical Evaluation Reviewed: Yes Head CT completed earlier Personal & Social History: Resides in a [facility] Review of Systems Review of Systems Yes Unobtainable due to mental status [facility] Medical History Anemia Charcot's arthropathy COPD (chronic obstructive pulmonary disease) Diabetes Diabetes type 2, uncontrolled GERD (gastroesophageal reflux disease) Hyperlipidemia Hypernatremia Hypertension Hypertension Hyperthyroidism Iron deficiency anemia Lung mass Osteopenia Osteoporosis Pleural effusion PVC (premature ventricular contraction) Tachycardia TIA (transient ischemic attack) (~2012) Tremor Umbilical hernia Surgical History History of appendectomy Diagnostics Vital Signs (24Hr): Vital Signs - 24 hr 03/08/20 19:10 03/09/20 00:11 03/09/20 03:37 Temperature 97.5 F 98.5 F 98.4 F Pulse Rate 106 H 102 H 106 H Respiratory Rate 20 18 18 Blood Pressure 104/64 140/65 H 120/67 Pulse Oximetry 96 93 94 03/09/20 07:43 03/09/20 11:51 Temperature 98.4 F 98.8 F Pulse Rate 113 H 114 H Respiratory Rate 20 20 Blood Pressure 126/75 105/71 Pulse Oximetry 93 96 Body Mass Index 23.0 Labs Results: 03/09/20 10:02 03/09/20 11:19 Labs: Laboratory Results - last 48 hr 03/07/20 03/08/20 03/08/20 19:47 05:47 05:47 WBC 7.2 RBC 3.52 L Hgb 10.3 L Hct 34.6 L MCV 98.3 H MCH 29.3 MCHC 29.8 L RDW 15.1 Plt Count 230 MPV 9.5 Immature Gran % (Auto) 3.8 H Neut % (Auto) 60.9 Lymph % (Auto) 21.8 [place] % (Auto) 12.2 H Eos % (Auto) 1.0 Baso % (Auto) 0.3 Lymph # (Auto) 1.6 [place] # (Auto) 0.9 Eos # (Auto) 0.1 Baso # (Auto) 0.0 Abs Immat Gran (auto) 0.27 H Absolute Neuts (auto) 4.4 Absolute Nucleated RBC 0.000 Nucleated RBC % (auto) 0.0 PT 12.0 D INR 1.0 D-Dimer Sodium Potassium Chloride Carbon Dioxide Anion Gap BUN Creatinine Estim Creat Clear Calc Estimated GFR POC Glucose 180 H Random Glucose Calcium Procalcitonin TSH Free T4 03/08/20 03/08/20 03/08/20 06:01 06:10 07:20 WBC RBC Hgb Hct MCV MCH MCHC RDW Plt Count MPV Immature Gran % (Auto) Neut % (Auto) Lymph % (Auto) [place] % (Auto) Eos % (Auto) Baso % (Auto) Lymph # (Auto) [place] # (Auto) Eos # (Auto) Baso # (Auto) Abs Immat Gran (auto) Absolute Neuts (auto) Absolute Nucleated RBC Nucleated RBC % (auto) PT INR D-Dimer Sodium 141 Potassium 4.4 Chloride 114 H Carbon Dioxide 21 L Anion Gap 10 L BUN 14 Creatinine 0.69 Estim Creat Clear Calc 66.4 Estimated GFR > 60 POC Glucose 61 Random Glucose 67 D Calcium 9.1 Procalcitonin 0.07 TSH Free T4 03/08/20 03/08/20 03/08/20 07:49 11:17 16:17 WBC RBC Hgb Hct MCV MCH MCHC RDW Plt Count MPV Immature Gran % (Auto) Neut % (Auto) Lymph % (Auto) [place] % (Auto) Eos % (Auto) Baso % (Auto) Lymph # (Auto) [place] # (Auto) Eos # (Auto) Baso # (Auto) Abs Immat Gran (auto) Absolute Neuts (auto) Absolute Nucleated RBC Nucleated RBC % (auto) PT INR D-Dimer Sodium Potassium Chloride Carbon Dioxide Anion Gap BUN Creatinine Estim Creat Clear Calc Estimated GFR POC Glucose 89 105 148 H Random Glucose Calcium Procalcitonin TSH Free T4 03/08/20 03/09/20 03/09/20 20:53 07:31 10:02 WBC 8.4 RBC 3.39 L Hgb 9.9 L Hct 33.1 L MCV 97.6 MCH 29.2 MCHC 29.9 L RDW 15.2 Plt Count 225 MPV 9.2 L Immature Gran % (Auto) 2.3 H Neut % (Auto) 71.9 Lymph % (Auto) 14.3 L [place] % (Auto) 9.8 Eos % (Auto) 1.3 Baso % (Auto) 0.4 Lymph # (Auto) 1.2 [place] # (Auto) 0.8 Eos # (Auto) 0.1 Baso # (Auto) 0.0 Abs Immat Gran (auto) 0.19 H Absolute Neuts (auto) 6.0 Absolute Nucleated RBC 0.000 Nucleated RBC % (auto) 0.0 PT INR D-Dimer Sodium Potassium Chloride Carbon Dioxide Anion Gap BUN Creatinine Estim Creat Clear Calc Estimated GFR POC Glucose 125 H 86 Random Glucose Calcium Procalcitonin TSH Free T4 03/09/20 03/09/20 03/09/20 10:02 10:12 11:12 WBC RBC Hgb Hct MCV MCH MCHC RDW Plt Count MPV Immature Gran % (Auto) Neut % (Auto) Lymph % (Auto) [place] % (Auto) Eos % (Auto) Baso % (Auto) Lymph # (Auto) [place] # (Auto) Eos # (Auto) Baso # (Auto) Abs Immat Gran (auto) Absolute Neuts (auto) Absolute Nucleated RBC Nucleated RBC % (auto) PT INR D-Dimer 316 Sodium Potassium Chloride Carbon Dioxide Anion Gap BUN Creatinine Estim Creat Clear Calc Estimated GFR POC Glucose 130 H Random Glucose Calcium Procalcitonin TSH 9.64 H Free T4 03/09/20 11:19 WBC RBC Hgb Hct MCV MCH MCHC RDW Plt Count MPV Immature Gran % (Auto) Neut % (Auto) Lymph % (Auto) [place] % (Auto) Eos % (Auto) Baso % (Auto) Lymph # (Auto) [place] # (Auto) Eos # (Auto) Baso # (Auto) Abs Immat Gran (auto) Absolute Neuts (auto) Absolute Nucleated RBC Nucleated RBC % (auto) PT INR D-Dimer Sodium 141 Potassium 4.6 Chloride 112 H Carbon Dioxide 21 L Anion Gap 13 BUN 12 Creatinine 0.75 Estim Creat Clear Calc 61.1 Estimated GFR > 60 POC Glucose Random Glucose 153 H D Calcium 9.3 Procalcitonin TSH Free T4 0.94 Imaging Radiology Impressions: ITS Impressions Chest X-Ray 03/06/20 00:00 IMPRESSION: Residual right pleural effusion with underlying atelectasis are stable. Slightly improving right midlung airspace opacity. No change in left port catheter. Mental Status Exam Mental Status Exam Patient Appearance: Appropriate Level of Consciousness: Awake and Disoriented Patient Behavior: Talkative and Confused Mood Description: Calm Affect Description: Expansive Patient Cognition Impaired: Yes Ability to Follow Directions: Good Speech Pattern: Garbled and Rambling Hallucinations: Visual (appears to be referring to someone in the room ) Thought Process: Word Salad and Confusion Thought Content: positive for Disorganized Judgement: Poor Medications Medications Current Medications Generic Name Dose Route Start Last Admin Trade Name Freq PRN Reason Stop Dose Admin Acetaminophen 650 mg 03/06/20 07:11 Acetaminophen 325 Mg Tablet PO Q6H PRN Pain, Mild (Pain Scale 1-3) Albuterol Sulfate 90 puff 03/06/20 12:00 Albuterol Sulfate 90 Mcg 18 Gm Inhaler INHALE RQ6H PRN Wheezing Ascorbic Acid 500 mg 03/06/20 09:00 03/09/20 08:20 Ascorbic Acid 500 Mg Tablet PO 500 mg BID ANUJ Administration Aspirin 81 mg 03/06/20 09:00 03/09/20 08:19 Aspirin Enteric Coated 81 Mg Tablet.Dr PO 81 mg DAILY ANUJ Administration Atorvastatin Calcium 10 mg 03/06/20 21:00 03/08/20 21:43 Atorvastatin Calcium 10 Mg Tablet PO 10 mg BEDTIME ANUJ Administration Benztropine Mesylate 1 mg 03/06/20 09:00 03/09/20 08:20 Benztropine Mesylate 1 Mg Tablet PO 1 mg BID ANUJ Administration Carvedilol 3.125 mg 03/09/20 21:00 Carvedilol 3.125 Mg Tablet PO BID ANUJ Protocol Clozapine 50 mg 03/06/20 21:00 03/08/20 21:43 Clozapine 25 Mg Tablet PO 50 mg BEDTIME ANUJ Administration Docusate Sodium 100 mg 03/06/20 07:11 Docusate Sodium 100 Mg Capsule PO DAILY PRN Constipation Enoxaparin Sodium 40 mg 03/06/20 08:00 03/09/20 08:19 Enoxaparin Sodium 40 Mg/0.4 Ml Syringe SUBCUT 40 mg Q24H ANUJ Administration Ferrous Sulfate 324 mg 03/06/20 09:00 03/09/20 08:20 Ferrous Sulfate 324 Mg Tablet. PO 324 mg BID [facility] Administration Fluticasone/Vilanterol 1 puff 03/07/20 08:00 03/09/20 07:59 Fluticasone/Vilanterol 100/25 Blst.W.Dev INHALE Not Given RDAILY [facility] Haloperidol 5 mg 03/06/20 21:00 03/08/20 21:43 Haloperidol 5 Mg Tablet PO 5 mg BEDTIME ANUJ Administration Insulin Human Lispro 0 unit 03/06/20 07:30 03/09/20 11:19 Insulin Lispro 100 Unit/Ml 3 Ml Vial SUBCUT [facility] Protocol Levofloxacin 750 mg 03/07/20 06:00 03/09/20 06:33 Levofloxacin 750 Mg Tablet PO 750 mg Q24H [facility] Administration Methimazole 5 mg 03/10/20 09:00 Methimazole 10 Mg Tablet PO DAILY [facility] Mirabegron 50 mg 03/06/20 09:00 03/09/20 08:19 Mirabegron 50 Mg Tab.Er.24h PO 50 mg DAILY [facility] Administration Omeprazole 20 mg 03/06/20 09:00 03/09/20 08:19 Omeprazole 20 Mg Capsule. PO 20 mg DAILY [facility] Administration Ondansetron HCl 4 mg 03/06/20 07:11 Ondansetron Hcl 4 Mg/2 Ml Vial IVPUSH Q8H PRN Nausea and Vomiting Pharmacy Consult 1 each 03/06/20 04:00 Consult Rx Perform Med Rec MISCELLANE ONCE PRN Consult order Sodium Chloride 3 ml 03/06/20 08:00 03/09/20 15:15 0.9 % Sodium Chloride Flush 3 Ml Syringe IVFLUSH 3 ml QSHIFT ANUJ Administration Trazodone HCl 100 mg 03/06/20 21:00 03/08/20 21:43 Trazodone Hcl 100 Mg Tablet PO 100 mg BEDTIME ANUJ Administration Valproic Acid 750 mg 03/06/20 09:00 03/09/20 08:20 Valproic Acid 250 Mg Capsule PO 750 mg BID ANUJ Administration Vitamin D 50 mcg 03/06/20 09:00 03/09/20 08:20 Cholecalciferol (Vitamin D3) 25 Mcg Tablet PO 50 mcg DAILY ANUJ Administration Allergies Allergies Allergy/AdvReac Type Severity Reaction Status Date / Time No Known Allergies Allergy Verified 01/16/20 13:13 [No Known Allergies*] Assessment & Plan Assessment & Plan (1) Schizoaffective disorder: Status: Acute Code(s): F25.9 - Schizoaffective disorder, unspecified Recommendations: current psychiatric medication doses much lower than earlier in the year when she was seen by psychiatry--at that time however, patient was much clearer and noted to be engaged in interview appropriately. check depakote level and ammonia level check clozaril level pending head CT Greater than 50% of the session was spent on counseling and/or coordination of care
[2020-03-09 16:40] LABS: Glucose, Whole Blood 98 mg/dL (60-115)
[2020-03-09 20:41] LABS: Glucose, Whole Blood 124 mg/dL (60-115)
[2020-03-09] MEDS: cloZAPine 25 MG TABLET 50 MG PO (21:31)
[2020-03-09] MEDS: carvediloL 3.125 MG TABLET PO (21:32)
[2020-03-09] MEDS: HaloperidoL 5 MG TABLET PO (21:32)
[2020-03-09] MEDS: traZODone HCL 100 MG TABLET PO (21:33)
[2020-03-09] MEDS: Atorvastatin Calcium 10 MG TABLET PO (21:33)
[2020-03-09 23:13] LABS: Strep Pneumo Ag urine Not Detected (Not Detected)
[2020-03-10] VITALS (9 sets, daily range): BP systolic 93–131; BP diastolic 54–64; PULSE 102–115; RESP 16–20; TEMP 36.4–37.8; O2SAT 90–98
[2020-03-10] MEDS: levoFLOXacin 750 MG TABLET PO (05:56)
[2020-03-10 07:36] LABS: Glucose, Whole Blood 83 mg/dL (60-115)
[2020-03-10] MEDS: Fluticasone/Vilanterol 100/25 BLST.W.DEV 1 PUFF INHALE (07:56)
[2020-03-10] MEDS: Aspirin Enteric Coated 81 MG TABLET.DR PO (08:13)
[2020-03-10] MEDS: Mirabegron 50 MG TAB.ER.24H PO (08:13)
[2020-03-10] MEDS: 0.9 % Sodium Chloride Flush 3 ML SYRINGE IVFLUSH ×3 (08:13→21:23)
[2020-03-10] MEDS: Cholecalciferol (Vitamin D3) 25 MCG TABLET 50 MCG PO (08:13)
[2020-03-10] MEDS: Benztropine Mesylate 1 MG TABLET PO ×2 (08:14→21:14)
[2020-03-10] MEDS: Valproic Acid 250 MG CAPSULE 750 MG PO ×2 (08:14→21:13)
[2020-03-10] MEDS: carvediloL 3.125 MG TABLET PO ×2 (08:14→21:14)
[2020-03-10] MEDS: Ascorbic Acid 500 MG TABLET PO ×2 (08:14→21:15)
[2020-03-10] MEDS: Omeprazole 20 MG CAPSULE.DR PO (08:14)
[2020-03-10] MEDS: Enoxaparin Sodium 40 MG/0.4 ML SYRINGE SUBCUT (08:14)
[2020-03-10] MEDS: methIMAzole 10 MG TABLET 5 MG PO (08:14)
[2020-03-10] MEDS: Ferrous Sulfate 324 MG TABLET.DR PO ×2 (08:14→21:13)
[2020-03-10 09:53] LABS: Alanine Aminotransferase 18 U/L (0-31); Albumin Level 2.8 g/dL (3.5-5.0); Alkaline Phosphatase 218 U/L (39-117); Aspartate Amino Transferase 26 U/L (5-31); Bilirubin Direct 0.2 mg/dL (0.0-0.5); Bilirubin Total 0.3 mg/dL (0.0-1.0); Total Protein 5.9 g/dL (6.5-8.0)
[2020-03-10 09:57] LABS: Valproate 87.3 mcg/mL (50.0-100.0)
[2020-03-10 09:58] LABS: Ammonia 35 umol/L (13-55)
[2020-03-10 11:14] LABS: Glucose, Whole Blood 75 mg/dL (60-115)
--- NOTE | 2020-03-10 14:05 | HO.PM.IMPN ---
Subjective Subjective Date of Service: 03/10/20 Interval History: Denies respiratory complaints though not really a reliable historian given her disorganized speech Physical Exam Vital Signs: Vital Signs: Last Vital Signs Temp 97.6 F 03/10/20 11:33 Pulse 104 H 03/10/20 11:33 Resp 18 03/10/20 11:33 BP 96/56 L 03/10/20 11:33 Pulse Ox 97 03/10/20 11:33 Body Mass Index 23.0 Gen: in no acute distress HEENT: sclera anicteric, moist mucus membranes Neck: supple Lungs: lung sounds diminished R base Heart: regular rate and rhythm, no murmurs Abd: soft, non-tender, non-distended Ext: no edema Skin: warm/well-perfused Neuro: disoriented Psych: disorganized speech Objective Data Current Medications Generic Name Dose Route Start Last Admin Trade Name Freq PRN Reason Stop Dose Admin Acetaminophen 650 mg 03/06/20 07:11 Acetaminophen 325 Mg Tablet PO Q6H PRN Pain, Mild (Pain Scale 1-3) Albuterol Sulfate 90 puff 03/06/20 12:00 Albuterol Sulfate 90 Mcg 18 Gm Inhaler INHALE RQ6H PRN Wheezing Ascorbic Acid 500 mg 03/06/20 09:00 03/10/20 08:14 Ascorbic Acid 500 Mg Tablet PO 500 mg BID ANUJ Administration Aspirin 81 mg 03/06/20 09:00 03/10/20 08:13 Aspirin Enteric Coated 81 Mg Tablet.Dr PO 81 mg DAILY ANUJ Administration Atorvastatin Calcium 10 mg 03/06/20 21:00 03/09/20 21:33 Atorvastatin Calcium 10 Mg Tablet PO 10 mg BEDTIME ANUJ Administration Benztropine Mesylate 1 mg 03/06/20 09:00 03/10/20 08:14 Benztropine Mesylate 1 Mg Tablet PO 1 mg BID ANUJ Administration Carvedilol 3.125 mg 03/09/20 21:00 03/10/20 08:14 Carvedilol 3.125 Mg Tablet PO 3.125 mg BID ANUJ Administration Protocol Clozapine 50 mg 03/06/20 21:00 03/09/20 21:31 Clozapine 25 Mg Tablet PO 50 mg BEDTIME ANUJ Administration Docusate Sodium 100 mg 03/06/20 07:11 Docusate Sodium 100 Mg Capsule PO DAILY PRN Constipation Enoxaparin Sodium 40 mg 03/06/20 08:00 12/12/20 08:14 Enoxaparin Sodium 40 Mg/0.4 Ml Syringe SUBCUT 40 mg Q24H ANUJ Administration Ferrous Sulfate 324 mg 03/06/20 09:00 03/10/20 08:14 Ferrous Sulfate 324 Mg Tablet.Dr PO 324 mg BID ANUJ Administration Fluticasone/Vilanterol 1 puff 03/07/20 08:00 03/10/20 07:56 Fluticasone/Vilanterol 100/25 Blst.W.Dev INHALE 1 puff RDAILY ANUJ Administration Haloperidol 5 mg 03/06/20 21:00 03/09/20 21:32 Haloperidol 5 Mg Tablet PO 5 mg BEDTIME ANUJ Administration Insulin Human Lispro 0 unit 03/06/20 07:30 03/10/20 11:25 Insulin Lispro 100 Unit/Ml 3 Ml Vial SUBCUT Not Given QIDACHS [facility] Protocol Levofloxacin 750 mg 03/07/20 06:00 03/10/20 05:56 Levofloxacin 750 Mg Tablet PO 750 mg Q24H ANUJ Administration Methimazole 5 mg 03/10/20 09:00 03/10/20 08:14 Methimazole 10 Mg Tablet PO 5 mg DAILY ANUJ Administration Mirabegron 50 mg 03/06/20 09:00 03/10/20 08:13 Mirabegron 50 Mg Tab.Er.24h PO 50 mg DAILY ANUJ Administration Omeprazole 20 mg 03/06/20 09:00 03/10/20 08:14 Omeprazole 20 Mg Capsule. PO 20 mg DAILY ANUJ Administration Ondansetron HCl 4 mg 03/06/20 07:11 Ondansetron Hcl 4 Mg/2 Ml Vial IVPUSH Q8H PRN Nausea and Vomiting Pharmacy Consult 1 each 03/06/20 04:00 Consult Rx Perform Med Rec MISCELLANE ONCE PRN Consult order Sodium Chloride 3 ml 03/06/20 08:00 03/10/20 08:13 0.9 % Sodium Chloride Flush 3 Ml Syringe IVFLUSH 3 ml QSHIFT ANUJ Administration Trazodone HCl 100 mg 03/06/20 21:00 03/09/20 21:33 Trazodone Hcl 100 Mg Tablet PO 100 mg BEDTIME ANUJ Administration Valproic Acid 750 mg 03/06/20 09:00 03/10/20 08:14 Valproic Acid 250 Mg Capsule PO 750 mg BID ANUJ Administration Vitamin D 50 mcg 03/06/20 09:00 03/10/20 08:13 Cholecalciferol (Vitamin D3) 25 Mcg Tablet PO 50 mcg DAILY ANUJ Administration Labs CBC & Chem 7: 03/09/20 10:02 03/09/20 11:19 Labs: Laboratory Results - last 24 hr 03/06/20 03/09/20 03/09/20 12:26 11:19 16:32 POC Glucose 98 Total Bilirubin Direct Bilirubin AST ALT Alkaline Phosphatase Ammonia Total Protein Albumin Free T4 0.94 Valproic Acid Ur Strep pneumoniae Ag Not Detected 03/09/20 03/10/20 03/10/20 20:36 07:33 09:07 POC Glucose 124 H 83 Total Bilirubin 0.3 Direct Bilirubin 0.2 AST 26 D ALT 18 Alkaline Phosphatase 218 H D Ammonia Total Protein 5.9 L Albumin 2.8 L Free T4 Valproic Acid 87.3 Ur Strep pneumoniae Ag 03/10/20 03/10/20 09:07 11:08 POC Glucose 75 Total Bilirubin Direct Bilirubin AST ALT Alkaline Phosphatase Ammonia 35 Total Protein Albumin Free T4 Valproic Acid Ur Strep pneumoniae Ag Microbiology Microbiology Results: Microbiology 03/06/20 03:50 Blood - Venous Blood Culture - Preliminary No growth after 48 hours. 03/06/20 03:49 Blood - Venous Blood Culture - Preliminary No growth after 48 hours. Assessment and Plan (1) Pneumonia: Status: Acute (2) Pleural effusion: Status: Acute (3) Acute exacerbation of chronic obstructive pulmonary disease: Status: Acute Assessment and Plan: hospital d#4 for 69yo F with NSCLC, COPD, psychotic disorder previously admitted from Oncology clinic 02/27-03/05/20 due to pleural effusion and COPD exacerbation readmitted with hypotension, tachycardia, concern of cavitary PNA/loculated pleural effusion on CT chest persistent confusion/disorganized speech # encephalopathy vs. psychotic decompensation - no brain mets on CT - TSH as below - psych consulted. valproate level therapeutic. NH3 WNL. pending clozapine level. per information consultant was on higher doses in past. ?inpt psych placement # hypotension - resolved, restarted carvedilol # tachycardia - likely b-chelsea withdrawal, restarted carvedilol - if persistent, t/c VTE workup # pleural effusion # ?cavitary pneumonia - s/p thoracentesis 02/29/20, exudate, culture-negative, cytology benign - treated with 3d of levofloxacin and 4d of cefuroxime. back on levofloxacin, d#08/06 - consulted Pulmonology + ID + Thoracic; discussed with pt's oncologist Dr Tony and plan is to manage expectantly for now and repeat CXR in 1-2 wk; upd # COPD exacerbation, resolved - prednisone taper completed yesterday, continue controller ICS/LABA + prn YESIKA # acute hypoxic respiratory failure - resolved, weaned off O2 # NSCLC - followed by Dr Tony, on immune-based chemotherapy with nivolumab # hyperthyroidism - TSH 9.64, free T4 0.94. free T3 pending. MMZ dose decreased from 10 to 5 mg/d. # DM2, A1c 7.1, with hypoglycemia - d/c'ed oral hypoglycemics # HLD - continue statin # GERD - continue PPI # INA - continue Fe supplementation # psychiatric disorder - continue clozapine, haloperidol, benztropine, valproate # VTE ppx - LMWH # dispo - may require inpt psych
[2020-03-10 16:37] LABS: Glucose, Whole Blood 89 mg/dL (60-115)
[2020-03-10 19:02] LABS: Triiodothyronine T3 Free 2.1 pg/mL (2.3-4.2)
--- NOTE | 2020-03-10 19:32 | PC.NURSE ---
pT A&O X 2,able to make needs known. Fed self, swallowed pills well. frequent reorientation needed. Pt easily redirectable
[2020-03-10] MEDS: Insulin Lispro 100 UNIT/ML 3 ML VIAL SUBCUT (21:13)
[2020-03-10 21:14] LABS: Glucose, Whole Blood 186 mg/dL (60-115)
[2020-03-10] MEDS: Atorvastatin Calcium 10 MG TABLET PO (21:14)
[2020-03-10] MEDS: HaloperidoL 5 MG TABLET PO (21:15)
[2020-03-10] MEDS: cloZAPine 25 MG TABLET 50 MG PO (21:15)
[2020-03-10] MEDS: traZODone HCL 100 MG TABLET PO (21:16)
[2020-03-10 21:22] LABS: Legionella Ag Urine Not Detected (Not Detected)
[2020-03-11] VITALS (8 sets, daily range): BP systolic 90–102; BP diastolic 52–61; PULSE 100–117; RESP 16–20; TEMP 36.4–37.4; O2SAT 93–97
--- NOTE | 2020-03-11 | US_ITS ---
EXAMINATION: US VENOUS ULTRASOUND WITH DOPPLER LOWER EXTREMITY, BILATERAL, PORTABLE CLINICAL INFORMATION: Elevated d-dimer COMPARISON: None TECHNIQUE: Ultrasound of the deep veins is performed from the hip to the calf with compression sonography and color and pulse Doppler assessment. Spectral analysis with color-flow imaging is performed. FINDINGS: RIGHT: There is normal venous compression and respiratory variation and augmented flow. The visualized common femoral vein, superficial femoral vein, profunda femoral vein, popliteal vein, and the trifurcation region shows no evidence of deep venous thrombosis. There is no significant popliteal fossa cyst. LEFT: There is normal venous compression and respiratory variation and augmented flow. The visualized common femoral vein, superficial femoral vein, profunda femoral vein, popliteal vein, and the trifurcation region shows no evidence of deep venous thrombosis. There is no significant popliteal fossa cyst. If the patient's symptoms persist, followup ultrasound in 5 days 7 days might be of value to exclude proximal propagation from a non-visualized calf vein. US/US venous duplex LE BI IMPRESSION: No DVT demonstrated in the bilateral lower extremity.
--- NOTE | 2020-03-11 | CT_ITS ---
EXAMINATION: CT ANGIOGRAM OF THE CHEST WITH AND WITHOUT CONTRAST (CT PULMONARY ANGIOGRAM FOR PE) CLINICAL INFORMATION: Tachycardia. Cancer. Elevated d-dimer. Evaluate for a pulmonary embolism. COMPARISON: Most recent chest radiograph dated 03/06/2020. CT chest dated 02/28/2020. TECHNIQUE: Prior to contrast administration, noncontrast localization images were obtained. Subsequently, multidetector volumetric imaging was performed from the thoracic inlet to below the diaphragms following the administration of 65 mL Omnipaque 350 intravenous contrast. No contrast reaction reported. Sagittal, coronal, and MIP oblique sagittal reformatted images were obtained on the CT workstation, uploaded to PACS, and reviewed. This CT examination was performed using dose optimization techniques as appropriate, variously including the following: *Automated exposure control *Adjustment of mA and/or kV according to patient size (this includes techniques or standardized protocols for targeted exams where dose is matched to indication/reason for exam; i.e. extremities or head) *Use of iterative reconstruction technique Total exam dose-length product 184 mGy-cm FINDINGS: QUALITY OF STUDY/CONTRAST BOLUS: Satisfactory. PULMONARY ARTERIES: No central or segmental pulmonary emboli. THORACIC AORTA: No aneurysm or dissection. LUNG: Right upper and lower lobe airspace consolidations with air bronchograms, which could represent atelectasis versus infiltrates, slightly decreased when compared to the prior examination. Minimal atelectasis versus early infiltrates in the left lingula. PLEURA: Moderate right-sided pleural effusion, decreased when compared to the prior examination. No left-sided pleural effusion. No pneumothorax. MEDIASTINUM: Normal heart size. No pericardial effusion. No hilar or mediastinal lymphadenopathy. No evidence of septal bowing or right heart strain. CHEST WALL/AXILLA: No axillary or internal mammary lymphadenopathy. OSSEOUS STRUCTURES: Redemonstration of a compression fracture at T12. No new lytic or blastic osseous lesion. UPPER ABDOMEN: Redemonstration of a hiatal hernia. Otherwise, the visualized upper abdominal structures are unremarkable. No reflux of contrast into the hepatic veins to suggest elevated right heart pressures. CT/CT angio chest PE protocol IMPRESSION: 1. No central or segmental pulmonary embolism. 2. Moderate right-sided pleural effusion with adjacent atelectasis versus infiltrates, slightly decreased when compared to the chest CT dated 02/28/2020. 3. No new or increasing lymphadenopathy. 4. Redemonstration of a hiatal hernia. 5. Stable compression fracture at T12. No new lytic or blastic osseous lesion. VTE: Negative
[2020-03-11] MEDS: levoFLOXacin 750 MG TABLET PO (05:37)
[2020-03-11] MEDS: Fluticasone/Vilanterol 100/25 BLST.W.DEV 1 PUFF INHALE (07:43)
[2020-03-11 08:42] LABS: Glucose, Whole Blood 70 mg/dL (60-115)
[2020-03-11] MEDS: 0.9 % Sodium Chloride Flush 3 ML SYRINGE IVFLUSH ×2 (09:10→15:28)
[2020-03-11] MEDS: Cholecalciferol (Vitamin D3) 25 MCG TABLET 50 MCG PO (09:11)
[2020-03-11] MEDS: Aspirin Enteric Coated 81 MG TABLET.DR PO (09:11)
[2020-03-11] MEDS: methIMAzole 10 MG TABLET 5 MG PO (09:11)
[2020-03-11] MEDS: Benztropine Mesylate 1 MG TABLET PO ×2 (09:11→20:41)
[2020-03-11] MEDS: Enoxaparin Sodium 40 MG/0.4 ML SYRINGE SUBCUT (09:11)
[2020-03-11] MEDS: Ferrous Sulfate 324 MG TABLET.DR PO ×2 (09:11→20:41)
[2020-03-11] MEDS: Ascorbic Acid 500 MG TABLET PO ×2 (09:11→20:41)
[2020-03-11] MEDS: Valproic Acid 250 MG CAPSULE 750 MG PO ×2 (09:11→20:40)
[2020-03-11] MEDS: Mirabegron 50 MG TAB.ER.24H PO (09:11)
[2020-03-11] MEDS: Omeprazole 20 MG CAPSULE.DR PO (09:11)
[2020-03-11] MEDS: carvediloL 3.125 MG TABLET PO ×2 (09:37→20:41)
[2020-03-11 12:06] LABS: Glucose, Whole Blood 141 mg/dL (60-115)
--- NOTE | 2020-03-11 13:09 | HO.PM.IMPN ---
Subjective Subjective Date of Service: 03/11/20 Interval History: disorganized speech placed on O2 overnight for SaO2 90% but weaned off this am no cough observed no fever otherwise unable to obtain ROS due to mental status Physical Exam Vital Signs: Vital Signs: Last Vital Signs Temp 98.1 F 03/11/20 12:00 Pulse 100 03/11/20 12:00 Resp 18 03/11/20 12:00 BP 90/53 L 03/11/20 12:00 Pulse Ox 94 03/11/20 12:00 Body Mass Index 23.0 Gen: in no acute distress HEENT: sclera anicteric, moist mucus membranes Neck: supple Lungs: lung sounds diminished R base Heart: tachycardic, no murmurs Abd: soft, non-tender, non-distended Ext: no edema Skin: warm/well-perfused Neuro: disoriented Psych: disorganized speech Objective Data Current Medications Generic Name Dose Route Start Last Admin Trade Name Freq PRN Reason Stop Dose Admin Acetaminophen 650 mg 03/06/20 07:11 Acetaminophen 325 Mg Tablet PO Q6H PRN Pain, Mild (Pain Scale 1-3) Albuterol Sulfate 90 puff 03/06/20 12:00 Albuterol Sulfate 90 Mcg 18 Gm Inhaler INHALE RQ6H PRN Wheezing Ascorbic Acid 500 mg 03/06/20 09:00 03/11/20 09:11 Ascorbic Acid 500 Mg Tablet PO 500 mg BID ANUJ Administration Aspirin 81 mg 03/06/20 09:00 03/11/20 09:11 Aspirin Enteric Coated 81 Mg Tablet.Dr PO 81 mg DAILY ANUJ Administration Atorvastatin Calcium 10 mg 03/06/20 21:00 03/10/20 21:14 Atorvastatin Calcium 10 Mg Tablet PO 10 mg BEDTIME ANUJ Administration Benztropine Mesylate 1 mg 03/06/20 09:00 03/11/20 09:11 Benztropine Mesylate 1 Mg Tablet PO 1 mg BID ANUJ Administration Carvedilol 3.125 mg 03/09/20 21:00 03/11/20 09:37 Carvedilol 3.125 Mg Tablet PO 3.125 mg BID ANUJ Administration Protocol Clozapine 50 mg 03/06/20 21:00 03/10/20 21:15 Clozapine 25 Mg Tablet PO 50 mg BEDTIME ANUJ Administration Docusate Sodium 100 mg 03/06/20 07:11 Docusate Sodium 100 Mg Capsule PO DAILY PRN Constipation Enoxaparin Sodium 40 mg 03/06/20 08:00 03/11/20 09:11 Enoxaparin Sodium 40 Mg/0.4 Ml Syringe SUBCUT 40 mg Q24H ANUJ Administration Ferrous Sulfate 324 mg 03/06/20 09:00 03/11/20 09:11 Ferrous Sulfate 324 Mg Tablet. PO 324 mg BID ANUJ Administration Fluticasone/Vilanterol 1 puff 03/07/20 08:00 03/11/20 07:43 Fluticasone/Vilanterol 100/25 Blst.W.Dev INHALE 1 puff RDAILY ANUJ Administration Haloperidol 5 mg 03/06/20 21:00 03/10/20 21:15 Haloperidol 5 Mg Tablet PO 5 mg BEDTIME ANUJ Administration Insulin Human Lispro 0 unit 03/06/20 07:30 03/11/20 13:02 Insulin Lispro 100 Unit/Ml 3 Ml Vial SUBCUT Not Given QIDACHS [facility] Protocol Levofloxacin 750 mg 03/07/20 06:00 03/11/20 05:37 Levofloxacin 750 Mg Tablet PO 750 mg Q24H ANUJ Administration Methimazole 5 mg 03/10/20 09:00 03/11/20 09:11 Methimazole 10 Mg Tablet PO 5 mg DAILY ANUJ Administration Mirabegron 50 mg 03/06/20 09:00 03/11/20 09:11 Mirabegron 50 Mg Tab.Er.24h PO 50 mg DAILY ANUJ Administration Omeprazole 20 mg 03/06/20 09:00 03/11/20 09:11 Omeprazole 20 Mg Capsule. PO 20 mg DAILY ANUJ Administration Ondansetron HCl 4 mg 03/06/20 07:11 Ondansetron Hcl 4 Mg/2 Ml Vial IVPUSH Q8H PRN Nausea and Vomiting Pharmacy Consult 1 each 03/06/20 04:00 Consult Rx Perform Med Rec MISCELLANE ONCE PRN Consult order Sodium Chloride 3 ml 03/06/20 08:00 03/11/20 09:10 0.9 % Sodium Chloride Flush 3 Ml Syringe IVFLUSH 3 ml QSHIFT ANUJ Administration Trazodone HCl 100 mg 03/06/20 21:00 03/10/20 21:16 Trazodone Hcl 100 Mg Tablet PO 100 mg BEDTIME ANUJ Administration Valproic Acid 750 mg 03/06/20 09:00 03/11/20 09:11 Valproic Acid 250 Mg Capsule PO 750 mg BID ANUJ Administration Vitamin D 50 mcg 03/06/20 09:00 03/11/20 09:11 Cholecalciferol (Vitamin D3) 25 Mcg Tablet PO 50 mcg DAILY ANUJ Administration Labs CBC & Chem 7: 03/09/20 10:02 03/09/20 11:19 Labs: Laboratory Results - last 24 hr 03/06/20 03/09/20 03/10/20 12:26 11:19 16:20 POC Glucose 89 Free T3 2.1 L Ur L.pneumophila Ag Not Detected 03/10/20 03/11/20 03/11/20 21:03 08:38 12:00 POC Glucose 186 H 70 141 H Free T3 Ur L.pneumophila Ag Impressions Venous Duplex 03/11/20 00:00 IMPRESSION: No DVT demonstrated in the bilateral lower extremity. Microbiology Microbiology Results: Microbiology 03/06/20 03:50 Blood - Venous Blood Culture - Final No growth after 5 days. 03/06/20 03:49 Blood - Venous Blood Culture - Final No growth after 5 days. Assessment and Plan (1) Pneumonia: Status: Acute (2) Pleural effusion: Status: Acute (3) Acute exacerbation of chronic obstructive pulmonary disease: Status: Acute Assessment and Plan: hospital d#5 for 69yo F with NSCLC, COPD, psychotic disorder who resides in a snf previously admitted from Oncology clinic 02/27-03/05/20 due to pleural effusion and COPD exacerbation readmitted with hypotension, tachycardia, concern of cavitary PNA/loculated pleural effusion on CT chest persistent confusion/disorganized speech # encephalopathy vs. psychotic decompensation - no brain mets on CT, TSH as below - psych consulted. valproate level therapeutic. NH3 WNL. pending clozapine level. per domestic travel consultant was on higher doses in past. she will need inpt psych placement once medically cleared # hypotension - resolved, restarted carvedilol # tachycardia - likely b-chelsea withdrawal, restarted carvedilol - Doppler neg for DVT. will check CTA chest to r/o PE given underlying CA, tachycardia, hypoxia, elev D-dimer # pleural effusion # ?cavitary pneumonia - s/p thoracentesis 02/29/20, exudate, culture-negative, cytology benign - treated with 3d of levofloxacin and 4d of cefuroxime. back on levofloxacin, d#08/06 - consulted Pulmonology + ID + Thoracic; discussed with pt's oncologist Dr Tony and plan is to manage expectantly for now and repeat CXR in 1-2 wk # COPD exacerbation, resolved - prednisone taper completed 03/09, continue controller ICS/LABA + prn YESIKA # acute hypoxic respiratory failure - resolved, weaned off O2 # NSCLC - followed by Dr Tony, on immune-based chemotherapy with nivolumab # hyperthyroidism - TSH 9.64, free T4 0.94, free T3 2.1. MMZ dose decreased from 10 to 5 mg/d. # DM2, A1c 7.1, with hypoglycemia - d/c'ed oral hypoglycemics # HLD - continue statin # GERD - continue PPI # INA - continue Fe supplementation # psychiatric disorder - continue clozapine, haloperidol, benztropine, valproate # VTE ppx - LMWH # dispo - inpt psych pending VTE r/o updated pt's brother Lukasz yesterday and her snf nurse Christa Thursday
[2020-03-11] MEDS: iohexoL 350 MG/ML 100 ML INFUS..BTL IV (15:52)
[2020-03-11] MEDS: Acetaminophen 325 MG TABLET 650 MG PO (15:53)
[2020-03-11 16:28] LABS: Glucose, Whole Blood 140 mg/dL (60-115)
[2020-03-11 20:11] LABS: Glucose, Whole Blood 192 mg/dL (60-115)
[2020-03-11] MEDS: Atorvastatin Calcium 10 MG TABLET PO (20:41)
[2020-03-11] MEDS: HaloperidoL 5 MG TABLET PO (20:41)
[2020-03-11] MEDS: traZODone HCL 100 MG TABLET PO (20:41)
[2020-03-11] MEDS: cloZAPine 25 MG TABLET 50 MG PO (20:41)
[2020-03-11] MEDS: Insulin Lispro 100 UNIT/ML 3 ML VIAL SUBCUT (20:41)
--- NOTE | 2020-03-11 21:42 | PC.NURSE ---
PT able to make needs known, garbled speech at baseline with left facial droop. Pt swallows pills ok, went to CT with contrast. Spoke with Brother Lukasz for concent for Ct with contrast and gave update. Pt up into recliner most of day, able to walk with 1 assist.
[2020-03-12] VITALS (8 sets, daily range): BP systolic 98–114; BP diastolic 50–60; PULSE 72–109; RESP 16–22; TEMP 36.4–36.6; O2SAT 93–98
[2020-03-12] MEDS: 0.9 % Sodium Chloride Flush 3 ML SYRINGE IVFLUSH ×3 (00:33→16:04)
[2020-03-12 07:12] LABS: Glucose, Whole Blood 116 mg/dL (60-115)
[2020-03-12] MEDS: Fluticasone/Vilanterol 100/25 BLST.W.DEV 1 PUFF INHALE (07:44)
[2020-03-12] MEDS: Enoxaparin Sodium 40 MG/0.4 ML SYRINGE SUBCUT (08:23)
[2020-03-12] MEDS: Valproic Acid 250 MG CAPSULE 750 MG PO ×2 (08:24→21:08)
[2020-03-12] MEDS: methIMAzole 10 MG TABLET 5 MG PO (08:24)
[2020-03-12] MEDS: Mirabegron 50 MG TAB.ER.24H PO (08:24)
[2020-03-12] MEDS: Aspirin Enteric Coated 81 MG TABLET.DR PO (08:25)
[2020-03-12] MEDS: Ascorbic Acid 500 MG TABLET PO ×2 (08:25→21:09)
[2020-03-12] MEDS: carvediloL 3.125 MG TABLET PO ×2 (08:25→21:08)
[2020-03-12] MEDS: Omeprazole 20 MG CAPSULE.DR PO (08:25)
[2020-03-12] MEDS: levoFLOXacin 750 MG TABLET PO (08:25)
[2020-03-12] MEDS: Benztropine Mesylate 1 MG TABLET PO ×2 (08:25→21:08)
[2020-03-12] MEDS: Cholecalciferol (Vitamin D3) 25 MCG TABLET 50 MCG PO (08:25)
[2020-03-12] MEDS: Ferrous Sulfate 324 MG TABLET.DR PO ×2 (10:16→21:09)
[2020-03-12 11:12] LABS: Glucose, Whole Blood 102 mg/dL (60-115)
--- NOTE | 2020-03-12 13:16 | P.PNIM_ITS ---
Subjective Subjective Date of Service: 03/12/20 Interval History: Patient seen and examined at bedside. She appears in no distress, cooperating slightly confused, has no complaints. Physical Exam Vital Signs: Vital Signs: Last Vital Signs Temp 97.8 F 03/12/20 11:29 Pulse 72 03/12/20 11:29 Resp 18 03/12/20 11:29 BP 98/58 L 03/12/20 11:29 Pulse Ox 97 03/12/20 11:29 Body Mass Index 23.0 Gen: in no acute distress HEENT: sclera anicteric, moist mucus membranes Neck: supple Lungs: lung sounds diminished Heart: Normal rate and rhythm Abd: soft, non-tender, non-distended Ext: no edema Skin: warm/well-perfused Neuro: disoriented Psych: Appears confused Objective Data Current Medications Generic Name Dose Route Start Last Admin Trade Name Freq PRN Reason Stop Dose Admin Acetaminophen 650 mg 03/06/20 07:11 03/11/20 15:53 Acetaminophen 325 Mg Tablet PO 650 mg Q6H PRN Administration Pain, Mild (Pain Scale 1-3) Albuterol Sulfate 90 puff 03/06/20 12:00 Albuterol Sulfate 90 Mcg 18 Gm Inhaler INHALE RQ6H PRN Wheezing Ascorbic Acid 500 mg 03/06/20 09:00 03/12/20 08:25 Ascorbic Acid 500 Mg Tablet PO 500 mg BID ANUJ Administration Aspirin 81 mg 03/06/20 09:00 03/12/20 08:25 Aspirin Enteric Coated 81 Mg Tablet.Dr PO 81 mg DAILY ANUJ Administration Atorvastatin Calcium 10 mg 03/06/20 21:00 03/11/20 20:41 Atorvastatin Calcium 10 Mg Tablet PO 10 mg BEDTIME ANUJ Administration Benztropine Mesylate 1 mg 03/06/20 09:00 03/12/20 08:25 Benztropine Mesylate 1 Mg Tablet PO 1 mg BID ANUJ Administration Carvedilol 3.125 mg 03/09/20 21:00 03/12/20 08:25 Carvedilol 3.125 Mg Tablet PO 3.125 mg BID ANUJ Administration Protocol Clozapine 50 mg 03/06/20 21:00 12 20:41 Clozapine 25 Mg Tablet PO 50 mg BEDTIME ANUJ Administration Docusate Sodium 100 mg 03/06/20 07:11 Docusate Sodium 100 Mg Capsule PO DAILY PRN Constipation Enoxaparin Sodium 40 mg 03/06/20 08:00 03/12/20 08:23 Enoxaparin Sodium 40 Mg/0.4 Ml Syringe SUBCUT 40 mg Q24H ANUJ Administration Ferrous Sulfate 324 mg 03/06/20 09:00 03/12/20 10:16 Ferrous Sulfate 324 Mg Tablet. PO 324 mg BID ANUJ Administration Fluticasone/Vilanterol 1 puff 03/07/20 08:00 03/12/20 07:44 Fluticasone/Vilanterol 100/25 Blst.W.Dev INHALE 1 puff RDAILY ANUJ Administration Haloperidol 5 mg 03/06/20 21:00 03/11/20 20:41 Haloperidol 5 Mg Tablet PO 5 mg BEDTIME ANUJ Administration Insulin Human Lispro 0 unit 03/06/20 07:30 03/12/20 12:29 Insulin Lispro 100 Unit/Ml 3 Ml Vial SUBCUT Not Given QIDACHS COUNT INCLUDES [facility] Protocol Levofloxacin 750 mg 03/07/20 06:00 03/12/20 08:25 Levofloxacin 750 Mg Tablet PO 750 mg Q24H ANUJ Administration Methimazole 5 mg 03/10/20 09:00 03/12/20 08:24 Methimazole 10 Mg Tablet PO 5 mg DAILY ANUJ Administration Mirabegron 50 mg 03/06/20 09:00 03/12/20 08:24 Mirabegron 50 Mg Tab.Er.24h PO 50 mg DAILY ANUJ Administration Omeprazole 20 mg 03/06/20 09:00 03/12/20 08:25 Omeprazole 20 Mg Capsule. PO 20 mg DAILY ANUJ Administration Ondansetron HCl 4 mg 03/06/20 07:11 Ondansetron Hcl 4 Mg/2 Ml Vial IVPUSH Q8H PRN Nausea and Vomiting Pharmacy Consult 1 each 03/06/20 04:00 Consult Rx Perform Med Rec MISCELLANE ONCE PRN Consult order Sodium Chloride 3 ml 03/06/20 08:00 03/12/20 08:39 0.9 % Sodium Chloride Flush 3 Ml Syringe IVFLUSH 3 ml QSHIFT ANUJ Administration Trazodone HCl 100 mg 03/06/20 21:00 03/11/20 20:41 Trazodone Hcl 100 Mg Tablet PO 100 mg BEDTIME ANUJ Administration Valproic Acid 750 mg 03/06/20 09:00 03/12/20 08:24 Valproic Acid 250 Mg Capsule PO 750 mg BID ANUJ Administration Vitamin D 50 mcg 03/06/20 09:00 03/12/20 08:25 Cholecalciferol (Vitamin D3) 25 Mcg Tablet PO 50 mcg DAILY ANUJ Administration Labs CBC & Chem 7: 03/09/20 10:02 03/09/20 11:19 Microbiology Microbiology Results: Microbiology 03/06/20 03:50 Blood - Venous Blood Culture - Final No growth after 5 days. 03/06/20 03:49 Blood - Venous Blood Culture - Final No growth after 5 days. Assessment and Plan (1) Pleural effusion, right: Status: Acute (2) Sepsis: Status: Acute (3) Acute respiratory failure with hypoxia: Problem details: Believe likely lung cancer main problem Necrotic metastasis in lung may give some bacterial infection,gram negative Pleural effusion likely malignant Do not believe primary bacterial lung abscess or tuberculosis problem Gram negative can be concern Status: Acute (4) Pneumonia: Status: Acute (5) Acute exacerbation of chronic obstructive pulmonary disease: Status: Acute (6) Diabetes type 2, uncontrolled: Status: Acute Assessment and Plan: hospital d#6 69yo F with NSCLC, COPD, psychotic disorder who resides in a nursing home previously admitted from Oncology clinic 02/27-03/05/20 due to pleural effusion and COPD exacerbation readmitted with hypotension, tachycardia, concern of cavitary PNA/loculated pleural effusion on CT chest persistent confusion/disorganized speech # encephalopathy vs. psychotic decompensation - no brain mets on CT, TSH as below - psych consulted. valproate level therapeutic. NH3 WNL. pending clozapine level. per customs consultant was on higher doses in past. - she will need inpt psych placement once medically cleared # hypotension - resolved, restarted carvedilol # tachycardia- resolved - likely b-chelsea withdrawal, restarted carvedilol - Doppler neg for DVT. - CTA -ve for PE # pleural effusion # ?cavitary pneumonia - s/p thoracentesis 02/29/20, exudate, culture-negative, cytology benign - treated with 3d of levofloxacin and 4d of cefuroxime. back on levofloxacin, d#08/06 - consulted Pulmonology + ID + Thoracic; discussed with pt's oncologist Dr Ray galindo and plan is to manage expectantly for now and repeat CXR in 1-2 wk # COPD exacerbation, resolved - prednisone taper completed 03/09, continue controller ICS/LABA + prn YESIKA # acute hypoxic respiratory failure - resolved, weaned off O2 # NSCLC - followed by Dr Tony, on immune-based chemotherapy with nivolumab # hyperthyroidism - TSH 9.64, free T4 0.94, free T3 2.1. - MMZ dose decreased from 10 to 5 mg/d. # DM2, A1c 7.1, with hypoglycemia - d/c'ed oral hypoglycemics - LDSSI # HLD - continue statin # GERD - continue PPI # INA - continue Fe supplementation # psychiatric disorder - continue clozapine, haloperidol, benztropine, valproate # VTE ppx - LMWH # dispo - inpt psych
--- NOTE | 2020-03-12 14:56 | MHC.CM.PN ---
per rounds [facility] will be lookjig for inpt psych for pt
[2020-03-12 16:50] LABS: Glucose, Whole Blood 225 mg/dL (60-115)
[2020-03-12] MEDS: Insulin Lispro 100 UNIT/ML 3 ML VIAL SUBCUT (17:50)
[2020-03-12 20:26] LABS: Glucose, Whole Blood 119 mg/dL (60-115)
[2020-03-12] MEDS: cloZAPine 25 MG TABLET 50 MG PO (21:08)
[2020-03-12] MEDS: HaloperidoL 5 MG TABLET PO (21:09)
[2020-03-12] MEDS: traZODone HCL 100 MG TABLET PO (21:09)
[2020-03-12] MEDS: Atorvastatin Calcium 10 MG TABLET PO (21:09)
[2020-03-13] VITALS (9 sets, daily range): BP systolic 85–98; BP diastolic 48–58; PULSE 80–102; RESP 14–19; TEMP 36.3–37.8; O2SAT 90–98
[2020-03-13] MEDS: 0.9 % Sodium Chloride Flush 3 ML SYRINGE IVFLUSH ×4 (00:30→20:53)
[2020-03-13] MEDS: 0.9 % Sodium Chloride 500 ML 999 ML IVCONT (04:06)
[2020-03-13] MEDS: levoFLOXacin 750 MG TABLET PO (05:23)
--- NOTE | 2020-03-13 05:44 | PC.NURSE ---
PT HAD LOW BP AT 0400 VITALS 82/46. ASYMPTOMATIC. NOTIFIED. PT GIVEN 500CC NS BOLUS WITH GOOD EFFECT. BP UP TO 97/51. WILL CONTINUE TO MONITOR.
[2020-03-13] MEDS: Fluticasone/Vilanterol 100/25 BLST.W.DEV 1 PUFF INHALE (07:23)
[2020-03-13 07:39] LABS: Glucose, Whole Blood 106 mg/dL (60-115)
[2020-03-13] MEDS: Enoxaparin Sodium 40 MG/0.4 ML SYRINGE SUBCUT (10:12)
[2020-03-13] MEDS: Omeprazole 20 MG CAPSULE.DR PO (10:12)
[2020-03-13] MEDS: Valproic Acid 250 MG CAPSULE 750 MG PO ×2 (10:12→20:50)
[2020-03-13] MEDS: Ascorbic Acid 500 MG TABLET PO ×2 (10:13→20:50)
[2020-03-13] MEDS: Cholecalciferol (Vitamin D3) 25 MCG TABLET 50 MCG PO (10:13)
[2020-03-13] MEDS: Ferrous Sulfate 324 MG TABLET.DR PO ×2 (10:13→20:50)
[2020-03-13] MEDS: methIMAzole 10 MG TABLET 5 MG PO (10:13)
[2020-03-13] MEDS: Aspirin Enteric Coated 81 MG TABLET.DR PO (10:14)
[2020-03-13] MEDS: Benztropine Mesylate 1 MG TABLET PO ×2 (10:15→20:50)
[2020-03-13] MEDS: Mirabegron 50 MG TAB.ER.24H PO (10:19)
[2020-03-13 11:18] LABS: Glucose, Whole Blood 103 mg/dL (60-115)
--- NOTE | 2020-03-13 12:28 | MHC.CM.PN ---
called [facility] and spoke with vick to check on referral status of this pt n referral which was placed on 03/11 and again 03/13 both stat orders nav explained that a referral should be placed by a call from md to [phone] a faxed referral is not often seen as the fax is in the back of their office request was then made to md to call n as they do not have a referrral for this pt.
--- NOTE | 2020-03-13 14:16 | P.PNIM_ITS ---
Subjective Subjective Date of Service: 03/13/20 Interval History: pt seen and examined at bedside. She is confused, but able to answer questions approprately. oriented to place, pleasant, no agitation Physical Exam Vital Signs: Vital Signs: Last Vital Signs Temp 97.8 F 03/13/20 10:51 Pulse 102 H 03/13/20 10:51 Resp 18 03/13/20 10:51 BP 94/48 L 03/13/20 10:51 Pulse Ox 98 03/13/20 10:51 Body Mass Index 23.0 Const: Other: Sitting in chair at bedside. Talking normally, oriented to self and place, has flight of ideas. No agitation Resp: Effort & Inspection: normal respiratory effort and able to speak in complete sentences Auscultation: clear to auscultation bilaterally Cardio: Rate: regular rate Rhythm: regular rhythm GI: Palpation (GI): Soft to palpation Auscultation: normal bowel sounds Neuro: Cognition (Neuro): normal cognition Extrem: General: Yes normal to inspection and Yes no pedal edema Objective Data Current Medications Generic Name Dose Route Start Last Admin Trade Name Paul PRN Reason Stop Dose Admin Acetaminophen 650 mg 03/06/20 07:11 03/11/20 15:53 Acetaminophen 325 Mg Tablet PO 650 mg Q6H PRN Administration Pain, Mild (Pain Scale 1-3) Albuterol Sulfate 90 puff 03/06/20 12:00 Albuterol Sulfate 90 Mcg 18 Gm Inhaler INHALE RQ6H PRN Wheezing Ascorbic Acid 500 mg 03/06/20 09:00 03/13/20 10:13 Ascorbic Acid 500 Mg Tablet PO 500 mg BID ANUJ Administration Aspirin 81 mg 03/06/20 09:00 03/13/20 10:14 Aspirin Enteric Coated 81 Mg Tablet.Dr PO 81 mg DAILY ANUJ Administration Atorvastatin Calcium 10 mg 03/06/20 21:00 03/12/20 21:09 Atorvastatin Calcium 10 Mg Tablet PO 10 mg BEDTIME ANUJ Administration Benztropine Mesylate 1 mg 03/06/20 09:00 03/13/20 10:15 Benztropine Mesylate 1 Mg Tablet PO 1 mg BID ANUJ Administration Carvedilol 3.125 mg 03/09/20 21:00 03/13/20 10:14 Carvedilol 3.125 Mg Tablet PO Not Given BID ANUJ Protocol Clozapine 50 mg 03/06/20 21:00 03/12/20 21:08 Clozapine 25 Mg Tablet PO 50 mg BEDTIME ANUJ Administration Docusate Sodium 100 mg 03/06/20 07:11 Docusate Sodium 100 Mg Capsule PO DAILY PRN Constipation Enoxaparin Sodium 40 mg 03/06/20 08:00 03/13/20 10:12 Enoxaparin Sodium 40 Mg/0.4 Ml Syringe SUBCUT 40 mg Q24H ANUJ Administration Ferrous Sulfate 324 mg 03/06/20 09:00 03/13/20 10:13 Ferrous Sulfate 324 Mg Tablet. PO 324 mg BID ANUJ Administration Fluticasone/Vilanterol 1 puff 03/07/20 08:00 03/13/20 07:23 Fluticasone/Vilanterol 100/25 Blst.W.Dev INHALE 1 puff RDAILY ANUJ Administration Haloperidol 5 mg 03/06/20 21:00 03/12/20 21:09 Haloperidol 5 Mg Tablet PO 5 mg BEDTIME ANUJ Administration Insulin Human Lispro 0 unit 03/06/20 07:30 03/13/20 11:12 Insulin Lispro 100 Unit/Ml 3 Ml Vial SUBCUT Not Given QIDACHS [facility] Protocol Levofloxacin 750 mg 03/07/20 06:00 03/13/20 05:23 Levofloxacin 750 Mg Tablet PO 750 mg Q24H ANUJ Administration Methimazole 5 mg 03/10/20 09:00 03/13/20 10:13 Methimazole 10 Mg Tablet PO 5 mg DAILY ANUJ Administration Mirabegron 50 mg 03/06/20 09:00 03/13/20 10:19 Mirabegron 50 Mg Tab.Er.24h PO 50 mg DAILY ANUJ Administration Omeprazole 20 mg 03/06/20 09:00 03/13/20 10:12 Omeprazole 20 Mg Capsule. PO 20 mg DAILY ANUJ Administration Ondansetron HCl 4 mg 03/06/20 07:11 Ondansetron Hcl 4 Mg/2 Ml Vial IVPUSH Q8H PRN Nausea and Vomiting Pharmacy Consult 1 each 03/06/20 04:00 Consult Rx Perform Med Rec MISCELLANE ONCE PRN Consult order Sodium Chloride 3 ml 03/06/20 08:00 03/13/20 10:12 0.9 % Sodium Chloride Flush 3 Ml Syringe IVFLUSH 3 ml QSHIFT ANUJ Administration Trazodone HCl 100 mg 03/06/20 21:00 03/12/20 21:09 Trazodone Hcl 100 Mg Tablet PO 100 mg BEDTIME ANUJ Administration Valproic Acid 750 mg 03/06/20 09:00 03/13/20 10:12 Valproic Acid 250 Mg Capsule PO 750 mg BID ANUJ Administration Vitamin D 50 mcg 03/06/20 09:00 03/13/20 10:13 Cholecalciferol (Vitamin D3) 25 Mcg Tablet PO 50 mcg DAILY ANUJ Administration Labs CBC & Chem 7: 03/09/20 10:02 03/09/20 11:19 Microbiology Microbiology Results: Microbiology 03/06/20 03:50 Blood - Venous Blood Culture - Final No growth after 5 days. 03/06/20 03:49 Blood - Venous Blood Culture - Final No growth after 5 days. Assessment and Plan (1) Pleural effusion, right: Status: Acute (2) Sepsis: Status: Acute (3) Pneumonia: Status: Resolved (4) Acute exacerbation of chronic obstructive pulmonary disease: Status: Resolved (5) Diabetes type 2, uncontrolled: Status: Acute (6) Acute respiratory failure with hypoxia: Problem details: Believe likely lung cancer main problem Necrotic metastasis in lung may give some bacterial infection,gram negative Pleural effusion likely malignant Do not believe primary bacterial lung abscess or tuberculosis problem Gram negative can be concern Status: Acute Assessment and Plan: hospital d#7 69yo F with NSCLC, COPD, psychotic disorder who resides in a assisted previously admitted from Oncology clinic 02/27-03/05/20 due to pleural effusion an d COPD exacerbation readmitted with hypotension, tachycardia, concern of cavitary PNA/loculated pleu ral effusion on CT chest persistent confusion/disorganized speech # encephalopathy vs. psychotic decompensation - no brain mets on CT, TSH normal - Evaluated by psych today, feel that pt will need inpatient evaluation and management - Pt is medically cleared to be discharged to [facility], awaiting placement in geriatric psych facility # hypotension - resolved, restarted carvedilol # tachycardia- resolved - likely b-chelsea withdrawal, restarted carvedilol - Doppler neg for DVT. - CTA -ve for PE # pleural effusion # ?cavitary pneumonia - s/p thoracentesis 02/29/20, exudate, culture-negative, cytology benign - treated with 3d of levofloxacin and 4d of cefuroxime. back on levofloxacin, d#08/06 - consulted Pulmonology + ID + Thoracic; discussed with pt's oncologist Dr Tony and plan is to manage expectantly for now and repeat CXR in 1-2 wk # COPD exacerbation, resolved - prednisone taper completed 03/09, continue controller ICS/LABA + prn YESIKA # acute hypoxic respiratory failure - resolved, weaned off O2 # NSCLC - followed by Dr Tony, on immune-based chemotherapy with nivolumab # hyperthyroidism - TSH 9.64, free T4 0.94, free T3 2.1. - MMZ dose decreased from 10 to 5 mg/d. # DM2, A1c 7.1, with hypoglycemia - d/c'ed oral hypoglycemics - LDSSI # HLD - continue statin # GERD - continue PPI # INA - continue Fe supplementation # psychiatric disorder - continue clozapine, haloperidol, benztropine, valproate # VTE ppx - LMWH # dispo - inpt psych
--- NOTE | 2020-03-13 14:32 | MHC.CM.PN ---
met with tala who will be recommending inpt psych for pt a nd in itiating a bed search
[2020-03-13 16:15] LABS: Glucose, Whole Blood 197 mg/dL (60-115)
[2020-03-13] MEDS: Insulin Lispro 100 UNIT/ML 3 ML VIAL SUBCUT (17:07)
[2020-03-13 20:31] LABS: Glucose, Whole Blood 92 mg/dL (60-115)
[2020-03-13] MEDS: traZODone HCL 100 MG TABLET PO (20:50)
[2020-03-13] MEDS: cloZAPine 25 MG TABLET 50 MG PO (20:50)
[2020-03-13] MEDS: Atorvastatin Calcium 10 MG TABLET PO (20:50)
[2020-03-13] MEDS: HaloperidoL 5 MG TABLET PO (20:50)
[2020-03-14] VITALS (7 sets, daily range): BP systolic 84–119; BP diastolic 50–58; PULSE 67–113; RESP 18–20; TEMP 36.4–37.3; O2SAT 91–97
[2020-03-14] MEDS: 0.9 % Sodium Chloride 1,000 ML 999 ML IVCONT (00:46)
[2020-03-14 07:06] LABS: Glucose, Whole Blood 155 mg/dL (60-115)
[2020-03-14] MEDS: levoFLOXacin 750 MG TABLET PO (07:09)
--- NOTE | 2020-03-14 07:46 | PC.NURSE ---
0140 P-BP 85/58 P-93 I-DR.PEREZ LOYA NOTIFIED.ORDERED 1 LITER NS OVER 1 HR E-BP 84/50 ON RIGHT ARM MANUALLY 86/50 ON LEFT MANUALLY AFTER BOLUS I-DR AYOUB NOTIFIED. 0310 E-RECHECKED BP 98/58 LEFT ARM MANUALLY. NOTIFIED.
[2020-03-14] MEDS: Fluticasone/Vilanterol 100/25 BLST.W.DEV 1 PUFF INHALE (07:52)
[2020-03-14 09:47] LABS: Anion Gap 13 (12-20); Blood Urea Nitrogen 10 mg/dL (9-16); Calcium 8.8 mg/dL (8.4-10.2); Carbon Dioxide 20 mmol/L (22-29); Chloride 112 mmol/L (96-108); Creatinine Clr Calc Pharmacy 48.7; Estimated Glomerular Filt Rate 59; Glucose Random 70 mg/dL (60-115); Potassium 4.9 mmol/l (3.3-5.1); Sodium 140 mmol/L (135-145)
[2020-03-14 10:37] LABS: Basophils Percent Auto 0.3 % (0-2); Imm Gran Pct Auto 4.5 % (0.0-0.4); MANUAL DIFF FLAG SCAN; PLT CLUMP 1; SCAN SMEAR FLAG 1
[2020-03-14 10:38] LABS: Eosinophils Absolute Auto 0.2 X10*3/uL (0.0-0.4); Eosinophils Percent Auto 3.5 % (0-4); Hematocrit 35.9 % (37-47); Hemoglobin 10.7 g/dl (12.0-16.0); Imm Gran Abs Auto 0.27 X10*3/uL (0.00-0.03); Lymphocytes Absolute Auto 1.3 X10*3/uL (1.2-4.9); Mean Corpuscular HGB Conc 29.8 g/dl (31.0-35.0); Mean Corpuscular Hemoglobin 29.3 pg (27.0-33.0); Mean Corpuscular Volume 98.4 fL (80-98); Mean Platelet Volume 11.6 fL (9.4-12.3); Monocytes Percent Auto 16.1 % (2-11); Neutrophils Absolute Auto 3.2 X10*3/uL (2.0-8.3); Neutrophils Percent Auto 53.6 % (45-73); Red Blood Count 3.65 X10*6/uL (4.20-5.50); Red Cell Distribution Width 15.4 % (11.0-16.0)
[2020-03-14 10:56] LABS: Glucose, Whole Blood 109 mg/dL (60-115)
[2020-03-14] MEDS: Insulin Lispro 100 UNIT/ML 3 ML VIAL SUBCUT ×2 (11:09→17:40)
[2020-03-14] MEDS: 0.9 % Sodium Chloride Flush 3 ML SYRINGE IVFLUSH ×2 (11:10→17:40)
[2020-03-14] MEDS: Enoxaparin Sodium 40 MG/0.4 ML SYRINGE SUBCUT (11:13)
[2020-03-14] MEDS: Ascorbic Acid 500 MG TABLET PO ×2 (11:13→22:21)
[2020-03-14] MEDS: Benztropine Mesylate 1 MG TABLET PO ×2 (11:14→22:21)
[2020-03-14] MEDS: Aspirin Enteric Coated 81 MG TABLET.DR PO (11:14)
[2020-03-14] MEDS: Ferrous Sulfate 324 MG TABLET.DR PO ×2 (11:15→22:22)
[2020-03-14] MEDS: Cholecalciferol (Vitamin D3) 25 MCG TABLET 50 MCG PO (11:15)
[2020-03-14] MEDS: Mirabegron 50 MG TAB.ER.24H PO (11:16)
[2020-03-14] MEDS: methIMAzole 10 MG TABLET 5 MG PO (11:16)
[2020-03-14] MEDS: Valproic Acid 250 MG CAPSULE 750 MG PO ×2 (11:16→22:22)
[2020-03-14] MEDS: Omeprazole 20 MG CAPSULE.DR PO (11:16)
[2020-03-14 12:05] LABS: SLIDE REVIEW VERIFIED
--- NOTE | 2020-03-14 12:38 | MHC.CM.PN ---
juan diegon placed pt in inpt psych facility
--- NOTE | 2020-03-14 14:42 | P.DS_ITS ---
DS: Providers Provider Date of admission: 03/06/20 04:56 Primary care physician: Unknown Physician Consults: 03/06/20 07:11 Consult to Pulmonology Routine Consulting Provider: Erlin Anne Reason for consultation: Large pleural effusion Has provider been notified: No 03/06/20 07:36 Consult to Infectious Diseases Routine Consulting Provider: Chary Hutchins Reason for consultation: readmitted- cavitary pneumonia 03/07/20 07:46 Consult to Thoracic Surgery Routine Consulting Provider: [facility] Sur[facility] Reason for consultation: pleural effusion, NSCLC. please see CT from [facility] reagan done 03/05/20 03/09/20 09:57 Consult to Psychiatry Routine Consulting Provider: Psych Covering Reason for consultation: disorganize thought process, not her baseline. on clozapine, from group ho 03/11/20 14:21 Consult to Crisis Stat Reason for consultation: inpt psych 03/13/20 08:43 Consult to Crisis Stat Reason for consultation: Medically cleared, N admission Has provider been notified: No DS: Diagnosis Discharge Diagnosis (1) Pleural effusion, right: Status: Acute (2) Sepsis: Status: Acute (3) Pneumonia: Status: Resolved (4) Acute exacerbation of chronic obstructive pulmonary disease: Status: Resolved (5) Diabetes type 2, uncontrolled: Status: Acute (6) Acute respiratory failure with hypoxia: Status: Acute Problem details: Believe likely lung cancer main problem Necrotic metastasis in lung may give some bacterial infection,gram negative Pleural effusion likely malignant Do not believe primary bacterial lung abscess or tuberculosis problem Gram negative can be concern DS: Medications Discharge Medications Home Medications: Home Medications Medication Instructions Recorded Confirmed Opdivo 240 mg IV Q2W 01/04/20 03/06/20 acetaminophen 650 mg PO Q6H PRN 01/04/20 03/06/20 albuterol 90 mcg INHALATION Q6H PRN 01/04/20 03/06/20 ascorbic acid (vitamin C) [Vitamin 500 mg PO BID 01/04/20 03/06/20 C] aspirin 81 mg PO DAILY 01/04/20 03/06/20 benztropine 1 mg PO BID 01/04/20 03/06/20 carvedilol [Coreg] 3.125 mg PO BID 01/04/20 03/06/20 cholecalciferol (vitamin D3) 50 mcg PO DAILY 01/04/20 03/06/20 [Vitamin D3] clozapine [Clozaril] 50 mg PO BEDTIME 01/04/20 03/06/20 ferrous sulfate 325 mg PO BID 01/04/20 03/06/20 fluticasone propion-salmeterol 1 inh INHALATION BID 01/04/20 03/06/20 [Advair Diskus] haloperidol 5 mg PO BEDTIME 01/04/20 03/06/20 mirabegron 50 mg PO DAILY 01/04/20 03/06/20 trazodone 100 mg PO BEDTIME 01/04/20 03/06/20 valproic acid 750 mg PO BID 01/04/20 03/06/20 estradiol [Estrace] 1 g VAGINAL BEDTIME 01/31/20 03/06/20 glipizide 1 tab PO DAILY 02/28/20 03/06/20 Previous Rx's Medication Instructions Recorded omeprazole 20 mg capsule,delayed 20 mg PO QAM #30 cap 01/02/20 release atorvastatin 10 mg tablet 10 mg PO BEDTIME #30 tab 01/23/20 blood sugar diagnostic #150 ea 02/13/20 metformin 500 mg tablet 500 mg PO BID 30 Days #60 tab 02/13/20 alendronate 35 mg tablet 35 mg PO QWEEK #4 tab 02/27/20 levofloxacin 750 mg PO Q24H 6 Days #6 tab 03/14/20 methimazole 5 mg PO DAILY 20 Days #10 tab 03/14/20 DS: Summary Hospital Course Hospital Course: History of Present Illness obtained from H&P on 03/06 Date of Service: 03/06/20 Chief Complaint: hypotension this is a 69-year-old female with an extensive past medical history as below who presents to the hospital after being discharged earlier today. Patient was admitted to the [facility] on 02/28 for management of community-acquired pneumonia. She was treated with levofloxacin. She was discharged home on cefuroxime for pneumonia. She was given steroids for COPD exacerbation. At that time she was weaned off supplemental oxygen sent home to her residential. This a.m. at the residential patient was found to be hypotensive and therefore she was sent to [facility]. Given her recent presentation to [place] the ED physician at [facility] felt that she would benefit from being transferred back to [facility]. Patient is alert oriented, has no complaint, denies any headache, change in vision, shortness of breath, any chest pain, she has no cough, she has no fever or chills, no abdominal pain nausea or vomiting. Patient denies any diarrhea. She has no lower extremity edema. On arrival to the ED patient vitals are significant for heart rate of 122, blood pressure of 94/57, respiratory rate of 18, 95% on room air. Her current blood pressure is 108/55 Labs obtained at the outside hospital showed WBC count of 11.9, sodium of 134, creatinine of 1.2. Lactic acid of 0.9. Hospital course: This is a 69-year-old female with past medical history of lung cancer as well as COPD, schizoaffective disorder who resides in a residential who presented to the hospital on 03/06 with reported hypotension. Patient was treated for pleural effusion and COPD exacerbation from 02 27-03 05. Readmitted with hypotension tachycardia and concern for cavitary pneumonia/loculated pleural effusion which was seen on CT chest ordered on admission. Patient was treated for this cavitary lesion with levofloxacin, she is on day 08/06 and will continue treatment for a total of 10 days PO levofloxacin Pt encephalopathy felt to be secondary to psychotic decompensation and she was evaluated by [facility] team and met admission criteria for acute psychosis. Pt's initial hypotension felt to be 2/2 dehydration, tachycardia due to BB withdrawal. PE work up negative. Both have resolved. Pt off oxygen sating >90% on room air. Pt will be discharged to [facility] Time Spent with Patient Time attestation: Total time spent providing and/or coordinating discharge services: Physical Exam Vital Signs: Vital Signs: Last Vital Signs Temp 97.9 F 03/14/20 11:01 Pulse 67 03/14/20 11:01 Resp 18 03/14/20 11:01 BP 96/56 L 03/14/20 11:01 Pulse Ox 97 03/14/20 11:01 Body Mass Index 23.0 Const: Other: oriented to self, flight of ideas General: cooperative and no acute distress Eyes: General: appearance normal, both eyes and all related structures Pupils: Equal, round and reactive pupils present Resp: Effort & Inspection: normal respiratory effort and able to speak in complete sentences Auscultation: clear to auscultation bilaterally Cardio: Rate: regular rate Rhythm: regular rhythm GI: Palpation (GI): Soft to palpation Auscultation: normal bowel sounds Neuro: Cranial nerves: Yes Equal, round and reactive pupils present Cognition (Neuro): normal cognition Extrem: General: Yes normal to inspection and Yes no pedal edema DS: Data Data Completed and Pending Completed studies during hospitalization [Text1]: Procedures Drainage of Right Pleural Cavity, Percutaneous Approach (02/28/20) Labs on day of discharge: 03/06/20 XR chest 1V Routine 03/06/20 02:50 0.9 % Sodium Chloride [Ns] 1,000 ml IVCONT 999 mls/hr levoFLOXacin/D5W [Levaquin] 500 mg in 100 ml IV ONCE 03/06/20 03:35 Transfer Order Routine 03/06/20 03:49 Lactic Acid Stat 03/06/20 03:50 Blood Culture X2 [BC] Stat 03/06/20 05:13 COVID-19 ID NOW ([place]) Stat 03/06/20 05:15 0.9 % Sodium Chloride [Ns] 1,000 ml IVCONT 100 mls/hr 03/06/20 05:47 UA CC w/rflx Micro + Cult Stat 03/06/20 07:21 Albuterol Sulfate [Ventolin] 90 puff INHALE Q6H PRN 03/06/20 08:00 levoFLOXacin/D5W [Levaquin] 750 mg in 150 ml IV Q24H 03/06/20 08:18 Glucose, Whole Blood Routine 03/06/20 08:56 Glucose, Whole Blood Routine 03/06/20 09:00 Fluticasone/Vilanterol 100/25 [Breo Ellipta 100/25] 1 puff INHALE BID methIMAzole [Tapazole] 10 mg PO DAILY 03/06/20 11:22 Glucose, Whole Blood Routine 03/06/20 11:32 Hemoglobin A1c Stat Procalcitonin Stat 03/06/20 12:26 Legionella Ag Urine Routine Strep Pneumo Ag urine Routine 03/06/20 13:19 Hemoglobin A1c Stat 03/06/20 16:00 predniSONE 20 mg PO DAILY 03/06/20 16:09 Glucose, Whole Blood Routine 03/06/20 16:15 predniSONE 20 mg PO DAILY 03/06/20 20:44 Glucose, Whole Blood Routine 03/07/20 05:28 Basic Metabolic Panel Routine Complete Blood Count Auto Diff Routine 03/07/20 07:30 Glucose, Whole Blood Routine 03/07/20 11:12 Glucose, Whole Blood Routine 03/07/20 16:00 Glucose, Whole Blood Routine 03/07/20 19:47 Glucose, Whole Blood Routine 03/08/20 05:47 Complete Blood Count Auto Diff Routine Prothrombin Time INR Routine 03/08/20 06:01 Basic Metabolic Panel Routine 03/08/20 06:10 Procalcitonin Routine 03/08/20 07:20 Glucose, Whole Blood Routine 03/08/20 07:49 Glucose, Whole Blood Routine 03/08/20 09:00 predniSONE 10 mg PO DAILY 03/08/20 11:17 Glucose, Whole Blood Routine 03/08/20 16:17 Glucose, Whole Blood Routine 03/08/20 20:53 Glucose, Whole Blood Routine 03/09/20 CT head/brain w con Routine 03/09/20 07:31 Glucose, Whole Blood Routine 03/09/20 10:02 Complete Blood Count Auto Diff Routine D Dimer Routine 03/09/20 10:12 Thyroid Stimulating Hormone Stat 03/09/20 11:12 Glucose, Whole Blood Routine 03/09/20 11:19 Basic Metabolic Panel Stat Free T4 (Free Thyroxine) Stat Triiodothyronine T3 Free Stat 03/09/20 12:34 LORazepam [Ativan] 0.5 mg IVPUSH ONCE ONE 03/09/20 14:43 Add Laboratory Test Urgent 03/09/20 15:11 iohexoL 350 MG/ML [Omnipaque 350 MG/ML] 85 ml IV ONCE ONE 03/09/20 16:32 Glucose, Whole Blood Routine 03/09/20 20:36 Glucose, Whole Blood Routine 03/10/20 07:33 Glucose, Whole Blood Routine 03/10/20 09:07 Ammonia Routine Liver Panel Routine Valproate Routine 03/10/20 11:08 Glucose, Whole Blood Routine 03/10/20 16:20 Glucose, Whole Blood Routine 03/10/20 21:03 Glucose, Whole Blood Routine 03/11/20 CT angio chest PE protocol Stat US venous duplex LE BI Stat 03/11/20 08:38 Glucose, Whole Blood Routine 03/11/20 12:00 Glucose, Whole Blood Routine 03/11/20 15:52 iohexoL 350 MG/ML [Omnipaque 350 MG/ML] 100 ml IV ONCE ONE 03/11/20 16:25 Glucose, Whole Blood Routine 03/11/20 20:07 Glucose, Whole Blood Routine 03/12/20 07:05 Glucose, Whole Blood Routine 03/12/20 11:02 Glucose, Whole Blood Routine 03/12/20 16:41 Glucose, Whole Blood Routine 03/12/20 19:45 Glucose, Whole Blood Routine 03/13/20 04:06 0.9 % Sodium Chloride [Ns] 500 ml IVCONT 999 mls/hr 03/13/20 07:26 Glucose, Whole Blood Routine 03/13/20 10:50 Glucose, Whole Blood Routine 03/13/20 16:10 Glucose, Whole Blood Routine 03/13/20 20:26 Glucose, Whole Blood Routine 03/14/20 00:43 0.9 % Sodium Chloride [Ns] 1,000 ml IVCONT 999 mls/hr 03/14/20 07:03 Glucose, Whole Blood Routine 03/14/20 08:28 Complete Blood Count Auto Diff Stat SLIDE REVIEW Stat 03/14/20 08:29 Basic Metabolic Panel Stat 03/14/20 10:50 Glucose, Whole Blood Routine Laboratory Last Values WBC 6.0 X10*3/uL (4.8-10.8) 03/14/20 08:28 RBC 3.65 X10*6/uL (4.20-5.50) L 03/14/20 08:28 Hgb 10.7 g/dl (12.0-16.0) L 03/14/20 08:28 Hct 35.9 % (37-47) L 03/14/20 08:28 MCV 98.4 fL (80-98) H 03/14/20 08:28 MCH 29.3 pg (27.0-33.0) 03/14/20 08:28 MCHC 29.8 g/dl (31.0-35.0) L 03/14/20 08:28 RDW 15.4 % (11.0-16.0) 03/14/20 08:28 Plt Count TNP 03/14/20 08:28 MPV 11.6 fL (9.4-12.3) 03/14/20 08:28 Immature Gran % (Auto) 4.5 % (0.0-0.4) H 03/14/20 08:28 Neut % (Auto) 53.6 % (45-73) 03/14/20 08:28 Lymph % (Auto) 22.0 % (20-40) 03/14/20 08:28 [place] % (Auto) 16.1 % (2-11) H 03/14/20 08:28 Eos % (Auto) 3.5 % (0-4) 03/14/20 08:28 Baso % (Auto) 0.3 % (0-2) 03/14/20 08:28 Lymph # (Auto) 1.3 X10*3/uL (1.2-4.9) 03/14/20 08:28 [place] # (Auto) 1.0 X10*3/uL (0.1-1.2) 03/14/20 08:28 Eos # (Auto) 0.2 X10*3/uL (0.0-0.4) 03/14/20 08:28 Baso # (Auto) 0.0 X10*3/uL (0.0-0.2) 03/14/20 08:28 Abs Immat Gran (auto) 0.27 X10*3/uL (0.00-0.03) H 03/14/20 08:28 Absolute Neuts (auto) 3.2 X10*3/uL (2.0-8.3) 03/14/20 08:28 Absolute Nucleated RBC 0.000 X10*3/uL (0.0-0.012) 03/14/20 08:28 Nucleated RBC % (auto) 0.0 /100WBC (0.0-0.2) 03/14/20 08:28 Smear Tech's Comments VERIFIED 03/14/20 08:28 PT 12.0 SEC (10.8-13.0) D 03/08/20 05:47 INR 1.0 (0.9-1.1) 03/08/20 05:47 D-Dimer 316 NG/ML 03/09/20 10:02 Sodium 140 mmol/L (135-145) 03/14/20 08:29 Potassium 4.9 mmol/l (3.3-5.1) 03/14/20 08:29 Chloride 112 mmol/L (96-108) H 03/14/20 08:29 Carbon Dioxide 20 mmol/L (22-29) L 03/14/20 08:29 Anion Gap 13 (12-20) 03/14/20 08:29 BUN 10 mg/dL (9-16) 03/14/20 08:29 Creatinine 0.94 mg/dL (0.5-1.4) 03/14/20 08:29 Estim Creat Clear Calc 48.7 03/14/20 08:29 Estimated GFR 59 03/14/20 08:29 POC Glucose 109 mg/dL (60-115) 03/14/20 10:50 Random Glucose 70 mg/dL (60-115) D 03/14/20 08:29 Estimat Average Glucose 157 mg/dL 03/06/20 13:19 Hemoglobin A1c % 7.1 % 03/06/20 13:19 Lactic Acid 0.9 mmol/L (0.5-2.0) 03/06/20 03:49 Calcium 8.8 mg/dL (8.4-10.2) 03/14/20 08:29 Total Bilirubin 0.3 mg/dL (0.0-1.0) 03/10/20 09:07 Direct Bilirubin 0.2 mg/dL (0.0-0.5) 03/10/20 09:07 AST 26 U/L (5-31) D 03/10/20 09:07 ALT 18 U/L (0-31) 03/10/20 09:07 Alkaline Phosphatase 218 U/L (39-117) H D 03/10/20 09:07 Ammonia 35 umol/L (13-55) 03/10/20 09:07 Total Protein 5.9 g/dL (6.5-8.0) L 03/10/20 09:07 Albumin 2.8 g/dL (3.5-5.0) L 03/10/20 09:07 Procalcitonin 0.07 ng/mL 03/08/20 06:10 TSH 9.64 uIU/mL (0.32-4.0) H 03/09/20 10:12 Free T4 0.94 ng/dL (0.71-1.85) 03/09/20 11:19 Free T3 2.1 pg/mL (2.3-4.2) L 03/09/20 11:19 Urine Color YELLOW 03/06/20 05:47 Urine Appearance CLEAR 03/06/20 05:47 Urine pH 6.0 (5.0-8.0) 03/06/20 05:47 Ur Specific [place] 1.010 (1.005-1.025) 03/06/20 05:47 Urine Protein NEG MG/DL (NEG-TRACE) 03/06/20 05:47 Urine Glucose (UA) NEG MG/DL (NEG) 03/06/20 05:47 Urine Ketones NEG MG/DL (NEG) 03/06/20 05:47 Urine Blood NEG (NEG) 03/06/20 05:47 Urine Nitrite NEG (NEG) 03/06/20 05:47 Ur Leukocyte Esterase NEG (NEG) 03/06/20 05:47 Valproic Acid 87.3 mcg/mL (50.0-100.0) 03/10/20 09:07 COVID-19 ([facility]) Negative (Negative) 03/06/20 05:13 COVID-19 Clin Com See Note 03/06/20 05:13 Ur L.pneumophila Ag Not Detected (Not Detected) 03/06/20 12:26 Ur Strep pneumoniae Ag Not Detected (Not Detected) 03/06/20 12:26 Discharge Plan Discharge Patient Disposition: Xfer Psychiatric Hosp Referrals: Valery Kilpatrick MD [Physician] - 2 Weeks (03/20 8:30am Please call and reschedule if you can't keep this appointment.) Discharge Medications: New levofloxacin 750 mg Tablet 750 mg PO Q24H 6 Days Qty: 6 RF: 0 methimazole 10 mg Tablet 5 mg PO DAILY 20 Days Qty: 10 RF: 0 Continued omeprazole 20 mg capsule,delayed release(DR/EC) 20 mg PO QAM Qty: 30 RF: 6 atorvastatin 10 mg tablet 10 mg PO BEDTIME Qty: 30 RF: 5 alendronate 35 mg tablet 35 mg PO QWEEK Qty: 4 RF: 5 haloperidol 5 mg Tablet 5 mg PO BEDTIME RF: 0 valproic acid 250 mg Capsule 750 mg PO BID RF: 0 acetaminophen 650 mg Tablet 650 mg PO Q6H PRN (Reason: Fever Or Pain) RF: 0 carvedilol [Coreg] 3.125 mg Tablet 3.125 mg PO BID RF: 0 ascorbic acid (vitamin C) [Vitamin C] 500 mg Tablet 500 mg PO BID RF: 0 trazodone 100 mg Tablet 100 mg PO BEDTIME RF: 0 ferrous sulfate 325 mg (65 mg iron) Tablet 325 mg PO BID RF: 0 benztropine 1 mg Tablet 1 mg PO BID RF: 0 aspirin 81 mg Tablet 81 mg PO DAILY RF: 0 albuterol 90 mcg/actuation Aerosol 90 mcg INHALATION Q6H PRN (Reason: Wheezing) RF: 0 fluticasone propion-salmeterol [Advair Diskus] 100-50 mcg/dose Blister With Device 1 inh INHALATION BID RF: 0 clozapine [Clozaril] 50 mg Tablet 50 mg PO BEDTIME RF: 0 cholecalciferol (vitamin D3) [Vitamin D3] 50 mcg (2,000 unit) Capsule 50 mcg PO DAILY RF: 0 mirabegron 50 mg Tablet Extended Release 24 Hr 50 mg PO DAILY RF: 0 Opdivo 240 mg/24 mL Solution 240 mg IV Q2W RF: 0 estradiol [Estrace] 0.01 % (0.1 mg/gram) cream 1 g vaginal BEDTIME RF: 0 glipizide 2.5 mg tablet extended release 24hr 1 tab PO DAILY RF: 0 metformin 500 mg tablet 500 mg PO BID 30 Days Qty: 60 RF: 5 Discontinued methimazole 10 mg tablet 10 mg PO DAILY 30 Days Qty: 30 RF: 4 cefuroxime axetil 500 mg tablet 500 mg PO BID 5 Days Qty: 10 RF: 0 prednisone 10 mg tablet See Rx Instructions .ROUTE .COMPLEX Qty: 6 RF: 0 No Action (DME) Contour Next Test Strips Strip See Rx Instructions .ROUTE .MEDSUPPLY Qty: 150 RF: 6 Discharge Orders: Discharge Order (Routine); Ordered 03/14/20 Ordered By: Heidi Oswald Activity on Discharge: As tolerated Other Ambulatory Orders: XR chest 1V (Routine) Timeframe: 1 Day Facility: [facility] - Location: Radiology Ordered By: Sanjuana Chavarria Triiodothyronine T3 Total (Routine) Timeframe: 1 Month Facility: [facility] - Location: Laboratory Ordered By: Sanjuana Chavarria Free T4 (Free Thyroxine) (Routine) Timeframe: 1 Month Facility: [facility] - Location: Laboratory Ordered By: Sanjuana Chavarria Thyroid Stimulating Hormone (Routine) Timeframe: 1 Month Facility: [facility] - Location: Laboratory Ordered By: Sanjuana Chavarria Care Plan Goals: See below Health Concerns: See below Plan of Treatment: You presented to the hospital and managed for pneumonia, your hyperthyroid medication was also reduced. You will be admitted to pysch unit for management of acute pyschosis in the setting of schizoaffective disorder
--- NOTE | 2020-03-14 14:49 | PC.NURSE ---
1430 F/C tiffani childers DTV at 2030
[2020-03-14 15:32] LABS: Clozapine (Clozaril) 30 mcg/L; Norclozapine <10 mcg/L (25-400)
--- NOTE | 2020-03-14 16:13 | MHC.INPTTRAN ---
confused, cooperative, takes meds whole without diff. F/C dc'd at 1400. DTV at 2000 Able to ambulate with one assist.
[2020-03-14 17:15] LABS: Glucose, Whole Blood 191 mg/dL (60-115)
--- NOTE | 2020-03-14 18:11 | PC.NURSE ---
pt walked to the bathroom with assistance and a walker. Unable to urinate at this time , bladder scanned for 603 ml,MD Azul notified
[2020-03-14 18:30] LABS: COVID-19 Test Negative (Negative)
--- NOTE | 2020-03-14 19:18 | PC.NURSE ---
Rn spoke with DR Paredes regarding urinary bladder scanned for 604ml , pt was nt able to urinate at 1800. Per MD let the pt try to urinate in 1 hr, if pt doesn't urinate do the st cath. Pt ambulated to the bathroom again,urinated 200 ml.
[2020-03-14 22:08] LABS: Glucose, Whole Blood 99 mg/dL (60-115)
[2020-03-14] MEDS: Atorvastatin Calcium 10 MG TABLET PO (22:21)
[2020-03-14] MEDS: HaloperidoL 5 MG TABLET PO (22:21)
[2020-03-14] MEDS: cloZAPine 25 MG TABLET 50 MG PO (22:21)
[2020-03-14] MEDS: traZODone HCL 100 MG TABLET PO (22:21)
[2020-03-15] VITALS (7 sets, daily range): BP systolic 86–98; BP diastolic 40–58; PULSE 102–112; RESP 14–18; TEMP 36.6–37.1; O2SAT 91–96
[2020-03-15] MEDS: 0.9 % Sodium Chloride Flush 3 ML SYRINGE IVFLUSH ×2 (00:02→08:22)
[2020-03-15] MEDS: levoFLOXacin 750 MG TABLET PO (05:50)
[2020-03-15 07:56] LABS: Glucose, Whole Blood 90 mg/dL (60-115)
[2020-03-15] MEDS: Fluticasone/Vilanterol 100/25 BLST.W.DEV 1 PUFF INHALE (07:58)
[2020-03-15] MEDS: Mirabegron 50 MG TAB.ER.24H PO (08:18)
[2020-03-15] MEDS: Aspirin Enteric Coated 81 MG TABLET.DR PO (08:19)
[2020-03-15] MEDS: Ferrous Sulfate 324 MG TABLET.DR PO ×2 (08:19→21:33)
[2020-03-15] MEDS: Omeprazole 20 MG CAPSULE.DR PO (08:19)
[2020-03-15] MEDS: Valproic Acid 250 MG CAPSULE 750 MG PO ×2 (08:19→21:33)
[2020-03-15] MEDS: Cholecalciferol (Vitamin D3) 25 MCG TABLET 50 MCG PO (08:19)
[2020-03-15] MEDS: methIMAzole 10 MG TABLET 5 MG PO (08:20)
[2020-03-15] MEDS: Benztropine Mesylate 1 MG TABLET PO ×2 (08:20→21:33)
[2020-03-15] MEDS: Ascorbic Acid 500 MG TABLET PO ×2 (08:20→21:33)
[2020-03-15] MEDS: Enoxaparin Sodium 40 MG/0.4 ML SYRINGE SUBCUT (08:22)
[2020-03-15] MEDS: ondansetron HCL 4 MG/2 ML VIAL IVPUSH (08:29)
[2020-03-15] MEDS: Midodrine HCl 5 MG TABLET PO (11:43)
[2020-03-15 11:54] LABS: Glucose, Whole Blood 123 mg/dL (60-115)
[2020-03-15 16:32] LABS: Glucose, Whole Blood 132 mg/dL (60-115)
--- NOTE | 2020-03-15 18:36 | MHC.CARE ---
3pm Entry Pt initially accepted to [facility] for admission - per [facility] staff admission on hold till tomorrow due to staffing.
[2020-03-15] MEDS: HaloperidoL 5 MG TABLET PO (21:33)
[2020-03-15] MEDS: Atorvastatin Calcium 10 MG TABLET PO (21:33)
[2020-03-15] MEDS: cloZAPine 25 MG TABLET 50 MG PO (21:33)
[2020-03-15] MEDS: traZODone HCL 100 MG TABLET PO (21:33)
[2020-03-15 22:00] LABS: Glucose, Whole Blood 127 mg/dL (60-115)
[2020-03-16] VITALS (10 sets, daily range): BP systolic 84–111; BP diastolic 48–60; PULSE 95–113; RESP 16–18; TEMP 36.8–37.2; O2SAT 90–93
[2020-03-16] MEDS: levoFLOXacin 750 MG TABLET PO (05:26)
[2020-03-16] MEDS: Fluticasone/Vilanterol 100/25 BLST.W.DEV 1 PUFF INHALE (07:37)
[2020-03-16 08:03] LABS: Glucose, Whole Blood 88 mg/dL (60-115)
[2020-03-16] MEDS: Valproic Acid 250 MG CAPSULE 750 MG PO ×2 (08:43→20:58)
[2020-03-16] MEDS: Midodrine HCl 10 MG TABLET PO ×2 (08:44→21:00)
[2020-03-16] MEDS: Aspirin Enteric Coated 81 MG TABLET.DR PO (08:44)
[2020-03-16] MEDS: Benztropine Mesylate 1 MG TABLET PO ×2 (08:44→21:05)
[2020-03-16] MEDS: methIMAzole 10 MG TABLET 5 MG PO (08:48)
[2020-03-16] MEDS: Ascorbic Acid 500 MG TABLET PO ×2 (08:48→20:57)
[2020-03-16] MEDS: Cholecalciferol (Vitamin D3) 25 MCG TABLET 50 MCG PO (08:48)
[2020-03-16] MEDS: Ferrous Sulfate 324 MG TABLET.DR PO ×2 (08:48→21:00)
[2020-03-16] MEDS: Omeprazole 20 MG CAPSULE.DR PO (08:49)
[2020-03-16] MEDS: Mirabegron 50 MG TAB.ER.24H PO (08:49)
[2020-03-16] MEDS: Enoxaparin Sodium 40 MG/0.4 ML SYRINGE SUBCUT (08:49)
[2020-03-16 11:28] LABS: Glucose, Whole Blood 100 mg/dL (60-115)
--- NOTE | 2020-03-16 11:38 | MHC.CM.PN ---
per rounds pt medically clear for dc pt to go to [facility] when bed avlaiable
--- NOTE | 2020-03-16 13:58 | P.PNIM_ITS ---
Subjective Subjective Date of Service: 03/15/20 Interval History: pt seen and examined at bedside. She is confused, but able to answer questions approprately. oriented to place, pleasant, no agitation Physical Exam Const: Other: oriented to self, flight of ideas General: cooperative and no acute distress Orientation/consciousness: patient oriented x3 Eyes: General: appearance normal, both eyes and all related structures Pupils: Equal, round and reactive pupils present Resp: Effort & Inspection: normal respiratory effort and able to speak in complete sentences Auscultation: clear to auscultation bilaterally Cardio: Other: oriented to self, flight of ideas Rate: regular rate Rhythm: regular rhythm GI: Palpation (GI): Soft to palpation Auscultation: normal bowel sounds Skin: General skin exam: no rashes or lesions noted Neuro: General: patient oriented x3 Cranial nerves: Yes Equal, round and reactive pupils present Cognition (Neuro): normal cognition Extrem: General: Yes normal to inspection and Yes no pedal edema Objective Data Current Medications Generic Name Dose Route Start Last Admin Trade Name Freq PRN Reason Stop Dose Admin Acetaminophen 650 mg 03/06/20 07:11 03/11/20 15:53 Acetaminophen 325 Mg Tablet PO 650 mg Q6H PRN Administration Pain, Mild (Pain Scale 1-3) Albuterol Sulfate 90 puff 03/06/20 12:00 Albuterol Sulfate 90 Mcg 18 Gm Inhaler INHALE RQ6H PRN Wheezing Ascorbic Acid 500 mg 03/06/20 09:00 03/16/20 08:48 Ascorbic Acid 500 Mg Tablet PO 500 mg BID ANUJ Administration Aspirin 81 mg 03/06/20 09:00 03/16/20 08:44 Aspirin Enteric Coated 81 Mg Tablet. PO 81 mg DAILY ANUJ Administration Atorvastatin Calcium 10 mg 03/06/20 21:00 03/15/20 21:33 Atorvastatin Calcium 10 Mg Tablet PO 10 mg BEDTIME ANUJ Administration Benztropine Mesylate 1 mg 03/06/20 09:00 03/16/20 08:44 Benztropine Mesylate 1 Mg Tablet PO 1 mg BID ANUJ Administration Carvedilol 3.125 mg 03/09/20 21:00 03/16/20 08:49 Carvedilol 3.125 Mg Tablet PO Not Given BID ANUJ Protocol Clozapine 50 mg 03/06/20 21:00 03/15/20 21:33 Clozapine 25 Mg Tablet PO 50 mg BEDTIME ANUJ Administration Docusate Sodium 100 mg 03/06/20 07:11 Docusate Sodium 100 Mg Capsule PO DAILY PRN Constipation Enoxaparin Sodium 40 mg 03/06/20 08:00 03/16/20 08:49 Enoxaparin Sodium 40 Mg/0.4 Ml Syringe SUBCUT 40 mg Q24H ANUJ Administration Ferrous Sulfate 324 mg 03/06/20 09:00 03/16/20 08:48 Ferrous Sulfate 324 Mg Tablet. PO 324 mg BID ANUJ Administration Fluticasone/Vilanterol 1 puff 03/07/20 08:00 03/16/20 07:37 Fluticasone/Vilanterol 100/25 Blst.W.Dev INHALE 1 puff RDAILY [facility] Administration Haloperidol 5 mg 03/06/20 21:00 03/15/20 21:33 Haloperidol 5 Mg Tablet PO 5 mg BEDTIME ANUJ Administration Insulin Human Lispro 0 unit 03/06/20 07:30 03/16/20 11:55 Insulin Lispro 100 Unit/Ml 3 Ml Vial SUBCUT [facility] Protocol Levofloxacin 750 mg 03/07/20 06:00 03/16/20 05:26 Levofloxacin 750 Mg Tablet PO 750 mg Q24H ANUJ Administration Methimazole 5 mg 03/10/20 09:00 03/16/20 08:48 Methimazole 10 Mg Tablet PO 5 mg DAILY [facility] Administration Midodrine 10 mg 03/16/20 09:00 03/16/20 08:44 Midodrine Hcl 10 Mg Tablet PO 10 mg BID ANUJ Administration Mirabegron 50 mg 03/06/20 09:00 03/16/20 08:49 Mirabegron 50 Mg Tab.Er.24h PO 50 mg DAILY [facility] Administration Omeprazole 20 mg 03/06/20 09:00 03/16/20 08:49 Omeprazole 20 Mg Capsule. PO 20 mg DAILY ANUJ Administration Ondansetron HCl 4 mg 03/06/20 07:11 03/15/20 08:29 Ondansetron Hcl 4 Mg/2 Ml Vial IVPUSH 4 mg Q8H PRN Administration Nausea and Vomiting Pharmacy Consult 1 each 03/06/20 04:00 Consult Rx Perform Med Rec MISCELLANE ONCE PRN Consult order Sodium Chloride 3 ml 03/06/20 08:00 03/16/20 08:35 0.9 % Sodium Chloride Flush 3 Ml Syringe IVFLUSH Not Given QSHIFT ANUJ Trazodone HCl 100 mg 03/06/20 21:00 03/15/20 21:33 Trazodone Hcl 100 Mg Tablet PO 100 mg BEDTIME ANUJ Administration Valproic Acid 750 mg 03/06/20 09:00 03/16/20 08:43 Valproic Acid 250 Mg Capsule PO 750 mg BID ANUJ Administration Vitamin D 50 mcg 03/06/20 09:00 03/16/20 08:48 Cholecalciferol (Vitamin D3) 25 Mcg Tablet PO 50 mcg DAILY ANUJ Administration Labs CBC & Chem 7: 03/14/20 08:28 03/14/20 08:29 Microbiology Microbiology Results: Microbiology 03/06/20 03:50 Blood - Venous Blood Culture - Final No growth after 5 days. 03/06/20 03:49 Blood - Venous Blood Culture - Final No growth after 5 days. Assessment and Plan (1) Pleural effusion, right: Status: Acute (2) Sepsis: Status: Acute (3) Pneumonia: Status: Resolved (4) Acute exacerbation of chronic obstructive pulmonary disease: Status: Resolved (5) Diabetes type 2, uncontrolled: Status: Acute (6) Acute respiratory failure with hypoxia: Problem details: Believe likely lung cancer main problem Necrotic metastasis in lung may give some bacterial infection,gram negative Pleural effusion likely malignant Do not believe primary bacterial lung abscess or tuberculosis problem Gram negative can be concern Status: Acute Assessment and Plan: hospital d#7 69yo F with NSCLC, COPD, psychotic disorder who resides in a [facility] previously admitted from Oncology clinic 02/27-03/05/20 due to pleural effusion and COPD exacerbation readmitted with hypotension, tachycardia, concern of cavitary PNA/loculated pleural effusion on CT chest persistent confusion/disorganized speech Encephalopathy vs. psychotic decompensation - no brain mets on CT, TSH normal - Evaluated by psych today, feel that pt will need inpatient evaluation and man agement - Pt is medically cleared to be discharged to [facility], awaiting placement in geriatric psych facility Hypotension - resolved, restarted carvedilol Tachycardia- resolved - likely b-chelsea withdrawal, restarted carvedilol - Doppler neg for DVT. - CTA -ve for PE Pleural effusion # ?cavitary pneumonia - s/p thoracentesis 02/29/20, exudate, culture-negative, cytology benign - treated with 3d of levofloxacin and 4d of cefuroxime. back on levofloxacin, d#08/06 - consulted Pulmonology + ID + Thoracic; discussed with pt's oncologist Dr Tony and plan is to manage expectantly for now and repeat CXR in 1-2 wk COPD exacerbation, resolved - prednisone taper completed 03/09, continue controller ICS/LABA + prn YESIKA Acute hypoxic respiratory failure - resolved, weaned off O2 NSCLC - followed by Dr Tony, on immune-based chemotherapy with nivolumab Hyperthyroidism - TSH 9.64, free T4 0.94, free T3 2.1. - MMZ dose decreased from 10 to 5 mg/d. DM2, A1c 7.1, with hypoglycemia - d/c'ed oral hypoglycemics - LDSSI HLD - continue statin GERD - continue PPI INA - continue Fe supplementation Psych disorder - continue clozapine, haloperidol, benztropine, valproate VTE ppx - LMWH dispo awaiting inpatient psych
--- NOTE | 2020-03-16 16:06 | MHC.CR.30 ---
[address] [phone] F: [phone] Cardiac Rehab Reassessment Diagnosis: Initial Evaluation date: Total Sessions Attended: Progress Note Type: Last Progress Note Date: Medications: Medication Changes: Comments: Please sign and return to Cardiac Rehab. Thank you.
--- NOTE | 2020-03-16 16:06 | MHC.CR.30 ---
[address] [phone] F: [phone] Cardiac Rehab Reassessment Diagnosis: Initial Evaluation date: Total Sessions Attended: Progress Note Type: Last Progress Note Date: Medications: Medication Changes: Comments: Please sign and return to Cardiac Rehab. Thank you.
--- NOTE | 2020-03-16 16:06 | MHC.CM.PN ---
received request from dr burton to check on [facility] bed search status called [facility] with no answer called and asked care team if they knew what the staus was and they referred me to [facility] again called [facility] bed search line and left a message with a request to contact myself r dr burton with an update [phone]
--- NOTE | 2020-03-16 16:17 | MHC.CM.PN ---
eeceived call back from henny from [facility] who has documentation that pt was transferred to room 509 and that pt was accepted by dr gunjan cadena [facility] will be calling and getting back to dr burton
--- NOTE | 2020-03-16 17:00 | MHC.CARE ---
Pts admission to [facility] is pending due to hospital staffing for the unit
[2020-03-16 17:07] LABS: Glucose, Whole Blood 84 mg/dL (60-115)
[2020-03-16 20:44] LABS: Glucose, Whole Blood 134 mg/dL (60-115)
[2020-03-16] MEDS: carvediloL 3.125 MG TABLET PO (20:56)
[2020-03-16] MEDS: HaloperidoL 5 MG TABLET PO (20:57)
[2020-03-16] MEDS: Atorvastatin Calcium 10 MG TABLET PO (21:00)
[2020-03-16] MEDS: cloZAPine 25 MG TABLET 50 MG PO (21:02)
[2020-03-16] MEDS: traZODone HCL 100 MG TABLET PO (21:02)
[2020-03-17] VITALS (12 sets, daily range): BP systolic 76–102; BP diastolic 47–61; PULSE 92–108; RESP 18; TEMP 36.3–37.1; O2SAT 92–97
[2020-03-17] MEDS: levoFLOXacin 750 MG TABLET PO (05:32)
[2020-03-17 07:54] LABS: Glucose, Whole Blood 86 mg/dL (60-115)
[2020-03-17] MEDS: Enoxaparin Sodium 40 MG/0.4 ML SYRINGE SUBCUT (08:19)
[2020-03-17] MEDS: Valproic Acid 250 MG CAPSULE 750 MG PO ×2 (08:20→20:17)
[2020-03-17] MEDS: Aspirin Enteric Coated 81 MG TABLET.DR PO (08:20)
[2020-03-17] MEDS: Ferrous Sulfate 324 MG TABLET.DR PO ×2 (08:20→20:10)
[2020-03-17] MEDS: Cholecalciferol (Vitamin D3) 25 MCG TABLET 50 MCG PO (08:20)
[2020-03-17] MEDS: Omeprazole 20 MG CAPSULE.DR PO (08:21)
[2020-03-17] MEDS: Benztropine Mesylate 1 MG TABLET PO ×2 (08:21→20:10)
[2020-03-17] MEDS: methIMAzole 10 MG TABLET 5 MG PO (08:21)
[2020-03-17] MEDS: Mirabegron 50 MG TAB.ER.24H PO (08:21)
[2020-03-17] MEDS: Ascorbic Acid 500 MG TABLET PO ×2 (08:22→20:13)
[2020-03-17] MEDS: Midodrine HCl 10 MG TABLET PO ×3 (08:28→20:09)
[2020-03-17 11:20] LABS: Glucose, Whole Blood 85 mg/dL (60-115)
--- NOTE | 2020-03-17 15:12 | P.PNIM_ITS ---
Subjective Subjective Date of Service: 03/17/20 Interval History: pt seen and examined at bedside. She is confused, Physical Exam Vital Signs: Vital Signs: Last Vital Signs Temp 97.5 F 03/17/20 15:01 Pulse 101 H 03/17/20 15:01 Resp 18 03/17/20 15:01 BP 102/61 03/17/20 15:01 Pulse Ox 92 03/17/20 15:01 Body Mass Index 23.0 Const: Other: oriented to self, flight of ideas General: cooperative and no acute distress Orientation/consciousness: patient oriented x3 Eyes: General: appearance normal, both eyes and all related structures Pupils: Equal, round and reactive pupils present Resp: Effort & Inspection: normal respiratory effort and able to speak in complete sentences Auscultation: clear to auscultation bilaterally Cardio: Other: oriented to self, flight of ideas Rate: regular rate Rhythm: regular rhythm GI: Palpation (GI): Soft to palpation Auscultation: normal bowel sounds Skin: General skin exam: no rashes or lesions noted Neuro: General: patient oriented x3 Cranial nerves: Yes Equal, round and reactive pupils present Cognition (Neuro): normal cognition Extrem: General: Yes normal to inspection and Yes no pedal edema Objective Data Current Medications Generic Name Dose Route Start Last Admin Trade Name Freq PRN Reason Stop Dose Admin Acetaminophen 650 mg 03/06/20 07:11 03/11/20 15:53 Acetaminophen 325 Mg Tablet PO 650 mg Q6H PRN Administration Pain, Mild (Pain Scale 1-3) Albuterol Sulfate 90 puff 03/06/20 12:00 Albuterol Sulfate 90 Mcg 18 Gm Inhaler INHALE RQ6H PRN Wheezing Ascorbic Acid 500 mg 03/06/20 09:00 03/17/20 08:22 Ascorbic Acid 500 Mg Tablet PO 500 mg BID ANUJ Administration Aspirin 81 mg 03/06/20 09:00 03/17/20 08:20 Aspirin Enteric Coated 81 Mg Tablet. PO 81 mg DAILY ANUJ Administration Atorvastatin Calcium 10 mg 03/06/20 21:00 03/16/20 21:00 Atorvastatin Calcium 10 Mg Tablet PO 10 mg BEDTIME ANUJ Administration Benztropine Mesylate 1 mg 03/06/20 09:00 03/17/20 08:21 Benztropine Mesylate 1 Mg Tablet PO 1 mg BID ANUJ Administration Clozapine 50 mg 03/06/20 21:00 03/16/20 21:02 Clozapine 25 Mg Tablet PO 50 mg BEDTIME ANUJ Administration Docusate Sodium 100 mg 03/06/20 07:11 Docusate Sodium 100 Mg Capsule PO DAILY PRN Constipation Enoxaparin Sodium 40 mg 03/06/20 08:00 03/17/20 08:19 Enoxaparin Sodium 40 Mg/0.4 Ml Syringe SUBCUT 40 mg Q24H ANUJ Administration Ferrous Sulfate 324 mg 03/06/20 09:00 03/17/20 08:20 Ferrous Sulfate 324 Mg Tablet. PO 324 mg BID ANUJ Administration Fluticasone/Vilanterol 1 puff 03/07/20 08:00 03/17/20 07:34 Fluticasone/Vilanterol 100/25 Blst.W.Dev INHALE Not Given RDAILY [facility] Haloperidol 5 mg 03/06/20 21:00 03/16/20 20:57 Haloperidol 5 Mg Tablet PO 5 mg BEDTIME ANUJ Administration Insulin Human Lispro 0 unit 03/06/20 07:30 03/17/20 11:15 Insulin Lispro 100 Unit/Ml 3 Ml [facility]ial SUBCUT [facility] Protocol Levofloxacin 750 mg 03/07/20 06:00 03/17/20 05:32 Levofloxacin 750 Mg Tablet PO 750 mg Q24H ANUJ Administration Methimazole 5 mg 03/10/20 09:00 03/17/20 08:21 Methimazole 10 Mg Tablet PO 5 mg DAILY ANUJ Administration Midodrine 10 mg 03/17/20 09:00 03/17/20 08:28 Midodrine Hcl 10 Mg Tablet PO 10 mg TID ANUJ Administration Mirabegron 50 mg 03/06/20 09:00 03/17/20 08:21 Mirabegron 50 Mg Tab.Er.24h PO 50 mg DAILY ANUJ Administration Omeprazole 20 mg 03/06/20 09:00 03/17/20 08:21 Omeprazole 20 Mg Capsule. PO 20 mg DAILY ANUJ Administration Ondansetron HCl 4 mg 03/06/20 07:11 03/15/20 08:29 Ondansetron Hcl 4 Mg/2 Ml Vial IVPUSH 4 mg Q8H PRN Administration Nausea and Vomiting Pharmacy Consult 1 each 03/06/20 04:00 Consult Rx Perform Med Rec MISCELLANE ONCE PRN Consult order Sodium Chloride 3 ml 03/06/20 08:00 03/17/20 08:19 0.9 % Sodium Chloride Flush 3 Ml Syringe IVFLUSH Not Given QSHIFT ANUJ Trazodone HCl 100 mg 03/06/20 21:00 03/16/20 21:02 Trazodone Hcl 100 Mg Tablet PO 100 mg BEDTIME ANUJ Administration Valproic Acid 750 mg 03/06/20 09:00 03/17/20 08:20 Valproic Acid 250 Mg Capsule PO 750 mg BID ANUJ Administration Vitamin D 50 mcg 03/06/20 09:00 03/17/20 08:20 Cholecalciferol (Vitamin D3) 25 Mcg Tablet PO 50 mcg DAILY ANUJ Administration Labs CBC & Chem 7: 03/14/20 08:28 03/14/20 08:29 Microbiology Microbiology Results: Microbiology 03/06/20 03:50 Blood - Venous Blood Culture - Final No growth after 5 days. 03/06/20 03:49 Blood - Venous Blood Culture - Final No growth after 5 days. Assessment and Plan (1) Pleural effusion, right: Status: Acute (2) Sepsis: Status: Acute (3) Pneumonia: Status: Resolved (4) Acute exacerbation of chronic obstructive pulmonary disease: Status: Resolved (5) Diabetes type 2, uncontrolled: Status: Acute (6) Acute respiratory failure with hypoxia: Problem details: Believe likely lung cancer main problem Necrotic metastasis in lung may give some bacterial infection,gram negative Pleural effusion likely malignant Do not believe primary bacterial lung abscess or tuberculosis problem Gram negative can be concern Status: Acute Assessment and Plan: hospital d#7 69yo F with NSCLC, COPD, psychotic disorder who resides in a nursing home previously admitted from Oncology clinic 02/27-03/05/20 due to pleural effusion and COPD exacerbation readmitted with hypotension, tachycardia, concern of cavitary PNA/loculated pleural effusion on CT chest persistent confusion/disorganized speech Encephalopathy vs. psychotic decompensation - no brain mets on CT, TSH normal - Evaluated by psych , feel that pt will need inpatient evaluation and management - Pt is medically cleared to be discharged to [facility], awaiting placement in geriatric psych facility Chronic Hypotension started on midodrine blood pressure improving monitor blood pressure will hold Coreg Tachycardia likely related to underlying anxiety and psych issues - Doppler neg for DVT. - CTA -ve for PE Pleural effusion # ?cavitary pneumonia - s/p thoracentesis 12/2/20, exudate, culture-negative, cytology benign - treated with 3d of levofloxacin and 4d of cefuroxime. back on levofloxacin, d#10/06 - consulted Pulmonology + ID + Thoracic; discussed with pt's oncologist Dr Tony and plan is to manage expectantly for now and repeat CXR in 1-2 wk COPD exacerbation, resolved - prednisone taper completed 03/09, continue controller ICS/LABA + prn YESIKA Acute hypoxic respiratory failure - resolved, weaned off O2 NSCLC - followed by Dr Tony, on immune-based chemotherapy with nivolumab Hyperthyroidism - TSH 9.64, free T4 0.94, free T3 2.1. - MMZ dose decreased from 10 to 5 mg/d. DM2, A1c 7.1, with hypoglycemia - d/c'ed oral hypoglycemics - LDSSI HLD - continue statin GERD - continue PPI INA - continue Fe supplementation Psych disorder - continue clozapine, haloperidol, benztropine, valproate VTE ppx - LMWH dispo awaiting inpatient psych at [facility]
[2020-03-17 16:41] LABS: Glucose, Whole Blood 90 mg/dL (60-115)
[2020-03-17] MEDS: traZODone HCL 100 MG TABLET PO (20:10)
[2020-03-17] MEDS: Atorvastatin Calcium 10 MG TABLET PO (20:13)
[2020-03-17] MEDS: cloZAPine 25 MG TABLET 50 MG PO (20:14)
[2020-03-17] MEDS: HaloperidoL 5 MG TABLET PO (20:14)
[2020-03-17 21:12] LABS: Glucose, Whole Blood 143 mg/dL (60-115)
[2020-03-18] VITALS (8 sets, daily range): BP systolic 84–100; BP diastolic 50–62; PULSE 100–115; RESP 16–20; TEMP 36.5–37.6; O2SAT 90–107
[2020-03-18] MEDS: levoFLOXacin 750 MG TABLET PO (05:20)
[2020-03-18 08:03] LABS: Glucose, Whole Blood 88 mg/dL (60-115)
[2020-03-18] MEDS: Omeprazole 20 MG CAPSULE.DR PO (08:07)
[2020-03-18] MEDS: Ferrous Sulfate 324 MG TABLET.DR PO ×2 (08:07→20:42)
[2020-03-18] MEDS: methIMAzole 10 MG TABLET 5 MG PO (08:07)
[2020-03-18] MEDS: Mirabegron 50 MG TAB.ER.24H PO (08:08)
[2020-03-18] MEDS: Benztropine Mesylate 1 MG TABLET PO ×2 (08:08→20:42)
[2020-03-18] MEDS: Ascorbic Acid 500 MG TABLET PO ×2 (08:08→20:43)
[2020-03-18] MEDS: Aspirin Enteric Coated 81 MG TABLET.DR PO (08:08)
[2020-03-18] MEDS: Valproic Acid 250 MG CAPSULE 750 MG PO ×2 (08:08→20:40)
[2020-03-18] MEDS: Cholecalciferol (Vitamin D3) 25 MCG TABLET 50 MCG PO (08:08)
[2020-03-18] MEDS: Midodrine HCl 10 MG TABLET PO ×3 (08:08→20:41)
[2020-03-18] MEDS: Enoxaparin Sodium 40 MG/0.4 ML SYRINGE SUBCUT (08:09)
--- NOTE | 2020-03-18 11:13 | HO.PM.IMPN ---
Subjective Subjective Date of Service: 03/18/20 Interval History: Patient seen and examined at bedside. She is confused, reported stool incontinence Neurologic Neurologic: Reports confusion Psychiatric Psychiatric: Reports confusion Physical Exam Vital Signs: Vital Signs: Last Vital Signs Temp 97.7 F 03/18/20 07:53 Pulse 111 H 03/18/20 08:08 Resp 18 03/18/20 07:53 BP 90/54 L 03/18/20 08:08 Pulse Ox 93 03/18/20 07:53 Body Mass Index 23.0 Const: Other: oriented to self, flight of ideas General: cooperative, no acute distress and confusion Orientation/consciousness: patient oriented x3 and confusion Eyes: General: appearance normal, both eyes and all related structures Pupils: Equal, round and reactive pupils present Resp: Effort & Inspection: normal respiratory effort and able to speak in complete sentences Auscultation: clear to auscultation bilaterally Cardio: Other: oriented to self, flight of ideas Rate: regular rate Rhythm: regular rhythm GI: Palpation (GI): Soft to palpation Auscultation: normal bowel sounds Skin: General skin exam: no rashes or lesions noted Neuro: General: patient oriented x3 and confusion Cranial nerves: Yes Equal, round and reactive pupils present Cognition (Neuro): normal cognition Extrem: General: Yes normal to inspection and Yes no pedal edema Objective Data Current Medications Generic Name Dose Route Start Last Admin Trade Name Bobq PRN Reason Stop Dose Admin Acetaminophen 650 mg 03/06/20 07:11 03/11/20 15:53 Acetaminophen 325 Mg Tablet PO 650 mg Q6H PRN Administration Pain, Mild (Pain Scale 1-3) Albuterol Sulfate 90 puff 03/06/20 12:00 Albuterol Sulfate 90 Mcg 18 Gm Inhaler INHALE RQ6H PRN Wheezing Ascorbic Acid 500 mg 03/06/20 09:00 03/18/20 08:08 Ascorbic Acid 500 Mg Tablet PO 500 mg BID ANUJ Administration Aspirin 81 mg 03/06/20 09:00 03/18/20 08:08 Aspirin Enteric Coated 81 Mg Tablet.Dr PO 81 mg DAILY ANUJ Administration Atorvastatin Calcium 10 mg 03/06/20 21:00 03/17/20 20:13 Atorvastatin Calcium 10 Mg Tablet PO 10 mg BEDTIME ANUJ Administration Benztropine Mesylate 1 mg 03/06/20 09:00 03/18/20 08:08 Benztropine Mesylate 1 Mg Tablet PO 1 mg BID ANUJ Administration Clozapine 50 mg 03/06/20 21:00 03/17/20 20:14 Clozapine 25 Mg Tablet PO 50 mg BEDTIME ANUJ Administration Docusate Sodium 100 mg 03/06/20 07:11 Docusate Sodium 100 Mg Capsule PO DAILY PRN Constipation Enoxaparin Sodium 40 mg 03/06/20 08:00 03/18/20 08:09 Enoxaparin Sodium 40 Mg/0.4 Ml Syringe SUBCUT 40 mg Q24H ANUJ Administration Ferrous Sulfate 324 mg 03/06/20 09:00 03/18/20 08:07 Ferrous Sulfate 324 Mg Tablet. PO 324 mg BID ANUJ Administration Fluticasone/Vilanterol 1 puff 03/07/20 08:00 03/18/20 07:08 Fluticasone/Vilanterol 100/25 Blst.W.Dev INHALE Not Given RDAILY [facility] Haloperidol 5 mg 03/06/20 21:00 03/17/20 20:14 Haloperidol 5 Mg Tablet PO 5 mg BEDTIME ANUJ Administration Insulin Human Lispro 0 unit 03/06/20 07:30 03/18/20 08:09 Insulin Lispro 100 Unit/Ml 3 Ml Vial SUBCUT [facility] Protocol Levofloxacin 750 mg 03/07/20 06:00 03/18/20 05:20 Levofloxacin 750 Mg Tablet PO 750 mg Q24H ANUJ Administration Methimazole 5 mg 03/10/20 09:00 03/18/20 08:07 Methimazole 10 Mg Tablet PO 5 mg DAILY ANUJ Administration Midodrine 10 mg 03/17/20 09:00 03/18/20 08:08 Midodrine Hcl 10 Mg Tablet PO 10 mg TID ANUJ Administration Mirabegron 50 mg 03/06/20 09:00 03/18/20 08:08 Mirabegron 50 Mg Tab.Er.24h PO 50 mg DAILY ANUJ Administration Omeprazole 20 mg 03/06/20 09:00 03/18/20 08:07 Omeprazole 20 Mg Capsule. PO 20 mg DAILY ANUJ Administration Ondansetron HCl 4 mg 03/06/20 07:11 03/15/20 08:29 Ondansetron Hcl 4 Mg/2 Ml Vial IVPUSH 4 mg Q8H PRN Administration Nausea and Vomiting Pharmacy Consult 1 each 03/06/20 04:00 Consult Rx Perform Med Rec MISCELLANE ONCE PRN Consult order Sodium Chloride 3 ml 03/06/20 08:00 03/18/20 08:09 0.9 % Sodium Chloride Flush 3 Ml Syringe IVFLUSH Not Given QSHIFT ANUJ Trazodone HCl 100 mg 03/06/20 21:00 03/17/20 20:10 Trazodone Hcl 100 Mg Tablet PO 100 mg BEDTIME ANUJ Administration Valproic Acid 750 mg 03/06/20 09:00 03/18/20 08:08 Valproic Acid 250 Mg Capsule PO 750 mg BID ANUJ Administration Vitamin D 50 mcg 03/06/20 09:00 03/18/20 08:08 Cholecalciferol (Vitamin D3) 25 Mcg Tablet PO 50 mcg DAILY ANUJ Administration Labs CBC & Chem 7: 03/14/20 08:28 03/14/20 08:29 Microbiology Microbiology Results: Microbiology 03/06/20 03:50 Blood - Venous Blood Culture - Final No growth after 5 days. 03/06/20 03:49 Blood - Venous Blood Culture - Final No growth after 5 days. Assessment and Plan (1) Pleural effusion, right: Status: Acute (2) Sepsis: Status: Acute (3) Pneumonia: Status: Resolved (4) Acute exacerbation of chronic obstructive pulmonary disease: Status: Resolved (5) Diabetes type 2, uncontrolled: Status: Acute (6) Acute respiratory failure with hypoxia: Status: Acute Assessment and Plan: 69yo F with NSCLC, COPD, psychotic disorder who resides in a [facility] previously admitted from Oncology clinic 02/27-03/05/20 due to pleural effusion and COPD exacerbation readmitted with hypotension, tachycardia, concern of cavitary PNA/loculated pleural effusion on CT chest persistent confusion/disorganized speech Encephalopathy vs. psychotic decompensation - no brain mets on CT, TSH normal - Evaluated by psych , feel that pt will need inpatient evaluation and management - Pt is medically cleared to be discharged to [facility], awaiting placement in geriatric psych facility Chronic Hypotension improving started on midodrine continue midodrine 10 mg t.i.d. monitor blood pressure hold Coreg Tachycardia likely related to underlying anxiety and psych issues - Doppler neg for DVT. - CTA -ve for PE Pleural effusion # ?cavitary pneumonia - s/p thoracentesis 02/29/20, exudate, culture-negative, cytology benign - treated with 3d of levofloxacin and 4d of cefuroxime. back on levofloxacin, d#8/ - consulted Pulmonology + ID + Thoracic; discussed with pt's oncologist Dr Tony and plan is to manage expectantly for now and repeat CXR in 1-2 wk COPD exacerbation, resolved - prednisone taper completed 03/09, continue controller ICS/LABA + prn YESIKA Acute hypoxic respiratory failure - resolved, weaned off O2 NSCLC - followed by Dr Tony, on immune-based chemotherapy with nivolumab Hyperthyroidism - TSH 9.64, free T4 0.94, free T3 2.1. - MMZ dose decreased from 10 to 5 mg/d. DM2, A1c 7.1, with hypoglycemia - d/c'ed oral hypoglycemics - LDSSI HLD - continue statin GERD - continue PPI INA - continue Fe supplementation Psych disorder - continue clozapine, haloperidol, benztropine, valproate VTE ppx - LMWH dispo Medically stable awaiting inpatient psych at [facility]
[2020-03-18 11:34] LABS: Glucose, Whole Blood 101 mg/dL (60-115)
[2020-03-18 16:28] LABS: Glucose, Whole Blood 78 mg/dL (60-115)
[2020-03-18 20:38] LABS: Glucose, Whole Blood 97 mg/dL (60-115)
[2020-03-18] MEDS: HaloperidoL 5 MG TABLET PO (20:42)
[2020-03-18] MEDS: cloZAPine 25 MG TABLET 50 MG PO (20:42)
[2020-03-18] MEDS: Atorvastatin Calcium 10 MG TABLET PO (20:43)
[2020-03-18] MEDS: traZODone HCL 100 MG TABLET PO (20:43)
[2020-03-18] MEDS: 0.9 % Sodium Chloride Flush 3 ML SYRINGE IVFLUSH (22:44)
[2020-03-19] VITALS (8 sets, daily range): BP systolic 72–98; BP diastolic 40–76; PULSE 102–116; RESP 18–20; TEMP 36.2–37; O2SAT 89–97
[2020-03-19] MEDS: levoFLOXacin 750 MG TABLET PO (05:27)
--- NOTE | 2020-03-19 05:39 | MHC.PIE ---
p; pt cont to be hypotensive 94/50, p 109 i; dr mckeon notified; new order lr 500ml at 500ml/h now e; will cont to monitor
[2020-03-19] MEDS: Lactated Ringers 500 ML IVCONT (06:04)
[2020-03-19] MEDS: Fluticasone/Vilanterol 100/25 BLST.W.DEV 1 PUFF INHALE (07:20)
[2020-03-19 08:03] LABS: Glucose, Whole Blood 106 mg/dL (60-115)
[2020-03-19] MEDS: Aspirin Enteric Coated 81 MG TABLET.DR PO (08:16)
[2020-03-19] MEDS: Midodrine HCl 10 MG TABLET PO ×4 (08:16→23:07)
[2020-03-19] MEDS: Ferrous Sulfate 324 MG TABLET.DR PO ×2 (08:16→20:53)
[2020-03-19] MEDS: methIMAzole 10 MG TABLET 5 MG PO (08:17)
[2020-03-19] MEDS: Omeprazole 20 MG CAPSULE.DR PO (08:17)
[2020-03-19] MEDS: Ascorbic Acid 500 MG TABLET PO ×2 (08:20→20:53)
[2020-03-19] MEDS: Valproic Acid 250 MG CAPSULE 750 MG PO ×2 (08:20→20:52)
[2020-03-19] MEDS: Mirabegron 50 MG TAB.ER.24H PO (08:20)
[2020-03-19] MEDS: Cholecalciferol (Vitamin D3) 25 MCG TABLET 50 MCG PO (08:20)
[2020-03-19] MEDS: Benztropine Mesylate 1 MG TABLET PO ×2 (08:20→20:53)
[2020-03-19] MEDS: Enoxaparin Sodium 40 MG/0.4 ML SYRINGE SUBCUT (08:23)
[2020-03-19] MEDS: 0.9 % Sodium Chloride Flush 3 ML SYRINGE IVFLUSH ×4 (08:25→23:06)
[2020-03-19 11:24] LABS: Glucose, Whole Blood 104 mg/dL (60-115)
--- NOTE | 2020-03-19 12:37 | MHC.CM.PN ---
PT ACCEPTED ON [facility] PENDING STAFFING ON [facility] UNIT
--- NOTE | 2020-03-19 15:19 | PC.NURSE ---
1500 refused both bkfst and lunch today. taking gingerale. Denies nausea,is just not hungry and doesn't like food.
[2020-03-19 16:32] LABS: Glucose, Whole Blood 163 mg/dL (60-115)
--- NOTE | 2020-03-19 17:16 | MHC.CARE ---
Pts pending admission is currently on hold due appropriateness of disposition. Director of to follow up tomorrow.
[2020-03-19] MEDS: 0.9 % Sodium Chloride 500 ML 100 ML IV (17:52)
--- NOTE | 2020-03-19 19:20 | HO.PM.IMPN ---
Subjective Subjective Date of Service: 03/20/20 Interval History: Patient still seems confused, oriented to herself, could able to answer simple questions like no pain or short of breath Physical Exam Vital Signs: Vital Signs: Last Vital Signs Temp 97.8 F 03/19/20 15:16 Pulse 116 H 03/19/20 15:16 Resp 20 03/19/20 15:16 BP 92/48 L 03/19/20 15:16 Pulse Ox 96 03/19/20 15:16 Body Mass Index 23.0 Physical exam: Cvs: [id number], [id number] , no murmur res: clear to auscultation ,no rhonchii or wheezing abd: no rebound or guarding ,nt, bs present. ext pulses present , no cyanosis neuro: nonfocal. Objective Data Current Medications Generic Name Dose Route Start Last Admin Trade Name Freq PRN Reason Stop Dose Admin Acetaminophen 650 mg 03/06/20 07:11 03/11/20 15:53 Acetaminophen 325 Mg Tablet PO 650 mg Q6H PRN Administration Pain, Mild (Pain Scale 1-3) Albuterol Sulfate 90 puff 03/06/20 12:00 Albuterol Sulfate 90 Mcg 18 Gm Inhaler INHALE RQ6H PRN Wheezing Ascorbic Acid 500 mg 03/06/20 09:00 03/19/20 08:20 Ascorbic Acid 500 Mg Tablet PO 500 mg BID ANUJ Administration Aspirin 81 mg 03/06/20 09:00 03/19/20 08:16 Aspirin Enteric Coated 81 Mg Tablet.Dr PO 81 mg DAILY ANUJ Administration Atorvastatin Calcium 10 mg 03/06/20 21:00 03/18/20 20:43 Atorvastatin Calcium 10 Mg Tablet PO 10 mg BEDTIME ANUJ Administration Benztropine Mesylate 1 mg 03/06/20 09:00 03/19/20 08:20 Benztropine Mesylate 1 Mg Tablet PO 1 mg BID ANUJ Administration Clozapine 50 mg 03/06/20 21:00 03/18/20 20:42 Clozapine 25 Mg Tablet PO 50 mg BEDTIME ANUJ Administration Docusate Sodium 100 mg 03/06/20 07:11 Docusate Sodium 100 Mg Capsule PO DAILY PRN Constipation Enoxaparin Sodium 40 mg 03/06/20 08:00 03/19/20 08:23 Enoxaparin Sodium 40 Mg/0.4 Ml Syringe SUBCUT 40 mg Q24H ANUJ Administration Ferrous Sulfate 324 mg 03/06/20 09:00 03/19/20 08:16 Ferrous Sulfate 324 Mg Tablet. PO 324 mg BID ANUJ Administration Fluticasone/Vilanterol 1 puff 03/07/20 08:00 03/19/20 07:20 Fluticasone/Vilanterol 100/25 Blst.W.Dev INHALE 1 puff RDAILY ANUJ Administration Haloperidol 5 mg 03/06/20 21:00 03/18/20 20:42 Haloperidol 5 Mg Tablet PO 5 mg BEDTIME ANUJ Administration Sodium Chloride 500 mls @ 100 mls/hr 03/19/20 16:15 03/19/20 17:52 Ns IV 03/19/20 21:14 100 mls/hr .Q5H ANUJ Administration Insulin Human Lispro 0 unit 03/06/20 07:30 03/19/20 17:26 Insulin Lispro 100 Unit/Ml 3 Ml Vial SUBCUT Not Given QIDACHS [facility] Protocol Levofloxacin 750 mg 03/07/20 06:00 03/19/20 05:27 Levofloxacin 750 Mg Tablet PO 750 mg Q24H ANUJ Administration Methimazole 5 mg 03/10/20 09:00 03/19/20 08:17 Methimazole 10 Mg Tablet PO 5 mg DAILY ANUJ Administration Midodrine 10 mg 03/17/20 09:00 03/19/20 14:43 Midodrine Hcl 10 Mg Tablet PO 10 mg TID ANUJ Administration Mirabegron 50 mg 03/06/20 09:00 03/19/20 08:20 Mirabegron 50 Mg Tab.Er.24h PO 50 mg DAILY ANUJ Administration Omeprazole 20 mg 03/06/20 09:00 03/19/20 08:17 Omeprazole 20 Mg Capsule. PO 20 mg DAILY ANUJ Administration Ondansetron HCl 4 mg 03/06/20 07:11 03/15/20 08:29 Ondansetron Hcl 4 Mg/2 Ml Vial IVPUSH 4 mg Q8H PRN Administration Nausea and Vomiting Pharmacy Consult 1 each 03/06/20 04:00 Consult Rx Perform Med Rec MISCELLANE ONCE PRN Consult order Sodium Chloride 3 ml 03/06/20 08:00 03/19/20 17:52 0.9 % Sodium Chloride Flush 3 Ml Syringe IVFLUSH 3 ml QSHIFT ANUJ Administration Trazodone HCl 100 mg 03/06/20 21:00 03/18/20 20:43 Trazodone Hcl 100 Mg Tablet PO 100 mg BEDTIME ANUJ Administration Valproic Acid 750 mg 03/06/20 09:00 03/19/20 08:20 Valproic Acid 250 Mg Capsule PO 750 mg BID ANUJ Administration Vitamin D 50 mcg 03/06/20 09:00 03/19/20 08:20 Cholecalciferol (Vitamin D3) 25 Mcg Tablet PO 50 mcg DAILY ANUJ Administration Labs CBC & Chem 7: 03/14/20 08:28 03/20/20 06:49 Microbiology Microbiology Results: Microbiology 03/06/20 03:50 Blood - Venous Blood Culture - Final No growth after 5 days. 03/06/20 03:49 Blood - Venous Blood Culture - Final No growth after 5 days. Assessment and Plan (1) Schizoaffective disorder: Status: Acute Assessment and Plan: 69yo F with NSCLC, COPD, psychotic disorder who resides in a assisted previously admitted from Oncology clinic 02/27-03/05/20 due to pleural effusion and COPD exacerbation readmitted with hypotension, tachycardia, concern of cavitary PNA/loculated pleural effusion on CT chest persistent confusion/disorganized speech 1.Encephalopathy vs. psychotic decompensation no brain mets on CT, TSH normal, Evaluated by psych , feel that pt will need inpatient evaluation and management Pt is medically cleared to be discharged to [facility], awaiting placement in geriatric psych facility 2.Chronic Hypotension improving started on midodrine continue midodrine 10 mg t.i.d. monitor blood pressure hold Coreg 3. Tachycardia likely related to underlying anxiety and psych issues Doppler neg for DVT. -CTA -ve for PE 4.Pleural effusion ?cavitary pneumonia s/p thoracentesis 02/29/20, exudate, culture-negative, cytology benign treated with 3d of levofloxacin and 4d of cefuroxime. back on levofloxacin, d#/ consulted Pulmonology + ID + Thoracic; discussed with pt's oncologist Dr Tony and plan is to manage expectantly for now and repeat CXR in 1-2 wk 5. COPD exacerbation, resolved prednisone taper completed 03/09, continue controller ICS/LABA + prn YESIKA 6. hypoxic respiratory failure resolved, weaned off O2 7.NSCLC followed by Dr Tony, on immune-based chemotherapy with nivolumab Hyperthyroidism TSH 9.64, free T4 0.94, free T3 2.1. MMZ dose decreased from 10 to 5 mg/d. DM2, A1c 7.1, with hypoglycemia - d/c'ed oral hypoglycemics - LDSSI HLD - continue statin GERD - continue PPI INA - continue Fe supplementation Psych disorder - continue clozapine, haloperidol, benztropine, valproate VTE ppx - LMWH dispo Medically stable awaiting inpatient psych at [facility]
[2020-03-19] MEDS: HaloperidoL 5 MG TABLET PO (20:53)
[2020-03-19] MEDS: traZODone HCL 100 MG TABLET PO (20:53)
[2020-03-19] MEDS: cloZAPine 25 MG TABLET 50 MG PO (20:53)
[2020-03-19] MEDS: Atorvastatin Calcium 10 MG TABLET PO (20:53)
[2020-03-19 21:12] LABS: Glucose, Whole Blood 190 mg/dL (60-115)
[2020-03-19] MEDS: Lactated Ringers 500 ML 999 ML IVCONT (23:05)
[2020-03-20] VITALS (9 sets, daily range): BP systolic 78–94; BP diastolic 48–56; PULSE 102–120; RESP 18; TEMP 36.4–38.6; O2SAT 90–100
--- NOTE | 2020-03-20 01:25 | PC.NURSE ---
P: Hypotension; ~20:00 BP 80/54 manually. I: Assessment, vitals, Dr. Oswald notified. 2100 Midodrine given. Repeat BP 72/48 manually. STAT additional Midodrine/500ml LR ordered. E: Pt A/O to person only, unable to assess due to mentation. Pt with decrease oral intake, insulin held. Pt took medications crushed in pudding, some couching noted after taken medications. Lungs CTA, no edema, O2 >95% on RA. Pt repositioned as needed. Repeat BP 90's. Pt sleeping, in no obvious distress. Will continue to monitor.
[2020-03-20] MEDS: levoFLOXacin 750 MG TABLET PO (06:29)
[2020-03-20 07:58] LABS: Anion Gap 10 (12-20); Blood Urea Nitrogen 8 mg/dL (9-16); Calcium 10.1 mg/dL (8.4-10.2); Carbon Dioxide 27 mmol/L (22-29); Chloride 108 mmol/L (96-108); Creatinine Clr Calc Pharmacy 43.2; Estimated Glomerular Filt Rate 51; Glucose Random 99 mg/dL (60-115); Potassium 3.9 mmol/l (3.3-5.1); Sodium 141 mmol/L (135-145)
[2020-03-20 08:05] LABS: Glucose, Whole Blood 84 mg/dL (60-115)
[2020-03-20 08:40] LABS: Hemoglobin 9.8 g/dl (12.0-16.0)
--- NOTE | 2020-03-20 08:48 | P.PNIM_ITS ---
Subjective Subjective Date of Service: 03/20/20 Interval History: boderline blood pressure, Review of Systems seems more awake today-denies any chest pain or abdominal pain or fever. Physical Exam Vital Signs: Vital Signs: Last Vital Signs Temp 98 F 03/20/20 03:26 Pulse 105 H 03/20/20 03:26 Resp 18 03/20/20 03:26 BP 88/50 L 03/20/20 03:26 Pulse Ox 100 03/20/20 03:26 Body Mass Index 23.0 Physical exam: Cvs: [id number], [id number] , no murmur res: Fair air entry, no wheezing or rales abd: no rebound or guarding ,nt, bs present. ext pulses present , no cyanosis neuro: axo3 , nonfocal. Objective Data Current Medications Generic Name Dose Route Start Last Admin Trade Name Freq PRN Reason Stop Dose Admin Acetaminophen 650 mg 03/06/20 07:11 03/11/20 15:53 Acetaminophen 325 Mg Tablet PO 650 mg Q6H PRN Administration Pain, Mild (Pain Scale 1-3) Albuterol Sulfate 90 puff 03/06/20 12:00 Albuterol Sulfate 90 Mcg 18 Gm Inhaler INHALE RQ6H PRN Wheezing Ascorbic Acid 500 mg 03/06/20 09:00 03/19/20 20:53 Ascorbic Acid 500 Mg Tablet PO 500 mg BID ANUJ Administration Aspirin 81 mg 03/06/20 09:00 03/19/20 08:16 Aspirin Enteric Coated 81 Mg Tablet.Dr PO 81 mg DAILY ANJU Administration Atorvastatin Calcium 10 mg 03/06/20 21:00 03/19/20 20:53 Atorvastatin Calcium 10 Mg Tablet PO 10 mg BEDTIME ANUJ Administration Benztropine Mesylate 1 mg 03/06/20 09:00 03/19/20 20:53 Benztropine Mesylate 1 Mg Tablet PO 1 mg BID ANUJ Administration Clozapine 50 mg 03/06/20 21:00 03/19/20 20:53 Clozapine 25 Mg Tablet PO 50 mg BEDTIME ANUJ Administration Docusate Sodium 100 mg 03/06/20 07:11 Docusate Sodium 100 Mg Capsule PO DAILY PRN Constipation Enoxaparin Sodium 40 mg 03/06/20 08:00 03/19/20 08:23 Enoxaparin Sodium 40 Mg/0.4 Ml Syringe SUBCUT 40 mg Q24H ANUJ Administration Ferrous Sulfate 324 mg 03/06/20 09:00 03/19/20 20:53 Ferrous Sulfate 324 Mg Tablet. PO 324 mg BID ANUJ Administration Fluticasone/Vilanterol 1 puff 03/07/20 08:00 03/20/20 07:37 Fluticasone/Vilanterol 100/25 Blst.W.Dev INHALE Not Given RDAILY [facility] Haloperidol 5 mg 03/06/20 21:00 03/19/20 20:53 Haloperidol 5 Mg Tablet PO 5 mg BEDTIME ANUJ Administration Lactated Ringer's 500 mls @ 100 mls/hr 03/20/20 08:45 Lr IV 03/20/20 13:44 .Q5H [facility] Insulin Human Lispro 0 unit 03/06/20 07:30 03/20/20 08:07 Insulin Lispro 100 Unit/Ml 3 Ml Vial SUBCUT Not Given QIDACHS [facility] Protocol Levofloxacin 750 mg 03/07/20 06:00 03/20/20 06:29 Levofloxacin 750 Mg Tablet PO 750 mg Q24H ANUJ Administration Methimazole 5 mg 03/10/20 09:00 03/19/20 08:17 Methimazole 10 Mg Tablet PO 5 mg DAILY [facility] Administration Midodrine 10 mg 03/17/20 09:00 03/19/20 20:53 Midodrine Hcl 10 Mg Tablet PO 10 mg TID ANUJ Administration Mirabegron 50 mg 03/06/20 09:00 03/19/20 08:20 Mirabegron 50 Mg Tab.Er.24h PO 50 mg DAILY ANUJ Administration Omeprazole 20 mg 03/06/20 09:00 03/19/20 08:17 Omeprazole 20 Mg Capsule. PO 20 mg DAILY ANUJ Administration Ondansetron HCl 4 mg 03/06/20 07:11 03/15/20 08:29 Ondansetron Hcl 4 Mg/2 Ml Vial IVPUSH 4 mg Q8H PRN Administration Nausea and Vomiting Pharmacy Consult 1 each 03/06/20 04:00 Consult Rx Perform Med Rec MISCELLANE ONCE PRN Consult order Sodium Chloride 3 ml 03/06/20 08:00 03/19/20 23:06 0.9 % Sodium Chloride Flush 3 Ml Syringe IVFLUSH 3 ml QSHIFT ANUJ Administration Trazodone HCl 100 mg 03/06/20 21:00 03/19/20 20:53 Trazodone Hcl 100 Mg Tablet PO 100 mg BEDTIME ANUJ Administration Valproic Acid 750 mg 03/06/20 09:00 03/19/20 20:52 Valproic Acid 250 Mg Capsule PO 750 mg BID ANUJ Administration Vitamin D 50 mcg 03/06/20 09:00 03/19/20 08:20 Cholecalciferol (Vitamin D3) 25 Mcg Tablet PO 50 mcg DAILY ANUJ Administration Labs CBC & Chem 7: 03/20/20 06:49 03/20/20 06:49 Microbiology Microbiology Results: Microbiology 03/06/20 03:50 Blood - Venous Blood Culture - Final No growth after 5 days. 03/06/20 03:49 Blood - Venous Blood Culture - Final No growth after 5 days. Assessment and Plan (1) Schizoaffective disorder: Status: Acute Assessment and Plan: 69yo F with NSCLC, COPD, psychotic disorder who [facility] a [facility] previously admitted from Oncology clinic 02/27-03/05/20 due to pleural effusion and COPD exacerbation readmitted with hypotension, tachycardia, concern of cavitary PNA/loculated pleural effusion on CT chest persistent confusion/disorganized speech 1.Encephalopathy vs. psychotic decompensation no brain mets on CT, TSH normal, Evaluated by psych , feel that pt will need inpatient evaluation and management Pt is medically cleared to be discharged to [facility], awaiting placement in [facility] facility per psych -seems improving mental status wright d/w case management-will need [facility] reeval 2.Chronic Hypotension improving started on midodrine continue midodrine 10 mg t.i.d., fludrocortisone added cortisol levels added monitor blood pressure hold Coreg 3. Tachycardia likely related to underlying anxiety and psych issues Doppler neg for DVT. -CTA -ve for PE 4.Pleural effusion ?cavitary pneumonia s/p thoracentesis 02/29/20, exudate, culture-negative, cytology benign treated with 3d of levofloxacin and 4d of cefuroxime. back on levofloxacin, d#01/06 consulted Pulmonology + ID + Thoracic; discussed with pt's oncologist Dr Tony and plan is to manage expectantly for now and repeat CXR in 1-2 wk 5. COPD exacerbation, resolved prednisone taper completed 03/09, continue controller ICS/LABA + prn YESIKA added nebs back , may need to add steriods if needed. 6. hypoxic respiratory failure taper off O2, will check vbg in am. 7.NSCLC followed by Dr Tony, on immune-based chemotherapy with nivolumab Hyperthyroidism TSH 9.64, free T4 0.94, free T3 2.1. MMZ dose decreased from 10 to 5 mg/d. DM2, A1c 7.1, with hypoglycemia - d/c'ed oral hypoglycemics - LDSSI HLD - continue statin GERD - continue PPI INA - continue Fe supplementation Psych disorder - continue clozapine, haloperidol, benztropine, valproate VTE ppx - LMWH dispo Medically stable awaiting inpatient psych at [facility]
[2020-03-20] MEDS: Aspirin Enteric Coated 81 MG TABLET.DR PO (08:57)
[2020-03-20] MEDS: Valproic Acid 250 MG CAPSULE 750 MG PO (08:57)
[2020-03-20] MEDS: Omeprazole 20 MG CAPSULE.DR PO (08:57)
[2020-03-20] MEDS: Benztropine Mesylate 1 MG TABLET PO ×2 (08:57→21:05)
[2020-03-20] MEDS: Midodrine HCl 10 MG TABLET PO ×3 (08:57→21:05)
[2020-03-20] MEDS: Mirabegron 50 MG TAB.ER.24H PO (08:57)
[2020-03-20] MEDS: Cholecalciferol (Vitamin D3) 25 MCG TABLET 50 MCG PO (08:57)
[2020-03-20] MEDS: methIMAzole 10 MG TABLET 5 MG PO (08:58)
[2020-03-20] MEDS: Ascorbic Acid 500 MG TABLET PO ×2 (08:58→21:05)
[2020-03-20] MEDS: Enoxaparin Sodium 40 MG/0.4 ML SYRINGE SUBCUT (08:58)
[2020-03-20] MEDS: Ferrous Sulfate 324 MG TABLET.DR PO ×2 (08:58→21:05)
[2020-03-20] MEDS: ondansetron HCL 4 MG/2 ML VIAL IVPUSH (09:01)
[2020-03-20] MEDS: Lactated Ringers 500 ML 100 ML IV ×2 (09:19→17:00)
[2020-03-20] MEDS: polyethylene glycoL 3350 17 GM POWD.PACK PO ×2 (09:23→21:05)
--- NOTE | 2020-03-20 09:55 | P.CDIC_ITS ---
CDI Concurrent Query Service Date: 03/20/20 Documentation Clarification: Please clarify if you are treating a proba ble/suspected/likely or confirmed: Consistency and clarity of documentation within the medical record: Sepsis (resolved)-yes Sepsis (rule out) Sepsis (POA) Please specify if known Provider Response: Other Other Diagnosis: Sepsis resolved. PLEASE DO NOT DELETE/MODIFY EXISTING CONTENT Additional information is needed in order to code to the highest accuracy and appropriate Severity of Illness (SOI). Please clarify the information noted below in your progress notes and discharge summary. Risk Factors/Clinical Indicators/Treatments H&P: Assessment/plan: Sepsis, acute Sepsis most likely 2nd to pneumonia. Tachycardia, leukocytosis, LA 0.9 HR 126 RR 20 WBC 11.9 BP 89/57 PN: 03/12 - 03/14 Assessment/plan: Sepsis, acute Discharge summary 03/18 - Sepsis, acute, PNA, COPD Exacerbation, Acute hypoxic respiratory failure. Query response 03/07 - Not septic - no leukocytosis. CDS: Halie Avalos CCS, CDIS Contact Number: [phone] Please Review the information above and exercise your independent professional judgment in responding to the query. If you concur, pleas document in the PROGRESS NOTES and DISCHARGE SUMMARY. If you do not agree with the query, please document in the query above. THIS QUERY IS PART OF THE PERMANENT MEDICAL RECORD
[2020-03-20 10:31] LABS: Ammonia 29 umol/L (13-55)
[2020-03-20 11:16] LABS: Glucose, Whole Blood 113 mg/dL (60-115)
[2020-03-20 11:37] LABS: Alanine Aminotransferase 14 U/L (0-31); Albumin Level 2.4 g/dL (3.5-5.0); Alkaline Phosphatase 542 U/L (39-117); Aspartate Amino Transferase 31 U/L (5-31); Bilirubin Direct < 0.2 mg/dL (0.0-0.5); Bilirubin Total 0.2 mg/dL (0.0-1.0); Total Protein 5.2 g/dL (6.5-8.0)
--- NOTE | 2020-03-20 12:28 | MHC.CM.PN ---
spoke with trenton hobbs who reports whn pt medically stable bhn will need to be reconsulted
--- NOTE | 2020-03-20 14:51 | PM.PNNEP ---
Subjective Subjective Date of Service: 03/20/20 Interval history: Patient seen and examined consult dictated Physical Exam Vital Signs: Vital Signs: Last Vital Signs Temp 98.2 F 03/20/20 12:00 Pulse 102 H 03/20/20 14:01 Resp 18 03/20/20 12:00 BP 78/50 L 03/20/20 14:01 Pulse Ox 90 L 03/20/20 12:00 Body Mass Index 23.0 Objective Data Labs CBC & Chem 7: 03/20/20 06:49 03/20/20 06:49 Labs: Laboratory Results - last 24 hr 03/19/20 03/19/20 03/20/20 16:23 21:09 06:49 Hgb Hct Sodium 141 Potassium 3.9 D Chloride 108 Carbon Dioxide 27 Anion Gap 10 L BUN 8 L Creatinine 1.06 Estim Creat Clear Calc 43.2 Estimated GFR 51 POC Glucose 163 H 190 H Random Glucose 99 D Calcium 10.1 D Total Bilirubin 0.2 Direct Bilirubin < 0.2 AST 31 ALT 14 Alkaline Phosphatase 542 H D Ammonia Total Protein 5.2 L Albumin 2.4 L 03/20/20 03/20/20 03/20/20 06:49 08:02 09:44 Hgb 9.8 L Hct 32.0 L Sodium Potassium Chloride Carbon Dioxide Anion Gap BUN Creatinine Estim Creat Clear Calc Estimated GFR POC Glucose 84 Random Glucose Calcium Total Bilirubin Direct Bilirubin AST ALT Alkaline Phosphatase Ammonia 29 Total Protein Albumin 03/20/20 11:13 Hgb Hct Sodium Potassium Chloride Carbon Dioxide Anion Gap BUN Creatinine Estim Creat Clear Calc Estimated GFR POC Glucose 113 Random Glucose Calcium Total Bilirubin Direct Bilirubin AST ALT Alkaline Phosphatase Ammonia Total Protein Albumin Microbiology Microbiology Results: Microbiology 03/06/20 03:50 Blood - Venous Blood Culture - Final No growth after 5 days. 03/06/20 03:49 Blood - Venous Blood Culture - Final No growth after 5 days. Assessment & Plan Assessment and plan (1) GEGE (acute kidney injury): Status: Acute (2) Hypotension: Status: Acute Assessment and Plan: mild GEGE due to compromised kidney perfusion in the setting of hypotension will need to restore isovolemia clozaril can cause tachycardia and hypotension need to rule out adrenal insufficiency REC IVF with NS random cortisol level fludrocortisone 0.1 mg daily continue midodrine consider discontinuation of clozaril follow kidney function and electrolytes Thank you Time Spent With Patient Time: Total time spent is greater than 50% in coordination of care (as documented) at patient's floor/unit and/or counseling patient:
--- NOTE | 2020-03-20 15:49 | P.EN_ITS ---
Event Note Date of Service: 03/20/20 Event Note: Psychiatry follow up Patient seen in follow up today to evaluate for disposition Patient awake, alert and oriented to person and place Mental status much improved from last time patient was seen by this aligner typewriter. Speech slowed, but patient making appropriate conversation and answering questions appropriately. RN reports mental status has been much improved, but physically patient has decompensated. RN states last week patient was able to walk to the bathroom with one person assist, today patient requiring 2 person full assist to complete all ADLs. At this time patient not appropriate for psychiatric admission. Continue psychiatric medications as ordered
[2020-03-20 16:46] LABS: Glucose, Whole Blood 95 mg/dL (60-115)
[2020-03-20] MEDS: predniSONE 20 MG TABLET 40 MG PO (17:21)
[2020-03-20] MEDS: Fludrocortisone Acetate 0.1 MG TABLET PO (17:21)
--- NOTE | 2020-03-20 18:45 | PC.NURSE ---
Pt bp has been low, notified MD. Order to start LR 2 100/hr for 500ml x 2, midodrene given per emar. Pt asymptomatic, bp wnl at 1600 vitals. will contunue to monitor. O2 sat mid 80s, placed on 2L, MD notified, will remain on 2L NC at this time.
[2020-03-20 20:25] LABS: Glucose, Whole Blood 133 mg/dL (60-115)
[2020-03-20] MEDS: levalbuterol HCL 1.25 MG/3 ML VIAL.NEB INHALE (20:30)
[2020-03-20] MEDS: HaloperidoL 5 MG TABLET PO (21:05)
[2020-03-20] MEDS: Atorvastatin Calcium 10 MG TABLET PO (21:05)
[2020-03-20] MEDS: 0.9 % Sodium Chloride Flush 3 ML SYRINGE IVFLUSH (21:05)
[2020-03-20] MEDS: cloZAPine 25 MG TABLET 50 MG PO (21:12)
[2020-03-21] VITALS (15 sets, daily range): BP systolic 78–107; BP diastolic 42–56; PULSE 96–111; RESP 16–20; TEMP 36.1–37.2; O2SAT 91–99
--- NOTE | 2020-03-21 | XR_ITS ---
EXAMINATION: XR CHEST CLINICAL INFORMATION: Follow-up pneumonia COMPARISON: Previous chest CT 03/11/2020 and chest x-ray 03/06/2020 TECHNIQUE: Frontal view of the chest was obtained. FINDINGS: The patient is rotated to the left. Taking this into account, the cardiac and mediastinal contours are stable. There is a left jugular port with tip projecting over the SVC. There is increased density in the right pulmonary hilum. There is a [id number] right pleural effusion. There appears to be a chest tube at the right lung base. There is atelectasis or consolidation of the right lower lung. There may be a small hydropneumothorax at the right lung base/evidence of partially trapped right lung There is increasing atelectasis or consolidation at the left lung base silhouetting the left hemidiaphragm. Left lung is otherwise clear. There is no left pleural effusion. There are degenerative changes of the spine. There is a stable T12 vertebral body compression fracture. XR/XR chest 1V IMPRESSION: New left lower lobe atelectasis/pneumonia. Small to moderate right pleural effusion with new right chest tube. There may be a small hydropneumothorax at the right lung base. Abnormal density in the right hilum and right base atelectasis/consolidation similar to previous exams.
--- NOTE | 2020-03-21 | US_ITS ---
EXAMINATION: US CHEST CLINICAL INFORMATION: Pleural effusion. COMPARISON: Chest x-ray 03/21/2020. CT of chest 03/11/2020 TECHNIQUE: Real-time grayscale ultrasound of the right and left pleural space at the lung bases. FINDINGS: There is a large right-sided pleural effusion which does have scattered low-level debris within the fluid. There is no left-sided pleural effusion US/US chest IMPRESSION: Large volume right pleural effusion.
[2020-03-21] MEDS: levoFLOXacin 750 MG TABLET PO (05:54)
[2020-03-21] MEDS: levalbuterol HCL 1.25 MG/3 ML VIAL.NEB INHALE ×3 (07:27→19:52)
[2020-03-21] MEDS: Fluticasone/Vilanterol 100/25 BLST.W.DEV 1 PUFF INHALE (07:34)
[2020-03-21 07:52] LABS: Base Excess VBG 0.3 mmol/L; Blood Gas Serial # 5414; HCO3 VBG 27 mmol/L; Oxygen Saturation VBG 72.3 %; PCO2 VBG 50 mmhg; PO2 VBG 39 mmhg; pH VBG 7.34 (7.32-7.43)
[2020-03-21 07:53] LABS: Glucose, Whole Blood 169 mg/dL (60-115)
[2020-03-21 08:07] LABS: Hemoglobin 10.6 g/dl (12.0-16.0); Mean Corpuscular HGB Conc 29.4 g/dl (31.0-35.0); Mean Corpuscular Hemoglobin 29.9 pg (27.0-33.0); Mean Corpuscular Volume 101.4 fL (80-98); Platelet Count 207 X10*3/uL (160-400); Red Blood Count 3.55 X10*6/uL (4.20-5.50); Red Cell Distribution Width 15.6 % (11.0-16.0); White Blood Count 3.8 X10*3/uL (4.8-10.8)
[2020-03-21 08:26] LABS: Anion Gap 15 (12-20); Carbon Dioxide 23 mmol/L (22-29); Chloride 108 mmol/L (96-108); Creatinine Clr Calc Pharmacy 35.8; Estimated Glomerular Filt Rate 41; Sodium 141 mmol/L (135-145)
[2020-03-21 08:49] LABS: Blood Urea Nitrogen 13 mg/dL (9-16); Calcium 10.5 mg/dL (8.4-10.2); Glucose Random 173 mg/dL (60-115); Potassium 5.4 mmol/l (3.3-5.1)
[2020-03-21] MEDS: Insulin Lispro 100 UNIT/ML 3 ML VIAL SUBCUT ×3 (09:40→21:10)
[2020-03-21] MEDS: Aspirin Enteric Coated 81 MG TABLET.DR PO (09:42)
[2020-03-21] MEDS: Ferrous Sulfate 324 MG TABLET.DR PO ×2 (09:42→20:36)
[2020-03-21] MEDS: Enoxaparin Sodium 40 MG/0.4 ML SYRINGE SUBCUT (09:42)
[2020-03-21] MEDS: Mirabegron 50 MG TAB.ER.24H PO (09:42)
[2020-03-21] MEDS: 0.9 % Sodium Chloride Flush 3 ML SYRINGE IVFLUSH ×2 (09:42→15:21)
[2020-03-21] MEDS: Ascorbic Acid 500 MG TABLET PO ×2 (09:43→20:36)
[2020-03-21] MEDS: Omeprazole 20 MG CAPSULE.DR PO (09:43)
[2020-03-21] MEDS: methIMAzole 10 MG TABLET 5 MG PO (09:43)
[2020-03-21] MEDS: Cholecalciferol (Vitamin D3) 25 MCG TABLET 50 MCG PO (09:43)
[2020-03-21] MEDS: Midodrine HCl 10 MG TABLET PO ×3 (09:44→20:35)
[2020-03-21] MEDS: Benztropine Mesylate 1 MG TABLET PO ×2 (09:44→20:36)
[2020-03-21] MEDS: polyethylene glycoL 3350 17 GM POWD.PACK PO ×2 (09:44→20:35)
[2020-03-21 11:12] LABS: Glucose, Whole Blood 216 mg/dL (60-115)
--- NOTE | 2020-03-21 11:12 | PC.NURSE ---
Pt BP 78/44, Dr. Reinoso aware.
--- NOTE | 2020-03-21 11:34 | PM.PNNEP ---
Subjective Subjective Date of Service: 03/21/20 Interval history: seen and examined no complaints Physical Exam Vital Signs: Vital Signs: Last Vital Signs Temp 97.8 F 03/21/20 10:53 Pulse 108 H 03/21/20 10:53 Resp 16 03/21/20 10:53 BP 78/44 L 03/21/20 10:53 Pulse Ox 99 03/21/20 10:53 Body Mass Index 23.0 Const: General: no acute distress HENMT: Head: Yes normocephalic and Yes atraumatic Neck: Neck: Yes supple Resp: Auscultation: diminished lung sounds Cardio: Heart sounds: S1 normal heart sound present and S2 normal heart sound present GI: Palpation (GI): Soft to palpation and nontender Extrem: General: No edema Objective Data Labs CBC & Chem 7: 03/21/20 07:18 03/21/20 07:18 Labs: Laboratory Results - last 24 hr 03/20/20 03/20/20 03/20/20 06:49 16:41 17:45 WBC RBC Hgb Hct MCV MCH MCHC RDW Plt Count MPV Absolute Nucleated RBC Nucleated RBC % (auto) VBG pH VBG pCO2 VBG pO2 VBG HCO3 VBG O2 Saturation VBG Base Excess Sodium Potassium Chloride Carbon Dioxide Anion Gap BUN Creatinine Estim Creat Clear Calc Estimated GFR POC Glucose 95 Random Glucose Calcium Total Bilirubin 0.2 Direct Bilirubin < 0.2 AST 31 ALT 14 Alkaline Phosphatase 542 H D Total Protein 5.2 L Albumin 2.4 L Ur Random Sodium 29.0 03/20/20 03/21/20 03/21/20 20:19 07:18 07:18 WBC RBC Hgb Hct MCV MCH MCHC RDW Plt Count MPV Absolute Nucleated RBC Nucleated RBC % (auto) VBG pH 7.34 VBG pCO2 50 VBG pO2 39 VBG HCO3 27 VBG O2 Saturation 72.3 VBG Base Excess 0.3 Sodium 141 Potassium 5.4 H D Chloride 108 Carbon Dioxide 23 Anion Gap 15 BUN 13 D Creatinine 1.28 Estim Creat Clear Calc 35.8 Estimated GFR 41 POC Glucose 133 H Random Glucose 173 H D Calcium 10.5 H Total Bilirubin Direct Bilirubin AST ALT Alkaline Phosphatase Total Protein Albumin Ur Random Sodium 03/21/20 03/21/20 03/21/20 07:18 07:34 11:04 WBC 3.8 L RBC 3.55 L Hgb 10.6 L Hct 36.0 L MCV 101.4 H MCH 29.9 MCHC 29.4 L RDW 15.6 Plt Count 207 MPV 10.0 Absolute Nucleated RBC 0.000 Nucleated RBC % (auto) 0.0 VBG pH VBG pCO2 VBG pO2 VBG HCO3 VBG O2 Saturation VBG Base Excess Sodium Potassium Chloride Carbon Dioxide Anion Gap BUN Creatinine Estim Creat Clear Calc Estimated GFR POC Glucose 169 H 216 H Random Glucose Calcium Total Bilirubin Direct Bilirubin AST ALT Alkaline Phosphatase Total Protein Albumin Ur Random Sodium Microbiology Microbiology Results: Microbiology 03/06/20 03:50 Blood - Venous Blood Culture - Final No growth after 5 days. 03/06/20 03:49 Blood - Venous Blood Culture - Final No growth after 5 days. Assessment & Plan Assessment and plan (1) GEGE (acute kidney injury): Status: Acute (2) Hypotension: Status: Acute (3) Hyperkalemia: Status: Acute Assessment and Plan: Scr up GEGE due to compromised kidney perfusion in the setting of hypotension elevated serum potassium due to impaired distal flow clozaril can cause tachycardia and hypotension need to rule out adrenal insufficiency REC IVF sodium polystyrene as needed follow random cortisol level fludrocortisone 0.1 mg daily continue midodrine consider discontinuation of clozaril follow kidney function and electrolytes Time Spent With Patient Time: Total time spent is greater than 50% in coordination of care (as documented) at patient's floor/unit and/or counseling patient:
[2020-03-21] MEDS: 0.9 % Sodium Chloride 500 ML IV (11:42)
[2020-03-21] MEDS: Sodium Polystyrene Sulfon/Sorb 15 GM/60 ML ORAL.SUSP PO (11:47)
--- NOTE | 2020-03-21 12:30 | CONS_ITS ---
DATE OF SERVICE: 03/20/2020 HISTORY OF PRESENT ILLNESS: This is a 69-year-old patient, who was admitted with hypotension, tachycardia, and concern for cavitary pneumonia. The patient is confused, unable to give any history at the time of the consultation. Most of the history is obtained from review of medical record. Review of her vital signs show low blood pressure with systolic blood pressure down to the 70s. PAST MEDICAL HISTORY: Remarkable for diabetes mellitus, hypertension, history of TIA, lung mass, GERD, dyslipidemia, COPD, Charcot's arthropathy, osteoporosis, umbilical hernia. PAST SURGICAL HISTORY: Notable for appendectomy. MEDICATIONS: Reviewed and included aspirin, atorvastatin, clozapine, iron sulfate, haloperidol, enoxaparin, insulin, mirabegron, omeprazole, trazodone, valproic acid, midodrine. ALLERGIES: REVIEWED. SOCIAL HISTORY: She does not currently smoke. FAMILY HISTORY: Negative for kidney disease. REVIEW OF SYSTEMS: 10-point review of systems unobtainable. PHYSICAL EXAMINATION: VITAL SIGNS: Blood pressure is 78/50, heart rate 102, respiratory rate 20, temperature 97.8. CONSTITUTIONAL: Looks her stated age. No acute distress. NEUROLOGIC: Alert and awake. HEENT: Head, atraumatic and normocephalic. NECK: Supple. LUNGS: Decreased breath sounds. CARDIOVASCULAR: S1, S2. No rub. Tachy. ABDOMEN: Soft, nontender. EXTREMITIES: No peripheral edema. LABORATORY DATA: Labs showed a white count of 6, hemoglobin 9.8, platelet count is 225. Sodium 141, potassium of 3.9, chloride 108, CO2 of 27, BUN 8, creatinine 1.06. IMPRESSION: 1. Mild acute kidney injury. 2. Hypotension. This is a patient with mild acute kidney injury in the setting of hypotension, probably due to compromised kidney perfusion. She is currently hypotensive and tachycardic and . The patient is on clozapine, which can induce hypotension in 9% to 13% of patients in addition to tachycardia. I will also check her cortisol level. I agree with IV fluid and would continue with midodrine and consider adding also fludrocortisone. We will continue to follow closely her kidney function and electrolytes along with the medical team. Thank you for allowing me to participate in the care of this patient. MD DONAVAN Jacob/ELLA / [id number]
--- NOTE | 2020-03-21 13:00 | CA_ITS ---
Transthoracic Echocardiogram Patient (Last, First, Middle): Meenakshi Gerber, Gender: Female Date of : 1950 Age: 69 Procedure Date: 03/21/2020 Procedure Type: Transthoracic Echocardiogram Location: [facility] [place] Height: 162.56 cm Weight: 60.78 kg BSA: 1.65 m2 Heart Rate: bpm Manager Of Procurement: LALIT Referring MD: Eufemia Reinoso MD Antenna Engineer: Nura Alfonso MD Symptoms: persistent boderline blood pressure and tachycardia Study Quality: Fair ECG Rhythm: Sinus Conclusions: - 1. Normal biventricular function 2. IVC size and collapsibility consistent with hypovolemia Findings Left Ventricle Normal left ventricular size, thickness, and systolic function. The visually estimated ejection fraction is between 60-65%. Right Ventricle Normal right ventricular cavity size and systolic function. Venous The inferior vena cava is collapsed, consistent with reduced intravascular volume. Inferior vena cava flow indicates hypovolemia. Pericardium/Pleural There is a trivial circumferential pericardial effusion. Prior Study Comparison No significant change compared to prior study dated: 04/25/2019. Measurements 2D Linear Measurements IVSd: 1.11 0.6-0.9/0.6-1.0 cm LVIDd: 2.53 3.9-5.3/4.2-5.9 cm LVIDd Index: 1.53 2.4-3.2/2.2-3.1 cm/m2 LVIDs: 1.77 2.0-3.6 cm LVPWd: 1.05 0.7-1.1 cm LV Mass: 90.45 67-162/88-224 g LV Mass Index: 54.82 43-95/49-115 g/m2 2D Systolic Function EF 4C: 69.20 >55% EF 2C: 53.20 >55% EF BiP: 64.60 >55% Tricuspid Valve TR Pk Howie: 1.58 TR Pk Grad: 10.00 RA Press: 3.00 RVSP: 13.00 Updated in Other Vendor System with Status of Final Nura Alfonso MD electronically signed on 03/21/2020 11:41:37 AM with status of Final
--- NOTE | 2020-03-21 13:03 | MHC.CM.PN ---
[facility] [place] [facility] [place] the goal for [place] pending [facility] clearance again. CM will follow for dc planning and possible need to adjust the dc plan.
--- NOTE | 2020-03-21 13:38 | P.PNID_ITS ---
Subjective Subjective Date of Service: 03/21/20 Interval History: she has isolated temperature to 102 03/20 Objective Data Labs CBC & Chem 7: 03/21/20 07:18 03/21/20 07:18 Labs: Laboratory Results - last 24 hr 03/20/20 03/20/20 03/20/20 16:41 17:45 20:19 WBC RBC Hgb Hct MCV MCH MCHC RDW Plt Count MPV Absolute Nucleated RBC Nucleated RBC % (auto) VBG pH VBG pCO2 VBG pO2 VBG HCO3 VBG O2 Saturation VBG Base Excess Sodium Potassium Chloride Carbon Dioxide Anion Gap BUN Creatinine Estim Creat Clear Calc Estimated GFR POC Glucose 95 133 H Random Glucose Calcium Ur Random Sodium 29.0 03/21/20 03/21/20 03/21/20 07:18 07:18 07:18 WBC 3.8 L RBC 3.55 L Hgb 10.6 L Hct 36.0 L MCV 101.4 H MCH 29.9 MCHC 29.4 L RDW 15.6 Plt Count 207 MPV 10.0 Absolute Nucleated RBC 0.000 Nucleated RBC % (auto) 0.0 VBG pH 7.34 VBG pCO2 50 VBG pO2 39 VBG HCO3 27 VBG O2 Saturation 72.3 VBG Base Excess 0.3 Sodium 141 Potassium 5.4 H D Chloride 108 Carbon Dioxide 23 Anion Gap 15 BUN 13 D Creatinine 1.28 Estim Creat Clear Calc 35.8 Estimated GFR 41 POC Glucose Random Glucose 173 H D Calcium 10.5 H Ur Random Sodium 03/21/20 03/21/20 07:34 11:04 WBC RBC Hgb Hct MCV MCH MCHC RDW Plt Count MPV Absolute Nucleated RBC Nucleated RBC % (auto) VBG pH VBG pCO2 VBG pO2 VBG HCO3 VBG O2 Saturation VBG Base Excess Sodium Potassium Chloride Carbon Dioxide Anion Gap BUN Creatinine Estim Creat Clear Calc Estimated GFR POC Glucose 169 H 216 H Random Glucose Calcium Ur Random Sodium Microbiology Microbiology Results: Microbiology 03/06/20 03:50 Blood - Venous Blood Culture - Final No growth after 5 days. 03/06/20 03:49 Blood - Venous Blood Culture - Final No growth after 5 days. Physical Exam Vital Signs: Vital Signs: Last Vital Signs Temp 97.8 F 03/21/20 10:53 Pulse 108 H 03/21/20 10:53 Resp 16 03/21/20 10:53 BP 94/54 L 03/21/20 13:34 Pulse Ox 99 03/21/20 10:53 Body Mass Index 23.0 Const: General: cooperative Resp: Effort & Inspection: normal respiratory effort Cardio: Rate: regular rate Rhythm: regular rhythm GI: Palpation (GI): nontender Assessment and Plan Assessment and plan (1) Fever of unknown origin: Status: Acute Assessment and Plan: This may be due to drug fever or malignancy He has been on Levaquin 14 days Would stop Levaquin Await cultures Time Spent With Patient Time: Total time spent is greater than 50% in coordination of care (as docum ented) at patient's floor/unit and/or counseling patient: Time with patient: less than 15 minutes
--- NOTE | 2020-03-21 13:57 | P.PNIM_ITS ---
Subjective Subjective Date of Service: 03/22/20 Interval History: [facility] blood pressure . Review of Systems [facility] blood pressure. one episode of temp (fever ) last night, Physical Exam Vital Signs: Vital Signs: Last Vital Signs Temp 97.8 F 03/21/20 10:53 Pulse 108 H 03/21/20 10:53 Resp 16 03/21/20 10:53 BP 94/54 L 03/21/20 13:34 Pulse Ox 99 03/21/20 10:53 Body Mass Index 23.0 Physical exam: Cvs: rrr, [id number] , no murmur res: fair air entry, slightly dimished at bases. abd: no rebound or guarding ,nt, bs present. ext pulses present , no cyanosis neuro: awake know her name ,could able to say hospital name , nonfocal. Objective Data Current Medications Generic Name Dose Route Start Last Admin Trade Name Freq PRN Reason Stop Dose Admin Acetaminophen 650 mg 03/06/20 07:11 03/11/20 15:53 Acetaminophen 325 Mg Tablet PO 650 mg Q6H PRN Administration Pain, Mild (Pain Scale 1-3) Albuterol Sulfate 90 puff 03/06/20 12:00 Albuterol Sulfate 90 Mcg 18 Gm Inhaler INHALE RQ6H PRN Wheezing Ascorbic Acid 500 mg 03/06/20 09:00 03/21/20 09:43 Ascorbic Acid 500 Mg Tablet PO 500 mg BID ANUJ Administration Aspirin 81 mg 03/06/20 09:00 03/21/20 09:42 Aspirin Enteric Coated 81 Mg Tablet.Dr PO 81 mg DAILY ANUJ Administration Atorvastatin Calcium 10 mg 03/06/20 21:00 03/20/20 21:05 Atorvastatin Calcium 10 Mg Tablet PO 10 mg BEDTIME ANUJ Administration Benztropine Mesylate 1 mg 03/06/20 09:00 03/21/20 09:44 Benztropine Mesylate 1 Mg Tablet PO 1 mg BID ANUJ Administration Clozapine 50 mg 03/06/20 21:00 03/20/20 21:12 Clozapine 25 Mg Tablet PO 50 mg BEDTIME ANUJ Administration Docusate Sodium 100 mg 03/06/20 07:11 Docusate Sodium 100 Mg Capsule PO DAILY PRN Constipation Enoxaparin Sodium 40 mg 03/06/20 08:00 03/21/20 09:42 Enoxaparin Sodium 40 Mg/0.4 Ml Syringe SUBCUT 40 mg Q24H ANUJ Administration Ferrous Sulfate 324 mg 03/06/20 09:00 03/21/20 09:42 Ferrous Sulfate 324 Mg Tablet. PO 324 mg BID ANUJ Administration Fluticasone/Vilanterol 1 puff 03/07/20 08:00 03/21/20 07:34 Fluticasone/Vilanterol 100/25 Blst.W.Dev INHALE 1 puff RDAILY ANUJ Administration Haloperidol 5 mg 03/06/20 21:00 03/20/20 21:05 Haloperidol 5 Mg Tablet PO 5 mg BEDTIME ANUJ Administration Promethazine HCl 6.25 mg/ 50.25 mls @ 201 mls/hr 03/20/20 08:55 Sodium Chloride IV Q6H PRN Nausea Insulin Human Lispro 0 unit 03/06/20 07:30 03/21/20 12:01 Insulin Lispro 100 Unit/Ml 3 Ml Vial SUBCUT 4 unit QIDACHS ANUJ Administration Protocol Levalbuterol HCl 1.25 mg 03/20/20 20:00 03/21/20 13:08 Levalbuterol Hcl 1.25 Mg/3 Ml Vial.Neb INHALE 1.25 mg RTID ANUJ Administration Methimazole 5 mg 03/10/20 09:00 03/21/20 09:43 Methimazole 10 Mg Tablet PO 5 mg DAILY ANUJ Administration Midodrine 10 mg 03/17/20 09:00 03/21/20 09:44 Midodrine Hcl 10 Mg Tablet PO 10 mg TID ANUJ Administration Mirabegron 50 mg 03/06/20 09:00 03/21/20 09:42 Mirabegron 50 Mg Tab.Er.24h PO 50 mg DAILY ANUJ Administration Omeprazole 20 mg 03/06/20 09:00 03/21/20 09:43 Omeprazole 20 Mg Capsule. PO 20 mg DAILY ANUJ Administration Ondansetron HCl 4 mg 03/06/20 07:11 03/20/20 09:01 Ondansetron Hcl 4 Mg/2 Ml Vial IVPUSH 4 mg Q8H PRN Administration Nausea and Vomiting Pharmacy Consult 1 each 03/06/20 04:00 Consult Rx Perform Med Rec MISCELLANE ONCE PRN Consult order Polyethylene Glycol 17 gm 03/20/20 09:00 03/21/20 09:44 Polyethylene Glycol 3350 17 Gm Powd.Pack PO 17 gm BID ANUJ Administration Sodium Chloride 3 ml 03/06/20 08:00 03/21/20 09:42 0.9 % Sodium Chloride Flush 3 Ml Syringe IVFLUSH 3 ml QSHIFT ANUJ Administration Trazodone HCl 100 mg 03/06/20 21:00 03/20/20 21:07 Trazodone Hcl 100 Mg Tablet PO Not Given BEDTIME ANUJ Valproic Acid 750 mg 03/06/20 09:00 03/21/20 10:52 Valproic Acid 250 Mg Capsule PO Not Given BID ANUJ Vitamin D 50 mcg 03/06/20 09:00 03/21/20 09:43 Cholecalciferol (Vitamin D3) 25 Mcg Tablet PO 50 mcg DAILY ANUJ Administration Labs CBC & Chem 7: 03/22/20 05:34 03/22/20 05:34 Microbiology Microbiology Results: Microbiology 03/06/20 03:50 Blood - Venous Blood Culture - Final No growth after 5 days. 03/06/20 03:49 Blood - Venous Blood Culture - Final No growth after 5 days. Assessment and Plan (1) Schizoaffective disorder: Status: Acute Assessment and Plan: 69yo F with NSCLC, COPD, psychotic disorder who resides in a assisted previously admitted from Oncology clinic 02/27-03/05/20 due to pleural effusion and COPD exacerbation readmitted with hypotension, tachycardia, concern of cavitary PNA/loculated pleural effusion on CT chest persistent confusion/disorganized speech 1.Encephalopathy vs. psychotic decompensation no brain mets on CT, TSH normal, Evaluated by psych , feel that pt will need inpatient evaluation and management per psych -seems improving mental status wright d/w case management-will need bhn reeval 2.Chronic Hypotension improving started on midodrine continue midodrine 10 mg t.i.d. cortisol levels PENDING monitor blood pressure hold Coreg Case ticks a discussed with Nephro and ICU: Borderline blood pressure probably multifactorial, poor oral intake, hypoalbuminemia, dehydration. Continue normal saline, will add hydrocortisone and albumin in addition to above, Mild Hyperkalemia wright patient was given Kayexalate Monitor BMP and electrolytes in the morning as per Nephro . 3. Tachycardia likely related to underlying anxiety and psych issues Doppler neg for DVT. -CTA -ve for PE 4.Pleural effusion ?cavitary pneumonia s/p thoracentesis 02/29/20, exudate, culture-negative, cytology benign treated with 3d of levofloxacin and 4d of cefuroxime. back on levofloxacin, d#01/06 consulted Pulmonology + ID + Thoracic; discussed with pt's oncologist Dr Tony and plan is to manage expectantly for now and repeat CXR in 1-2 wk Chest x-ray repeated: So so right-sided pleural effusion-will add ultrasound, if needed then we will tap the fluid. 5. COPD exacerbation, resolved prednisone taper completed 03/09, continue controller ICS/LABA + prn YESIKA added nebs back , may need to add steriods if needed. 6. hypoxic respiratory failure taper off O2, will check vbg in am. 7.NSCLC followed by Dr Tony, on immune-based chemotherapy with nivolumab Hyperthyroidism TSH 9.64, free T4 0.94, free T3 2.1. MMZ dose decreased from 10 to 5 mg/d. DM2, A1c 7.1, with hypoglycemia - d/c'ed oral hypoglycemics - LDSSI Diet wright patient diet further adjusted as per speech and Swallow, lows potassium diet. HLD - continue statin GERD - continue PPI INA - continue Fe supplementation Psych disorder - continue clozapine, haloperidol, benztropine, valproate VTE ppx - LMWH dispo Medically stable awaiting inpatient psych at [facility]
--- NOTE | 2020-03-21 14:53 | P.PNTS_ITS ---
Subjective Subjective Date of Service: 03/22/20 Patient reports: no new complaints Interval history: Thoracic surgery re-consulted following a chest x-ray that was performed today which showed small right pleural effusion, hydropneumothorax, and ? new right chest tube placement. Patient seen and examined this afternoon. Denies any shortness of breath, fevers, or cough. Currently on 2L nasal cannula. Resting comfortably in recliner chair and eating lunch (pureed dysphagia diet). Speaking in full sentences. Pleasantly confused. Denies nausea, vomiting, or diarrhea. No other complaints at this time. Physical Exam Vital Signs: Vital Signs: Last Vital Signs Temp 97.8 F 03/21/20 10:53 Pulse 108 H 03/21/20 10:53 Resp 16 03/21/20 10:53 BP 94/54 L 03/21/20 13:34 Pulse Ox 99 03/21/20 10:53 Body Mass Index 23.0 Const: General: cooperative, healthy appearing, comfortable and no acute distress Nutritional Appearance: well nourished Orientation/consciousness: oriented to person and oriented to time Limitations: no limitations HENMT: Head: Yes normal to inspection, Yes normocephalic and Yes atraumatic Mouth: Normal oral and palatal mucosa present Eyes: Visual Willard: normal visual willard by confrontation Alignment and Position: alignment normal Periorbital: periorbital findings normal Conjunctivae: conjunctivae normal Sclerae: sclerae normal Pupils: Equal, round and reactive pupils present and Pupil accommodation reflex normal EOM: EOMs intact bilaterally Neck: Neck: Yes normal visual inspection, Yes full ROM, Yes no lymphadenopathy, Yes trachea midline, Yes supple, No lymphadenopathy, No tender and No tracheal deviation Lymphatic: no lymphadenopathy noted Chest: Chest palpation & inspection: normal inspection of the chest and no crepitus Resp: Other: Lungs are clear to auscultation to bilateral upper lobes. Right lung base diminished. Left lung base with fine crackles. No chest tube present. Effort & Inspection: normal respiratory effort, able to speak in complete sentences, normal respiratory pattern, no audible wheezes, no cough, no pursed lip breathing, no respiratory distress, no stridor, not tachypneic and no tracheal deviation Cardio: Jugular venous distension: no JVD Palpation: normal PMI Rate: regular rate Rhythm: regular rhythm Heart sounds: S1 normal heart sound present, S2 normal heart sound present, no click, no gallops, no murmurs and no rubs GI: Inspection: Yes normal to inspection Auscultation: normal bowel sounds : General: Yes no CVA tenderness Back/Spine/Pelvis: Back: no CVA tenderness Thoracic/Lumbar Spine: thoracic and lumbar spine normal to inspection Skin: General skin exam: no rashes or lesions noted and dry skin Lesions: no lesions Rashes: no rashes Neuro: General: oriented to person and oriented to time Cranial nerves: Yes Equal, round and reactive pupils present Extrem: General: Yes normal to inspection, Yes full ROM, Yes capillary refill normal, Yes no clubbing, cyanosis or edema, Yes no pedal edema and Yes normal gait Psych: Appearance: grossly normal and well kempt Mental Status: mental status grossly normal Speech and movement: Normal speech and movement present and Clear speech present Affect: normal affect Attitude: cooperative Thought content: Normal thought content present Progress Note: A&P Assessment and plan (1) Pleural effusion, right: Status: Acute Assessment and Plan: Patient is a 69 y.o. female with PMH of right lung squamous cell carcinoma (deemed inoperable and s/p ration therapy and currently on immunotherapy) now with small/moderate right pleural effusion and small hydropneumothorax with ? trapped lung. Right pleural effusion/hydropneumothorax: * Thoracic surgery consulted for management of right pleural effusion, hydropneumothorax, and ? right chest tube found on chest x-ray this am. After thorough physical examination and chart review, patient does not have a chest tube. It appears this was a mistake in finding on the radiology report and was in fact her external female catheter tubing (purewick). No need for chest tube management at this time. * CXR reading from this am revealed new left lower lobe atelectasis/pneumonia. Small to moderate right pleural effusion with new right chest tube. There may be a small hydropneumothorax at the right lung base. Abnormal density in the right hilum and right base atelectasis/consolidation similar to previous exams. In regards to her right pleural effusion and small hydropneumothorax, I have reviewed her previous chest x-rays and this appears to be similar to previous radiological findings. There is a small reaccumulation of her right pleural effusion (likely related to progression of her cancer) today but patient appears to be asymptomatic and in no distress at this time. * Repeat chest x-ray tomorrow am. Will follow w/ serial chest x-rays. * If fluid continues to reaccumulate, may consider drainage by IR w/ either another thoracentesis or pleurX indwelling catheter placement if patient becomes symptomatic. * Hydropneumothorax is stable at this time * Pulmonary toileting, I/S, acapella, cough and deep breathe * PRN nebs * Previously on abx for ? cavitary pneumonia, pulmonary following. Patient without leukocytosis. Isolated episode of fever today, awaiting culture results per ID. Case discussed with Dr. Vega. Thank you for this consult. Will continue to follow. Please do not hesitate to call with any questions or concerns. Fall Risk Details Current Medications: Current Medications Generic Name Dose Route Start Last Admin Trade Name Freq PRN Reason Stop Dose Admin Acetaminophen 650 mg 03/06/20 07:11 03/11/20 15:53 Acetaminophen 325 Mg Tablet PO 650 mg Q6H PRN Administration Pain, Mild (Pain Scale 1-3) Albuterol Sulfate 90 puff 03/06/20 12:00 Albuterol Sulfate 90 Mcg 18 Gm Inhaler INHALE RQ6H PRN Wheezing Ascorbic Acid 500 mg 03/06/20 09:00 03/21/20 09:43 Ascorbic Acid 500 Mg Tablet PO 500 mg BID ANUJ Administration Aspirin 81 mg 03/06/20 09:00 03/21/20 09:42 Aspirin Enteric Coated 81 Mg Tablet. PO 81 mg DAILY ANUJ Administration Atorvastatin Calcium 10 mg 03/06/20 21:00 03/20/20 21:05 Atorvastatin Calcium 10 Mg Tablet PO 10 mg BEDTIME ANUJ Administration Benztropine Mesylate 1 mg 03/06/20 09:00 03/21/20 09:44 Benztropine Mesylate 1 Mg Tablet PO 1 mg BID ANUJ Administration Clozapine 50 mg 03/06/20 21:00 03/20/20 21:12 Clozapine 25 Mg Tablet PO 50 mg BEDTIME ANUJ Administration Docusate Sodium 100 mg 03/06/20 07:11 Docusate Sodium 100 Mg Capsule PO DAILY PRN Constipation Enoxaparin Sodium 40 mg 03/06/20 08:00 03/21/20 09:42 Enoxaparin Sodium 40 Mg/0.4 Ml Syringe SUBCUT 40 mg Q24H ANUJ Administration Ferrous Sulfate 324 mg 03/06/20 09:00 03/21/20 09:42 Ferrous Sulfate 324 Mg Tablet. PO 324 mg BID ANUJ Administration Fluticasone/Vilanterol 1 puff 03/07/20 08:00 03/21/20 07:34 Fluticasone/Vilanterol 100/25 Blst.W.Dev INHALE 1 puff RDAILY ANUJ Administration Haloperidol 5 mg 03/06/20 21:00 03/20/20 21:05 Haloperidol 5 Mg Tablet PO 5 mg BEDTIME ANUJ Administration Promethazine HCl 6.25 mg/ 50.25 mls @ 201 mls/hr 03/20/20 08:55 Sodium Chloride IV Q6H PRN Nausea Albumin Human 100 mls @ 100 mls/hr 03/21/20 14:13 Kedbumin 25 % IV 03/21/20 15:12 NOW STA Albumin Human 100 mls @ 100 mls/hr 03/21/20 17:15 Kedbumin 25 % IV 03/21/20 18:14 ONCE ONE Albumin Human 100 mls @ 100 mls/hr 03/22/20 00:15 Kedbumin 25 % IV 03/22/20 01:14 ONCE ONE Insulin Human Lispro 0 unit 03/06/20 07:30 03/21/20 12:01 Insulin Lispro 100 Unit/Ml 3 Ml Vial SUBCUT 4 unit QIDACHS ANUJ Administration Protocol Levalbuterol HCl 1.25 mg 03/20/20 20:00 03/21/20 13:08 Levalbuterol Hcl 1.25 Mg/3 Ml Vial.Neb INHALE 1.25 mg RTID ANUJ Administration Methimazole 5 mg 03/10/20 09:00 03/21/20 09:43 Methimazole 10 Mg Tablet PO 5 mg DAILY ANUJ Administration Midodrine 10 mg 03/17/20 09:00 03/21/20 09:44 Midodrine Hcl 10 Mg Tablet PO 10 mg TID ANUJ Administration Mirabegron 50 mg 03/06/20 09:00 03/21/20 09:42 Mirabegron 50 Mg Tab.Er.24h PO 50 mg DAILY ANUJ Administration Omeprazole 20 mg 03/06/20 09:00 03/21/20 09:43 Omeprazole 20 Mg Capsule. PO 20 mg DAILY ANUJ Administration Ondansetron HCl 4 mg 03/06/20 07:11 03/20/20 09:01 Ondansetron Hcl 4 Mg/2 Ml Vial IVPUSH 4 mg Q8H PRN Administration Nausea and Vomiting Pharmacy Consult 1 each 03/06/20 04:00 Consult Rx Perform Med Rec MISCELLANE ONCE PRN Consult order Polyethylene Glycol 17 gm 03/20/20 09:00 03/21/20 09:44 Polyethylene Glycol 3350 17 Gm Powd.Pack PO 17 gm BID ANUJ Administration Sodium Chloride 3 ml 03/06/20 08:00 03/21/20 09:42 0.9 % Sodium Chloride Flush 3 Ml Syringe IVFLUSH 3 ml QSHIFT ANUJ Administration Trazodone HCl 100 mg 03/06/20 21:00 03/20/20 21:07 Trazodone Hcl 100 Mg Tablet PO Not Given BEDTIME ANUJ Valproic Acid 750 mg 03/06/20 09:00 03/21/20 10:52 Valproic Acid 250 Mg Capsule PO Not Given BID ANUJ Vitamin D 50 mcg 03/06/20 09:00 03/21/20 09:43 Cholecalciferol (Vitamin D3) 25 Mcg Tablet PO 50 mcg DAILY ANUJ Administration Time Spent With Patient Time: Total time spent is greater than 50% in coordination of care (as documented) at patient's floor/unit and/or counseling patient: Time with patient: 25 - 35 minutes
[2020-03-21] MEDS: Albumin Human 25 % 100 ML IV ×2 (15:11→16:52)
[2020-03-21 16:25] LABS: Glucose, Whole Blood 129 mg/dL (60-115)
[2020-03-21] MEDS: Hydrocortisone Sod Succ/PF 100 MG VIAL IVPUSH (16:47)
[2020-03-21] MEDS: 0.9 % Sodium Chloride 1,000 ML 100 ML IV (16:47)
[2020-03-21] MEDS: traZODone HCL 100 MG TABLET PO (20:35)
[2020-03-21] MEDS: Hydrocortisone Sod Succ/PF 100 MG VIAL 50 MG IVPUSH (20:35)
[2020-03-21] MEDS: HaloperidoL 5 MG TABLET PO (20:36)
[2020-03-21] MEDS: Atorvastatin Calcium 10 MG TABLET PO (20:36)
[2020-03-21] MEDS: cloZAPine 25 MG TABLET 50 MG PO (20:36)
[2020-03-21 21:16] LABS: Glucose, Whole Blood 230 mg/dL (60-115)
[2020-03-22] VITALS (13 sets, daily range): BP systolic 98–120; BP diastolic 52–68; PULSE 82–115; RESP 16–20; TEMP 36.4–36.6; O2SAT 90–99
[2020-03-22] MEDS: Albumin Human 25 % 100 ML IV (00:55)
[2020-03-22] MEDS: LORazepam 2 MG/ML VIAL 0.5 MG IVPUSH (04:42)
[2020-03-22] MEDS: Hydrocortisone Sod Succ/PF 100 MG VIAL 50 MG IVPUSH ×3 (04:42→15:47)
--- NOTE | 2020-03-22 06:00 | XR_ITS ---
EXAMINATION: XR CHEST CLINICAL INFORMATION: Right effusion, small right hydropneumothorax. Follow-up. COMPARISON: Ultrasound chest 03/21/2020, chest radiographs 03/21/2020, 03/06/2020; CTA chest 03/11/2020. TECHNIQUE: Portable upright AP view of the chest was obtained. FINDINGS: Patient is rotated. There is left-sided tunneled port again seen. There is moderate right effusion with fluid tracking in the oblique fissure, tracking in the minor fissure, and extending along the superior-lateral right pleural space. This is similar to borderline decreased from prior exam 03/21/2020. The left lung is clear. There is retrocardiac density consistent with hiatal hernia as seen on CT. The vascularity is normal. There is no pneumothorax appreciated. Bony structures are stable. XR/XR chest 1V IMPRESSION: 1. Moderate right effusion with fluid tracking in the right fissures similar to decreased from prior exam 03/21/2020. 2. Left lung clear. No visible pneumothorax. 3. Hiatal hernia.
[2020-03-22 06:24] LABS: Hematocrit 26.7 % (37-47); Hemoglobin 7.9 g/dl (12.0-16.0); Mean Corpuscular HGB Conc 29.6 g/dl (31.0-35.0); Mean Corpuscular Hemoglobin 29.4 pg (27.0-33.0); Mean Corpuscular Volume 99.3 fL (80-98); Mean Platelet Volume 10.1 fL (9.4-12.3); Platelet Count 201 X10*3/uL (160-400); Red Blood Count 2.69 X10*6/uL (4.20-5.50); Red Cell Distribution Width 15.5 % (11.0-16.0); White Blood Count 4.4 X10*3/uL (4.8-10.8)
[2020-03-22 06:48] LABS: Albumin Level 3.5 g/dL (3.5-5.0)
[2020-03-22 07:10] LABS: Anion Gap 12 (12-20); Blood Urea Nitrogen 15 mg/dL (9-16); Calcium 10.1 mg/dL (8.4-10.2); Carbon Dioxide 27 mmol/L (22-29); Chloride 108 mmol/L (96-108); Estimated Glomerular Filt Rate 50; Glucose Random 224 mg/dL (60-115); Potassium 3.6 mmol/l (3.3-5.1); Sodium 143 mmol/L (135-145)
[2020-03-22 07:34] LABS: Glucose, Whole Blood 205 mg/dL (60-115)
[2020-03-22] MEDS: levalbuterol HCL 1.25 MG/3 ML VIAL.NEB INHALE ×3 (07:34→19:29)
[2020-03-22] MEDS: Fluticasone/Vilanterol 100/25 BLST.W.DEV 1 PUFF INHALE (07:34)
[2020-03-22] MEDS: Enoxaparin Sodium 40 MG/0.4 ML SYRINGE SUBCUT (08:18)
[2020-03-22] MEDS: Insulin Lispro 100 UNIT/ML 3 ML VIAL SUBCUT ×3 (08:18→17:14)
[2020-03-22] MEDS: methIMAzole 10 MG TABLET 5 MG PO (08:19)
[2020-03-22] MEDS: Midodrine HCl 10 MG TABLET PO ×3 (08:19→21:30)
[2020-03-22] MEDS: Ascorbic Acid 500 MG TABLET PO ×2 (08:19→21:30)
[2020-03-22] MEDS: Benztropine Mesylate 1 MG TABLET PO ×2 (08:20→21:30)
[2020-03-22] MEDS: Aspirin Enteric Coated 81 MG TABLET.DR PO (08:20)
[2020-03-22] MEDS: Cholecalciferol (Vitamin D3) 25 MCG TABLET 50 MCG PO (08:20)
[2020-03-22] MEDS: Mirabegron 50 MG TAB.ER.24H PO (08:20)
[2020-03-22] MEDS: 0.9 % Sodium Chloride Flush 3 ML SYRINGE IVFLUSH ×2 (08:20→15:47)
[2020-03-22] MEDS: Ferrous Sulfate 324 MG TABLET.DR PO (08:20)
[2020-03-22] MEDS: Omeprazole 20 MG CAPSULE.DR PO ×2 (08:20→17:15)
[2020-03-22] MEDS: polyethylene glycoL 3350 17 GM POWD.PACK PO (08:20)
[2020-03-22 08:23] LABS: Valproate 25.3 mcg/mL (50.0-100.0)
--- NOTE | 2020-03-22 08:41 | PM.PNTS ---
Subjective Subjective Date of Service: 04/10/20 Patient reports: no new complaints Interval history: Patient seen and examined this morning. Resting comfortably in the bed, currently on 2 L nasal cannula. Patient denies any shortness of breath, fevers, cough, or chest pains. Patient is incontinent of urine, pure wick catheter in place. No events overnight. Physical Exam Vital Signs: Vital Signs: Last Vital Signs Temp 97.9 F 03/22/20 03:41 Pulse 108 H 03/22/20 07:44 Resp 20 03/22/20 07:44 BP 120/68 03/22/20 07:44 Pulse Ox 94 03/22/20 07:44 Body Mass Index 23.0 Const: General: cooperative, healthy appearing, comfortable and no acute distress Nutritional Appearance: well nourished Orientation/consciousness: oriented to person and oriented to time Limitations: no limitations HENMT: Head: Yes normal to inspection, Yes normocephalic and Yes atraumatic Mouth: Normal oral and palatal mucosa present Eyes: Visual Willard: normal visual willard by confrontation Alignment and Position: alignment normal Periorbital: periorbital findings normal Conjunctivae: conjunctivae normal Sclerae: sclerae normal Pupils: Equal, round and reactive pupils present and Pupil accommodation reflex normal EOM: EOMs intact bilaterally Neck: Neck: Yes normal visual inspection, Yes full ROM, Yes no lymphadenopathy, Yes trachea midline, Yes supple, No lymphadenopathy, No tender and No tracheal deviation Lymphatic: no lymphadenopathy noted Chest: Chest palpation & inspection: normal inspection of the chest and no crepitus Resp: Other: Lung sounds with rhonchi scattered throughout. Right lower lung base diminished to auscultation. Patient is currently on 2 L nasal cannula. She is able to speak in full sentences and is in no visible respiratory distress. Effort & Inspection: normal respiratory effort, able to speak in complete sentences, normal respiratory pattern, no audible wheezes, no cough, no pursed lip breathing, no respiratory distress, no stridor, not tachypneic and no tracheal deviation Cardio: Jugular venous distension: no JVD Palpation: normal PMI Rate: regular rate Rhythm: regular rhythm Heart sounds: S1 normal heart sound present, S2 normal heart sound present, no click, no gallops, no murmurs and no rubs GI: Inspection: Yes normal to inspection Auscultation: normal bowel sounds : General: Yes no CVA tenderness Back/Spine/Pelvis: Back: no CVA tenderness Thoracic/Lumbar Spine: thoracic and lumbar spine normal to inspection Skin: General skin exam: no rashes or lesions noted and dry skin Lesions: no lesions Rashes: no rashes Neuro: General: oriented to person, oriented to time and gait normal Cranial nerves: Yes Equal, round and reactive pupils present Extrem: General: Yes normal to inspection, Yes full ROM, Yes capillary refill normal, Yes no clubbing, cyanosis or edema, Yes no pedal edema and Yes normal gait Psych: Appearance: grossly normal and well kempt Mental Status: mental status grossly normal Speech and movement: Normal speech and movement present and Clear speech present Affect: normal affect Attitude: cooperative Thought process: Normal thought process present Thought content: Normal thought content present Progress Note: A&P Fall Risk Details Current Medications: Current Medications Generic Name Dose Route Start Last Admin Trade Name Freq PRN Reason Stop Dose Admin Acetaminophen 650 mg 03/06/20 07:11 03/11/20 15:53 Acetaminophen 325 Mg Tablet PO 650 mg Q6H PRN Administration Pain, Mild (Pain Scale 1-3) Albuterol Sulfate 90 puff 03/06/20 12:00 Albuterol Sulfate 90 Mcg 18 Gm Inhaler INHALE RQ6H PRN Wheezing Ascorbic Acid 500 mg 03/06/20 09:00 03/22/20 08:19 Ascorbic Acid 500 Mg Tablet PO 500 mg BID ANUJ Administration Aspirin 81 mg 03/06/20 09:00 03/22/20 08:20 Aspirin Enteric Coated 81 Mg Tablet. PO 81 mg DAILY ANUJ Administration Atorvastatin Calcium 10 mg 03/06/20 21:00 03/21/20 20:36 Atorvastatin Calcium 10 Mg Tablet PO 10 mg BEDTIME ANUJ Administration Benztropine Mesylate 1 mg 03/06/20 09:00 03/22/20 08:20 Benztropine Mesylate 1 Mg Tablet PO 1 mg BID ANUJ Administration Clozapine 50 mg 03/06/20 21:00 03/21/20 20:36 Clozapine 25 Mg Tablet PO 50 mg BEDTIME ANUJ Administration Docusate Sodium 100 mg 03/06/20 07:11 Docusate Sodium 100 Mg Capsule PO DAILY PRN Constipation Ferrous Sulfate 324 mg 03/06/20 09:00 03/22/20 08:20 Ferrous Sulfate 324 Mg Tablet. PO 324 mg BID ANUJ Administration Fluticasone/Vilanterol 1 puff 03/07/20 08:00 03/22/20 07:34 Fluticasone/Vilanterol 100/25 Blst.W.Dev INHALE 1 puff RDAILY ANUJ Administration Haloperidol 5 mg 03/06/20 21:00 03/21/20 20:36 Haloperidol 5 Mg Tablet PO 5 mg BEDTIME ANUJ Administration Hydrocortisone Sodium Succinate 50 mg 03/21/20 22:00 03/22/20 08:18 Hydrocortisone Sod Succ/Pf 100 Mg Vial IVPUSH 03/22/20 16:01 50 mg Q6H ANUJ Administration Promethazine HCl 6.25 mg/ 50.25 mls @ 201 mls/hr 03/20/20 08:55 Sodium Chloride IV Q6H PRN Nausea Insulin Human Lispro 0 unit 03/06/20 07:30 03/22/20 08:18 Insulin Lispro 100 Unit/Ml 3 Ml Vial SUBCUT 4 unit QIDACHS ANUJ Administration Protocol Levalbuterol HCl 1.25 mg 03/20/20 20:00 03/22/20 07:34 Levalbuterol Hcl 1.25 Mg/3 Ml Vial.Neb INHALE 1.25 mg RTID ANUJ Administration Methimazole 5 mg 03/10/20 09:00 03/22/20 08:19 Methimazole 10 Mg Tablet PO 5 mg DAILY ANUJ Administration Midodrine 10 mg 03/17/20 09:00 03/22/20 08:19 Midodrine Hcl 10 Mg Tablet PO 10 mg TID ANUJ Administration Mirabegron 50 mg 03/06/20 09:00 03/22/20 08:20 Mirabegron 50 Mg Tab.Er.24h PO 50 mg DAILY ANUJ Administration Omeprazole 20 mg 03/06/20 09:00 03/22/20 08:20 Omeprazole 20 Mg Capsule. PO 20 mg DAILY ANUJ Administration Omeprazole 20 mg 03/22/20 16:30 Omeprazole 20 Mg Capsule. PO BID@0630,1630 [facility] Ondansetron HCl 4 mg 03/06/20 07:11 03/20/20 09:01 Ondansetron Hcl 4 Mg/2 Ml Vial IVPUSH 4 mg Q8H PRN Administration Nausea and Vomiting Pharmacy Consult 1 each 03/06/20 04:00 Consult Rx Perform Med Rec MISCELLANE ONCE PRN Consult order Polyethylene Glycol 17 gm 03/20/20 09:00 03/22/20 08:20 Polyethylene Glycol 3350 17 Gm Powd.Pack PO 17 gm BID ANUJ Administration Sodium Chloride 3 ml 03/06/20 08:00 03/22/20 08:20 0.9 % Sodium Chloride Flush 3 Ml Syringe IVFLUSH 3 ml QSHIFT ANUJ Administration Trazodone HCl 100 mg 03/06/20 21:00 03/21/20 20:35 Trazodone Hcl 100 Mg Tablet PO 100 mg BEDTIME ANUJ Administration Valproic Acid 750 mg 03/06/20 09:00 03/22/20 08:40 Valproic Acid 250 Mg Capsule PO Not Given BID ANUJ Vitamin D 50 mcg 03/06/20 09:00 03/22/20 08:20 Cholecalciferol (Vitamin D3) 25 Mcg Tablet PO 50 mcg DAILY ANUJ Administration Time Spent With Patient Time: Total time spent is greater than 50% in coordination of care (as documented) at patient's floor/unit and/or counseling patient: Time with patient: 15 - 24 minutes
[2020-03-22 09:05] LABS: Iron 40 mcg/dL (30-160); Percent Iron Saturation 29 % (15-50); Total Iron Binding Capacity 136 mcg/dL (228-428); Unsaturated Iron Binding 96 ug/dL
[2020-03-22 09:26] LABS: Ferritin 455 ng/mL (10-250)
[2020-03-22 09:46] LABS: Folate 7.9 ng/mL (> or = 4.0); Vitamin B12 826 pg/mL (200-900)
[2020-03-22 10:23] LABS: Hematocrit 29.5 % (37-47); Hemoglobin 8.7 g/dl (12.0-16.0)
--- NOTE | 2020-03-22 11:07 | MHC.SLORD ---
APPRENTICE PATTERN MAKER was not able to wake patient for PO trials this morning. APPRENTICE PATTERN MAKER will continue to follow. Name: Meenakshi Gerber Date of : 1950 Age: 69 Date of Registration: 03/06/20 Speech Language Pathology Order Status:
[2020-03-22 12:09] LABS: Glucose, Whole Blood 321 mg/dL (60-115)
--- NOTE | 2020-03-22 13:47 | P.PNNP_ITS ---
Subjective Subjective Date of Service: 03/22/20 Interval history: seen and examined no complaints Physical Exam Vital Signs: Vital Signs: Last Vital Signs Temp 97.9 F 03/22/20 03:41 Pulse 108 H 03/22/20 07:44 Resp 20 03/22/20 07:44 BP 120/68 03/22/20 07:44 Pulse Ox 94 03/22/20 07:44 Body Mass Index 23.0 Const: General: no acute distress HENMT: Head: Yes normocephalic and Yes atraumatic Neck: Neck: Yes supple Resp: Auscultation: clear to auscultation bilaterally Cardio: Heart sounds: S1 normal heart sound present and S2 normal heart sound present GI: Palpation (GI): nontender Extrem: General: No edema Objective Data Labs CBC & Chem 7: 03/22/20 09:24 03/22/20 05:34 Labs: Laboratory Results - last 24 hr 03/21/20 03/21/20 03/22/20 16:17 21:04 05:34 WBC RBC Hgb Hct MCV MCH MCHC RDW Plt Count MPV Absolute Nucleated RBC Nucleated RBC % (auto) Sodium 143 Potassium 3.6 D Chloride 108 Carbon Dioxide 27 Anion Gap 12 BUN 15 Creatinine 1.09 Estim Creat Clear Calc 42.0 Estimated GFR 50 POC Glucose 129 H 230 H Random Glucose 224 H Calcium 10.1 Iron TIBC % Saturation Unsat Iron Binding Ferritin Albumin Vitamin B12 Folate Valproic Acid 25.3 L 03/22/20 03/22/20 03/22/20 05:34 05:34 05:34 WBC 4.4 L RBC 2.69 L D Hgb 7.9 L D Hct 26.7 L D MCV 99.3 H MCH 29.4 MCHC 29.6 L RDW 15.5 Plt Count 201 MPV 10.1 Absolute Nucleated RBC 0.000 Nucleated RBC % (auto) 0.0 Sodium Potassium Chloride Carbon Dioxide Anion Gap BUN Creatinine Estim Creat Clear Calc Estimated GFR POC Glucose Random Glucose Calcium Iron 40 TIBC 136 L % Saturation 29 Unsat Iron Binding 96 Ferritin 455 H Albumin 3.5 D Vitamin B12 826 Folate 7.9 Valproic Acid 03/22/20 03/22/20 03/22/20 07:30 09:24 12:06 WBC RBC Hgb 8.7 L Hct 29.5 L MCV MCH MCHC RDW Plt Count MPV Absolute Nucleated RBC Nucleated RBC % (auto) Sodium Potassium Chloride Carbon Dioxide Anion Gap BUN Creatinine Estim Creat Clear Calc Estimated GFR POC Glucose 205 H 321 H Random Glucose Calcium Iron TIBC % Saturation Unsat Iron Binding Ferritin Albumin Vitamin B12 Folate Valproic Acid Microbiology Microbiology Results: Microbiology 03/06/20 03:50 Blood - Venous Blood Culture - Final No growth after 5 days. 03/06/20 03:49 Blood - Venous Blood Culture - Final No growth after 5 days. Assessment & Plan Assessment and plan (1) GEGE (acute kidney injury): Status: Acute (2) Hypotension: Status: Acute (3) Hyperkalemia: Status: Acute Assessment and Plan: kidney function and serum potassium better blood pressure improve suspect component of intra vascular volume depletion GEGE due to compromised kidney perfusion in the setting of hypotension elevated serum potassium due to impaired distal flow clozaril can cause tachycardia and hypotension need to rule out adrenal insufficiency REC IVF follow random cortisol level continue midodrine consider discontinuation of clozaril follow kidney function and electrolytes Time Spent With Patient Time: Total time spent is greater than 50% in coordination of care (as document ed) at patient's floor/unit and/or counseling patient:
[2020-03-22 16:07] LABS: Glucose, Whole Blood 158 mg/dL (60-115)
--- NOTE | 2020-03-22 17:28 | PC.NURSE ---
pt coughs when eating food and drinking PO fluid, even when fluid is thickened. She pockets food in mouth and has poor swallowing.
--- NOTE | 2020-03-22 17:48 | P.PNIM_ITS ---
Subjective Subjective Date of Service: 03/23/20 Interval History: Borderline blood pressure Review of Systems Has some cough with food, otherwise seems more awake today, does not say any shortness of breath Physical Exam Vital Signs: Vital Signs: Last Vital Signs Temp 97.5 F 03/22/20 14:58 Pulse 82 03/22/20 15:47 Resp 16 03/22/20 14:58 BP 98/52 L 03/22/20 15:47 Pulse Ox 92 03/22/20 14:58 Body Mass Index 23.0 Physical exam: Constitutional: Not in acute distress. Cvs: rrr, [id number] , no murmur res: Grossly fair entry, mild diminished at bases. abd: no rebound or guarding ,nt, bs present. ext pulses present , no cyanosis neuro: more awake and alert, nonfocal. Objective Data Current Medications Generic Name Dose Route Start Last Admin Trade Name Freq PRN Reason Stop Dose Admin Acetaminophen 650 mg 03/06/20 07:11 03/11/20 15:53 Acetaminophen 325 Mg Tablet PO 650 mg Q6H PRN Administration Pain, Mild (Pain Scale 1-3) Albuterol Sulfate 90 puff 03/06/20 12:00 Albuterol Sulfate 90 Mcg 18 Gm Inhaler INHALE RQ6H PRN Wheezing Ascorbic Acid 500 mg 03/06/20 09:00 03/22/20 08:19 Ascorbic Acid 500 Mg Tablet PO 500 mg BID ANUJ Administration Aspirin 81 mg 03/06/20 09:00 03/22/20 08:20 Aspirin Enteric Coated 81 Mg Tablet. PO 81 mg DAILY ANUJ Administration Atorvastatin Calcium 10 mg 03/06/20 21:00 03/21/20 20:36 Atorvastatin Calcium 10 Mg Tablet PO 10 mg BEDTIME ANUJ Administration Benztropine Mesylate 1 mg 03/06/20 09:00 03/22/20 08:20 Benztropine Mesylate 1 Mg Tablet PO 1 mg BID ANUJ Administration Clozapine 50 mg 03/06/20 21:00 03/21/20 20:36 Clozapine 25 Mg Tablet PO 50 mg BEDTIME ANUJ Administration Docusate Sodium 100 mg 03/06/20 07:11 Docusate Sodium 100 Mg Capsule PO DAILY PRN Constipation Ferrous Sulfate 324 mg 03/06/20 09:00 03/22/20 08:20 Ferrous Sulfate 324 Mg Tablet. PO 324 mg BID ANUJ Administration Fluticasone/Vilanterol 1 puff 03/07/20 08:00 03/22/20 07:34 Fluticasone/Vilanterol 100/25 Blst.W.Dev INHALE 1 puff RDAILY ANUJ Administration Haloperidol 5 mg 03/06/20 21:00 03/21/20 20:36 Haloperidol 5 Mg Tablet PO 5 mg BEDTIME ANUJ Administration Promethazine HCl 6.25 mg/ 50.25 mls @ 201 mls/hr 03/20/20 08:55 Sodium Chloride IV Q6H PRN Nausea Insulin Human Lispro 0 unit 03/06/20 07:30 03/22/20 17:14 Insulin Lispro 100 Unit/Ml 3 Ml Vial SUBCUT 2 unit QIDACHS ANUJ Administration Protocol Levalbuterol HCl 1.25 mg 03/20/20 20:00 03/22/20 15:07 Levalbuterol Hcl 1.25 Mg/3 Ml Vial.Neb INHALE 1.25 mg RTID ANUJ Administration Methimazole 5 mg 03/10/20 09:00 03/22/20 08:19 Methimazole 10 Mg Tablet PO 5 mg DAILY ANUJ Administration Midodrine 10 mg 03/17/20 09:00 03/22/20 15:47 Midodrine Hcl 10 Mg Tablet PO 10 mg TID ANUJ Administration Mirabegron 50 mg 03/06/20 09:00 03/22/20 08:20 Mirabegron 50 Mg Tab.Er.24h PO 50 mg DAILY ANUJ Administration Omeprazole 20 mg 03/06/20 09:00 03/22/20 17:15 Omeprazole 20 Mg Capsule. PO 20 mg DAILY ANUJ Administration Omeprazole 20 mg 03/22/20 16:30 Omeprazole 20 Mg Capsule. PO BID@0630,1630 ANUJ Ondansetron HCl 4 mg 03/06/20 07:11 03/20/20 09:01 Ondansetron Hcl 4 Mg/2 Ml Vial IVPUSH 4 mg Q8H PRN Administration Nausea and Vomiting Pharmacy Consult 1 each 03/06/20 04:00 Consult Rx Perform Med Rec MISCELLANE ONCE PRN Consult order Polyethylene Glycol 17 gm 03/20/20 09:00 03/22/20 08:20 Polyethylene Glycol 3350 17 Gm Powd.Pack PO 17 gm BID ANUJ Administration Sodium Chloride 3 ml 03/06/20 08:00 03/22/20 15:47 0.9 % Sodium Chloride Flush 3 Ml Syringe IVFLUSH 3 ml QSHIFT ANUJ Administration Trazodone HCl 100 mg 03/06/20 21:00 03/21/20 20:35 Trazodone Hcl 100 Mg Tablet PO 100 mg BEDTIME ANUJ Administration Valproic Acid 750 mg 03/22/20 21:00 Valproic Acid (As Sodium Salt) 250 Mg/5 Ml Solution PO BID ANUJ Vitamin D 50 mcg 03/06/20 09:00 03/22/20 08:20 Cholecalciferol (Vitamin D3) 25 Mcg Tablet PO 50 mcg DAILY ANUJ Administration Labs CBC & Chem 7: 03/23/20 08:05 03/22/20 05:34 Microbiology Microbiology Results: Microbiology 03/06/20 03:50 Blood - Venous Blood Culture - Final No growth after 5 days. 03/06/20 03:49 Blood - Venous Blood Culture - Final No growth after 5 days. Assessment and Plan (1) Borderline blood pressure: Status: Acute Assessment and Plan: (1) Schizoaffective disorder: 69yo F with NSCLC, COPD, psychotic disorder who resides in a intermediate previously admitted from Oncology clinic 02/27-03/05/20 due to pleural effusion and COPD exacerbation readmitted with hypotension, tachycardia, concern of cavitary PNA/loculated pleural effusion on CT chest persistent confusion/disorganized speech 1.Encephalopathy vs. psychotic decompensation no brain mets on CT, TSH normal, Evaluated by psych , feel that pt will need inpatient evaluation and management per psych -seems improving mental status wright d/w case management-will need bhn reeval upon discharge. clozapine and depakote levels pending 2.Chronic Hypotension improving started on midodrine continue midodrine 10 mg t.i.d. cortisol levels 18.5 range monitor blood pressure hold Coreg Case ticks a discussed with Nephro and ICU: Borderline blood pressure probably multifactorial, poor oral intake, hypoalbuminemia, dehydration. given albumin ,ivf . blood pressure seems improving 3. Tachycardia likely related to underlying anxiety and psych issues Doppler neg for DVT. -CTA -ve for PE 4.Pleural effusion ?cavitary pneumonia s/p thoracentesis 02/29/20, exudate, culture-negative, cytology benign completed antiobiotics. consulted Pulmonology + ID + Thoracic; discussed with pt's oncologist Dr Tony and plan is to manage expectantly for now and repeat CXR in 1-2 wk Chest x-ray findings discussed with the thoracic surgery-recommended chest physio, incentive spirometry, pulmonary toileting, Acapella. If shortness of breath worsen patient become symptomatic may need chest CT to evaluate. 5. COPD exacerbation, resolved prednisone taper completed 03/09, xopnex and flovent. 6. hypoxic respiratory failure taper oxygen. 7.NSCLC followed by Dr Tony, on immune-based chemotherapy with nivolumab 8.Hyperthyroidism TSH 9.64, free T4 0.94, free T3 2.1. MMZ dose decreased from 10 to 5 mg/d. 9.DM2, A1c 7.1,: 150-200 - d/c'ed oral hypoglycemics - LDSSI 10Will keep today and p.o. since has coughing episode with feeding this evening. hold off feeding 11.HLD:continue statin 12. GERD: continue PPI 13. INA: continue Fe supplementation 14.Psych disorder:continue clozapine, haloperidol, benztropine, valproate 15 VTE ppx hold LMWH , scd due to anemia ,
[2020-03-22 19:53] LABS: Glucose, Whole Blood 105 mg/dL (60-115)
[2020-03-22] MEDS: cloZAPine 25 MG TABLET 50 MG PO (21:30)
[2020-03-22] MEDS: Atorvastatin Calcium 10 MG TABLET PO (21:30)
[2020-03-22] MEDS: traZODone HCL 100 MG TABLET PO (21:30)
[2020-03-22] MEDS: HaloperidoL 5 MG TABLET PO (21:30)
[2020-03-23] VITALS (10 sets, daily range): BP systolic 86–105; BP diastolic 55–59; PULSE 68–115; RESP 18; TEMP 35.3–36.8; O2SAT 91–103
[2020-03-23] MEDS: 0.9 % Sodium Chloride Flush 3 ML SYRINGE IVFLUSH ×3 (00:01→16:12)
[2020-03-23] MEDS: LORazepam 2 MG/ML VIAL 0.25 MG IVPUSH (04:58)
--- NOTE | 2020-03-23 07:07 | PC.RT ---
Ms. Gerber was evaluated for worsening changes of the right lung. She has a dry non-productive cough during CPT. She does well with manual CPT of the right lobes TID. Due to her altered mental status she is not the best candidate for IS and acapella. Nursing was consulted and they stated she started PT yesterday and they have a concern of aspiration. A speech evaluation may be helpful for her.
[2020-03-23 08:04] LABS: Glucose, Whole Blood 116 mg/dL (60-115)
[2020-03-23] MEDS: levalbuterol HCL 1.25 MG/3 ML VIAL.NEB INHALE ×3 (08:14→19:47)
[2020-03-23 08:36] LABS: Hematocrit 30.1 % (37-47); Hemoglobin 8.9 g/dl (12.0-16.0)
[2020-03-23] MEDS: methIMAzole 10 MG TABLET 5 MG PO (10:15)
[2020-03-23] MEDS: Benztropine Mesylate 1 MG TABLET PO ×2 (10:15→20:04)
[2020-03-23] MEDS: Cholecalciferol (Vitamin D3) 25 MCG TABLET 50 MCG PO (10:18)
[2020-03-23] MEDS: Ascorbic Acid 500 MG TABLET PO ×2 (10:18→20:04)
[2020-03-23] MEDS: Ferrous Sulfate 324 MG TABLET.DR PO ×2 (10:19→20:04)
[2020-03-23] MEDS: Mirabegron 50 MG TAB.ER.24H PO (10:19)
[2020-03-23] MEDS: Midodrine HCl 10 MG TABLET PO ×3 (10:20→20:04)
--- NOTE | 2020-03-23 11:12 | HO.PM.IMPN ---
Subjective Subjective Date of Service: 03/23/20 Interval History: boderline blood pressures Review of Systems Patient oral intake wright-bedside tried by the staff tolerating pureed without coughing. Will need one-to-one feeding though, seems more awake, was put out of bed to chair. Physical Exam Vital Signs: Vital Signs: Last Vital Signs Temp 98 F 03/23/20 04:00 Pulse 105 H 03/23/20 08:17 Resp 18 03/23/20 04:00 BP 102/55 L 03/23/20 04:00 Pulse Ox 94 03/23/20 04:00 Body Mass Index 23.0 Physical exam: Constitutional: Not in acute distress Cvs: rrr, [id number] , no murmur res:fair air enrty , slightly diminshed at bases abd: no rebound or guarding ,nt, bs present. ext pulses present , no cyanosis neuro: axo3 , nonfocal. Objective Data Current Medications Generic Name Dose Route Start Last Admin Trade Name Freq PRN Reason Stop Dose Admin Acetaminophen 650 mg 03/06/20 07:11 03/11/20 15:53 Acetaminophen 325 Mg Tablet PO 650 mg Q6H PRN Administration Pain, Mild (Pain Scale 1-3) Albuterol Sulfate 90 puff 03/06/20 12:00 Albuterol Sulfate 90 Mcg 18 Gm Inhaler INHALE RQ6H PRN Wheezing Ascorbic Acid 500 mg 03/06/20 09:00 03/23/20 10:18 Ascorbic Acid 500 Mg Tablet PO 500 mg BID ANUJ Administration Aspirin 81 mg 03/06/20 09:00 03/22/20 08:20 Aspirin Enteric Coated 81 Mg Tablet. PO 81 mg DAILY ANUJ Administration Atorvastatin Calcium 10 mg 03/06/20 21:00 03/22/20 21:30 Atorvastatin Calcium 10 Mg Tablet PO 10 mg BEDTIME ANUJ Administration Benztropine Mesylate 1 mg 03/06/20 09:00 03/23/20 10:15 Benztropine Mesylate 1 Mg Tablet PO 1 mg BID ANUJ Administration Clozapine 50 mg 03/06/20 21:00 03/22/20 21:30 Clozapine 25 Mg Tablet PO 50 mg BEDTIME ANUJ Administration Docusate Sodium 100 mg 03/06/20 07:11 Docusate Sodium 100 Mg Capsule PO DAILY PRN Constipation Ferrous Sulfate 324 mg 03/06/20 09:00 03/23/20 10:19 Ferrous Sulfate 324 Mg Tablet. PO 324 mg BID ANUJ Administration Fluticasone/Vilanterol 1 puff 03/07/20 08:00 03/23/20 08:16 Fluticasone/Vilanterol 100/25 Blst.W.Dev INHALE Not Given RDAILY ANUJ Haloperidol 5 mg 03/06/20 21:00 03/22/20 21:30 Haloperidol 5 Mg Tablet PO 5 mg BEDTIME ANUJ Administration Promethazine HCl 6.25 mg/ 50.25 mls @ 201 mls/hr 03/20/20 08:55 Sodium Chloride IV Q6H PRN Nausea Insulin Human Lispro 0 unit 03/06/20 07:30 03/23/20 08:42 Insulin Lispro 100 Unit/Ml 3 Ml Vial SUBCUT Not Given QIDACHS [facility] Protocol Levalbuterol HCl 1.25 mg 03/20/20 20:00 03/23/20 08:14 Levalbuterol Hcl 1.25 Mg/3 Ml Vial.Neb INHALE 1.25 mg RTID ANUJ Administration Methimazole 5 mg 03/10/20 09:00 03/23/20 10:15 Methimazole 10 Mg Tablet PO 5 mg DAILY ANUJ Administration Midodrine 10 mg 03/17/20 09:00 03/23/20 10:20 Midodrine Hcl 10 Mg Tablet PO 10 mg TID ANUJ Administration Mirabegron 50 mg 03/06/20 09:00 03/23/20 10:19 Mirabegron 50 Mg Tab.Er.24h PO 50 mg DAILY ANUJ Administration Omeprazole 20 mg 03/22/20 16:30 03/23/20 06:14 Omeprazole 20 Mg Capsule. PO Not Given BID@0630,1630 [facility] Ondansetron HCl 4 mg 03/06/20 07:11 03/20/20 09:01 Ondansetron Hcl 4 Mg/2 Ml Vial IVPUSH 4 mg Q8H PRN Administration Nausea and Vomiting Pharmacy Consult 1 each 03/06/20 04:00 Consult Rx Perform Med Rec MISCELLANE ONCE PRN Consult order Polyethylene Glycol 17 gm 03/20/20 09:00 03/23/20 10:20 Polyethylene Glycol 3350 17 Gm Powd.Pack PO Not Given BID ANUJ Sodium Chloride 3 ml 03/06/20 08:00 03/23/20 10:14 0.9 % Sodium Chloride Flush 3 Ml Syringe IVFLUSH 3 ml QSHIFT ANUJ Administration Trazodone HCl 100 mg 03/06/20 21:00 03/22/20 21:30 Trazodone Hcl 100 Mg Tablet PO 100 mg BEDTIME ANUJ Administration Valproic Acid 750 mg 03/22/20 21:00 03/23/20 10:14 Valproic Acid (As Sodium Salt) 250 Mg/5 Ml Solution PO 750 mg BID ANUJ Administration Vitamin D 50 mcg 03/06/20 09:00 03/23/20 10:18 Cholecalciferol (Vitamin D3) 25 Mcg Tablet PO 50 mcg DAILY ANUJ Administration Labs CBC & Chem 7: 03/23/20 08:05 03/22/20 05:34 Microbiology Microbiology Results: Microbiology 03/06/20 03:50 Blood - Venous Blood Culture - Final No growth after 5 days. 03/06/20 03:49 Blood - Venous Blood Culture - Final No growth after 5 days. Assessment and Plan (1) Borderline blood pressure: Status: Acute Assessment and Plan: (1) Schizoaffective disorder: 69yo F with NSCLC, COPD, psychotic disorder who resides in a [facility] previously admitted from Oncology clinic 02/27-03/05/20 due to pleural effusion and COPD exacerbation readmitted with hypotension, tachycardia, concern of cavitary PNA/loculated pleural effusion on CT chest persistent confusion/disorganized speech 1.Encephalopathy vs. psychotic decompensation no brain mets on CT, TSH normal, Evaluated by psych , feel that pt will need inpatient evaluation and management per psych -seems improving mental status wright, was little sleepy in the morning probably due to Ativan overnight. Seems more awake clozapine levels pending and depakote levels 25.3(low) psych wrihgt - may not need psych admission. d/w case management-will need bhn reeval upon discharge. 2.Chronic Hypotension: probable dehydration , poor oral inatke and started on midodrine, received trail of hydrocortisone as per Nephro and ICU.. High low Na of 1 imaging maybe cisternal dissected the continue midodrine 10 mg t.i.d. cortisol levels 18.5 range (normal) echo seems fine :ef 60-65% monitor blood pressure, hold Coreg Case discussed with Nephro and ICU: Borderline blood pressure probably multifactorial, poor oral intake, hypoalbuminemia, dehydration. given albumin ,ivf . blood pressure seems improving , put her oob Pt eval added yesterday also- 3. Tachycardia thought to be likely related to underlying anxiety and psych issues Doppler neg for DVT. CTA -ve for PE 4.Pleural effusion ?cavitary pneumonia s/p thoracentesis 02/29/20, exudate, culture-negative, cytology benign completed antiobiotics. consulted Pulmonology + ID + Thoracic; discussed with pt's oncologist Dr Tony -cxr repated : has pleural effusion similar oncology fu Chest x-ray findings discussed with the thoracic surgery-recommended chest physio, incentive spirometry, pulmonary toileting, Acapella- but it is challenging due to patient's underlying issues. If shortness of breath worsen patient become symptomatic may need chest CT to evaluate. 5. COPD exacerbation, resolved prednisone taper completed 03/09, xopnex and flovent. 6. hypoxic respiratory failure taper oxygen. 7.NSCLC followed by Dr Tony, on immune-based chemotherapy with nivolumab 8.Hyperthyroidism TSH 9.64, free T4 0.94, free T3 2.1. MMZ dose decreased from 10 to 5 mg/d. 9.DM2, A1c 7.1,: 150-200 - d/c'ed oral hypoglycemics - LDSSI 10? dysphagia: seems like as per staff patient is tolerating one-to-one pureed, will continue that, continue to monitor for aspiration . As patient could precautions. 11.HLD:continue statin 12. GERD: continue PPI 13. INA: continue Fe supplementation 14.Psych disorder:continue clozapine, haloperidol, benztropine, valproate 15 VTE ppx: will add back s/c heparin since h/h seems arouns 9 range stable , probable yesterday h/h moring reading was dilutional (2) GEGE (acute kidney injury): Status: Acute
[2020-03-23 12:05] LABS: Glucose, Whole Blood 219 mg/dL (60-115)
[2020-03-23 12:22] LABS: Glucose, Whole Blood 133 mg/dL (60-115)
[2020-03-23] MEDS: Heparin Sodium,Porcine 5,000 UNIT/ML VIAL 5000 UNIT SUBCUT (12:22)
--- NOTE | 2020-03-23 14:50 | MHC.CM.PN ---
DP PT FROM [facility]. DC PLAN HAS BEEN TO M-5. CM WILL FOLLOW TO ASSESS FOR CHANGE IN DC NEEDS.
[2020-03-23 16:11] LABS: Glucose, Whole Blood 100 mg/dL (60-115)
[2020-03-23] MEDS: Omeprazole 20 MG CAPSULE.DR PO (16:12)
[2020-03-23] MEDS: 0.9 % Sodium Chloride 1,000 ML 75 ML IVCONT (16:17)
--- NOTE | 2020-03-23 16:45 | PM.PNNEP ---
Subjective Subjective Date of Service: 03/23/20 Interval history: seen and exameind boderline blood pressures Physical Exam Vital Signs: Vital Signs: Last Vital Signs Temp 98.2 F 03/23/20 15:18 Pulse 68 03/23/20 16:11 Resp 18 03/23/20 15:18 BP 102/58 L 03/23/20 16:11 Pulse Ox 93 03/23/20 15:18 Body Mass Index 23.0 Const: General: no acute distress HENMT: Head: Yes normocephalic and Yes atraumatic Neck: Neck: Yes supple Resp: Auscultation: clear to auscultation bilaterally and diminished lung sounds Cardio: Heart sounds: S1 normal heart sound present and S2 normal heart sound present GI: Palpation (GI): Soft to palpation and nontender Extrem: General: No edema Objective Data Labs CBC & Chem 7: 03/23/20 08:05 03/22/20 05:34 Labs: Laboratory Results - last 24 hr 03/21/20 03/22/20 03/23/20 07:18 19:44 08:00 Hgb Hct POC Glucose 105 116 H Cortisol 18.5 03/23/20 03/23/20 03/23/20 08:05 12:01 12:18 Hgb 8.9 L Hct 30.1 L POC Glucose 219 H 133 H Cortisol 03/23/20 16:08 Hgb Hct POC Glucose 100 Cortisol Microbiology Microbiology Results: Microbiology 03/06/20 03:50 Blood - Venous Blood Culture - Final No growth after 5 days. 03/06/20 03:49 Blood - Venous Blood Culture - Final No growth after 5 days. Assessment & Plan Assessment and plan (1) GEGE (acute kidney injury): Status: Acute (2) Hypotension: Status: Acute (3) Hyperkalemia: Status: Acute Assessment and Plan: 1, gege; resolved 2. Hypotension: despite midrdine; adrenal insuff r/o as cortiol level ok REC: check orthostatic BP readings and if reains a prob then will consdier adding florinef of note clozaril can cause tachycardia and hypotension....consider discontinuation of clozaril follow kidney function and electrolytes Time Spent With Patient Time: Total time spent is greater than 50% in coordination of care (as documented) at patient's floor/unit and/or counseling patient:
--- NOTE | 2020-03-23 19:54 | PC.RT ---
manual CPT five 5 mins Right side
[2020-03-23] MEDS: HaloperidoL 5 MG TABLET PO (20:04)
[2020-03-23] MEDS: traZODone HCL 100 MG TABLET PO (20:04)
[2020-03-23] MEDS: Atorvastatin Calcium 10 MG TABLET PO (20:04)
[2020-03-23] MEDS: cloZAPine 25 MG TABLET 50 MG PO (20:04)
[2020-03-23 21:07] LABS: Glucose, Whole Blood 160 mg/dL (60-115)
[2020-03-24] VITALS (14 sets, daily range): BP systolic 91–133; BP diastolic 53–76; PULSE 112–140; RESP 18–25; TEMP 36.4–37.7; O2SAT 91–95
[2020-03-24] MEDS: Heparin Sodium,Porcine 5,000 UNIT/ML VIAL 5000 UNIT SUBCUT ×3 (00:21→23:34)
[2020-03-24] MEDS: 0.9 % Sodium Chloride Flush 3 ML SYRINGE IVFLUSH ×3 (00:26→17:20)
[2020-03-24] MEDS: 0.9 % Sodium Chloride 1,000 ML 75 ML IVCONT (05:58)
[2020-03-24] MEDS: Omeprazole 20 MG CAPSULE.DR PO ×2 (06:06→17:20)
[2020-03-24 06:55] LABS: Hematocrit 33.1 % (37-47); Hemoglobin 9.9 g/dl (12.0-16.0)
[2020-03-24 07:18] LABS: Anion Gap 15 (12-20); Blood Urea Nitrogen 15 mg/dL (9-16); Calcium 10.2 mg/dL (8.4-10.2); Carbon Dioxide 24 mmol/L (22-29); Chloride 115 mmol/L (96-108); Creatinine Clr Calc Pharmacy 53.9; Estimated Glomerular Filt Rate > 60; Glucose Random 78 mg/dL (60-115); Potassium 4.5 mmol/l (3.3-5.1); Sodium 149 mmol/L (135-145)
[2020-03-24] MEDS: levalbuterol HCL 1.25 MG/3 ML VIAL.NEB INHALE ×3 (07:48→19:58)
[2020-03-24 07:49] LABS: Glucose, Whole Blood 80 mg/dL (60-115)
[2020-03-24] MEDS: Midodrine HCl 10 MG TABLET PO ×3 (09:08→22:05)
[2020-03-24] MEDS: Mirabegron 50 MG TAB.ER.24H PO (09:09)
[2020-03-24] MEDS: methIMAzole 10 MG TABLET 5 MG PO (09:09)
[2020-03-24] MEDS: Cholecalciferol (Vitamin D3) 25 MCG TABLET 50 MCG PO (09:09)
[2020-03-24] MEDS: Ferrous Sulfate 324 MG TABLET.DR PO ×2 (09:10→22:05)
[2020-03-24] MEDS: Ascorbic Acid 500 MG TABLET PO ×2 (09:10→22:06)
[2020-03-24] MEDS: Benztropine Mesylate 1 MG TABLET PO (09:10)
[2020-03-24 11:29] LABS: Glucose, Whole Blood 131 mg/dL (60-115)
--- NOTE | 2020-03-24 12:18 | MHC.SLORD ---
[address] [address] Speech & Hearing [phone] Name: Meenakshi Gerber Date of : 1950 Age: 69 Date of Registration: 03/06/20 EQUIPMENT TESTER attempted to see pt this morning. Pt not cooperative this date and refused PO trials. While EQUIPMENT TESTER, pt stated she was feeling nauseous and that she needed a bed cortez. EQUIPMENT TESTER notified RN. EQUIPMENT TESTER will continue to follow during hospitalization. Speech Language Pathology Order Status:
--- NOTE | 2020-03-24 15:58 | P.PNIM_ITS ---
Subjective Subjective Date of Service: 03/24/20 Interval History: the patient was seen and evaluated this morning Laying in bed, feels comfortable with no specific Denies any fever, chills or shortness of breath No reported other overnight events. Systemic review: Not much verbal to communicate but reports feeling fine overall Rest of systemic reviews negative Physical Exam Vital Signs: Vital Signs: Last Vital Signs Temp 99.0 F 03/24/20 15:23 Pulse 140 H 03/24/20 15:23 Resp 25 H 03/24/20 15:23 BP 133/75 03/24/20 15:23 Pulse Ox 93 03/24/20 15:23 Body Mass Index 23.0 Constitutional : Alert, not in distress Neck : Normal inspection, Supple Cardiovascular : RRR, S1 S2, no lower extremity edema Respiratory : Fair bilateral air entry, no crackles, wheezes or rhonchi Gastrointestinal: soft, lax, Normal bowel sounds, Non tender Skin : Warm/Dry, No rash Neurological : Alert & oriented to self, No focal deficit Objective Data Current Medications Generic Name Dose Route Start Last Admin Trade Name Bobq PRN Reason Stop Dose Admin Acetaminophen 650 mg 03/06/20 07:11 03/11/20 15:53 Acetaminophen 325 Mg Tablet PO 650 mg Q6H PRN Administration Pain, Mild (Pain Scale 1-3) Albuterol Sulfate 90 puff 03/06/20 12:00 Albuterol Sulfate 90 Mcg 18 Gm Inhaler INHALE RQ6H PRN Wheezing Ascorbic Acid 500 mg 03/06/20 09:00 03/24/20 09:10 Ascorbic Acid 500 Mg Tablet PO 500 mg BID ANUJ Administration Aspirin 81 mg 03/06/20 09:00 03/22/20 08:20 Aspirin Enteric Coated 81 Mg Tablet.Dr PO 81 mg DAILY ANUJ Administration Atorvastatin Calcium 10 mg 03/06/20 21:00 03/23/20 20:04 Atorvastatin Calcium 10 Mg Tablet PO 10 mg BEDTIME ANUJ Administration Benztropine Mesylate 1 mg 03/06/20 09:00 03/24/20 09:10 Benztropine Mesylate 1 Mg Tablet PO 1 mg BID ANUJ Administration Clozapine 50 mg 03/06/20 21:00 03/23/20 20:04 Clozapine 25 Mg Tablet PO 50 mg BEDTIME ANUJ Administration Docusate Sodium 100 mg 03/06/20 07:11 Docusate Sodium 100 Mg Capsule PO DAILY PRN Constipation Ferrous Sulfate 324 mg 03/06/20 09:00 03/24/20 09:10 Ferrous Sulfate 324 Mg Tablet. PO 324 mg BID ANUJ Administration Fluticasone/Vilanterol 1 puff 03/07/20 08:00 03/24/20 07:54 Fluticasone/Vilanterol 100/25 Blst.W.Dev INHALE Not Given RDAILY ANUJ Haloperidol 5 mg 03/06/20 21:00 03/23/20 20:04 Haloperidol 5 Mg Tablet PO 5 mg BEDTIME ANUJ Administration Heparin Sodium (Porcine) 5,000 unit 03/23/20 12:00 03/24/20 12:56 Heparin Sodium,Porcine 5,000 Unit/Ml Vial SUBCUT 5,000 unit Q12H ANUJ Administration Promethazine HCl 6.25 mg/ 50.25 mls @ 201 mls/hr 03/20/20 08:55 Sodium Chloride IV Q6H PRN Nausea Insulin Human Lispro 0 unit 03/06/20 07:30 03/24/20 12:01 Insulin Lispro 100 Unit/Ml 3 Ml Vial SUBCUT Not Given QIDACHS [facility] Protocol Levalbuterol HCl 1.25 mg 03/20/20 20:00 03/24/20 14:30 Levalbuterol Hcl 1.25 Mg/3 Ml Vial.Neb INHALE 1.25 mg RTID ANUJ Administration Methimazole 5 mg 03/10/20 09:00 03/24/20 09:09 Methimazole 10 Mg Tablet PO 5 mg DAILY ANUJ Administration Midodrine 10 mg 03/17/20 09:00 03/24/20 14:40 Midodrine Hcl 10 Mg Tablet PO 10 mg TID ANUJ Administration Mirabegron 50 mg 03/06/20 09:00 03/24/20 09:09 Mirabegron 50 Mg Tab.Er.24h PO 50 mg DAILY ANUJ Administration Omeprazole 20 mg 03/22/20 16:30 03/24/20 06:06 Omeprazole 20 Mg Capsule. PO 20 mg BID@0630,4060 ANUJ Administration Ondansetron HCl 4 mg 03/06/20 07:11 03/20/20 09:01 Ondansetron Hcl 4 Mg/2 Ml Vial IVPUSH 4 mg Q8H PRN Administration Nausea and Vomiting Pharmacy Consult 1 each 03/06/20 04:00 Consult Rx Perform Med Rec MISCELLANE ONCE PRN Consult order Polyethylene Glycol 17 gm 03/20/20 09:00 03/24/20 09:10 Polyethylene Glycol 3350 17 Gm Powd.Pack PO Not Given BID ANUJ Sodium Chloride 3 ml 03/06/20 08:00 03/24/20 09:03 0.9 % Sodium Chloride Flush 3 Ml Syringe IVFLUSH 3 ml QSHIFT ANUJ Administration Trazodone HCl 100 mg 03/06/20 21:00 03/23/20 20:04 Trazodone Hcl 100 Mg Tablet PO 100 mg BEDTIME ANUJ Administration Valproic Acid 750 mg 03/22/20 21:00 03/24/20 09:09 Valproic Acid (As Sodium Salt) 250 Mg/5 Ml Solution PO 750 mg BID ANUJ Administration Vitamin D 50 mcg 03/06/20 09:00 03/24/20 09:09 Cholecalciferol (Vitamin D3) 25 Mcg Tablet PO 50 mcg DAILY ANUJ Administration Labs CBC & Chem 7: 03/24/20 05:26 03/24/20 05:26 Microbiology Microbiology Results: Microbiology 03/06/20 03:50 Blood - Venous Blood Culture - Final No growth after 5 days. 03/06/20 03:49 Blood - Venous Blood Culture - Final No growth after 5 days. Assessment and Plan (1) Borderline blood pressure: Status: Acute (2) GEGE (acute kidney injury): Status: Acute (3) Metabolic encephalopathy: Status: Acute (4) Hypotension: Status: Acute (5) Tachycardia: Status: Acute (6) Pleural effusion, right: Status: Acute (7) Non-small cell carcinoma of lung: Status: Acute Assessment and Plan: 69yo F with NSCLC, COPD, psychotic disorder who resides in a shelter previously admitted from Oncology clinic 02/27-03/05/20 due to pleural effusion and COPD exacerbation readmitted with hypotension, tachycardia, concern of cavitary PNA/loculated pleural effusion on CT chest persistent confusion/disorganized speech. Metabolic Encephalopathy vs. psychotic decompensation Seems to be more alert today no brain mets on CT Seems more awake clozapine levels pending and depakote levels 25.3(low) psych wright - may not need psych admission. d/w case management-will need bhn reeval upon discharge. Chronic Hypotension Improved overall probable dehydration , poor oral inatke and general deconditioning continue midodrine 10 mg t.i.d. cortisol levels 18.5 range (normal) echo EF 60-65% Hold Coreg Sinus Tachycardia Secondary to cancer, dehydration, Doppler neg for DVT. CTA -ve for PE Hypoxic respiratory failure 2/2 Pleural effusion cavitary pneumonia s/p thoracentesis 02/29/20, exudate, culture-negative, cytology benign completed antiobiotics. consulted Pulmonology + ID + Thoracic; discussed with pt's oncologist Dr Tony Chest x-ray findings discussed with the thoracic surgery-recommended chest physio, incentive spirometry, pulmonary toileting, Acapella- but it is challenging due to patient's underlying issues. If shortness of breath worsen patient become symptomatic may need chest CT to evaluate. COPD exacerbation, resolved prednisone taper completed 03/09, xopnex and flovent. NSCLC followed by Dr Tony, on immune-based chemotherapy with nivolumab Hyperthyroidism TSH 9.64, free T4 0.94, free T3 2.1. MMZ dose decreased from 10 to 5 mg/d. DM2, A1c 7.1,: 150-200 d/c'ed oral hypoglycemics LDSSI dysphagia tolerating one-to-one pureed Aspiration precautions HLD Continue statin GERD continue PPI Psych disorder continue clozapine, haloperidol, benztropine, valproate DVT ppx heparin
[2020-03-24 16:47] LABS: Glucose, Whole Blood 115 mg/dL (60-115)
--- NOTE | 2020-03-24 18:48 | PM.PNNEP ---
Subjective Subjective Date of Service: 03/24/20 Interval history: seen and exained. events noted Physical Exam Vital Signs: Vital Signs: Last Vital Signs Temp 99.0 F 03/24/20 15:23 Pulse 140 H 03/24/20 15:23 Resp 25 H 03/24/20 15:23 BP 133/75 03/24/20 15:23 Pulse Ox 93 03/24/20 15:23 Body Mass Index 23.0 Const: General: no acute distress HENMT: Head: Yes normocephalic and Yes atraumatic Neck: Neck: Yes supple Resp: Auscultation: clear to auscultation bilaterally and diminished lung sounds Cardio: Heart sounds: S1 normal heart sound present and S2 normal heart sound present GI: Palpation (GI): Soft to palpation and nontender Extrem: General: No edema Objective Data Labs CBC & Chem 7: 03/24/20 05:26 03/24/20 05:26 Labs: Laboratory Results - last 24 hr 03/23/20 03/24/20 03/24/20 21:00 05:26 05:26 Hgb 9.9 L Hct 33.1 L Sodium 149 H Potassium 4.5 D Chloride 115 H Carbon Dioxide 24 Anion Gap 15 BUN 15 Creatinine 0.85 Estim Creat Clear Calc 53.9 Estimated GFR > 60 POC Glucose 160 H Random Glucose 78 D Calcium 10.2 03/24/20 03/24/20 03/24/20 07:39 11:13 16:40 Hgb Hct Sodium Potassium Chloride Carbon Dioxide Anion Gap BUN Creatinine Estim Creat Clear Calc Estimated GFR POC Glucose 80 131 H 115 Random Glucose Calcium Microbiology Microbiology Results: Microbiology 03/06/20 03:50 Blood - Venous Blood Culture - Final No growth after 5 days. 03/06/20 03:49 Blood - Venous Blood Culture - Final No growth after 5 days. Assessment & Plan Assessment and plan (1) GEGE (acute kidney injury): Status: Acute (2) Hypotension: Status: Acute (3) Hyperkalemia: Status: Acute Assessment and Plan: 1, gege; resolved 2. Hypotension: despite midrdine; adrenal insuff r/o as cortiol level ok 3. hyperna; fwd REC: encourage incr po fluids; check orthostatic BP readings and if reains a prob then will consdier adding florinef of note clozaril can cause tachycardia and hypotension....consider discontinuation of clozaril follow kidney function and electrolytes Time Spent With Patient Time: Total time spent is greater than 50% in coordination of care (as documented) at patient's floor/unit and/or counseling patient:
[2020-03-24] MEDS: Dextrose 5 % and 0.2 % NaCl 1,000 ML 80 ML IVCONT (20:30)
[2020-03-24 21:40] LABS: Glucose, Whole Blood 113 mg/dL (60-115)
[2020-03-24] MEDS: cloZAPine 25 MG TABLET 50 MG PO (22:05)
[2020-03-24] MEDS: HaloperidoL 1 MG TABLET 2 MG PO (22:06)
[2020-03-24] MEDS: Atorvastatin Calcium 10 MG TABLET PO (22:06)
[2020-03-24] MEDS: traZODone HCL 100 MG TABLET PO (22:06)
[2020-03-24] MEDS: polyethylene glycoL 3350 17 GM POWD.PACK PO (22:07)
[2020-03-25] VITALS (9 sets, daily range): BP systolic 92–107; BP diastolic 44–68; PULSE 96–117; RESP 16–20; TEMP 36.2–37; O2SAT 92–98
[2020-03-25] MEDS: Omeprazole 20 MG CAPSULE.DR PO ×2 (05:33→16:32)
[2020-03-25 07:16] LABS: Glucose, Whole Blood 132 mg/dL (60-115)
[2020-03-25 07:40] LABS: Anion Gap 12 (12-20); Blood Urea Nitrogen 19 mg/dL (9-16); Calcium 9.8 mg/dL (8.4-10.2); Carbon Dioxide 27 mmol/L (22-29); Chloride 117 mmol/L (96-108); Creatinine Clr Calc Pharmacy 47.7; Estimated Glomerular Filt Rate 58; Glucose Random 149 mg/dL (60-115); Potassium 3.7 mmol/l (3.3-5.1); Sodium 152 mmol/L (135-145)
[2020-03-25] MEDS: levalbuterol HCL 1.25 MG/3 ML VIAL.NEB INHALE ×3 (07:49→20:57)
[2020-03-25] MEDS: Dextrose 5 % and 0.2 % NaCl 1,000 ML 80 ML IVCONT (08:06)
[2020-03-25] MEDS: methIMAzole 10 MG TABLET 5 MG PO (08:07)
[2020-03-25] MEDS: Midodrine HCl 10 MG TABLET PO ×3 (08:07→20:31)
[2020-03-25] MEDS: Cholecalciferol (Vitamin D3) 25 MCG TABLET 50 MCG PO (08:07)
[2020-03-25] MEDS: Ascorbic Acid 500 MG TABLET PO ×2 (08:07→20:31)
[2020-03-25] MEDS: Ferrous Sulfate 324 MG TABLET.DR PO ×2 (08:07→20:31)
[2020-03-25] MEDS: Mirabegron 50 MG TAB.ER.24H PO (08:07)
[2020-03-25] MEDS: 0.9 % Sodium Chloride Flush 3 ML SYRINGE IVFLUSH (08:08)
[2020-03-25] MEDS: polyethylene glycoL 3350 17 GM POWD.PACK PO (08:08)
[2020-03-25] MEDS: Dextrose 5 % 1,000 ML 100 ML IVCONT ×2 (08:35→16:32)
[2020-03-25 11:00] LABS: Glucose, Whole Blood 183 mg/dL (60-115)
--- NOTE | 2020-03-25 11:37 | PM.PNNEP ---
Subjective Subjective Date of Service: 03/25/20 Interval history: seen and exained. events noted Physical Exam Vital Signs: Vital Signs: Last Vital Signs Temp 97.1 F 03/25/20 11:11 Pulse 112 H 03/25/20 11:11 Resp 16 03/25/20 11:11 BP 92/58 L 03/25/20 11:11 Pulse Ox 93 03/25/20 11:11 Body Mass Index 23.0 Const: General: no acute distress HENMT: Head: Yes normocephalic and Yes atraumatic Neck: Neck: Yes supple Resp: Auscultation: clear to auscultation bilaterally and diminished lung sounds Cardio: Heart sounds: S1 normal heart sound present and S2 normal heart sound present GI: Palpation (GI): Soft to palpation and nontender Extrem: General: No edema Objective Data Labs CBC & Chem 7: 03/24/20 05:26 03/25/20 05:46 Labs: Laboratory Results - last 24 hr 03/24/20 03/24/20 03/25/20 16:40 21:36 05:46 Sodium 152 H Potassium 3.7 Chloride 117 H Carbon Dioxide 27 Anion Gap 12 BUN 19 H Creatinine 0.96 Estim Creat Clear Calc 47.7 Estimated GFR 58 POC Glucose 115 113 Random Glucose 149 H D Calcium 9.8 03/25/20 03/25/20 07:13 10:56 Sodium Potassium Chloride Carbon Dioxide Anion Gap BUN Creatinine Estim Creat Clear Calc Estimated GFR POC Glucose 132 H 183 H Random Glucose Calcium Microbiology Microbiology Results: Microbiology 03/06/20 03:50 Blood - Venous Blood Culture - Final No growth after 5 days. 03/06/20 03:49 Blood - Venous Blood Culture - Final No growth after 5 days. Assessment & Plan Assessment and plan (1) GEGE (acute kidney injury): Status: Acute (2) Hypotension: Status: Acute (3) Hyperkalemia: Status: Acute Assessment and Plan: 1, gege; resolved 2. Hypotension: despite midrdine; adrenal insuff r/o as cortiol level ok 3. hyperna; fwd REC: needs incr FWatre repalcement; encourage incr po fluids; check orthostatic BP readings and if reains a prob then will consdier adding florinef; will check urine osm to r/o Diabtes Insupidous of note clozaril can cause tachycardia and hypotension....consider discontinuation of clozaril follow kidney function and electrolytes Time Spent With Patient Time: Total time spent is greater than 50% in coordination of care (as documented) at patient's floor/unit and/or counseling patient:
[2020-03-25] MEDS: Heparin Sodium,Porcine 5,000 UNIT/ML VIAL 5000 UNIT SUBCUT (12:25)
[2020-03-25] MEDS: Insulin Lispro 100 UNIT/ML 3 ML VIAL SUBCUT (12:25)
--- NOTE | 2020-03-25 15:09 | W.MHC.ACPN ---
Advanced Care Planning Note Advanced Care Planning Note Discussed with: surrogate Time spent (in minutes): 25 Narrative: I had a chance to speak with the healthcare proxy of the patient Lukasz, patient brother to discuss current situation and ongoing medical problems with his sister. And to discuss the goals of care. The patient has admitted to the hospital for almost 3 weeks with altered mentation, respiratory failure electrolyte imbalance and low blood pressure. Her medical course has been not showing much of improvement and recently she became more lethargic and not eating much developing hypernatremia. I explained to the healthcare proxy the current situation and discussed options for the future treatment. He suggested discussing back with psychiatry options for medication that might help restore her functionality. We agreed on doing that tomorrow morning. Discussing her code status as she remains full code he would prefer to to thing more about this decision because he never had discussion about it. Goals of care also discussed and suggested comfort measures or hospice care. The HCP will read about these options and decide upon further discussions later this week. Problems Discussed (1) GEGE (acute kidney injury): (2) Hypotension: (3) Hyperkalemia: (4) Metabolic encephalopathy: (5) Pleural effusion, right: (6) Non-small cell carcinoma of lung:
--- NOTE | 2020-03-25 15:12 | P.PNIM_ITS ---
Subjective Subjective Date of Service: 03/25/20 Interval History: Interval History: the patient was seen and evaluated this morning Laying in bed, looks lethargic and tired, comfortable toe next Lyme barely answering questions Not eating much according to nurses Denies any fever, chills or shortness of breath No reported other overnight events. Systemic review: Not much verbal to communicate but reports feeling fine overall Rest of systemic reviews negative Physical Exam Vital Signs: Vital Signs: Last Vital Signs Temp 97.1 F 03/25/20 11:11 Pulse 115 H 03/25/20 13:36 Resp 16 03/25/20 11:11 BP 92/58 L 03/25/20 11:11 Pulse Ox 93 03/25/20 11:11 Body Mass Index 23.0 Constitutional : Alert when stimulated, not in distress, physically deconditioned, Neck : Normal inspection, Supple Cardiovascular : RRR, S1 S2, no lower extremity edema Respiratory : Fair bilateral air entry, no crackles, wheezes or rhonchi Gastrointestinal: soft, lax, Normal bowel sounds, Non tender Skin : Warm/Dry, No rash Neurological : Alert & oriented to self, No focal deficit Objective Data Current Medications Generic Name Dose Route Start Last Admin Trade Name Freq PRN Reason Stop Dose Admin Acetaminophen 650 mg 03/06/20 07:11 03/11/20 15:53 Acetaminophen 325 Mg Tablet PO 650 mg Q6H PRN Administration Pain, Mild (Pain Scale 1-3) Albuterol Sulfate 90 puff 03/06/20 12:00 Albuterol Sulfate 90 Mcg 18 Gm Inhaler INHALE RQ6H PRN Wheezing Ascorbic Acid 500 mg 03/06/20 09:00 03/25/20 08:07 Ascorbic Acid 500 Mg Tablet PO 500 mg BID ANUJ Administration Aspirin 81 mg 03/06/20 09:00 03/22/20 08:20 Aspirin Enteric Coated 81 Mg Tablet.Dr ZAMORA 81 mg DAILY ANUJ Administration Atorvastatin Calcium 10 mg 03/06/20 21:00 03/24/20 22:06 Atorvastatin Calcium 10 Mg Tablet PO 10 mg BEDTIME ANUJ Administration Clozapine 25 mg 03/25/20 21:00 Clozapine 25 Mg Tablet PO BEDTIME ANUJ Docusate Sodium 100 mg 03/06/20 07:11 Docusate Sodium 100 Mg Capsule PO DAILY PRN Constipation Ferrous Sulfate 324 mg 03/06/20 09:00 03/25/20 08:07 Ferrous Sulfate 324 Mg Tablet.Dr PO 324 mg BID ANUJ Administration Fluticasone/Vilanterol 1 puff 03/07/20 08:00 03/25/20 07:53 Fluticasone/Vilanterol 100/25 Blst.W.Dev INHALE Not Given RDAILY ANUJ Haloperidol 2 mg 03/24/20 21:00 03/24/20 22:06 Haloperidol 1 Mg Tablet PO 2 mg BEDTIME ANUJ Administration Heparin Sodium (Porcine) 5,000 unit 03/23/20 12:00 03/25/20 12:25 Heparin Sodium,Porcine 5,000 Unit/Ml Vial SUBCUT 5,000 unit Q12H ANUJ Administration Promethazine HCl 6.25 mg/ 50.25 mls @ 201 mls/hr 03/20/20 08:55 Sodium Chloride IV Q6H PRN Nausea Dextrose 1,000 mls @ 100 mls/hr 03/25/20 08:30 03/25/20 08:35 D5w IVCONT 100 mls/hr .Q10H ANUJ Administration Insulin Human Lispro 0 unit 03/06/20 07:30 03/25/20 12:25 Insulin Lispro 100 Unit/Ml 3 Ml Vial SUBCUT 2 unit QIDACHS ANUJ Administration Protocol Levalbuterol HCl 1.25 mg 03/20/20 20:00 03/25/20 13:34 Levalbuterol Hcl 1.25 Mg/3 Ml Vial.Neb INHALE 1.25 mg RTID ANUJ Administration Methimazole 5 mg 03/10/20 09:00 03/25/20 08:07 Methimazole 10 Mg Tablet PO 5 mg DAILY ANUJ Administration Midodrine 10 mg 03/17/20 09:00 03/25/20 08:07 Midodrine Hcl 10 Mg Tablet PO 10 mg TID ANUJ Administration Mirabegron 50 mg 03/06/20 09:00 03/25/20 08:07 Mirabegron 50 Mg Tab.Er.24h PO 50 mg DAILY ANJU Administration Omeprazole 20 mg 03/22/20 16:30 03/25/20 05:33 Omeprazole 20 Mg Capsule. PO 20 mg BID@0630,1630 ANUJ Administration Ondansetron HCl 4 mg 03/06/20 07:11 03/20/20 09:01 Ondansetron Hcl 4 Mg/2 Ml Vial IVPUSH 4 mg Q8H PRN Administration Nausea and Vomiting Pharmacy Consult 1 each 03/06/20 04:00 Consult Rx Perform Med Rec MISCELLANE ONCE PRN Consult order Polyethylene Glycol 17 gm 03/20/20 09:00 03/25/20 08:22 Polyethylene Glycol 3350 17 Gm Powd.Pack PO Not Given BID ANUJ Sodium Chloride 3 ml 03/06/20 08:00 03/25/20 08:08 0.9 % Sodium Chloride Flush 3 Ml Syringe IVFLUSH 3 ml QSHIFT ANUJ Administration Trazodone HCl 100 mg 03/06/20 21:00 03/24/20 22:06 Trazodone Hcl 100 Mg Tablet PO 100 mg BEDTIME ANUJ Administration Valproic Acid 750 mg 03/22/20 21:00 03/25/20 08:07 Valproic Acid (As Sodium Salt) 250 Mg/5 Ml Solution PO 750 mg BID ANUJ Administration Vitamin D 50 mcg 03/06/20 09:00 03/25/20 08:07 Cholecalciferol (Vitamin D3) 25 Mcg Tablet PO 50 mcg DAILY ANUJ Administration Labs CBC & Chem 7: 03/24/20 05:26 03/25/20 05:46 Microbiology Microbiology Results: Microbiology 03/06/20 03:50 Blood - Venous Blood Culture - Final No growth after 5 days. 03/06/20 03:49 Blood - Venous Blood Culture - Final No growth after 5 days. Assessment and Plan (1) GEGE (acute kidney injury): Status: Acute (2) Hypotension: Status: Acute (3) Hyperkalemia: Status: Acute (4) Metabolic encephalopathy: Status: Acute (5) Pleural effusion, right: Status: Acute (6) Non-small cell carcinoma of lung: Status: Acute Assessment and Plan: 69yo F with NSCLC, COPD, psychotic disorder who resides in a senior living previously admitted from Oncology clinic 02/27-03/05/20 due to pleural effusion and COPD exacerbation readmitted with hypotension, tachycardia, concern of cavitary PNA/loculated pleural effusion on CT chest persistent confusion/disorganized speech. Metabolic Encephalopathy vs. psychotic decompensation Fluctuating, alert with stimulation, close to baseline no brain mets on CT clozapine levels pending and depakote levels 25.3(low) psych wright - may not need psych admission. d/w case management-will need bhn reeval upon discharge. Chronic Hypotension Improved overall probable dehydration , poor oral inatke and general deconditioning continue midodrine 10 mg t.i.d. Placed on IV fluid for decreased oral intake cortisol levels 18.5 range (normal) echo EF 60-65% Hold Coreg Sinus Tachycardia Secondary to cancer, dehydration, medications Decrease clozapine does, discontinue benztropine Doppler neg for DVT. CTA -ve for PE Hypoxic respiratory failure 2/2 Pleural effusion cavitary pneumonia s/p thoracentesis 02/29/20, exudate, culture-negative, cytology benign completed antiobiotics. consulted Pulmonology + ID + Thoracic; discussed with pt's oncologist Dr Tony Chest x-ray findings discussed with the thoracic surgery-recommended chest physio, incentive spirometry, pulmonary toileting, Acapella- but it is challenging due to patient's underlying issues. If shortness of breath worsen patient become symptomatic may need chest CT to evaluate. COPD exacerbation, resolved prednisone taper completed 03/09, xopnex and flovent. NSCLC followed by Dr Tony, on immune-based chemotherapy with nivolumab Hyperthyroidism TSH 9.64, free T4 0.94, free T3 2.1. MMZ dose decreased from 10 to 5 mg/d. DM2, A1c 7.1,: 150-200 d/c'ed oral hypoglycemics LDSSI dysphagia tolerating one-to-one pureed Aspiration precautions HLD Continue statin GERD continue PPI Psych disorder continue clozapine, haloperidol, benztropine, valproate DVT ppx heparin
[2020-03-25 15:26] LABS: Glucose Random 58 mg/dL (60-115)
[2020-03-25 15:32] LABS: Anion Gap 16 (12-20); Blood Urea Nitrogen 19 mg/dL (9-16); Calcium 9.8 mg/dL (8.4-10.2); Carbon Dioxide 24 mmol/L (22-29); Chloride 117 mmol/L (96-108); Creatinine Clr Calc Pharmacy 47.3; Estimated Glomerular Filt Rate 57; Potassium 3.8 mmol/l (3.3-5.1); Sodium 153 mmol/L (135-145)
[2020-03-25 15:41] LABS: Glucose, Whole Blood 53 mg/dL (60-115)
--- NOTE | 2020-03-25 17:21 | PC.NURSE ---
1530 Chemistry with random glucose of 58, made aware. Per hypoglycemic protocol, 15g carb- cup of orange juice given, recheck POC 1545 was 53. Order for D5W increase from 100ml- to 125ml/hr. 1600 POC recheck was 66. Patient remains asymptomatic and is encouraged to eat dinner.
[2020-03-25 18:21] LABS: Glucose, Whole Blood 66 mg/dL (60-115)
[2020-03-25] MEDS: Atorvastatin Calcium 10 MG TABLET PO (20:31)
[2020-03-25] MEDS: HaloperidoL 1 MG TABLET 2 MG PO (20:31)
[2020-03-25] MEDS: traZODone HCL 100 MG TABLET PO (20:31)
[2020-03-25] MEDS: cloZAPine 25 MG TABLET PO (20:32)
--- NOTE | 2020-03-25 21:00 | PC.RT ---
CPT for 3 mins pt did not tolerate trying to craw out of bed
[2020-03-25 21:45] LABS: Anion Gap 10 (12-20); Blood Urea Nitrogen 19 mg/dL (9-16); Calcium 9.6 mg/dL (8.4-10.2); Carbon Dioxide 30 mmol/L (22-29); Chloride 117 mmol/L (96-108); Creatinine Clr Calc Pharmacy 49.8; Estimated Glomerular Filt Rate > 60; Glucose Random 70 mg/dL (60-115); Potassium 4.2 mmol/l (3.3-5.1); Sodium 153 mmol/L (135-145)
[2020-03-25 22:53] LABS: Glucose, Whole Blood 100 mg/dL (60-115)
[2020-03-26] VITALS (14 sets, daily range): BP systolic 82–135; BP diastolic 48–82; PULSE 89–122; RESP 18–20; TEMP 36.1–36.6; O2SAT 93–99
[2020-03-26] MEDS: traZODone HCL 25 MG HALFTAB PO ×2 (01:12→04:49)
[2020-03-26] MEDS: LORazepam 0.5 MG TABLET PO (04:48)
[2020-03-26] MEDS: Omeprazole 20 MG CAPSULE.DR PO ×2 (05:46→15:32)
[2020-03-26 07:00] LABS: Anion Gap 18 (12-20); Blood Urea Nitrogen 20 mg/dL (9-16); Calcium 10.2 mg/dL (8.4-10.2); Carbon Dioxide 20 mmol/L (22-29); Chloride 118 mmol/L (96-108); Creatinine Clr Calc Pharmacy 45.4; Estimated Glomerular Filt Rate 54; Glucose Random 94 mg/dL (60-115); Potassium 4.2 mmol/l (3.3-5.1); Sodium 152 mmol/L (135-145)
[2020-03-26] MEDS: levalbuterol HCL 1.25 MG/3 ML VIAL.NEB INHALE ×3 (07:43→20:13)
[2020-03-26] MEDS: Fluticasone/Vilanterol 100/25 BLST.W.DEV 1 PUFF INHALE (07:45)
[2020-03-26 07:48] LABS: Glucose, Whole Blood 99 mg/dL (60-115)
[2020-03-26] MEDS: Midodrine HCl 10 MG TABLET PO ×3 (10:55→19:52)
[2020-03-26] MEDS: Mirabegron 50 MG TAB.ER.24H PO (10:55)
[2020-03-26] MEDS: 0.9 % Sodium Chloride Flush 3 ML SYRINGE IVFLUSH ×3 (10:55→23:46)
[2020-03-26] MEDS: Cholecalciferol (Vitamin D3) 25 MCG TABLET 50 MCG PO (10:55)
[2020-03-26] MEDS: methIMAzole 10 MG TABLET 5 MG PO (10:55)
[2020-03-26] MEDS: Ferrous Sulfate 324 MG TABLET.DR PO ×2 (10:56→19:51)
[2020-03-26] MEDS: Ascorbic Acid 500 MG TABLET PO ×2 (10:56→19:55)
[2020-03-26] MEDS: Heparin Sodium,Porcine 5,000 UNIT/ML VIAL 5000 UNIT SUBCUT ×3 (11:18→23:41)
[2020-03-26 11:27] LABS: Glucose, Whole Blood 97 mg/dL (60-115)
--- NOTE | 2020-03-26 12:09 | PM.PNNEP ---
Subjective Subjective Date of Service: 03/26/20 Interval history: seen and examined lethargic Physical Exam Vital Signs: Vital Signs: Last Vital Signs Temp 97.2 F 03/26/20 11:30 Pulse 107 H 03/26/20 11:30 Resp 20 03/26/20 11:30 BP 123/62 03/26/20 11:30 Pulse Ox 93 03/26/20 11:30 Body Mass Index 23.0 Const: General: no acute distress HENMT: Head: Yes normocephalic and Yes atraumatic Neck: Neck: Yes supple Resp: Auscultation: diminished lung sounds Cardio: Heart sounds: S1 normal heart sound present and S2 normal heart sound present GI: Palpation (GI): Soft to palpation and nontender Extrem: Right upper extremity: no edema Objective Data Labs CBC & Chem 7: 03/24/20 05:26 03/26/20 06:06 Labs: Laboratory Results - last 24 hr 03/25/20 03/25/20 03/25/20 14:33 15:37 16:48 Sodium 153 H Potassium 3.8 Chloride 117 H Carbon Dioxide 24 Anion Gap 16 BUN 19 H Creatinine 0.97 Estim Creat Clear Calc 47.3 Estimated GFR 57 POC Glucose 53 L* 66 Random Glucose 58 L* Calcium 9.8 03/25/20 03/25/20 03/26/20 20:30 22:40 06:06 Sodium 153 H 152 H Potassium 4.2 4.2 Chloride 117 H 118 H Carbon Dioxide 30 H 20 L Anion Gap 10 L 18 BUN 19 H 20 H Creatinine 0.92 1.01 Estim Creat Clear Calc 49.8 45.4 Estimated GFR > 60 54 POC Glucose 100 Random Glucose 70 94 Calcium 9.6 10.2 D 03/26/20 03/26/20 07:40 11:08 Sodium Potassium Chloride Carbon Dioxide Anion Gap BUN Creatinine Estim Creat Clear Calc Estimated GFR POC Glucose 99 97 Random Glucose Calcium Microbiology Microbiology Results: Microbiology 03/06/20 03:50 Blood - Venous Blood Culture - Final No growth after 5 days. 03/06/20 03:49 Blood - Venous Blood Culture - Final No growth after 5 days. Assessment & Plan Assessment and plan (1) GEGE (acute kidney injury): Status: Acute (2) Hypotension: Status: Acute (3) Hypernatremia: Status: Acute Assessment and Plan: persistent free water deficit GEGE due to compromised kidney perfusion in the setting of hypotension clozaril can cause tachycardia and hypotension REC hypotonic fluid continue midodrine follow kidney function and electrolytes Time Spent With Patient Time: Total time spent is greater than 50% in coordination of care (as documented) at patient's floor/unit and/or counseling patient:
[2020-03-26] MEDS: Dextrose 5 % 1,000 ML 150 ML IVCONT ×2 (12:32→19:37)
--- NOTE | 2020-03-26 12:44 | MHC.CM.PN ---
per rounds pt will be ready for dc thursday m5 vs skilled nursing dr will order a pt eval
--- NOTE | 2020-03-26 13:13 | HO.PM.IMPN ---
Subjective Subjective Date of Service: 03/26/20 Interval History: the patient was seen and evaluated this morning Laying in bed, feels comfortable but restless and mildly anxious Denies any fever, chills or shortness of breath No reported other overnight events. Systemic review: No fever, chills or weakness No chest pain, palpitation No shortness of breath or coughing No abdominal pain, nausea or vomiting No urinary symptoms No any rash or wounds Physical Exam Vital Signs: Vital Signs: Last Vital Signs Temp 97.2 F 03/26/20 11:30 Pulse 107 H 03/26/20 11:30 Resp 20 03/26/20 11:30 BP 123/62 03/26/20 11:30 Pulse Ox 93 03/26/20 11:30 Body Mass Index 23.0 Constitutional : more Alert, not in distress, physically deconditioned,restless, anxious Neck : Normal inspection, Supple Cardiovascular : RRR, S1 S2, no lower extremity edema Respiratory : Fair bilateral air entry, no crackles, wheezes or rhonchi Gastrointestinal: soft, lax, Normal bowel sounds, Non tender Skin : Warm/Dry, No rash Neurological : Alert & oriented to self, No focal deficit Objective Data Current Medications Generic Name Dose Route Start Last Admin Trade Name Freq PRN Reason Stop Dose Admin Acetaminophen 650 mg 03/06/20 07:11 03/11/20 15:53 Acetaminophen 325 Mg Tablet PO 650 mg Q6H PRN Administration Pain, Mild (Pain Scale 1-3) Albuterol Sulfate 90 puff 03/06/20 12:00 Albuterol Sulfate 90 Mcg 18 Gm Inhaler INHALE RQ6H PRN Wheezing Ascorbic Acid 500 mg 03/06/20 09:00 03/26/20 10:56 Ascorbic Acid 500 Mg Tablet PO 500 mg BID ANUJ Administration Aspirin 81 mg 03/06/20 09:00 03/22/20 08:20 Aspirin Enteric Coated 81 Mg Tablet.Dr PO 81 mg DAILY ANUJ Administration Atorvastatin Calcium 10 mg 03/06/20 21:00 03/25/20 20:31 Atorvastatin Calcium 10 Mg Tablet PO 10 mg BEDTIME ANUJ Administration Clozapine 25 mg 03/25/20 21:00 03/25/20 20:32 Clozapine 25 Mg Tablet PO 25 mg BEDTIME ANUJ Administration Docusate Sodium 100 mg 03/06/20 07:11 Docusate Sodium 100 Mg Capsule PO DAILY PRN Constipation Ferrous Sulfate 324 mg 03/06/20 09:00 03/26/20 10:56 Ferrous Sulfate 324 Mg Tablet. PO 324 mg BID ANUJ Administration Fluticasone/Vilanterol 1 puff 03/07/20 08:00 03/26/20 07:45 Fluticasone/Vilanterol 100/25 Blst.W.Dev INHALE 1 puff RDAILY ANUJ Administration Haloperidol 2 mg 03/24/20 21:00 03/25/20 20:31 Haloperidol 1 Mg Tablet PO 2 mg BEDTIME ANUJ Administration Heparin Sodium (Porcine) 5,000 unit 03/23/20 12:00 03/26/20 11:18 Heparin Sodium,Porcine 5,000 Unit/Ml Vial SUBCUT 5,000 unit Q12H ANUJ Administration Promethazine HCl 6.25 mg/ 50.25 mls @ 201 mls/hr 03/20/20 08:55 Sodium Chloride IV Q6H PRN Nausea Dextrose 1,000 mls @ 150 mls/hr 03/25/20 08:30 03/26/20 12:32 D5w IVCONT 150 mls/hr .Q6H40M ANUJ Administration Levalbuterol HCl 1.25 mg 03/20/20 20:00 03/26/20 07:43 Levalbuterol Hcl 1.25 Mg/3 Ml Vial.Neb INHALE 1.25 mg RTID ANUJ Administration Methimazole 5 mg 03/10/20 09:00 03/26/20 10:55 Methimazole 10 Mg Tablet PO 5 mg DAILY ANUJ Administration Midodrine 10 mg 03/17/20 09:00 03/26/20 10:55 Midodrine Hcl 10 Mg Tablet PO 10 mg TID ANUJ Administration Mirabegron 50 mg 03/06/20 09:00 03/26/20 10:55 Mirabegron 50 Mg Tab.Er.24h PO 50 mg DAILY ANUJ Administration Omeprazole 20 mg 03/22/20 16:30 03/26/20 05:46 Omeprazole 20 Mg Capsule. PO 20 mg BID@0630,1630 ANUJ Administration Ondansetron HCl 4 mg 03/06/20 07:11 03/20/20 09:01 Ondansetron Hcl 4 Mg/2 Ml Vial IVPUSH 4 mg Q8H PRN Administration Nausea and Vomiting Pharmacy Consult 1 each 03/06/20 04:00 Consult Rx Perform Med Rec MISCELLANE ONCE PRN Consult order Polyethylene Glycol 17 gm 03/20/20 09:00 03/26/20 10:56 Polyethylene Glycol 3350 17 Gm Powd.Pack PO Not Given BID ANUJ Sodium Chloride 3 ml 03/06/20 08:00 03/26/20 10:55 0.9 % Sodium Chloride Flush 3 Ml Syringe IVFLUSH 3 ml QSHIFT ANUJ Administration Trazodone HCl 100 mg 03/06/20 21:00 03/25/20 20:31 Trazodone Hcl 100 Mg Tablet PO 100 mg BEDTIME ANUJ Administration Valproic Acid 750 mg 03/22/20 21:00 03/26/20 11:16 Valproic Acid (As Sodium Salt) 250 Mg/5 Ml Solution PO 750 mg BID ANUJ Administration Vitamin D 50 mcg 03/06/20 09:00 03/26/20 10:55 Cholecalciferol (Vitamin D3) 25 Mcg Tablet PO 50 mcg DAILY ANUJ Administration Labs CBC & Chem 7: 03/24/20 05:26 03/26/20 06:06 Microbiology Microbiology Results: Microbiology 03/06/20 03:50 Blood - Venous Blood Culture - Final No growth after 5 days. 03/06/20 03:49 Blood - Venous Blood Culture - Final No growth after 5 days. Assessment and Plan (1) GEGE (acute kidney injury): Status: Acute (2) Hypotension: Status: Acute (3) Hyperkalemia: Status: Acute (4) Metabolic encephalopathy: Status: Acute (5) Pleural effusion, right: Status: Acute (6) Non-small cell carcinoma of lung: Status: Acute Assessment and Plan: 69yo F with NSCLC, COPD, psychotic disorder who resides in a skilled nursing previously admitted from Oncology clinic 02/27-03/05/20 due to pleural effusion and COPD exacerbation readmitted with hypotension, tachycardia, concern of cavitary PNA/loculated pleural effusion on CT chest persistent confusion/disorganized speech. Hypernatremia Motor deficit Secondary decreased oral intake She lost IV line overnight and could not receive IV fluids Sodium remains around 153 Increase D5 water to 150 Follow BMP Goal of correction 04/30/2044 today Metabolic Encephalopathy Resolving no brain mets on CT clozapine levels pending depakote levels 25.3(low) psych input appreciated, does not need psych admission. d/w case management-will need bhn reeval upon discharge. Chronic Hypotension Improved overall probable dehydration , poor oral inatke and general deconditioning continue midodrine 10 mg t.i.d. Placed on IV fluid for decreased oral intake cortisol levels 18.5 range (normal) echo EF 60-65% Hold Coreg Sinus Tachycardia Secondary to cancer, dehydration, medications Better controlled Decrease clozapine does, discontinue benztropine Doppler neg for DVT. CTA -ve for PE Hypoxic respiratory failure 2/2 Pleural effusion cavitary pneumonia s/p thoracentesis 02/29/20, exudate, culture-negative, cytology benign completed antiobiotics. consulted Pulmonology + ID + Thoracic; discussed with pt's oncologist Dr Tony Chest x-ray findings discussed with the thoracic surgery-recommended chest physio, incentive spirometry, pulmonary toileting, Acapella- but it is challenging due to patient's underlying issues. If shortness of breath worsen patient become symptomatic may need chest CT to evaluate. COPD exacerbation, resolved prednisone taper completed 03/09, xopnex and flovent. NSCLC followed by Dr Tony, on immune-based chemotherapy with nivolumab Hyperthyroidism TSH 9.64, free T4 0.94, free T3 2.1. MMZ dose decreased from 10 to 5 mg/d. DM2, A1c 7.1,: 150-200 d/c'ed oral hypoglycemics LDSSI dysphagia tolerating one-to-one pureed Aspiration precautions HLD Continue statin GERD continue PPI Psych disorder continue clozapine, haloperidol, benztropine, valproate DVT ppx heparin
[2020-03-26 13:48] LABS: Clozapine (Clozaril) 116 mcg/L; Norclozapine 23 mcg/L (25-400)
[2020-03-26 15:57] LABS: Anion Gap 14 (12-20); Blood Urea Nitrogen 20 mg/dL (9-16); Calcium 9.6 mg/dL (8.4-10.2); Carbon Dioxide 25 mmol/L (22-29); Chloride 115 mmol/L (96-108); Creatinine Clr Calc Pharmacy 40.5; Estimated Glomerular Filt Rate 48; Glucose Random 118 mg/dL (60-115); Potassium 3.9 mmol/l (3.3-5.1); Sodium 150 mmol/L (135-145)
[2020-03-26 16:32] LABS: Glucose, Whole Blood 132 mg/dL (60-115)
--- NOTE | 2020-03-26 17:26 | PM.EVENT ---
Event Note Date of Service: 03/26/20 Event Note: Psychiatry follow up: Asked to see patient in follow up regarding possibility of psychiatric dx contributing to current presentation Please refer to previous notes for history Patient seen in room 450. Laying in bed, eyes closed, but opens and responds when her name is called. She was able to converse, very briefly, but appropriately. Appearing quite weak, frail, fatigued. It is reported she is not eating or drinking very much Clozapine decreased by hospitalist due to tachycardia and hypotension Haldol dose has also been decreased. Unclear why patient is not eating or drinking, but does not appear to be of psychiatric nature. She is not catatonic, does not meet criteria for depressive episode and has not had any rebound psychotic sx despite decreases in antipsychotics. As previously documented, patient not appropriate for psychiatric admission.
--- NOTE | 2020-03-26 18:09 | PC.NURSE ---
Addendum entered by Tamy Cervantes RN 03/26/20 21:59: PITTING MACHINE OPERATOR staying with patient at all times for safety,patient more relaxed at present,resting in bed Original Note: P-patient forgetful,disoriented ,trying to get out of bed multiple times i-Telesiter in place,bed alarm on,reoriented frequently,nursing ingot supervisor made aware e- will monitor closely,nursing ingot supervisor will provide 1;1 supervision when available
[2020-03-26] MEDS: Atorvastatin Calcium 10 MG TABLET PO (19:52)
[2020-03-26] MEDS: HaloperidoL 1 MG TABLET 2 MG PO (19:54)
[2020-03-26] MEDS: traZODone HCL 100 MG TABLET PO (19:54)
[2020-03-26] MEDS: cloZAPine 25 MG TABLET PO (19:55)
[2020-03-26 20:12] LABS: Glucose, Whole Blood 174 mg/dL (60-115)
[2020-03-26 21:00] LABS: Anion Gap 15 (12-20); Blood Urea Nitrogen 19 mg/dL (9-16); Calcium 9.1 mg/dL (8.4-10.2); Carbon Dioxide 21 mmol/L (22-29); Chloride 114 mmol/L (96-108); Creatinine Clr Calc Pharmacy 40.5; Estimated Glomerular Filt Rate 48; Glucose Random 183 mg/dL (60-115); Potassium 4.4 mmol/l (3.3-5.1); Sodium 146 mmol/L (135-145)
[2020-03-27] MEDS: Dextrose 5 % 1,000 ML 150 ML IVCONT ×4 (02:56→22:26)
[2020-03-27] MEDS: Omeprazole 20 MG CAPSULE.DR PO ×2 (05:30→14:43)
[2020-03-27 07:32] VITALS: BP 78/42; PULSE 78; RESP 18; TEMP 36.1; O2SAT 93
[2020-03-27 07:32] LABS: Glucose, Whole Blood 125 mg/dL (60-115)
[2020-03-27] MEDS: Fluticasone/Vilanterol 100/25 BLST.W.DEV 1 PUFF INHALE (08:03)
[2020-03-27 08:09] VITALS: BP 78/42; PULSE 78
[2020-03-27] MEDS: methIMAzole 10 MG TABLET 5 MG PO (08:09)
[2020-03-27] MEDS: Mirabegron 50 MG TAB.ER.24H PO (08:09)
[2020-03-27] MEDS: Midodrine HCl 10 MG TABLET PO ×3 (08:09→20:06)
[2020-03-27] MEDS: Ferrous Sulfate 324 MG TABLET.DR PO ×2 (08:09→20:17)
[2020-03-27] MEDS: 0.9 % Sodium Chloride Flush 3 ML SYRINGE IVFLUSH ×2 (08:09→23:42)
[2020-03-27] MEDS: Cholecalciferol (Vitamin D3) 25 MCG TABLET 50 MCG PO (08:09)
[2020-03-27] MEDS: Ascorbic Acid 500 MG TABLET PO ×2 (08:09→20:05)
[2020-03-27] MEDS: polyethylene glycoL 3350 17 GM POWD.PACK PO ×2 (08:10→20:04)
[2020-03-27] MEDS: Fludrocortisone Acetate 0.1 MG TABLET PO (08:31)
[2020-03-27 08:53] LABS: Anion Gap 11 (12-20); Blood Urea Nitrogen 17 mg/dL (9-16); Calcium 8.7 mg/dL (8.4-10.2); Carbon Dioxide 26 mmol/L (22-29); Chloride 110 mmol/L (96-108); Creatinine Clr Calc Pharmacy 47.7; Estimated Glomerular Filt Rate 58; Glucose Random 127 mg/dL (60-115); Potassium 3.1 mmol/l (3.3-5.1); Sodium 144 mmol/L (135-145)
[2020-03-27 10:43] VITALS: BP 90/52; PULSE 84; RESP 18; TEMP 35.9; O2SAT 96
[2020-03-27 11:03] LABS: Glucose, Whole Blood 174 mg/dL (60-115)
[2020-03-27 11:04] VITALS: BMI 23.0
--- NOTE | 2020-03-27 13:10 | HO.PM.IMPN ---
Subjective Subjective Date of Service: 03/27/20 Interval History: the patient was seen and evaluated this morning Laying in bed, more sleepy than usual after receiving Ativan overnight Denies any fever, chills or shortness of breath Was very restless and moving around all night long, requiring a sitter and IV Ativan No reported other overnight events. Systemic review: No fever, chills or weakness No chest pain, palpitation No shortness of breath or coughing No abdominal pain, nausea or vomiting No urinary symptoms No any rash or wounds Physical Exam Vital Signs: Vital Signs: Last Vital Signs Temp 96.7 F L 03/27/20 10:43 Pulse 84 03/27/20 10:43 Resp 18 03/27/20 10:43 BP 90/52 L 03/27/20 10:43 Pulse Ox 96 03/27/20 10:43 Body Mass Index 23.0 Constitutional : more sleepy today, alert with stimulation, not in distress, physically deconditioned,restless, Neck : Normal inspection, Supple Cardiovascular : RRR, S1 S2, no lower extremity edema Respiratory : Fair bilateral air entry, no crackles, wheezes or rhonchi Gastrointestinal: soft, lax, Normal bowel sounds, Non tender Skin : Warm/Dry, No rash Neurological : Alert & oriented to self, No focal deficit Objective Data Current Medications Generic Name Dose Route Start Last Admin Trade Name Bobq PRN Reason Stop Dose Admin Acetaminophen 650 mg 03/06/20 07:11 03/11/20 15:53 Acetaminophen 325 Mg Tablet PO 650 mg Q6H PRN Administration Pain, Mild (Pain Scale 1-3) Albuterol Sulfate 90 puff 03/06/20 12:00 Albuterol Sulfate 90 Mcg 18 Gm Inhaler INHALE RQ6H PRN Wheezing Ascorbic Acid 500 mg 03/06/20 09:00 03/27/20 08:09 Ascorbic Acid 500 Mg Tablet PO 500 mg BID ANUJ Administration Aspirin 81 mg 03/06/20 09:00 03/22/20 08:20 Aspirin Enteric Coated 81 Mg Tablet. PO 81 mg DAILY ANUJ Administration Atorvastatin Calcium 10 mg 03/06/20 21:00 03/26/20 19:52 Atorvastatin Calcium 10 Mg Tablet PO 10 mg BEDTIME ANUJ Administration Clozapine 50 mg 03/27/20 21:00 Clozapine 25 Mg Tablet PO BEDTIME ANUJ Docusate Sodium 100 mg 03/06/20 07:11 Docusate Sodium 100 Mg Capsule PO DAILY PRN Constipation Ferrous Sulfate 324 mg 03/06/20 09:00 03/27/20 08:09 Ferrous Sulfate 324 Mg Tablet. PO 324 mg BID ANUJ Administration Fludrocortisone Acetate 0.1 mg 03/27/20 09:00 03/27/20 08:31 Fludrocortisone Acetate 0.1 Mg Tablet PO 0.1 mg DAILY ANUJ Administration Fluticasone/Vilanterol 1 puff 03/07/20 08:00 03/27/20 08:03 Fluticasone/Vilanterol 100/25 Blst.W.Dev INHALE 1 puff RDAILY ANUJ Administration Haloperidol 5 mg 03/27/20 21:00 Haloperidol 5 Mg Tablet PO BEDTIME ANUJ Heparin Sodium (Porcine) 5,000 unit 03/23/20 12:00 03/26/20 23:41 Heparin Sodium,Porcine 5,000 Unit/Ml Vial SUBCUT 5,000 unit Q12H ANUJ Administration Promethazine HCl 6.25 mg/ 50.25 mls @ 201 mls/hr 03/20/20 08:55 Sodium Chloride IV Q6H PRN Nausea Dextrose 1,000 mls @ 150 mls/hr 03/25/20 08:30 03/27/20 08:29 D5w IVCONT 150 mls/hr .Q6H40M ANUJ Administration Methimazole 5 mg 03/10/20 09:00 03/27/20 08:09 Methimazole 10 Mg Tablet PO 5 mg DAILY ANUJ Administration Midodrine 10 mg 03/17/20 09:00 03/27/20 08:09 Midodrine Hcl 10 Mg Tablet PO 10 mg TID ANUJ Administration Mirabegron 50 mg 03/06/20 09:00 03/27/20 08:09 Mirabegron 50 Mg Tab.Er.24h PO 50 mg DAILY ANUJ Administration Omeprazole 20 mg 03/22/20 16:30 03/27/20 05:30 Omeprazole 20 Mg Capsule. PO 20 mg BID@0630,1630 ANUJ Administration Ondansetron HCl 4 mg 03/06/20 07:11 03/20/20 09:01 Ondansetron Hcl 4 Mg/2 Ml Vial IVPUSH 4 mg Q8H PRN Administration Nausea and Vomiting Pharmacy Consult 1 each 03/06/20 04:00 Consult Rx Perform Med Rec MISCELLANE ONCE PRN Consult order Polyethylene Glycol 17 gm 03/20/20 09:00 03/27/20 08:10 Polyethylene Glycol 3350 17 Gm Powd.Pack PO 17 gm BID ANUJ Administration Sodium Chloride 3 ml 03/06/20 08:00 03/27/20 08:09 0.9 % Sodium Chloride Flush 3 Ml Syringe IVFLUSH 3 ml QSHIFT ANUJ Administration Trazodone HCl 150 mg 03/27/20 21:00 Trazodone Hcl 50 Mg Tablet PO BEDTIME ANUJ Valproic Acid 750 mg 03/22/20 21:00 03/27/20 08:10 Valproic Acid (As Sodium Salt) 250 Mg/5 Ml Solution PO 750 mg BID ANUJ Administration Vitamin D 50 mcg 03/06/20 09:00 03/27/20 08:09 Cholecalciferol (Vitamin D3) 25 Mcg Tablet PO 50 mcg DAILY ANUJ Administration Labs CBC & Chem 7: 03/24/20 05:26 03/27/20 07:57 Microbiology Microbiology Results: Microbiology 03/06/20 03:50 Blood - Venous Blood Culture - Final No growth after 5 days. 03/06/20 03:49 Blood - Venous Blood Culture - Final No growth after 5 days. Assessment and Plan (1) GEGE (acute kidney injury): Status: Acute (2) Hypotension: Status: Acute (3) Hyperkalemia: Status: Acute (4) Metabolic encephalopathy: Status: Acute (5) Pleural effusion, right: Status: Acute (6) Non-small cell carcinoma of lung: Status: Acute Assessment and Plan: 69yo F with NSCLC, COPD, psychotic disorder who resides in a halfway previously admitted from Oncology clinic 02/27-03/05/20 due to pleural effusion and COPD exacerbation readmitted with hypotension, tachycardia, concern of cavitary PNA/loculated pleural effusion on CT chest persistent confusion/disorganized speech. Hypernatremia Secondary decreased oral intake and water deficit Improved to 146 this morning Continue D5 water to 150 Follow BMP in the afternoon Metabolic Encephalopathy Resolving no brain mets on CT clozapine levels pending depakote levels 25.3(low) psych input appreciated, does not need psych admission. d/w case management-will need bhn reeval upon discharge. Chronic Hypotension Improved overall probable dehydration , poor oral inatke and general deconditioning continue midodrine 10 mg t.i.d. Placed on IV fluid for decreased oral intake Start Florinef cortisol levels 18.5 range (normal) echo EF 60-65% Hold Coreg Sinus Tachycardia Secondary to cancer, dehydration, medications Better controlled discontinue benztropine Doppler neg for DVT. CTA -ve for PE Hypoxic respiratory failure 2/2 Pleural effusion cavitary pneumonia s/p thoracentesis 02/29/20, exudate, culture-negative, cytology benign completed antiobiotics. consulted Pulmonology + ID + Thoracic; discussed with pt's oncologist Dr Tony Chest x-ray findings discussed with the thoracic surgery-recommended chest physio, incentive spirometry, pulmonary toileting, Acapella- but it is challenging due to patient's underlying issues. If shortness of breath worsen patient become symptomatic may need chest CT to evaluate. COPD exacerbation, resolved prednisone taper completed 03/09, xopnex and flovent. NSCLC followed by Dr Tony, on immune-based chemotherapy with nivolumab Hyperthyroidism TSH 9.64, free T4 0.94, free T3 2.1. MMZ dose decreased from 10 to 5 mg/d. DM2, A1c 7.1,: 150-200 d/c'ed oral hypoglycemics LDSSI dysphagia tolerating one-to-one pureed Aspiration precautions HLD Continue statin GERD continue PPI Psych disorder continue clozapine, haloperidol, valproate DVT ppx heparin
[2020-03-27] MEDS: Heparin Sodium,Porcine 5,000 UNIT/ML VIAL 5000 UNIT SUBCUT ×2 (13:55→23:46)
[2020-03-27 14:43] VITALS: BP 96/77; PULSE 79
--- NOTE | 2020-03-27 14:48 | PM.PNNEP ---
Subjective Subjective Date of Service: 03/27/20 Interval history: seen and examined No chest pain No shortness of breath No abdominal pain, nausea or vomiting Physical Exam Vital Signs: Vital Signs: Last Vital Signs Temp 96.7 F L 03/27/20 10:43 Pulse 79 03/27/20 14:43 Resp 18 03/27/20 10:43 BP 96/77 03/27/20 14:43 Pulse Ox 96 03/27/20 10:43 Body Mass Index 23.0 Const: General: no acute distress HENMT: Head: Yes normocephalic and Yes atraumatic Neck: Neck: Yes supple Resp: Auscultation: diminished lung sounds Cardio: Heart sounds: S1 normal heart sound present and S2 normal heart sound present GI: Palpation (GI): Soft to palpation and nontender Extrem: General: Yes edema Objective Data Labs CBC & Chem 7: 03/24/20 05:26 03/27/20 07:57 Labs: Laboratory Results - last 24 hr 03/26/20 03/26/20 03/26/20 15:05 16:25 20:02 Sodium 150 H Potassium 3.9 Chloride 115 H Carbon Dioxide 25 Anion Gap 14 BUN 20 H Creatinine 1.13 Estim Creat Clear Calc 40.5 Estimated GFR 48 POC Glucose 132 H 174 H Random Glucose 118 H Calcium 9.6 03/26/20 03/27/20 03/27/20 20:14 07:28 07:57 Sodium 146 H 144 Potassium 4.4 3.1 L D Chloride 114 H 110 H Carbon Dioxide 21 L 26 Anion Gap 15 11 L BUN 19 H 17 H Creatinine 1.13 0.96 Estim Creat Clear Calc 40.5 47.7 Estimated GFR 48 58 POC Glucose 125 H Random Glucose 183 H D 127 H Calcium 9.1 8.7 03/27/20 10:59 Sodium Potassium Chloride Carbon Dioxide Anion Gap BUN Creatinine Estim Creat Clear Calc Estimated GFR POC Glucose 174 H Random Glucose Calcium Microbiology Microbiology Results: Microbiology 03/06/20 03:50 Blood - Venous Blood Culture - Final No growth after 5 days. 03/06/20 03:49 Blood - Venous Blood Culture - Final No growth after 5 days. Assessment & Plan Assessment and plan (1) GEGE (acute kidney injury): Status: Acute (2) Hypotension: Status: Acute (3) Hypernatremia: Status: Acute Assessment and Plan: free water deficit corrected GEGE due to compromised kidney perfusion in the setting of hypotension clozaril can cause tachycardia and hypotension REC reduced D5W to 100 cc/hr replace potassium continue midodrine follow kidney function and electrolytes Time Spent With Patient Time: Total time spent is greater than 50% in coordination of care (as documented) at patient's floor/unit and/or counseling patient:
[2020-03-27] MEDS: Potassium Chloride Packet 20 MEQ PACKET 40 MEQ PO (16:20)
[2020-03-27] MEDS: Potassium Chloride ER 20 MEQ TAB.ER.PRT PO (16:20)
[2020-03-27 16:36] LABS: Glucose, Whole Blood 145 mg/dL (60-115)
[2020-03-27 19:11] VITALS: BP 104/50; PULSE 91; RESP 19; TEMP 36; O2SAT 97
[2020-03-27 20:01] LABS: Glucose, Whole Blood 122 mg/dL (60-115)
[2020-03-27] MEDS: traZODone HCL 50 MG TABLET 150 MG PO (20:05)
[2020-03-27] MEDS: cloZAPine 25 MG TABLET 50 MG PO (20:05)
[2020-03-27 20:06] VITALS: BP 98/47; PULSE 93
[2020-03-27] MEDS: HaloperidoL 5 MG TABLET PO (20:06)
[2020-03-27] MEDS: Atorvastatin Calcium 10 MG TABLET PO (20:06)
[2020-03-28] VITALS (9 sets, daily range): BP systolic 92–94; BP diastolic 52–60; PULSE 85–98; RESP 16–18; TEMP 36–36.3; O2SAT 89–98
[2020-03-28 05:57] LABS: Anion Gap 11 (12-20); Blood Urea Nitrogen 14 mg/dL (9-16); Carbon Dioxide 24 mmol/L (22-29); Chloride 107 mmol/L (96-108); Creatinine Clr Calc Pharmacy 51.5; Estimated Glomerular Filt Rate > 60; Glucose Random 179 mg/dL (60-115); Sodium 138 mmol/L (135-145)
[2020-03-28] MEDS: Omeprazole 20 MG CAPSULE.DR PO (06:33)
[2020-03-28] MEDS: Dextrose 5 % 1,000 ML 150 ML IVCONT (06:34)
[2020-03-28] MEDS: Fluticasone/Vilanterol 100/25 BLST.W.DEV 1 PUFF INHALE (07:31)
[2020-03-28 08:01] LABS: Glucose, Whole Blood 148 mg/dL (60-115)
[2020-03-28] MEDS: methIMAzole 10 MG TABLET 5 MG PO (08:17)
[2020-03-28] MEDS: polyethylene glycoL 3350 17 GM POWD.PACK PO (08:17)
[2020-03-28] MEDS: Mirabegron 50 MG TAB.ER.24H PO (08:17)
[2020-03-28] MEDS: Cholecalciferol (Vitamin D3) 25 MCG TABLET 50 MCG PO (08:18)
[2020-03-28] MEDS: Fludrocortisone Acetate 0.1 MG TABLET PO (08:18)
[2020-03-28] MEDS: Midodrine HCl 10 MG TABLET PO ×2 (08:18→14:17)
[2020-03-28] MEDS: Ferrous Sulfate 324 MG TABLET.DR PO (08:18)
[2020-03-28] MEDS: Ascorbic Acid 500 MG TABLET PO (08:18)
[2020-03-28 10:14] LABS: COVID-19 Test Negative (Negative)
--- NOTE | 2020-03-28 10:59 | P.DS_ITS ---
DS: Providers Provider Date of admission: 03/06/20 04:56 Primary care physician: Unknown Physician Consults: 03/06/20 07:11 Consult to Pulmonology Routine Consulting Provider: Erlin Anne Reason for consultation: Large pleural effusion Has provider been notified: No 03/06/20 07:36 Consult to Infectious Diseases Routine Consulting Provider: Chary Hutchins Reason for consultation: readmitted- cavitary pneumonia 03/07/20 07:46 Consult to Thoracic Surgery Routine Consulting Provider: [facility] Thoracic Surgeons Reason for consultation: pleural effusion, NSCLC. please see CT from [facility] reagan done 03/05/20 03/09/20 09:57 Consult to Psychiatry Routine Consulting Provider: Psych Covering Reason for consultation: disorganize thought process, not her baseline. on clozapine, from group ho 03/11/20 14:21 Consult to Crisis Stat Reason for consultation: inpt psych 03/13/20 08:43 Consult to Crisis Stat Reason for consultation: Medically cleared, [facility]N admission Has provider been notified: No 03/20/20 08:28 Consult to Nephrology Routine Consulting Provider: Lupillo Lombardo Reason for consultation: Boder[place] blood pressures Has provider been notified: No 03/21/20 07:52 Consult to Infectious Diseases Routine Consulting Provider: Chary Hutchins Reason for consultation: pneumonia , intermittent fever, unclear etiology Has provider been notified: No 03/27/20 08:06 Consult to Crisis ONCE Reason for consultation: reevaluate the need for inpatient psych admission. DS: Diagnosis Discharge Diagnosis (1) GEGE (acute kidney injury): Status: Acute (2) Hypotension: Status: Acute (3) Hypernatremia: Status: Acute (4) Metabolic encephalopathy: Status: Acute (5) Hyperkalemia: Status: Acute (6) Pleural effusion, right: Status: Acute (7) Sepsis: Status: Acute (8) Acute respiratory failure with hypoxia: Status: Acute (9) Hyperthyroidism: Status: Acute (10) Tachycardia: Status: Acute (11) Non-small cell carcinoma of lung: Status: Acute DS: Medications Discharge Medications Home Medications: Home Medications Medication Instructions Recorded Confirmed Opdivo 240 mg IV Q2W 01/04/20 03/06/20 acetaminophen 650 mg PO Q6H PRN 01/04/20 03/06/20 albuterol 90 mcg INHALATION Q6H PRN 01/04/20 03/06/20 ascorbic acid (vitamin C) [Vitamin 500 mg PO BID 01/04/20 03/06/20 C] aspirin 81 mg PO DAILY 01/04/20 03/06/20 cholecalciferol (vitamin D3) 50 mcg PO DAILY 01/04/20 03/06/20 [Vitamin D3] clozapine [Clozaril] 50 mg PO BEDTIME 01/04/20 03/06/20 ferrous sulfate 325 mg PO BID 01/04/20 03/06/20 fluticasone propion-salmeterol 1 inh INHALATION BID 01/04/20 03/06/20 [Advair Diskus] haloperidol 5 mg PO BEDTIME 01/04/20 03/06/20 mirabegron 50 mg PO DAILY 01/04/20 03/06/20 trazodone 100 mg PO BEDTIME 01/04/20 03/06/20 valproic acid 750 mg PO BID 01/04/20 03/06/20 estradiol [Estrace] 1 g VAGINAL BEDTIME 01/31/20 03/06/20 glipizide 1 tab PO DAILY 02/28/20 03/06/20 Previous Rx's Medication Instructions Recorded omeprazole 20 mg capsule,delayed 20 mg PO QAM #30 cap 01/02/20 release atorvastatin 10 mg tablet 10 mg PO BEDTIME #30 tab 01/23/20 blood sugar diagnostic #150 ea 02/13/20 metformin 500 mg tablet 500 mg PO BID 30 Days #60 tab 02/13/20 alendronate 35 mg tablet 35 mg PO QWEEK #4 tab 02/27/20 methimazole 5 mg PO DAILY 20 Days #10 tab 03/14/20 midodrine 10 mg PO TID #90 tab 03/17/20 benztropine 0.5 mg PO DAILY #0 tab 03/28/20 fludrocortisone 0.1 mg PO DAILY #30 tab 03/28/20 DS: Summary Hospital Course Hospital Course: The patient has prolonged hospital stay, for full details please returned to EMR. History of Present Illness obtained from H&P on 03/06 this is a 69-year-old female with an extensive past medical history as below who presents to the hospital after being discharged earlier today. Patient was admitted to the [facility] on 02/28 for management of community-acquired pneumonia. She was treated with levofloxacin. She was discharged home on cefuroxime for pneumonia. She was given steroids for COPD exacerbation. At that time she was weaned off supplemental oxygen sent home to her detention. This a.m. at the detention patient was found to be hypotensive and therefore she was sent to [facility]. Given her recent presentation to [place] the ED physician at [facility] felt that she would benefit from being transferred back to [facility]. Patient is alert oriented, has no complaint, denies any headache, change in vision, shortness of breath, any chest pain, she has no cough, she has no fever or chills, no abdominal pain nausea or vomiting. Patient denies any diarrhea. She has no lower extremity edema. On arrival to the ED patient vitals are significant for heart rate of 122, blood pressure of 94/57, respiratory rate of 18, 95% on room air. Her current blood pressure is 108/55 Labs obtained at the outside hospital showed WBC count of 11.9, sodium of 134, creatinine of 1.2. Lactic acid of 0.9. Hospital course: 69yo F with NSCLC, COPD, psychotic disorder who resides in a detention previously admitted from Oncology clinic 02/27-03/05/20 due to pleural effusion and COPD exacerbation readmitted with hypotension, tachycardia, concern of cavitary PNA/loculated pleural effusion on CT chest with persistent confusion. Sepsis secondary to pneumonia Loculated pleural effusion The patient was septic at time of presentation with concern for cavitary pneumonia/loculated pleural effusion which was seen on CT chest. Treated with total of 10 days PO levofloxacin with good response as oxygen requirement decreased significantly. Had thoracentesis on the 28 of February which showed exudate poor with benign cytology. Evaluated by thoracic surgery team who recommended pulmonary toileting, as needed nebulizers and treatment for pneumonia as her exam remains stable with repeated chest x-ray. To consider IR intervention if the effusion start to collect again. recommended chest physio, incentive spirometry, pulmonary toileting, Acapella Hypernatremia Developed during the hospital stay Secondary decreased oral intake and water deficit while the patient mentation was altered. Improved back to normal with IV fluids and Nephrology follow-up. Patient was advised to drink more of water as the problem is mainly water deficit. Metabolic Encephalopathy Noted at time of presentation and evaluated by psychiatry team. Seems to be secondary to sepsis and being sick from infection. Her home medications were all continued except for the benzos repeating which was discontinued as it was causing rapid heart rate. Psychiatry team re-evaluated the patient during the hospital stay and recommended no need for psych admission. Recommended to continue her home medications at time of discharge. Chronic Hypotension The patient was noted previously to hypotension. It seems to be a result of poor oral intake, dehydration and general physical deconditioning. Her blood pressure medications were discontinued and she was started on midodrine and Florinef with fair response . Echo was done showing normal heart function. Cortisol level was checked and were within normal. Coreg was held during the hospital stay and will discontinue the time of discharge. continue midodrine 10 mg t.i.d. Continue Florinef Sinus Tachycardia Noticed to have irregular rapid heart rate which seems multifactorial in origin Secondary to cancer , infection, dehydration, medications. Studies including Doppler ultrasound and CTA were negative for any clots. Well controlled after discontinue benztropine which is known to cause tachycardia. To be discharged on lower dose. COPD exacerbation, resolved Prednisone taper completed 03/09, xopnex and flovent. NSCLC Followed by Dr Tony, on immune-based chemotherapy with nivolumab, To follow with Oncology as outpatient. Hyperthyroidism Noted to have TSH 9.64, free T4 0.94, free T3 2.1 Methimazole dose decreased from 10 to 5 mg/d. To repeat TSH after discharge DM2, A1c 7.1,: 150-200 d/c'ed oral hypoglycemics LDSSI dysphagia Evaluated by dietitian. Needs visitor information assistant one-to-one pureed with nectar thick fluids and ensure supply Aspiration precautions Plan to discharge to SNF with hopefully less than 30 day admission. Time Spent with Patient Time attestation: Total time spent providing and/or coordinating discharge services: Physical Exam Vital Signs: Vital Signs: Last Vital Signs Temp 97 F 03/28/20 07:12 Pulse 90 03/28/20 09:24 Resp 17 03/28/20 07:12 BP 92/60 03/28/20 09:24 Pulse Ox 98 03/28/20 07:12 Body Mass Index 23.0 Constitutional : Alert, oriented to time and self, not in distress, physically deconditioned, looks comfortable Neck : Normal inspection, Supple Cardiovascular : RRR, S1 S2, no lower extremity edema Respiratory : Fair bilateral air entry, no crackles, wheezes or rhonchi Gastrointestinal: soft, lax, Normal bowel sounds, Non tender Skin : Warm/Dry, No rash Neurological : Alert & oriented to self and place, No focal deficit DS: Data Data Completed and Pending Completed studies during hospitalization [Text1]: Procedures Drainage of Right Pleural Cavity, Percutaneous Approach (02/28/20) Labs on day of discharge: 03/06/20 XR chest 1V Routine 03/06/20 02:50 0.9 % Sodium Chloride [Ns] 1,000 ml IVCONT 999 mls/hr levoFLOXacin/D5W [Levaquin] 500 mg in 100 ml IV ONCE 03/06/20 03:35 Transfer Order Routine 03/06/20 03:49 Lactic Acid Stat 03/06/20 03:50 Blood Culture X2 [BC] Stat 03/06/20 05:13 COVID-19 ID NOW ([facility]) Stat 03/06/20 05:15 0.9 % Sodium Chloride [Ns] 1,000 ml IVCONT 100 mls/hr 03/06/20 05:47 UA CC w/rflx Micro + Cult Stat 03/06/20 07:11 IV insert/maintain Q4HR 03/06/20 07:21 Albuterol Sulfate [Ventolin] 90 puff INHALE Q6H PRN 03/06/20 07:30 Insulin Lispro [Humalog] See Protocol SUBCUT QIDACHS 03/06/20 08:00 Enoxaparin Sodium [Lovenox] 40 mg SUBCUT Q24H levoFLOXacin/D5W [Levaquin] 750 mg in 150 ml IV Q24H 03/06/20 08:18 Glucose, Whole Blood Routine 03/06/20 08:56 Glucose, Whole Blood Routine 03/06/20 09:00 Benztropine Mesylate [Cogentin] 1 mg PO BID Fluticasone/Vilanterol 100/25 [Breo Ellipta 100/25] 1 puff INHALE BID Omeprazole [PriLOSEC] 20 mg PO DAILY Valproic Acid [Depakene] 750 mg PO BID methIMAzole [Tapazole] 10 mg PO DAILY 03/06/20 Breakfast Regular Diet 03/06/20 11:22 Glucose, Whole Blood Routine 03/06/20 11:32 Hemoglobin A1c Stat Procalcitonin Stat 03/06/20 12:10 Legionella Ag Urine Routine 03/06/20 12:26 Strep Pneumo Ag urine Routine 03/06/20 13:19 Hemoglobin A1c Stat 03/06/20 16:00 predniSONE 20 mg PO DAILY 03/06/20 16:09 Glucose, Whole Blood Routine 03/06/20 16:15 predniSONE 20 mg PO DAILY 03/06/20 20:44 Glucose, Whole Blood Routine 03/06/20 21:00 HaloperidoL [Haldol] 5 mg PO BEDTIME cloZAPine [Clozaril] 50 mg PO BEDTIME traZODone HCL [Desyrel] 100 mg PO BEDTIME 03/07/20 05:28 Basic Metabolic Panel Routine Complete Blood Count Auto Diff Routine 03/07/20 06:00 levoFLOXacin [Levaquin] 750 mg PO Q24H 03/07/20 07:30 Glucose, Whole Blood Routine 03/07/20 11:12 Glucose, Whole Blood Routine 03/07/20 16:00 Glucose, Whole Blood Routine 03/07/20 19:47 Glucose, Whole Blood Routine 03/08/20 05:47 Complete Blood Count Auto Diff Routine Prothrombin Time INR Routine 03/08/20 06:01 Basic Metabolic Panel Routine 03/08/20 06:10 Procalcitonin Routine 03/08/20 07:20 Glucose, Whole Blood Routine 03/08/20 07:49 Glucose, Whole Blood Routine 03/08/20 09:00 predniSONE 10 mg PO DAILY 03/08/20 11:17 Glucose, Whole Blood Routine 03/08/20 16:17 Glucose, Whole Blood Routine 03/08/20 20:53 Glucose, Whole Blood Routine 03/09/20 CT head/brain w con Routine 03/09/20 07:31 Glucose, Whole Blood Routine 03/09/20 10:02 Complete Blood Count Auto Diff Routine D Dimer Routine 03/09/20 10:12 Thyroid Stimulating Hormone Stat 03/09/20 11:12 Glucose, Whole Blood Routine 03/09/20 11:19 Basic Metabolic Panel Stat Free T4 (Free Thyroxine) Stat Triiodothyronine T3 Free Stat 03/09/20 12:34 LORazepam [Ativan] 0.5 mg IVPUSH ONCE ONE 03/09/20 14:43 Add Laboratory Test Urgent 03/09/20 15:11 iohexoL 350 MG/ML [Omnipaque 350 MG/ML] 85 ml IV ONCE ONE 03/09/20 16:32 Glucose, Whole Blood Routine 03/09/20 20:36 Glucose, Whole Blood Routine 03/09/20 21:00 carvediloL [Coreg] 3.125 mg PO BID 03/10/20 07:33 Glucose, Whole Blood Routine 03/10/20 09:07 Ammonia Routine Clozapine Routine Liver Panel Routine Valproate Routine 03/10/20 11:08 Glucose, Whole Blood Routine 03/10/20 16:20 Glucose, Whole Blood Routine 03/10/20 21:03 Glucose, Whole Blood Routine 03/11/20 CT angio chest PE protocol Stat US venous duplex LE BI Stat 03/11/20 08:38 Glucose, Whole Blood Routine 03/11/20 12:00 Glucose, Whole Blood Routine 03/11/20 15:52 iohexoL 350 MG/ML [Omnipaque 350 MG/ML] 100 ml IV ONCE ONE 03/11/20 16:25 Glucose, Whole Blood Routine 03/11/20 20:07 Glucose, Whole Blood Routine 03/12/20 07:05 Glucose, Whole Blood Routine 03/12/20 11:02 Glucose, Whole Blood Routine 03/12/20 16:41 Glucose, Whole Blood Routine 03/12/20 19:45 Glucose, Whole Blood Routine 03/13/20 04:06 0.9 % Sodium Chloride [Ns] 500 ml IVCONT 999 mls/hr 03/13/20 07:26 Glucose, Whole Blood Routine 03/13/20 10:50 Glucose, Whole Blood Routine 03/13/20 16:10 Glucose, Whole Blood Routine 03/13/20 20:26 Glucose, Whole Blood Routine 03/14/20 00:43 0.9 % Sodium Chloride [Ns] 1,000 ml IVCONT 999 mls/hr 03/14/20 07:03 Glucose, Whole Blood Routine 03/14/20 08:28 Complete Blood Count Auto Diff Stat SLIDE REVIEW Stat 03/14/20 08:29 Basic Metabolic Panel Stat 03/14/20 10:50 Glucose, Whole Blood Routine 03/14/20 17:05 Glucose, Whole Blood Routine 03/14/20 17:36 COVID-19 ID NOW ([facility]) Stat 03/14/20 22:02 Glucose, Whole Blood Routine 03/15/20 07:52 Glucose, Whole Blood Routine 12/17/20 10:45 Midodrine HCl [ProAmatine] 5 mg PO ONCE ONE 03/15/20 11:44 Glucose, Whole Blood Routine 03/15/20 16:27 Glucose, Whole Blood Routine 03/15/20 21:32 Glucose, Whole Blood Routine 03/16/20 07:08 Glucose, Whole Blood Routine 03/16/20 09:00 Midodrine HCl [ProAmatine] 10 mg PO BID 03/16/20 11:02 Glucose, Whole Blood Routine 03/16/20 16:59 Glucose, Whole Blood Routine 03/16/20 20:29 Glucose, Whole Blood Routine 03/17/20 07:50 Glucose, Whole Blood Routine 03/17/20 11:09 Glucose, Whole Blood Routine 03/17/20 16:09 Glucose, Whole Blood Routine 03/17/20 21:05 Glucose, Whole Blood Routine 03/18/20 07:42 Glucose, Whole Blood Routine 03/18/20 11:27 Glucose, Whole Blood Routine 03/18/20 16:20 Glucose, Whole Blood Routine 03/18/20 20:34 Glucose, Whole Blood Routine 03/19/20 05:25 Lactated Ringers [Lr] 500 ml IVCONT 500 mls/hr 03/19/20 07:38 Glucose, Whole Blood Routine 03/19/20 11:17 Glucose, Whole Blood Routine 03/19/20 16:15 0.9 % Sodium Chloride [Ns] 500 ml IV 100 mls/hr 03/19/20 16:23 Glucose, Whole Blood Routine 03/19/20 17:51 Sodium Urine Random Stat 03/19/20 21:09 Glucose, Whole Blood Routine 03/19/20 21:58 Midodrine HCl [ProAmatine] 10 mg PO ONCE ONE 03/19/20 22:00 Lactated Ringers [Lr] 500 ml IVCONT 999 mls/hr 03/20/20 06:49 Basic Metabolic Panel DAILY Hemoglobin and Hematocrit Routine Liver Panel Routine 03/20/20 08:02 Glucose, Whole Blood Routine 03/20/20 08:45 Lactated Ringers [Lr] 500 ml IV 100 mls/hr 03/20/20 09:44 Ammonia Routine 03/20/20 11:13 Glucose, Whole Blood Routine 03/20/20 Lunch Regular Diet 03/20/20 16:41 Glucose, Whole Blood Routine 03/20/20 16:45 Fludrocortisone Acetate [Florinef] 0.1 mg PO DAILY 03/20/20 16:55 predniSONE 40 mg PO ONCE ONE 03/20/20 17:00 Lactated Ringers [Lr] 500 ml IV 100 mls/hr 03/20/20 20:00 levalbuterol HCL [Xopenex] 1.25 mg INHALE RTID 03/20/20 20:19 Glucose, Whole Blood Routine 03/21/20 XR chest 1V Routine US chest Urgent 03/21/20 07:18 Basic Metabolic Panel DAILY@0600 Complete Blood Count no Diff Urgent Cortisol Routine Venous Blood Gas Routine 03/21/20 07:34 Glucose, Whole Blood Routine 03/21/20 08:00 Lactated Ringers [Lr] 1,000 ml IV 80 mls/hr 03/21/20 10:05 Sodium Polystyrene Sulfon/Sorb [Kayexalate] 15 gm PO ONCE ONE 03/21/20 11:04 Glucose, Whole Blood Routine 03/21/20 11:30 0.9 % Sodium Chloride [Ns] 500 ml IV 500 mls/hr 03/21/20 13:00 CA echo limited Routine 03/21/20 14:13 Albumin Human 25 % [Kedbumin 25 %] 100 ml IV NOW 03/21/20 15:35 Hydrocortisone Sod Succ/PF [SOLU-Cortef] 100 mg IVPUSH NOW STA 03/21/20 Lunch Regular Diet 0.9 % Sodium Chloride [Ns] 1,000 ml IV 100 mls/hr 03/21/20 16:17 Glucose, Whole Blood Routine 03/21/20 17:15 Albumin Human 25 % [Kedbumin 25 %] 100 ml IV ONCE 03/21/20 21:04 Glucose, Whole Blood Routine 03/21/20 22:00 Hydrocortisone Sod Succ/PF [SOLU-Cortef] 50 mg IVPUSH Q6H 03/22/20 00:15 Albumin Human 25 % [Kedbumin 25 %] 100 ml IV ONCE 03/22/20 02:31 LORazepam [Ativan] 0.5 mg IVPUSH STAT STA 03/22/20 05:34 Albumin Level Routine Basic Metabolic Panel DAILY@0600 Clozapine Routine Complete Blood Count no Diff DAILY@0600 Ferritin Routine Folate Routine IRON PROFILE Routine Valproate Routine Vitamin B12 Routine 03/22/20 06:00 XR chest 1V Routine 03/22/20 07:30 Glucose, Whole Blood Routine 03/22/20 08:53 Add Laboratory Test Urgent 03/22/20 09:24 Hemoglobin and Hematocrit Routine 03/22/20 12:06 Glucose, Whole Blood Routine 03/22/20 14:44 Respiratory Therapy Consult .Routine 03/22/20 15:58 Glucose, Whole Blood Routine 03/22/20 Dinner NPO Diet 03/22/20 19:44 Glucose, Whole Blood Routine 03/23/20 04:36 LORazepam [Ativan] 0.25 mg IVPUSH STAT STA 03/23/20 08:00 Glucose, Whole Blood Routine 03/23/20 08:05 Hemoglobin and Hematocrit DAILY 03/23/20 12:01 Glucose, Whole Blood Routine 03/23/20 12:18 Glucose, Whole Blood Routine 03/23/20 14:30 0.9 % Sodium Chloride [Ns] 1,000 ml IVCONT 75 mls/hr 03/23/20 Lunch Regular Diet 03/23/20 16:08 Glucose, Whole Blood Routine 03/23/20 21:00 Glucose, Whole Blood Routine 03/24/20 05:26 Basic Metabolic Panel DAILY@0600 Hemoglobin and Hematocrit DAILY 03/24/20 07:39 Glucose, Whole Blood Routine 03/24/20 11:13 Glucose, Whole Blood Routine 03/24/20 16:40 Glucose, Whole Blood Routine 03/24/20 18:30 Dextrose 5 % and 0.2 % NaCl [D51/4Ns] 1,000 ml IVCONT 80 mls/hr 03/24/20 21:00 HaloperidoL [Haldol] 2 mg PO BEDTIME 03/24/20 21:36 Glucose, Whole Blood Routine 03/25/20 05:46 Basic Metabolic Panel DAILY@0600 03/25/20 07:13 Glucose, Whole Blood Routine 03/25/20 08:30 Dextrose 5 % [D5w] 1,000 ml IVCONT 100 mls/hr 03/25/20 10:56 Glucose, Whole Blood Routine 03/25/20 14:33 Basic Metabolic Panel Routine 03/25/20 15:37 Glucose, Whole Blood Routine 03/25/20 16:48 Glucose, Whole Blood Routine 03/25/20 20:30 Basic Metabolic Panel Routine 03/25/20 21:00 cloZAPine [Clozaril] 25 mg PO BEDTIME 03/25/20 22:40 Glucose, Whole Blood Routine 03/26/20 00:56 traZODone HCL [Desyrel] 25 mg PO ONCE ONE 03/26/20 04:42 LORazepam [Ativan] 0.5 mg PO ONCE ONE traZODone HCL [Desyrel] 25 mg PO ONCE ONE 03/26/20 06:06 Basic Metabolic Panel DAILY@0600 03/26/20 07:40 Glucose, Whole Blood Routine 03/26/20 11:08 Glucose, Whole Blood Routine 03/26/20 15:05 Basic Metabolic Panel Routine 03/26/20 16:25 Glucose, Whole Blood Routine 03/26/20 20:02 Glucose, Whole Blood Routine 03/26/20 20:14 Basic Metabolic Panel Routine 03/27/20 07:28 Glucose, Whole Blood Routine 03/27/20 07:57 Basic Metabolic Panel DAILY@0600 03/27/20 10:59 Glucose, Whole Blood Routine 03/27/20 14:51 Potassium Chloride ER [Klor-con] 20 meq PO ONCE ONE 03/27/20 15:47 Potassium Chloride Packet [Klor-Con Packet] 40 meq PO ONCE ONE 03/27/20 16:22 Glucose, Whole Blood Routine 03/27/20 19:53 Glucose, Whole Blood Routine 03/27/20 21:00 HaloperidoL [Haldol] 3 mg PO BEDTIME 03/28/20 04:02 Basic Metabolic Panel DAILY@0600 03/28/20 07:50 Glucose, Whole Blood Routine 03/28/20 09:45 COVID-19 ID NOW ([facility]) Routine Laboratory Last Values WBC 4.4 X10*3/uL (4.8-10.8) L 03/22/20 05:34 RBC 2.69 X10*6/uL (4.20-5.50) L D 03/22/20 05:34 Hgb 9.9 g/dl (12.0-16.0) L 03/24/20 05:26 Hct 33.1 % (37-47) L 03/24/20 05:26 MCV 99.3 fL (80-98) H 03/22/20 05:34 MCH 29.4 pg (27.0-33.0) 03/22/20 05:34 MCHC 29.6 g/dl (31.0-35.0) L 03/22/20 05:34 RDW 15.5 % (11.0-16.0) 03/22/20 05:34 Plt Count 201 X10*3/uL (160-400) 03/22/20 05:34 MPV 10.1 fL (9.4-12.3) 03/22/20 05:34 Immature Gran % (Auto) 4.5 % (0.0-0.4) H 03/14/20 08:28 Neut % (Auto) 53.6 % (45-73) 03/14/20 08:28 Lymph % (Auto) 22.0 % (20-40) 03/14/20 08:28 [place] % (Auto) 16.1 % (2-11) H 03/14/20 08:28 Eos % (Auto) 3.5 % (0-4) 03/14/20 08:28 Baso % (Auto) 0.3 % (0-2) 03/14/20 08:28 Lymph # (Auto) 1.3 X10*3/uL (1.2-4.9) 03/14/20 08:28 [place] # (Auto) 1.0 X10*3/uL (0.1-1.2) 03/14/20 08:28 Eos # (Auto) 0.2 X10*3/uL (0.0-0.4) 03/14/20 08:28 Baso # (Auto) 0.0 X10*3/uL (0.0-0.2) 03/14/20 08:28 Abs Immat Gran (auto) 0.27 X10*3/uL (0.00-0.03) H 03/14/20 08:28 Absolute Neuts (auto) 3.2 X10*3/uL (2.0-8.3) 03/14/20 08:28 Absolute Nucleated RBC 0.000 X10*3/uL (0.0-0.012) 03/22/20 05:34 Nucleated RBC % (auto) 0.0 /100WBC (0.0-0.2) 03/22/20 05:34 Smear Tech's Comments VERIFIED 03/14/20 08:28 PT 12.0 SEC (10.8-13.0) D 03/08/20 05:47 INR 1.0 (0.9-1.1) 03/08/20 05:47 D-Dimer 316 NG/ML 03/09/20 10:02 VBG pH 7.34 (7.32-7.43) 03/21/20 07:18 VBG pCO2 50 mmhg 03/21/20 07:18 VBG pO2 39 mmhg 03/21/20 07:18 VBG HCO3 27 mmol/L 03/21/20 07:18 VBG O2 Saturation 72.3 % 03/21/20 07:18 VBG Base Excess 0.3 mmol/L 03/21/20 07:18 Sodium 138 mmol/L (135-145) 03/28/20 04:02 Potassium 4.0 mmol/l (3.3-5.1) D 03/28/20 04:02 Chloride 107 mmol/L (96-108) 03/28/20 04:02 Carbon Dioxide 24 mmol/L (22-29) 03/28/20 04:02 Anion Gap 11 (12-20) L 03/28/20 04:02 BUN 14 mg/dL (9-16) 03/28/20 04:02 Creatinine 0.89 mg/dL (0.5-1.4) 03/28/20 04:02 Estim Creat Clear Calc 51.5 03/28/20 04:02 Estimated GFR > 60 03/28/20 04:02 POC Glucose 148 mg/dL (60-115) H 03/28/20 07:50 Random Glucose 179 mg/dL (60-115) H D 03/28/20 04:02 Estimat Average Glucose 157 mg/dL 03/06/20 13:19 Hemoglobin A1c % 7.1 % 03/06/20 13:19 Lactic Acid 0.9 mmol/L (0.5-2.0) 03/06/20 03:49 Calcium 9.0 mg/dL (8.4-10.2) 03/28/20 04:02 Iron 40 mcg/dL (30-160) 03/22/20 05:34 TIBC 136 mcg/dL (228-428) L 03/22/20 05:34 % Saturation 29 % (15-50) 03/22/20 05:34 Unsat Iron Binding 96 ug/dL 03/22/20 05:34 Ferritin 455 ng/mL (10-250) H 03/22/20 05:34 Total Bilirubin 0.2 mg/dL (0.0-1.0) 03/20/20 06:49 Direct Bilirubin < 0.2 mg/dL (0.0-0.5) 03/20/20 06:49 AST 31 U/L (5-31) 03/20/20 06:49 ALT 14 U/L (0-31) 03/20/20 06:49 Alkaline Phosphatase 542 U/L (39-117) H D 03/20/20 06:49 Ammonia 29 umol/L (13-55) 03/20/20 09:44 Total Protein 5.2 g/dL (6.5-8.0) L 03/20/20 06:49 Albumin 3.5 g/dL (3.5-5.0) D 03/22/20 05:34 Vitamin B12 826 pg/mL (200-900) 03/22/20 05:34 Folate 7.9 ng/mL (> or = 4.0) 03/22/20 05:34 Procalcitonin 0.07 ng/mL 03/08/20 06:10 TSH 9.64 uIU/mL (0.32-4.0) H 03/09/20 10:12 Free T4 0.94 ng/dL (0.71-1.85) 03/09/20 11:19 Free T3 2.1 pg/mL (2.3-4.2) L 03/09/20 11:19 Cortisol 18.5 mcg/dL 03/21/20 07:18 Urine Color YELLOW 03/06/20 05:47 Urine Appearance CLEAR 03/06/20 05:47 Urine pH 6.0 (5.0-8.0) 03/06/20 05:47 Ur Specific [place] 1.010 (1.005-1.025) 03/06/20 05:47 Urine Protein NEG MG/DL (NEG-TRACE) 03/06/20 05:47 Urine Glucose (UA) NEG MG/DL (NEG) 03/06/20 05:47 Urine Ketones NEG MG/DL (NEG) 03/06/20 05:47 Urine Blood NEG (NEG) 03/06/20 05:47 Urine Nitrite NEG (NEG) 03/06/20 05:47 Ur Leukocyte Esterase NEG (NEG) 03/06/20 05:47 Ur Random Sodium 29.0 mmol/L 03/20/20 17:45 Valproic Acid 25.3 mcg/mL (50.0-100.0) L 03/22/20 05:34 Clozapine 116 mcg/L 03/22/20 05:34 Norclozapine 23 mcg/L (25-400) L 03/22/20 05:34 COVID-19 ([facility]) Negative (Negative) 03/28/20 09:45 COVID-19 Clin Com See Note 03/28/20 09:45 Ur L.pneumophila Ag Not Detected (Not Detected) 03/06/20 12:26 Ur Strep pneumoniae Ag Not Detected (Not Detected) 03/06/20 12:26 Discharge Plan Discharge Anticipated Discharge Date/Time: 03/28/20 10:20 Patient Disposition: Xfer [facility] Referrals: Valery Kilpatrick MD [Physician] - 2 Weeks (Please call and schedule a follow up appointment for 1 week.) Discharge Medications: New methimazole 10 mg Tablet 5 mg PO DAILY 20 Days Qty: 10 RF: 0 midodrine 10 mg Tablet 10 mg PO TID Qty: 90 RF: 0 fludrocortisone 0.1 mg Tablet 0.1 mg PO DAILY Qty: 30 RF: 0 Continued omeprazole 20 mg capsule,delayed release(DR/EC) 20 mg PO QAM Qty: 30 RF: 6 atorvastatin 10 mg tablet 10 mg PO BEDTIME Qty: 30 RF: 5 alendronate 35 mg tablet 35 mg PO QWEEK Qty: 4 RF: 5 haloperidol 5 mg Tablet 5 mg PO BEDTIME RF: 0 valproic acid 250 mg Capsule 750 mg PO BID RF: 0 acetaminophen 650 mg Tablet 650 mg PO Q6H PRN (Reason: Fever Or Pain) RF: 0 ascorbic acid (vitamin C) [Vitamin C] 500 mg Tablet 500 mg PO BID RF: 0 trazodone 100 mg Tablet 100 mg PO BEDTIME RF: 0 ferrous sulfate 325 mg (65 mg iron) Tablet 325 mg PO BID RF: 0 aspirin 81 mg Tablet 81 mg PO DAILY RF: 0 albuterol 90 mcg/actuation Aerosol 90 mcg INHALATION Q6H PRN (Reason: Wheezing) RF: 0 fluticasone propion-salmeterol [Advair Diskus] 100-50 mcg/dose Blister With Device 1 inh INHALATION BID RF: 0 clozapine [Clozaril] 50 mg Tablet 50 mg PO BEDTIME RF: 0 cholecalciferol (vitamin D3) [Vitamin D3] 50 mcg (2,000 unit) Capsule 50 mcg PO DAILY RF: 0 mirabegron 50 mg Tablet Extended Release 24 Hr 50 mg PO DAILY RF: 0 Opdivo 240 mg/24 mL Solution 240 mg IV Q2W RF: 0 estradiol [Estrace] 0.01 % (0.1 mg/gram) cream 1 g vaginal BEDTIME RF: 0 glipizide 2.5 mg tablet extended release 24hr 1 tab PO DAILY RF: 0 metformin 500 mg tablet 500 mg PO BID 30 Days Qty: 60 RF: 5 (DME) Contour Next Test Strips Strip See Rx Instructions .ROUTE .MEDSUPPLY Qty: 150 RF: 6 Changed benztropine 1 mg Tablet 0.5 mg PO DAILY Qty: 0 RF: 0 Discontinued methimazole 10 mg tablet 10 mg PO DAILY 30 Days Qty: 30 RF: 4 carvedilol [Coreg] 3.125 mg Tablet 3.125 mg PO BID RF: 0 cefuroxime axetil 500 mg tablet 500 mg PO BID 5 Days Qty: 10 RF: 0 prednisone 10 mg tablet See Rx Instructions .ROUTE .COMPLEX Qty: 6 RF: 0 Discharge Orders: Discharge Order (Routine); Ordered 03/28/20 Ordered By: Roshni Gilliam Diet: regular diet Activity on Discharge: As tolerated Other Ambulatory Orders: XR chest 1V (Routine) Timeframe: 1 Day Facility: [facility] - Location: Radiology Ordered By: Sanjuana Chavarria Triiodothyronine T3 Total (Routine) Timeframe: 1 Month Facility: [facility] - Location: Laboratory Ordered By: Sanjuana Chavarria Free T4 (Free Thyroxine) (Routine) Timeframe: 1 Month Facility: [facility] - Location: Laboratory Ordered By: Sanjuana Chavarria Thyroid Stimulating Hormone (Routine) Timeframe: 1 Month Facility: [facility] - Location: Laboratory Ordered By: Sanjuana Chavarria Visit Report Forms: Patient Portal Discharge page Care Plan Goals: See below Health Concerns: See below Plan of Treatment: Your treated in the hospital for multiple medical problems including pneumonia, altered mentation, low blood pressure and dehydration among others. Next Lyme your treated with IV antibiotics for pneumonia and finished your treatment during the hospital stay. You received IV fluid for correction of dehydration. Evaluated by Nephrology and started on midodrine and Florinef to improve blood pressure readings with fair response. You were evaluated by psychiatry team for altered mentation. You medications adjusted according to that. Your thyroid function test was noticed to be low. Methimazole dose decreased. To repeat blood test as outpatient and follow with PCP.
[2020-03-28] MEDS: Heparin Sodium,Porcine 5,000 UNIT/ML VIAL 5000 UNIT SUBCUT (11:12)
--- NOTE | 2020-03-28 11:25 | PM.PNNEP ---
Subjective Subjective Date of Service: 03/28/20 Interval history: seen and examined No chest pain No shortness of breath No abdominal pain, nausea or vomiting Physical Exam Vital Signs: Vital Signs: Last Vital Signs Temp 97 F 03/28/20 07:12 Pulse 90 03/28/20 09:24 Resp 17 03/28/20 07:12 BP 92/60 03/28/20 09:24 Pulse Ox 98 03/28/20 07:12 Body Mass Index 23.0 Const: General: no acute distress HENMT: Head: Yes normocephalic and Yes atraumatic Neck: Neck: Yes supple Resp: Effort & Inspection: decreased respiratory effort Auscultation: clear to auscultation bilaterally Cardio: Heart sounds: S1 normal heart sound present and S2 normal heart sound present GI: Palpation (GI): Soft to palpation and nontender Extrem: General: Yes edema Objective Data Labs CBC & Chem 7: 03/24/20 05:26 03/28/20 04:02 Labs: Laboratory Results - last 24 hr 03/27/20 03/27/20 03/28/20 16:22 19:53 04:02 Sodium 138 Potassium 4.0 D Chloride 107 Carbon Dioxide 24 Anion Gap 11 L BUN 14 Creatinine 0.89 Estim Creat Clear Calc 51.5 Estimated GFR > 60 POC Glucose 145 H 122 H Random Glucose 179 H D Calcium 9.0 COVID-19 ([facility]) COVID-19 Clin Com 03/28/20 03/28/20 07:50 09:45 Sodium Potassium Chloride Carbon Dioxide Anion Gap BUN Creatinine Estim Creat Clear Calc Estimated GFR POC Glucose 148 H Random Glucose Calcium COVID-19 ([facility]) Negative COVID-19 Clin Com See Note Microbiology Microbiology Results: Microbiology 03/06/20 03:50 Blood - Venous Blood Culture - Final No growth after 5 days. 03/06/20 03:49 Blood - Venous Blood Culture - Final No growth after 5 days. Assessment & Plan Assessment and plan (1) GEGE (acute kidney injury): Status: Acute (2) Hypotension: Status: Acute (3) Hypernatremia: Status: Acute Assessment and Plan: free water deficit corrected GEGE due to compromised kidney perfusion in the setting of hypotension clozaril can cause tachycardia and hypotension REC discontinue IVF continue midodrine follow kidney function and electrolytes will sign off Time Spent With Patient Time: Total time spent is greater than 50% in coordination of care (as documented) at patient's floor/unit and/or counseling patient:
[2020-03-28 11:50] LABS: Glucose, Whole Blood 173 mg/dL (60-115)
[2020-03-28 14:06] LABS: Anion Gap 9 (12-20); Blood Urea Nitrogen 13 mg/dL (9-16); Carbon Dioxide 27 mmol/L (22-29); Chloride 106 mmol/L (96-108); Creatinine Clr Calc Pharmacy 50.9; Estimated Glomerular Filt Rate > 60; Glucose Random 161 mg/dL (60-115); Potassium 4.1 mmol/l (3.3-5.1); Sodium 138 mmol/L (135-145)
--- NOTE | 2020-03-31 | CT_ITS ---
EXAMINATION: CT CHEST WITHOUT CONTRAST CLINICAL INFORMATION: Large right pleural effusion. COMPARISON: CT of the chest dated 03/11/2020. TECHNIQUE: Multidetector volumetric CT imaging of the chest was done. Axial MIP volume rendering provided. Sagittal and coronal reformatted images were obtained. This CT examination was performed using dose optimization techniques as appropriate, variously including the following: *Automated exposure control *Adjustment of mA and/or kV according to patient size (this includes techniques or standardized protocols for targeted exams where dose is matched to indication/reason for exam; i.e. extremities or head) *Use of iterative reconstruction technique DLP: 196.0 mGy-cm FINDINGS: DIGITAL IMAGER: Opaque right hemithorax. LUNGS: Near complete collapse consolidation of the right lung. Air bronchogram is noted within the right middle and lower lobes. Superimposed ellipsoidal hypodensity within the right lower lobe posteromedially measuring approximately 2.3 x 1.4 cm with Hounsfield value of 9, may represent lung parenchymal evolving necrosis versus developing abscess. Evaluation is limited due to lack of intravenous contrast on the current study. The left lung field is relatively clear except for left lower lobar airspace disease with air bronchogram at inferior, and posteromedial part of the left lower hemithorax. MEDIASTINUM: Slightly shifted to the left. No pathologically enlarged lymphadenopathy. There is a left IJ Port-A-Cath present with its tip seen projecting within the proximal SVC. PLEURA: Previously documented large simple-appearing right-sided pleural effusion shows significant interval increase in size and producing compressive atelectasis, collapse of the entire right lung with minimal aeration seen within the central superior medial aspect of the right upper hemithorax. AXILLA: No lymphadenopathy. UPPER ABDOMEN: Unremarkable. OSSEOUS STRUCTURES: Stable compression fracture of T12. CT/CT chest wo con IMPRESSION: 1. Increasing right-sided pleural effusion producing near complete collapse consolidation of the entire right lung since the prior CT of the chest dated 03/11/2020. 2. The right lower lobe of the lung shows superimposed hypodense lesion posteromedially, may represent evolving area of necrosis versus abscess formation. Evaluation is limited due to lack of intravenous contrast on the current study. 3. Stable compression fracture of T12 vertebral body.
== END 2020-03-28 14:35 | disposition skilled nursing facility (03) | DRG 871 ==
LOC: HO.ED 03:13 → HO.IMC 06:42
PROVIDERS: Anesthesiology; Family Medicine; Internal Medicine; Admitting Provider Internal Medicine; Emergency Provider Emergency Medicine; Visit Provider Student in an Organized Health Care Education/Training Program
DX: A41.9 Sepsis, unspecified organism (principal); G93.41 Metabolic encephalopathy; J18.8 Other pneumonia, unspecified organism; J44.0 Chronic obstructive pulmonary disease with (acute) lower respiratory infection; J44.1 Chronic obstructive pulmonary disease with (acute) exacerbation; C34.90 Malignant neoplasm of unspecified part of unspecified bronchus or lung; J91.8 Pleural effusion in other conditions classified elsewhere; N17.9 Acute kidney failure, unspecified; K21.9 Gastro-esophageal reflux disease without esophagitis; E11.649 Type 2 diabetes mellitus with hypoglycemia without coma; R13.10 Dysphagia, unspecified; R00.0 Tachycardia, unspecified; E86.0 Dehydration; E05.90 Thyrotoxicosis, unspecified without thyrotoxic crisis or storm; I95.89 Other hypotension; F25.9 Schizoaffective disorder, unspecified; Z20.828 Contact with and (suspected) exposure to other viral communicable diseases; Z87.891 Personal history of nicotine dependence; Z79.82 Long term (current) use of aspirin; Z79.84 Long term (current) use of oral hypoglycemic drugs; Z79.899 Other long term (current) drug therapy
CPT/HCPCS: 36415; 70460; 71045; 71275; 76604; 80048; 80076; 80159; 80164; 81003; 82040; 82140; 82533; 82607; 82728; 82746; 82803; 82947; 83036; 83540; 83605; 84145; 84300; 84439; 84443; 84481; 85014; 85018; 85025; 85027; 85379; 85610; 87040; 87449; 87635; 87899; 92526; 92610; 93308; 93970; 94640; 94667; 96361; 96374; 97110; 97116; 97162; 97530; 99225; 99285; J1650; J1956; J2060; J2405; P9047; Q9967

== ENCOUNTER 2020-03-31 00:57 | Inpatient (IN) | payer MEDICARE, MEDICAID, SELFPAY ==
[2020-03-31] VITALS (27 sets, daily range): BP systolic 78–155; BP diastolic 25–89; PULSE 80–117; RESP 18–32; TEMP 35.8–36.9; O2SAT 89–98; BMI 24.8
--- NOTE | 2020-03-31 | XR_ITS ---
EXAMINATION: XR CHEST CLINICAL INFORMATION: Shortness of breath. COMPARISON: Most recent CT chest done earlier the same day. TECHNIQUE: Frontal view of the chest was obtained. FINDINGS: Near-complete opacification of the right chest is redemonstrated, similar when compared to the prior examination. Small left-sided pleural effusion with adjacent atelectasis versus infiltrates, increased when compared to the prior examination. No pneumothorax. Left chest wall port with its catheter tip in the region of the SVC. XR/XR chest 1V IMPRESSION: Near-complete opacification of the right lung, similar when compared to the prior examination. Small left-sided pleural effusion with adjacent atelectasis versus infiltrates, increased when compared to the prior examination.
--- NOTE | 2020-03-31 01:12 | ED_ITS ---
HPI - SOB/Dyspnea General Chief Complaint: Upper Respiratory Symptoms Stated Complaint: resp failure Time Seen by Provider: 03/31/20 01:11 Source: patient and EMS Mode of arrival: EMS History of Present Illness HPI Narrative: Patient's history of non-small cell carcinoma of the lung pleural effusion COPD admitted here frequently in last 2 months for respiratory failure just discharged back to half-way on 03/28 , 2 days ago, comes back here from half-way for respiratory distress saturating 40% at room air blood sugar was 40 blood pressure was low on non-rebreather patient is saturating 90% at this time patient refusing to get intubated or CPR would like to be DNR Related Data Home Medications Medication Instructions Recorded Confirmed Opdivo 240 mg IV Q2W 01/04/20 03/31/20 acetaminophen 650 mg PO Q6H PRN 01/04/20 03/31/20 albuterol 90 mcg INHALATION Q6H PRN 01/04/20 03/31/20 ascorbic acid (vitamin C) [Vitamin 500 mg PO BID 01/04/20 03/31/20 C] aspirin 81 mg PO DAILY 01/04/20 03/31/20 cholecalciferol (vitamin D3) 50 mcg PO DAILY 01/04/20 03/31/20 [Vitamin D3] clozapine [Clozaril] 50 mg PO BEDTIME 01/04/20 03/31/20 ferrous sulfate 325 mg PO BID 01/04/20 03/31/20 fluticasone propion-salmeterol 1 inh INHALATION BID 01/04/20 03/31/20 [Advair Diskus] haloperidol 5 mg PO BEDTIME 01/04/20 03/31/20 mirabegron 50 mg PO DAILY 01/04/20 03/31/20 trazodone 100 mg PO BEDTIME 01/04/20 03/31/20 valproic acid 750 mg PO BID 01/04/20 03/31/20 estradiol [Estrace] 1 g VAGINAL BEDTIME 01/31/20 03/31/20 glipizide 1 tab PO DAILY 02/28/20 03/31/20 Previous Rx's Medication Instructions Recorded omeprazole 20 mg capsule,delayed 20 mg PO QAM #30 cap 01/02/20 release atorvastatin 10 mg tablet 10 mg PO BEDTIME #30 tab 01/23/20 metformin 500 mg tablet 500 mg PO BID 30 Days #60 tab 02/13/20 alendronate 35 mg tablet 35 mg PO QWEEK #4 tab 02/27/20 methimazole 5 mg PO DAILY 20 Days #10 tab 03/14/20 midodrine 10 mg PO TID #90 tab 03/17/20 benztropine 0.5 mg PO DAILY #0 tab 03/28/20 fludrocortisone 0.1 mg PO DAILY #30 tab 03/28/20 Allergies Allergy/AdvReac Type Severity Reaction Status Date / Time No Known Allergies Allergy Verified 01/16/20 13:13 [No Known Allergies*] Review of Systems Review of Systems: Yes Unobtainable due to mental condition [facility] Past Medical History Medical History Anemia Charcot's arthropathy COPD (chronic obstructive pulmonary disease) Diabetes Diabetes type 2, uncontrolled Fever of unknown origin GERD (gastroesophageal reflux disease) Hyperlipidemia Hypernatremia Hypertension Hypertension Hyperthyroidism Iron deficiency anemia Lung mass Osteopenia Osteoporosis Pleural effusion PVC (premature ventricular contraction) Tachycardia TIA (transient ischemic attack) (~2012) Tremor Umbilical hernia Surgical History History of appendectomy Family History Family History Father Lung cancer Mother Colorectal cancer Social History Social History Household Members: Other Alcohol intake: former Smoking Status: Former smoker Packs Per Day: 1 Years Smoked: 50 Advance Directives: No Advance Directives Information Provided: No service: No Current occupational status: disabled Physical Exam Vital Signs: Vital Signs: Last Vital Signs Temp 98.5 F 03/31/20 05:21 Pulse 108 H 03/31/20 05:21 Resp 20 03/31/20 05:21 BP 100/54 L 03/31/20 05:21 Pulse Ox 92 03/31/20 05:21 Body Mass Index 24.8 Const: General: alert, acute distress severe and respiratory, ill appearing and lethargic Nutritional Appearance: malnourished Orientation /consciousness: oriented to person, oriented to place and lethargic HENMT: Head: Yes normal to inspection Ears: hearing grossly normal bilaterally General nose exam: Normal external nose present Mouth: Normal oral and palatal mucosa present Eyes: General: appearance normal, both eyes and all related structures Neck: Neck: Yes normal visual inspection Carotids: normal carotid upstroke Lymphatic: no lymphadenopathy noted Chest: Chest palpation & inspection: normal inspection of the chest and normal palpation of entire chest wall Resp: Effort & Inspection: tachypneic Auscultation: rales and diminished yasmany ng sounds on the right Percussion: dullness Lower: right Cardio: Rate: tachycardic Rhythm: regular rhythm Heart sounds: S1 normal heart sound present and S2 normal heart sound present Peripheral pulses: Peripheral pulses 2+ throughout GI: Inspection: Yes normal to inspection Palpation (GI): Soft to palpation and nontender Percussion: Yes normal to percussion Auscultation: normal bowel sounds : General: Yes no CVA tenderness Back/Spine/Pelvis: Back: no CVA tenderness Thoracic/Lumbar Spine: thoracic and lumbar spine normal to inspection Skin: General skin exam: no rashes or lesions noted Neuro: General: oriented to person, oriented to place, moves all extremities, no focal motor deficits and CN's II-XI intact bilaterally Extrem: General: Yes normal to inspection, Yes full ROM and Yes no pedal edema Course Course Course Narrative: Patient with non-small cell carcinoma of the lung with pleural effusion with increased shortness of breath with hypoxia with 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 Patient had thoracentesis last month and plan was to put PleurX had catheter if recurrence of the pleural effusion happens. Pleural fluid did not show any malignant cells in last cytology report on 02/28. At this time patient improved in oxygenation will start on IV antibiotics for possible pneumonia. Patient has elevated lactic acid secondary to albuterol treatment and part of hypoxia also patient has chronic hypertension low blood pressure is not from sepsis but from hypoxia secondary to cancer and pleural effusion patient also has low blood glucose of 40 she is on oral hypoglycemic meds glipizide, patient has poor oral intake, blood sugar improved after IV dextrose and started on D5 for now patient's blood pressure improved to 102/33 after IV fluids MDM - SOB/Dyspnea Medical Records Attestation: I reviewed the patient's medical records. Lab Data Attestation: I reviewed the patient's lab results. Result diagrams: 03/31/20 02:29 03/31/20 02:29 Labs: Lab Results 03/31/20 03/31/20 03/31/20 Range/Units 01:09 02:29 02:29 WBC 11.9 H (4.8-10.8) X10*3/uL RBC 3.19 L (4.20-5.50) X10*6/uL Hgb 9.4 L (12.0-16.0) g/dl Hct 32.4 L (37-47) % MCV 101.6 H (80-98) fL MCH 29.5 (27.0-33.0) pg MCHC 29.0 L (31.0-35.0) g/dl RDW 16.1 H (11.0-16.0) % Plt Count 116 L D (160-400) X10*3/uL MPV 11.4 (9.4-12.3) fL Immature Gran % (Auto) 1.8 H (0.0-0.4) % Neut % (Auto) 80.3 H (45-73) % Lymph % (Auto) 10.4 L (20-40) % [place] % (Auto) 5.9 (2-11) % Eos % (Auto) 1.3 (0-4) % Baso % (Auto) 0.3 (0-2) % Lymph # (Auto) 1.2 (1.2-4.9) X10*3/uL [place] # (Auto) 0.7 (0.1-1.2) X10*3/uL Eos # (Auto) 0.2 (0.0-0.4) X10*3/uL Baso # (Auto) 0.0 (0.0-0.2) X10*3/uL Abs Immat Gran (auto) 0.22 H (0.00-0.03) X10*3/uL Absolute Neuts (auto) 9.6 H (2.0-8.3) X10*3/uL Absolute Nucleated RBC 0.000 (0.0-0.012) X10*3/uL Nucleated RBC % (auto) 0.0 (0.0-0.2) /100WBC Smear Tech's Comments VERIFIED PT (10.8-13.0) SEC INR (0.9-1.1) VBG pH (7.32-7.43) VBG pCO2 mmhg VBG pO2 mmhg VBG HCO3 mmol/L VBG O2 Saturation % VBG Base Excess mmol/L Sodium 142 (135-145) mmol/L Potassium 4.8 (3.3-5.1) mmol/l Chloride 109 H (96-108) mmol/L Carbon Dioxide 23 (22-29) mmol/L Anion Gap 15 (12-20) BUN 17 H (9-16) mg/dL Creatinine 1.00 (0.5-1.4) mg/dL Estim Creat Clear Calc 40.4 Estimated GFR 55 POC Glucose 57 L* (60-115) mg/dL Random Glucose 40 L* (60-115) mg/dL Lactic Acid (0.5-2.0) mmol/L Lactic Acid Fup @ 2Hr (0.5-2.0) mmol/L Calcium 10.1 D (8.4-10.2) mg/dL Total Bilirubin 0.3 (0.0-1.0) mg/dL Direct Bilirubin 0.3 (0.0-0.5) mg/dL AST 81 H (5-31) U/L ALT 41 H (0-31) U/L Alkaline Phosphatase 976 H D (39-117) U/L Troponin I High Sens (<3.5-17.0) ng/L Total Protein 5.0 L (6.5-8.0) g/dL Albumin 2.4 L D (3.5-5.0) g/dL COVID-19 ([facility]) (Negative) COVID-19 Clin Com 03/31/20 03/31/20 03/31/20 Range/Units 02:29 02:29 02:29 WBC (4.8-10.8) X10*3/uL RBC (4.20-5.50) X10*6/uL Hgb (12.0-16.0) g/dl Hct (37-47) % MCV (80-98) fL MCH (27.0-33.0) pg MCHC (31.0-35.0) g/dl RDW (11.0-16.0) % Plt Count (160-400) X10*3/uL MPV (9.4-12.3) fL Immature Gran % (Auto) (0.0-0.4) % Neut % (Auto) (45-73) % Lymph % (Auto) (20-40) % [place] % (Auto) (2-11) % Eos % (Auto) (0-4) % Baso % (Auto) (0-2) % Lymph # (Auto) (1.2-4.9) X10*3/uL [place] # (Auto) (0.1-1.2) X10*3/uL Eos # (Auto) (0.0-0.4) X10*3/uL Baso # (Auto) (0.0-0.2) X10*3/uL Abs Immat Gran (auto) (0.00-0.03) X10*3/uL Absolute Neuts (auto) (2.0-8.3) X10*3/uL Absolute Nucleated RBC (0.0-0.012) X10*3/uL Nucleated RBC % (auto) (0.0-0.2) /100WBC Smear Tech's Comments PT 17.4 H D (10.8-13.0) SEC INR 1.5 H (0.9-1.1) VBG pH (7.32-7.43) VBG pCO2 mmhg VBG pO2 mmhg VBG HCO3 mmol/L VBG O2 Saturation % VBG Base Excess mmol/L Sodium (135-145) mmol/L Potassium (3.3-5.1) mmol/l Chloride (96-108) mmol/L Carbon Dioxide (22-29) mmol/L Anion Gap (12-20) BUN (9-16) mg/dL Creatinine (0.5-1.4) mg/dL Estim Creat Clear Calc Estimated GFR POC Glucose (60-115) mg/dL Random Glucose (60-115) mg/dL Lactic Acid 2.5 H* (0.5-2.0) mmol/L Lactic Acid Fup @ 2Hr (0.5-2.0) mmol/L Calcium (8.4-10.2) mg/dL Total Bilirubin (0.0-1.0) mg/dL Direct Bilirubin (0.0-0.5) mg/dL AST (5-31) U/L ALT (0-31) U/L Alkaline Phosphatase (39-117) U/L Troponin I High Sens < 3.5 (<3.5-17.0) ng/L Total Protein (6.5-8.0) g/dL Albumin (3.5-5.0) g/dL COVID-19 ([facility]) (Negative) COVID-19 Clin Com 03/31/20 03/31/20 03/31/20 Range/Units 02:29 03:49 04:34 WBC (4.8-10.8) X10*3/uL RBC (4.20-5.50) X10*6/uL Hgb (12.0-16.0) g/dl Hct (37-47) % MCV (80-98) fL MCH (27.0-33.0) pg MCHC (31.0-35.0) g/dl RDW (11.0-16.0) % Plt Count (160-400) X10*3/uL MPV (9.4-12.3) fL Immature Gran % (Auto) (0.0-0.4) % Neut % (Auto) (45-73) % Lymph % (Auto) (20-40) % [place] % (Auto) (2-11) % Eos % (Auto) (0-4) % Baso % (Auto) (0-2) % Lymph # (Auto) (1.2-4.9) X10*3/uL [place] # (Auto) (0.1-1.2) X10*3/uL Eos # (Auto) (0.0-0.4) X10*3/uL Baso # (Auto) (0.0-0.2) X10*3/uL Abs Immat Gran (auto) (0.00-0.03) X10*3/uL Absolute Neuts (auto) (2.0-8.3) X10*3/uL Absolute Nucleated RBC (0.0-0.012) X10*3/uL Nucleated RBC % (auto) (0.0-0.2) /100WBC Smear Tech's Comments PT (10.8-13.0) SEC INR (0.9-1.1) VBG pH 7.35 (7.32-7.43) VBG pCO2 50 mmhg VBG pO2 57 mmhg VBG HCO3 27 mmol/L VBG O2 Saturation 88.2 % VBG Base Excess 1.1 mmol/L Sodium (135-145) mmol/L Potassium (3.3-5.1) mmol/l Chloride (96-108) mmol/L Carbon Dioxide (22-29) mmol/L Anion Gap (12-20) BUN (9-16) mg/dL Creatinine (0.5-1.4) mg/dL Estim Creat Clear Calc Estimated GFR POC Glucose 120 H (60-115) mg/dL Random Glucose (60-115) mg/dL Lactic Acid (0.5-2.0) mmol/L Lactic Acid Fup @ 2Hr (0.5-2.0) mmol/L Calcium (8.4-10.2) mg/dL Total Bilirubin (0.0-1.0) mg/dL Direct Bilirubin (0.0-0.5) mg/dL AST (5-31) U/L ALT (0-31) U/L Alkaline Phosphatase (39-117) U/L Troponin I High Sens (<3.5-17.0) ng/L Total Protein (6.5-8.0) g/dL Albumin (3.5-5.0) g/dL COVID-19 ([facility]) Negative (Negative) COVID-19 Clin Com See Note 03/31/20 Range/Units 05:04 WBC (4.8-10.8) X10*3/uL RBC (4.20-5.50) X10*6/uL Hgb (12.0-16.0) g/dl Hct (37-47) % MCV (80-98) fL MCH (27.0-33.0) pg MCHC (31.0-35.0) g/dl RDW (11.0-16.0) % Plt Count (160-400) X10*3/uL MPV (9.4-12.3) fL Immature Gran % (Auto) (0.0-0.4) % Neut % (Auto) (45-73) % Lymph % (Auto) (20-40) % [place] % (Auto) (2-11) % Eos % (Auto) (0-4) % Baso % (Auto) (0-2) % Lymph # (Auto) (1.2-4.9) X10*3/uL [place] # (Auto) (0.1-1.2) X10*3/uL Eos # (Auto) (0.0-0.4) X10*3/uL Baso # (Auto) (0.0-0.2) X10*3/uL Abs Immat Gran (auto) (0.00-0.03) X10*3/uL Absolute Neuts (auto) (2.0-8.3) X10*3/uL Absolute Nucleated RBC (0.0-0.012) X10*3/uL Nucleated RBC % (auto) (0.0-0.2) /100WBC Smear Tech's Comments PT (10.8-13.0) SEC INR (0.9-1.1) VBG pH (7.32-7.43) VBG pCO2 mmhg VBG pO2 mmhg VBG HCO3 mmol/L VBG O2 Saturation % VBG Base Excess mmol/L Sodium (135-145) mmol/L Potassium (3.3-5.1) mmol/l Chloride (96-108) mmol/L Carbon Dioxide (22-29) mmol/L Anion Gap (12-20) BUN (9-16) mg/dL Creatinine (0.5-1.4) mg/dL Estim Creat Clear Calc Estimated GFR POC Glucose (60-115) mg/dL Random Glucose (60-115) mg/dL Lactic Acid (0.5-2.0) mmol/L Lactic Acid Fup @ 2Hr 1.6 (0.5-2.0) mmol/L Calcium (8.4-10.2) mg/dL Total Bilirubin (0.0-1.0) mg/dL Direct Bilirubin (0.0-0.5) mg/dL AST (5-31) U/L ALT (0-31) U/L Alkaline Phosphatase (39-117) U/L Troponin I High Sens (<3.5-17.0) ng/L Total Protein (6.5-8.0) g/dL Albumin (3.5-5.0) g/dL COVID-19 ([facility]) (Negative) COVID-19 Clin Com ECG Data Attestation: I personally reviewed and interpreted this ECG as follows: Interpretation: Sinus tachycardia heart rate 114 beats per minute nonspecific ST T wave changes normal intervals impression: no acute ischemic changes, sinus tachycardia Critical Care Time Critical Care Time Critical Care Time: Yes Total Critical Care Time: 35 Attestation: Patient's care Discharge Plan Discharge Clinical Impression: Hypoxia, Pleural effusion Non-small cell carcinoma of lung Qualifiers: Laterality: right Qualified Code(s): C34.91 - Malignant neoplasm of unspecified part of right bronchus or lung Patient Disposition: Admitted As Inpatient
--- NOTE | 2020-03-31 01:16 | XR_ITS ---
EXAMINATION: XR CHEST CLINICAL INFORMATION: Shortness of breath COMPARISON: 03/22/2020 TECHNIQUE: Frontal view of the chest was obtained. FINDINGS: CT compatible left chest wall port which terminates over the mid SVC. Cardiac leads overlie the chest. There is significant increased opacification of the right hemithorax with no significant aeration remaining. Increased interstitial markings seen in the left lung. No left pleural effusion. No pneumothorax. The cardiomediastinal silhouette is unchanged. XR/XR chest 1V IMPRESSION: Diffuse opacification of the right hemithorax is increased from prior. This is suggestive of increased pleural effusion with airspace opacity. Cannot exclude a component of mucous plugging. Increased interstitial markings on the left suggestive of associated edema.
--- NOTE | 2020-03-31 01:16 | ECG_ITS ---
Test Reason : SOB Blood Pressure : / mmHG Vent. Rate : 114 BPM Atrial Rate : 250 BPM P-R Int : 000 ms QRS Dur : 066 ms QT Int : 450 ms P-R-T Axes : 000 041 075 degrees QTc Int : 620 ms Artifact in tracing Undetermined rhythm ; Low voltage QRS Nonspecific ST and T wave abnormality Abnormal ECG When compared with ECG of 28-FEB-2020 14:29, due to poor quality, cannot compare. Referred By: Dat Nobles Electronically Signed By:BRODIE GRANT
[2020-03-31 01:28] LABS: Glucose, Whole Blood 57 mg/dL (60-115)
[2020-03-31] MEDS: Albuterol/Iprat 2.5/0.5MG 3 ML AMPUL.NEB INHALE (01:37)
--- NOTE | 2020-03-31 02:03 | PC.NURSE ---
Pt awake and alert to baseline, oriented x1. At this time, patient on 55% O2 via venti mask. Pt SPO2 89-91%, okay per MD due to patient condition. Port accessed by CAROLYN Gong. BP at this time 78/55. 500mL NS bolus started through port as verbal ordered by MD Nobles. Tech to bedside to attempt peripheral blood draw.
[2020-03-31] MEDS: 0.9 % Sodium Chloride 500 ML IVCONT (02:11)
--- NOTE | 2020-03-31 02:25 | PC.NURSE ---
Phlebotomy at bedside for blood draw attempt. BP at this time 95/52.
[2020-03-31] MEDS: Piperacillin Sodium/Tazobactam 2.25 GM in 0.9 % Sodium Chloride 50 ML IV (02:35)
[2020-03-31 02:40] LABS: MANUAL DIFF FLAG SCAN; Neutrophils Percent Auto 80.3 % (45-73); PLT CLUMP 1; SCAN SMEAR FLAG 1
[2020-03-31 02:42] LABS: Basophils Percent Auto 0.3 % (0-2); Eosinophils Absolute Auto 0.2 X10*3/uL (0.0-0.4); Eosinophils Percent Auto 1.3 % (0-4); Hematocrit 32.4 % (37-47); Hemoglobin 9.4 g/dl (12.0-16.0); Imm Gran Abs Auto 0.22 X10*3/uL (0.00-0.03); Imm Gran Pct Auto 1.8 % (0.0-0.4); Lymphocytes Absolute Auto 1.2 X10*3/uL (1.2-4.9); Lymphocytes Percent Auto 10.4 % (20-40); Mean Corpuscular Hemoglobin 29.5 pg (27.0-33.0); Mean Corpuscular Volume 101.6 fL (80-98); Mean Platelet Volume 11.4 fL (9.4-12.3); Monocytes Absolute Auto 0.7 X10*3/uL (0.1-1.2); Monocytes Percent Auto 5.9 % (2-11); Neutrophils Absolute Auto 9.6 X10*3/uL (2.0-8.3); Platelet Count 116 X10*3/uL (160-400); Red Blood Count 3.19 X10*6/uL (4.20-5.50); Red Cell Distribution Width 16.1 % (11.0-16.0); White Blood Count 11.9 X10*3/uL (4.8-10.8)
[2020-03-31 02:46] LABS: pH VBG 7.35 (7.32-7.43)
[2020-03-31 02:47] LABS: Base Excess VBG 1.1 mmol/L; HCO3 VBG 27 mmol/L; Oxygen Saturation VBG 88.2 %; PCO2 VBG 50 mmhg; PO2 VBG 57 mmhg
[2020-03-31 02:50] LABS: INTERNATIONAL NORM RATIO 1.5 (0.9-1.1); Prothrombin Time 17.4 SEC (10.8-13.0)
[2020-03-31 03:03] LABS: Lactic Acid 2.5 mmol/L (0.5-2.0)
[2020-03-31 03:09] LABS: Troponin-I High Sensitivity < 3.5 ng/L (<3.5-17.0)
[2020-03-31 03:10] LABS: SLIDE REVIEW VERIFIED
[2020-03-31 03:18] LABS: Alanine Aminotransferase 41 U/L (0-31); Albumin Level 2.4 g/dL (3.5-5.0); Alkaline Phosphatase 976 U/L (39-117); Anion Gap 15 (12-20); Aspartate Amino Transferase 81 U/L (5-31); Bilirubin Direct 0.3 mg/dL (0.0-0.5); Bilirubin Total 0.3 mg/dL (0.0-1.0); Blood Urea Nitrogen 17 mg/dL (9-16); Calcium 10.1 mg/dL (8.4-10.2); Carbon Dioxide 23 mmol/L (22-29); Chloride 109 mmol/L (96-108); Creatinine Clr Calc Pharmacy 40.4; Estimated Glomerular Filt Rate 55; Glucose Random 40 mg/dL (60-115); Potassium 4.8 mmol/l (3.3-5.1); Sodium 142 mmol/L (135-145)
[2020-03-31] MEDS: Dextrose 5 % and 0.45 % NaCl 1,000 ML 100 ML IVCONT ×2 (03:28→13:43)
--- NOTE | 2020-03-31 03:43 | PC.NURSE ---
03/31/20 0300: Pt had episode of incontinence in bed, total linen change provided
[2020-03-31] MEDS: 0.9 % Sodium Chloride 1,000 ML 999 ML IVCONT (03:49)
--- NOTE | 2020-03-31 03:50 | PC.NURSE ---
BP remain SBP 90s, additional 1L bolus NS given as ordered. COVID swab collected at this time
[2020-03-31 04:16] LABS: COVID-19 Test Negative (Negative)
[2020-03-31 04:38] LABS: Reflex Lactate? Lactic Acid Added
[2020-03-31 04:39] LABS: Glucose, Whole Blood 120 mg/dL (60-115)
--- NOTE | 2020-03-31 04:43 | PC.NURSE ---
Pt difficult IV stick; phlebotomy called; states they will come to ED when available
--- NOTE | 2020-03-31 05:02 | PC.NURSE ---
Phlebotomy at bedside for re-draw
[2020-03-31] MEDS: cefEPime HCl 2 GM in 0.9 % Sodium Chloride 50 ML IV ×2 (05:16→18:54)
[2020-03-31 05:48] LABS: ~Lactic Acid-LAB USE ONLY 1.6 mmol/L (0.5-2.0)
[2020-03-31] MEDS: vancomycin HCL 1,000 MG in 0.9 % Sodium Chloride 250 ML 270 MG IV (06:00)
--- NOTE | 2020-03-31 06:11 | P.HPHOSP_ITS ---
History of Present Illness Date of Service: 03/31/20 Chief Complaint: Hypoxia 69-year-old female with an extensive past medical history including COPD, psychotic disorder, non-small cell lung cancer who had an extensive hospital stay from 02/27 discharged on 03/28 returns today from correction with reported hypoxia. Patient is alert, oriented to self and place but not really comprehensible and is not really giving good history. According to ED physician and correction report patient was found to be hypoxic with O2 45% on room air. Patient herself reports that she has been short of breath for few days, has had a cough, and bringing up some sputum. She has not had any fever or chills that was reported. I am unable to obtain any more review of system is patient really not answering questions and just mumbling. Patient recently admitted and was treated for sepsis secondary to pneumonia with loculated pleural effusion, there was concern for cavitary pneumonia, she was treated with 10 days of p.o. levofloxacin and responded well and did not require oxygen on discharge. She was also treated for chronic hypotension was discharged on midodrine, and has COPD exacerbation. The plan was to involve IR if requires intervention for the pleural effusion again. Which appears to have collected a end per chest x-ray. Will to the ED patient found to have a heart rate of 115, respiratory rate of 32, blood pressure 118/25, on Venturi mask satting 92%. Labs are significant for WBC count of 11.9 which is increased from discharge, hemoglobin of 9.4, hematocrit 32.4, lactic acid of 2.5, sodium of 142, potassium 4.8, chest x-ray showing diffuse opacification of the right hemithorax increased from prior. This is suggestive of increased pleural effusion with airspace opacity. Cannot exclude a component of mucus plugging. Increased interstitial markings on the left suggestive of associated edema. History is obtained from chart as patient not able to give any PAST MEDICAL HISTORY: -NSCLC on Opdivo 1. Alcohol dependence. 2. Hypertension. 3. Type 1 diabetes. 4. Hepatitis C. 5. History of multiple history of admission for GI bleed. 6. History of esophagitis/erosive gastritis. 7. Depression. 8. History of subdural hematoma. 9. Pancreatitis FAMILY HISTORY: Significant for alcoholism in his mother. SOCIAL HISTORY: Comes from correction, history of alcohol abuse, no illicit drugs Review of Systems Review of Systems: Yes all other systems are reviewed and are negative [facility] Medical History Anemia Charcot's arthropathy COPD (chronic obstructive pulmonary disease) Diabetes Diabetes type 2, uncontrolled Fever of unknown origin GERD (gastroesophageal reflux disease) Hyperlipidemia Hypernatremia Hypertension Hypertension Hyperthyroidism Iron deficiency anemia Lung mass Osteopenia Osteoporosis Pleural effusion PVC (premature ventricular contraction) Tachycardia TIA (transient ischemic attack) (~2012) Tremor Umbilical hernia Family History Father Lung cancer Mother Colorectal cancer Surgical History History of appendectomy Social History Household Members: Other Alcohol intake: former Smoking Status: Former smoker Packs Per Day: 1 Years Smoked: 50 Advance Directives: No Advance Directives Information Provided: No service: No Current occupational status: disabled [employer] Allergies Allergy/AdvReac Type Severity Reaction Status Date / Time No Known Allergies Allergy Verified 01/16/20 13:13 [No Known Allergies*] Home Medications Medication Instructions Recorded Confirmed Type Opdivo 240 mg IV Q2W 01/04/20 03/31/20 History acetaminophen 650 mg PO Q6H PRN 01/04/20 03/31/20 History albuterol 90 mcg INHALATION Q6H PRN 01/04/20 03/31/20 History ascorbic acid (vitamin C) [Vitamin 500 mg PO BID 01/04/20 03/31/20 History C] aspirin 81 mg PO DAILY 01/04/20 03/31/20 History cholecalciferol (vitamin D3) 50 mcg PO DAILY 01/04/20 03/31/20 History [Vitamin D3] clozapine [Clozaril] 50 mg PO BEDTIME 01/04/20 03/31/20 History ferrous sulfate 325 mg PO BID 01/04/20 03/31/20 History fluticasone propion-salmeterol 1 inh INHALATION BID 01/04/20 03/31/20 History [Advair Diskus] haloperidol 5 mg PO BEDTIME 01/04/20 03/31/20 History mirabegron 50 mg PO DAILY 01/04/20 03/31/20 History trazodone 100 mg PO BEDTIME 01/04/20 03/31/20 History valproic acid 750 mg PO BID 01/04/20 03/31/20 History estradiol [Estrace] 1 g VAGINAL BEDTIME 01/31/20 03/31/20 History glipizide 1 tab PO DAILY 02/28/20 03/31/20 History Physical Exam Vital Signs and Narrative: Vital Signs: Last Vital Signs Temp 98.5 F 03/31/20 05:21 Pulse 108 H 03/31/20 05:21 Resp 20 03/31/20 05:21 BP 100/54 L 03/31/20 05:21 Pulse Ox 92 03/31/20 05:21 Body Mass Index 24.8 Const: Other: Oriented to self and place General: cooperative and no acute distress Eyes: General: appearance normal, both eyes and all related structures Resp: Effort & Inspection: normal respiratory effort and able to speak in complete sentences Cardio: Rate: regular rate Rhythm: regular rhythm GI: Palpation (GI): Soft to palpation Auscultation: normal bowel sounds Skin: General skin exam: no rashes or lesions noted Neuro: Other: Cannot evaluate cognition as patient is not really responding to my questions and mumbles most of her answers Cognition (Neuro): normal cognition Extrem: General: Yes normal to inspection and Yes no pedal edema Results Labs CBC and Chem 7: 03/31/20 02:29 03/31/20 02:29 Labs: Laboratory Results - last 24 hr 03/31/20 03/31/20 03/31/20 01:09 02:29 02:29 MCV 101.6 H MCH 29.5 MCHC 29.0 L RDW 16.1 H Plt Count 116 L D MPV 11.4 Immature Gran % (Auto) 1.8 H Neut % (Auto) 80.3 H Lymph % (Auto) 10.4 L O'Brien % (Auto) 5.9 Eos % (Auto) 1.3 Baso % (Auto) 0.3 Lymph # (Auto) 1.2 O'Brien # (Auto) 0.7 Eos # (Auto) 0.2 Baso # (Auto) 0.0 Abs Immat Gran (auto) 0.22 H Absolute Neuts (auto) 9.6 H Absolute Nucleated RBC 0.000 Nucleated RBC % (auto) 0.0 Smear Tech's Comments VERIFIED PT INR VBG pH VBG pCO2 VBG pO2 VBG HCO3 VBG O2 Saturation VBG Base Excess Anion Gap 15 Estim Creat Clear Calc 40.4 Estimated GFR 55 POC Glucose 57 L* Random Glucose 40 L* Lactic Acid Lactic Acid Fup @ 2Hr Calcium 10.1 D Total Bilirubin 0.3 Direct Bilirubin 0.3 AST 81 H ALT 41 H Alkaline Phosphatase 976 H D Troponin I High Sens Total Protein 5.0 L Albumin 2.4 L D COVID-19 (MARQUEZ) COVID-19 Blippex Com 03/31/20 03/31/20 03/31/20 02:29 02:29 02:29 MCV MCH MCHC RDW Plt Count MPV Immature Gran % (Auto) Neut % (Auto) Lymph % (Auto) O'Brien % (Auto) Eos % (Auto) Baso % (Auto) Lymph # (Auto) O'Brien # (Auto) Eos # (Auto) Baso # (Auto) Abs Immat Gran (auto) Absolute Neuts (auto) Absolute Nucleated RBC Nucleated RBC % (auto) Smear Tech's Comments PT 17.4 H D INR 1.5 H VBG pH VBG pCO2 VBG pO2 VBG HCO3 VBG O2 Saturation VBG Base Excess Anion Gap Estim Creat Clear Calc Estimated GFR POC Glucose Random Glucose Lactic Acid 2.5 H* Lactic Acid Fup @ 2Hr Calcium Total Bilirubin Direct Bilirubin AST ALT Alkaline Phosphatase Troponin I High Sens < 3.5 Total Protein Albumin COVID-19 (MARQUEZ) COVID-19 Flexuspine 03/31/20 03/31/20 03/31/20 02:29 03:49 04:34 MCV MCH MCHC RDW Plt Count MPV Immature Gran % (Auto) Neut % (Auto) Lymph % (Auto) O'Brien % (Auto) Eos % (Auto) Baso % (Auto) Lymph # (Auto) O'Brien # (Auto) Eos # (Auto) Baso # (Auto) Abs Immat Gran (auto) Absolute Neuts (auto) Absolute Nucleated RBC Nucleated RBC % (auto) Smear Tech's Comments PT INR VBG pH 7.35 VBG pCO2 50 VBG pO2 57 VBG HCO3 27 VBG O2 Saturation 88.2 VBG Base Excess 1.1 Anion Gap Estim Creat Clear Calc Estimated GFR POC Glucose 120 H Random Glucose Lactic Acid Lactic Acid Fup @ 2Hr Calcium Total Bilirubin Direct Bilirubin AST ALT Alkaline Phosphatase Troponin I High Sens Total Protein Albumin COVID-19 (MARQUEZ) Negative COVID-19 Clin Com See Note 03/31/20 05:04 MCV MCH MCHC RDW Plt Count MPV Immature Gran % (Auto) Neut % (Auto) Lymph % (Auto) O'Brien % (Auto) Eos % (Auto) Baso % (Auto) Lymph # (Auto) O'Brien # (Auto) Eos # (Auto) Baso # (Auto) Abs Immat Gran (auto) Absolute Neuts (auto) Absolute Nucleated RBC Nucleated RBC % (auto) Smear Tech's Comments PT INR VBG pH VBG pCO2 VBG pO2 VBG HCO3 VBG O2 Saturation VBG Base Excess Anion Gap Estim Creat Clear Calc Estimated GFR POC Glucose Random Glucose Lactic Acid Lactic Acid Fup @ 2Hr 1.6 Calcium Total Bilirubin Direct Bilirubin AST ALT Alkaline Phosphatase Troponin I High Sens Total Protein Albumin COVID-19 (MARQUEZ) COVID-19 Clin Com Imaging Radiologist's Impressions: Impressions Chest X-Ray 03/31/20 01:16 IMPRESSION: Diffuse opacification of the right hemithorax is increased from prior. This is suggestive of increased pleural effusion with airspace opacity. Cannot exclude a component of mucous plugging. Increased interstitial markings on the left suggestive of associated edema. Assessment and Plan (1) Sepsis: Qualifiers: Acute respiratory failure type: with hypoxia Sepsis acute organ dysfunction status: with acute organ dysfunction Sepsis type: sepsis due to unspecified organism Severe sepsis acute organ dysfunction type: acute respiratory failure Severe sepsis shock status: without septic shock Qualified Code(s): A41.9 - Sepsis, unspecified organism; R65.20 - Severe sepsis without septic shock; J96.01 - Acute respiratory failure with hypoxia Status: Acute (2) Acute respiratory failure with hypoxia: Status: Acute (3) Pleural effusion, right: Status: Acute This is a 69-year-old with a NSCLC who has a history of right pleural effusion returns with hypoxic respiratory failure secondary to increased pleural effusion and possibly pneumonia # acute hypoxic respiratory failure - secondary to increased right pleural effusion possibly due to mucus plugging in the setting of non-small cell lung cancer - there is possibly underlying pneumonia as patient has hypoxia, tachycardic, tachypneic - found to be satting in the 40s at the correction, currently on Venturi mask satting 90% Plan: - will start on antibiotics for possible pneumonia, continue oxygenation as required - will consult thoracic surgery for possible pleural vac as patient will need recurrent ascites is fusion due to her lung cancer - monitor respiratory status # sepsis - secondary to pneumonia - has tachycardia, tachypnea, leukocytosis which is increased from recent discharge\ - will start patient on vanc and cefepime given her recent prolonged hospitalization - follow blood cultures # right pleural effusion - recurrent, has increased from discharge - most likely in the setting of lung cancer and possible mucus plugging Plan: - thoracic surgery consult - O2 as required # diabetes - will start patient on low-dose sliding scale insulin - diabetic diet - POC q.i.d. a.c. # hypotension - possibly secondary to sepsis versus chronic hypertension - will continue midodrine - follow blood pressure may need admission to ICU of her blood pressure remains low despite midodrine as patient may require vasopressors DVT prophylaxis: SCDs
--- NOTE | 2020-03-31 06:38 | PC.NURSE ---
Pt assisted onto bed cortez at this time. Small amount of clear yellow urine noted.
--- NOTE | 2020-03-31 06:40 | PC.NURSE ---
Lab contacted, BNP to be added to previously sent down specimen
[2020-03-31 07:22] LABS: Glucose, Whole Blood 70 mg/dL (60-115)
[2020-03-31 07:49] LABS: B Type Natriuretic Peptide 198 pg/mL (<100)
[2020-03-31 08:12] LABS: Glucose, Whole Blood 78 mg/dL (60-115)
[2020-03-31 10:08] LABS: Glucose, Whole Blood 87 mg/dL (60-115)
[2020-03-31] MEDS: Midodrine HCl 10 MG TABLET PO ×3 (10:10→21:36)
[2020-03-31 12:47] LABS: Glucose, Whole Blood 84 mg/dL (60-115)
[2020-03-31] MEDS: Mirabegron 50 MG TAB.ER.24H PO (12:50)
[2020-03-31] MEDS: Fludrocortisone Acetate 0.1 MG TABLET PO (12:51)
[2020-03-31] MEDS: Cholecalciferol (Vitamin D3) 25 MCG TABLET 50 MCG PO (12:51)
[2020-03-31] MEDS: Ascorbic Acid 500 MG TABLET PO ×2 (12:51→21:36)
[2020-03-31] MEDS: Omeprazole 20 MG CAPSULE.DR PO (12:51)
[2020-03-31] MEDS: Benztropine Mesylate 1 MG TABLET 0.5 MG PO (12:51)
[2020-03-31] MEDS: methIMAzole 10 MG TABLET 5 MG PO (12:52)
[2020-03-31] MEDS: Valproic Acid 250 MG CAPSULE 750 MG PO (13:42)
[2020-03-31 16:17] LABS: Glucose, Whole Blood 90 mg/dL (60-115)
[2020-03-31] MEDS: 0.9 % Sodium Chloride Flush 3 ML SYRINGE IVFLUSH (16:44)
--- NOTE | 2020-03-31 17:19 | PM.CNGS ---
History of Present Illness Consult details Consult date: 03/31/20 Reason for consult: other (Large Right pleural effusion.) Narrative: Patient is a 69-year-old female with a past medical history of non-small cell lung cancer, s/p radiation therapy with plans for future chemotherapy followed by oncology, COPD who was previously managed for community-acquired pneumonia on 02/28/2020, found to have a large right-sided pleural effusion which was tapped on 02/29/2020 for thoracentesis of yellow/green pleural fluid. During that time pleural fluid analysis showed exudative process, culture yielded no growth, pleural fluid cytology showed no malignancy identified. Patient was then readmitted for sepsis secondary to pneumonia with loculated pleural effusion which did not require surgical intervention and was treated with a 10-day course of levofloxacin Patient returns to [facility] after found to be hypoxic with O2 45% on room air. A chest x-ray showing diffuse opacification of right hemithorax increased from prior study. Suggestive of increased pleural effusion with airspace opacity. These findings led to a chest CT performed today which showed increasing right-sided pleural effusion producing near complete collapse consolidation of entire right lung since the prior CT. the right lower lobe of the lung shows superimposed hypodense lesion posteriomedially, which may represent evolving areas of necrosis versus abscess formation. labs are significant for WBC count of 11.9 which is increased from discharge, Hgb 9.5, lactic acid 2.5. Afebrile temp 98.0. During my examination patient was a alert to person and place however not to time and was a poor historian. Patient has a history of dementia and is pleasantly confused at baseline. At this time denies any shortness of breath, fevers or chills. Able to speak in complete sentences no signs of respiratory distress or increased work of breathing, on 5 L nasal cannula with oxygen saturations 98%, BP 103/64 with heart rate of 104. Review of Systems Review of Systems: A 10 point review of systems was negative however it should be known patient is a very poor historian due to baseline dementia. Neurologic: Reports confusion Psychiatric: Psychiatric: Reports confusion PMFSH Past Medical History Medical History Anemia Charcot's arthropathy COPD (chronic obstructive pulmonary disease) Diabetes Diabetes type 2, uncontrolled Fever of unknown origin GERD (gastroesophageal reflux disease) Hyperlipidemia Hypernatremia Hypertension Hypertension Hyperthyroidism Iron deficiency anemia Lung mass Osteopenia Osteoporosis Pleural effusion PVC (premature ventricular contraction) Tachycardia TIA (transient ischemic attack) (~2012) Tremor Umbilical hernia Family History Family History Father Lung cancer Mother Colorectal cancer Surgical History Surgical History History of appendectomy Social History Social History Household Members: None Housing: Other Housing Other:: long term Do you presently have visiting nurse or other home services: No Alcohol intake: former Smoking Status: Never smoker Packs Per Day: 1 Years Smoked: 50 Use of substances other than those prescribed or required for medical reasons: No Have you been hit, kicked, punched, or otherwise hurt by someone within the past year? If so, by whom?: No Do you feel safe in your current relationship?: Yes Is there a partner from a previous relationship who is making you feel unsafe now?: No Are you made to feel afraid or neglected: No Advance Directives: No Advance Directives Information Provided: No Do you have thoughts of harming others: None Do you have a plan to hurt others: No Plan Recently lost weight without trying: Unsure service: No Current occupational status: disabled Meds Allergies Allergy/AdvReac Type Severity Reaction Status Date / Time No Known Allergies Allergy Verified 01/16/20 13:13 [No Known Allergies*] Home Medications Medication Instructions Recorded Confirmed Type Opdivo 240 mg IV Q2W 01/04/20 03/31/20 History acetaminophen 650 mg PO Q6H PRN 01/04/20 03/31/20 History albuterol 90 mcg INHALATION Q6H PRN 01/04/20 03/31/20 History ascorbic acid (vitamin C) [Vitamin 500 mg PO BID 01/04/20 03/31/20 History C] aspirin 81 mg PO DAILY 01/04/20 03/31/20 History cholecalciferol (vitamin D3) 50 mcg PO DAILY 01/04/20 03/31/20 History [Vitamin D3] clozapine [Clozaril] 50 mg PO BEDTIME 01/04/20 03/31/20 History ferrous sulfate 325 mg PO BID 01/04/20 03/31/20 History fluticasone propion-salmeterol 1 inh INHALATION BID 01/04/20 03/31/20 History [Advair Diskus] haloperidol 5 mg PO BEDTIME 01/04/20 03/31/20 History mirabegron 50 mg PO DAILY 01/04/20 03/31/20 History trazodone 100 mg PO BEDTIME 01/04/20 03/31/20 History valproic acid 750 mg PO BID 01/04/20 03/31/20 History estradiol [Estrace] 1 g VAGINAL BEDTIME 01/31/20 03/31/20 History glipizide 1 tab PO DAILY 02/28/20 03/31/20 History Physical Exam Vital Signs: Vital Signs: Last Vital Signs Temp 97.8 F 03/31/20 15:47 Pulse 95 03/31/20 16:56 Resp 22 H 03/31/20 16:56 BP 86/60 L 03/31/20 16:56 Pulse Ox 90 L 03/31/20 16:56 Body Mass Index 24.8 Const: General: cooperative, no acute distress, alert, awake and confusion Orientation/consciousness: oriented to person, oriented to place and confusion Neck: Neck: Yes normal visual inspection, Yes trachea midline and Yes supple Chest: Chest palpation & inspection: normal inspection of the chest Resp: Effort & Inspection: normal respiratory effort and able to speak in complete sentences Auscultation: breath sounds absent (with clear BS on left) on the right Cardio: Jugular venous distension: no JVD Rate: tachycardic Rhythm: regular rhythm Heart sounds: S1 normal heart sound present and S2 normal heart sound present Neuro: General: oriented to person, oriented to place and confusion Extrem: Left lower extremity: edema Details: 1+ and foot Results Labs Result diagrams: 03/31/20 02:29 03/31/20 02:29 Labs: Abnormal lab results 03/31/20 03/31/20 03/31/20 Range/Units 01:09 02:29 02:29 WBC 11.9 H (4.8-10.8) X10*3/uL RBC 3.19 L (4.20-5.50) X10*6/uL Hgb 9.4 L (12.0-16.0) g/dl Hct 32.4 L (37-47) % MCV 101.6 H (80-98) fL MCHC 29.0 L (31.0-35.0) g/dl RDW 16.1 H (11.0-16.0) % Plt Count 116 L D (160-400) X10*3/uL Immature Gran % (Auto) 1.8 H (0.0-0.4) % Neut % (Auto) 80.3 H (45-73) % Lymph % (Auto) 10.4 L (20-40) % Abs Immat Gran (auto) 0.22 H (0.00-0.03) X10*3/uL Absolute Neuts (auto) 9.6 H (2.0-8.3) X10*3/uL PT (10.8-13.0) SEC INR (0.9-1.1) Chloride 109 H (96-108) mmol/L BUN 17 H (9-16) mg/dL POC Glucose 57 L* (60-115) mg/dL Random Glucose 40 L* (60-115) mg/dL Lactic Acid (0.5-2.0) mmol/L AST 81 H (5-31) U/L ALT 41 H (0-31) U/L Alkaline Phosphatase 976 H D (39-117) U/L B-Natriuretic Peptide (<100) pg/mL Total Protein 5.0 L (6.5-8.0) g/dL Albumin 2.4 L D (3.5-5.0) g/dL 03/31/20 03/31/20 03/31/20 Range/Units 02:29 02:29 04:34 WBC (4.8-10.8) X10*3/uL RBC (4.20-5.50) X10*6/uL Hgb (12.0-16.0) g/dl Hct (37-47) % MCV (80-98) fL MCHC (31.0-35.0) g/dl RDW (11.0-16.0) % Plt Count (160-400) X10*3/uL Immature Gran % (Auto) (0.0-0.4) % Neut % (Auto) (45-73) % Lymph % (Auto) (20-40) % Abs Immat Gran (auto) (0.00-0.03) X10*3/uL Absolute Neuts (auto) (2.0-8.3) X10*3/uL PT 17.4 H D (10.8-13.0) SEC INR 1.5 H (0.9-1.1) Chloride (96-108) mmol/L BUN (9-16) mg/dL POC Glucose 120 H (60-115) mg/dL Random Glucose (60-115) mg/dL Lactic Acid 2.5 H* (0.5-2.0) mmol/L AST (5-31) U/L ALT (0-31) U/L Alkaline Phosphatase (39-117) U/L B-Natriuretic Peptide (<100) pg/mL Total Protein (6.5-8.0) g/dL Albumin (3.5-5.0) g/dL 03/31/20 Range/Units 06:50 WBC (4.8-10.8) X10*3/uL RBC (4.20-5.50) X10*6/uL Hgb (12.0-16.0) g/dl Hct (37-47) % MCV (80-98) fL MCHC (31.0-35.0) g/dl RDW (11.0-16.0) % Plt Count (160-400) X10*3/uL Immature Gran % (Auto) (0.0-0.4) % Neut % (Auto) (45-73) % Lymph % (Auto) (20-40) % Abs Immat Gran (auto) (0.00-0.03) X10*3/uL Absolute Neuts (auto) (2.0-8.3) X10*3/uL PT (10.8-13.0) SEC INR (0.9-1.1) Chloride (96-108) mmol/L BUN (9-16) mg/dL POC Glucose (60-115) mg/dL Random Glucose (60-115) mg/dL Lactic Acid (0.5-2.0) mmol/L AST (5-31) U/L ALT (0-31) U/L Alkaline Phosphatase (39-117) U/L B-Natriuretic Peptide 198 H (<100) pg/mL Total Protein (6.5-8.0) g/dL Albumin (3.5-5.0) g/dL Short CBC 03/31/20 Range/Units 02:29 WBC 11.9 H (4.8-10.8) X10*3/uL Hgb 9.4 L (12.0-16.0) g/dl Hct 32.4 L (37-47) % Plt Count 116 L D (160-400) X10*3/uL BMP 03/31/20 02:29 Sodium 142 Potassium 4.8 Chloride 109 H Carbon Dioxide 23 BUN 17 H Creatinine 1.00 Calcium 10.1 D Liver Function 03/31/20 Range/Units 02:29 Total Bilirubin 0.3 (0.0-1.0) mg/dL Direct Bilirubin 0.3 (0.0-0.5) mg/dL AST 81 H (5-31) U/L ALT 41 H (0-31) U/L Alkaline Phosphatase 976 H D (39-117) U/L Albumin 2.4 L D (3.5-5.0) g/dL All other labs normal. Assessment and Plan (1) Pleural effusion: Problem details: Patient is a 69-year-old female with a history of non-small cell lung cancer and recurrent right-sided pleural effusions who presents to the hospital with hypoxic respiratory failure secondary to increased pleural effusion and possible pneumonia. Chest CT performed shows near complete collapse of right-sided lung field with large pleural effusion and necrotic mass versus abscess. Patient has been started on antibiotics Vanco and cefepime with blood cultures pending. I spoke with medicine team Dr. Schulte who has been in touch with IR with plans of a right-sided thoracentesis for tomorrow a.m. due to patient's respiratory status and not appearing in any distress we were both in agreement that this is a procedure that could wait till tomorrow. Would not recommend a Pleurx catheter at this time due to potential abscess. Patient should be made n.p.o. tonight at midnight pending tomorrow's procedure. Status: Acute
[2020-03-31] MEDS: 0.9 % Sodium Chloride 1,000 ML 999 ML IV (17:47)
[2020-03-31 19:49] LABS: Glucose, Whole Blood 91 mg/dL (60-115)
[2020-03-31] MEDS: traZODone HCL 100 MG TABLET PO (21:36)
[2020-03-31] MEDS: HaloperidoL 5 MG TABLET PO (21:36)
[2020-03-31] MEDS: Divalproex Sodium Sprinkles 125 MG CAP.DR.SPR 750 MG PO (21:36)
[2020-03-31] MEDS: cloZAPine 25 MG TABLET 50 MG PO (21:37)
[2020-03-31] MEDS: Atorvastatin Calcium 10 MG TABLET PO (21:40)
[2020-03-31 21:59] LABS: Glucose, Whole Blood 99 mg/dL (60-115)
[2020-04-01] VITALS (28 sets, daily range): BP systolic 48–124; BP diastolic 28–75; PULSE 80–119; RESP 12–36; TEMP 33.3–37.5; O2SAT 88–98
--- NOTE | 2020-04-01 | XR_ITS ---
EXAMINATION: XR CHEST CLINICAL INFORMATION: Chest tube. COMPARISON: Recent priors. TECHNIQUE: Frontal view of the chest was obtained. FINDINGS: The left IJ catheter remains in stable position with the tip at the level of the mid SVC. A right pleural pigtail catheter has been inserted with the tip overlying the lower chest. Right pleural effusion is significantly diminished with residual small to moderate effusion. Associated consolidation in the right lower lobe is again demonstrated. There is persistent opacity in the left lower lobe with small left pleural effusion. XR/XR chest 1V IMPRESSION: Interval placement of right pleural pigtail catheter with decrease pleural effusion now small to moderate in size. Persistent bibasilar opacity consistent with atelectasis or pneumonia. Small left pleural effusion.
[2020-04-01 04:04] LABS: Glucose, Whole Blood 103 mg/dL (60-115)
--- NOTE | 2020-04-01 04:10 | P.EN_ITS ---
Event Note Date of Service: 04/01/20 Event Note: Patient blood pressure dropping to the systolic is 70 over on read able diastolic measurement. Patient received 1 L of fluid earlier in the night with blood pressure improving but becoming more hypoxic due to increase in the size of her pleural effusion. At this time will give her 500 cc of bolus of fluid but given her increase in the size of the pleural effusion and her increased oxygen requirement as well as significantly decreased blood pressure will transfer to the ICU. I spoke to her health proxy which is her brother Lukasz manzo who stated that patient should remain full code and he wants her to be intubated if necessary and resuscitated if necessary. Spoke to Dr. Marcus patient will be transferred to the ICU
[2020-04-01] MEDS: Phenylephrine HCL 20 MG in 0.9 % Sodium Chloride 250 ML 42.18 MG IVCONT ×3 (04:37→18:48)
[2020-04-01] MEDS: Lactated Ringers 500 ML IVCONT (04:39)
--- NOTE | 2020-04-01 04:54 | XR_ITS ---
EXAMINATION: XR CHEST CLINICAL INFORMATION: Hypoxia COMPARISON: 03/31/2020 TECHNIQUE: Frontal view of the chest was obtained. FINDINGS: Left chest wall CT compatible port terminates over the mid SVC. Cardiac leads overlie the chest. Complete opacification of the right hemithorax is similar to prior. Persistent left basilar opacity. No pneumothorax. The cardiomediastinal silhouette is unchanged. XR/XR chest 1V IMPRESSION: Similar appearance to prior. Complete opacification of the right hemithorax consistent with known large pleural effusion and collapse/consolidation. Left basilar opacity unchanged.
--- NOTE | 2020-04-01 05:22 | P.EN_ITS ---
Event Note Date of Service: 04/01/20
--- NOTE | 2020-04-01 05:22 | PM.EVENT ---
Event Note Date of Service: 04/01/20
--- NOTE | 2020-04-01 05:25 | PM.EVENT ---
Documented by User: Allan Reyna 04/01/20 05:30 Event Note Date of Service: 04/01/20 Event Note: 69-year-old female with an extensive past medical history including COPD, psychotic disorder, non-small cell lung cancer who had an extensive hospital stay from 02/27 discharged on 03/28 readmitted yesterday for hypoxia and recurrent effusion. Tonight patient hypotensive, hypothermeic, with worsening hypoxia. Required transfer to ICU for pressor support and possible intubation. Before transfer to ICU Hospitalist spoke to Lukasz (healthcare proxy/brother) who told hospitalist he was not sure regarding patient's wishes so he wanted patient to be full code. This nurse practitioner called Lukasz, and talk about code status. I inform patient of emergency room know from 03/31/20 where patient reported her wishes of not being intubated and chest compressions. Brother then decided that he would like to change patient's code status to DNR/DNI, but would like to continue supportive care such as pressors and chest tube. Phone consent for chest to obtain. Plan High-flow Chest tube insertion Pressure support Documented by User: Seferino Marcus MD 04/01/20 07:24 Event Note Date of Service: 04/01/20
[2020-04-01 05:28] LABS: Base Excess VBG -7.1 mmol/L; HCO3 VBG 21 mmol/L; PCO2 VBG 51 mmhg; PO2 VBG 47 mmhg; pH VBG 7.22 (7.32-7.43)
[2020-04-01 05:37] LABS: Lactic Acid 0.9 mmol/L (0.5-2.0)
[2020-04-01 05:40] LABS: Hemoglobin 8.7 g/dl (12.0-16.0); Imm Gran Pct Auto 4.8 % (0.0-0.4); Lymphocytes Absolute Auto 1.6 X10*3/uL (1.2-4.9); MANUAL DIFF FLAG SCAN; PLT CLUMP 1; SCAN SMEAR FLAG 1
[2020-04-01 05:42] LABS: Alanine Aminotransferase 25 U/L (0-31); Albumin Level 2.3 g/dL (3.5-5.0); Alkaline Phosphatase 682 U/L (39-117); Anion Gap 10 (12-20); Aspartate Amino Transferase 26 U/L (5-31); Basophils Percent Auto 0.2 % (0-2); Bilirubin Total 0.2 mg/dL (0.0-1.0); Blood Urea Nitrogen 18 mg/dL (9-16); Calcium 9.9 mg/dL (8.4-10.2); Carbon Dioxide 25 mmol/L (22-29); Chloride 118 mmol/L (96-108); Creatinine Clr Calc Pharmacy 38.8; Eosinophils Absolute Auto 0.2 X10*3/uL (0.0-0.4); Eosinophils Percent Auto 1.6 % (0-4); Estimated Glomerular Filt Rate 53; Glucose Random 112 mg/dL (60-115); Hematocrit 30.3 % (37-47); Imm Gran Abs Auto 0.49 X10*3/uL (0.00-0.03); Lymphocytes Percent Auto 15.8 % (20-40); Magnesium 1.8 mg/dL (1.6-2.6); Mean Corpuscular HGB Conc 28.7 g/dl (31.0-35.0); Mean Corpuscular Hemoglobin 29.1 pg (27.0-33.0); Mean Corpuscular Volume 101.3 fL (80-98); Mean Platelet Volume 11.2 fL (9.4-12.3); Monocytes Absolute Auto 0.7 X10*3/uL (0.1-1.2); Monocytes Percent Auto 6.7 % (2-11); Neutrophils Absolute Auto 7.3 X10*3/uL (2.0-8.3); Neutrophils Percent Auto 70.9 % (45-73); Phosphorus 4.2 mg/dL (2.7-4.5); Platelet Count 111 X10*3/uL (160-400); Potassium 4.2 mmol/l (3.3-5.1); Red Blood Count 2.99 X10*6/uL (4.20-5.50); Red Cell Distribution Width 16.6 % (11.0-16.0); Sodium 149 mmol/L (135-145); Total Protein 4.7 g/dL (6.5-8.0); White Blood Count 10.3 X10*3/uL (4.8-10.8)
[2020-04-01] MEDS: Phenylephrine HCL 20 MG in 0.9 % Sodium Chloride 250 ML 210.89 MG IVCONT (05:49)
[2020-04-01] MEDS: Morphine Sulfate 2 MG/ML CARTRIDGE IVPUSH (06:04)
[2020-04-01 06:14] LABS: SLIDE REVIEW VERIFIED
[2020-04-01] MEDS: Midazolam HCl/PF 2 MG/2 ML VIAL IVPUSH (06:59)
--- NOTE | 2020-04-01 07:02 | PC.NURSE ---
RECEIVED FROM [facility] [place] VIA BED...SOMNOLENT ON ARRIVAL...BRIEFLY OPENED EYES...STATED I M OK ..UNABLE TO RESPOND TO OTHER QUESTIONS...100% NRB MASK IN PLACE...SAO2 87-88%...ICU TECHNICAL MANAGER PRESENT...RT PLACED ON HI-LAURA CANNULA M100% AND 50 L/M...SAO2 93-94%...PORT TO LEFT CHEST...LR 500ml BOLUS INFUSED W/O EFFECT ON BP...NEOSYNEPHRINE DRIP STARTED AND TITRATED TO 6 MCG/KG/MIN WITH IMPROVED BP...RUELAS PLACED..TEMP 91.9 CORE VIA RUELAS...WARMING BLANKET APPLIED...PATIENT STATUS REVIEWED WITH PATIENT'S BROTHER VIA PHONE...STATUS DNR/DNI....DR QUINN AND PASTOR TECHNICAL MANAGER PLACED RIGHT LATERAL CHEST TUBE TO -20CM SUCTION...CHEST TUBE DRAINED 1850ml straw COLOURED DRAINAGE UPON INSERTION...REPEAT CXR DONE...NSR HR 80'S...SAO2 IMPROVED TO 96-97%...MEDICATED WITH MORPHINE 2 MG IV & VERSED 2 MG IV FOR CHEST TUBE INSERTION PER ...
--- NOTE | 2020-04-01 07:24 | P.PCNCC_ITS ---
Procedures Chest Tube Chest Tube 1: Chest tube location: Mid-Axillary Chest Size of tube: 14 Chest tube procedure: Yes betadine prep and sterile drapes applied Tube sutured to skin: Yes Sterile dressing applied: Yes Anesthesia: 1% Lidocaine Incision made with: #11 blade Post procedure: sutured to skin and sterile dressing applied Santos of air heard: No Tube Drainage: fluid Amount of initial drainage (ml): 2,000 Post procedure CXR?: Yes Patient tolerated procedure: Yes Progress: After sterile preparation and location of collection by ultrasound guidance and then confirmed by tapping the chest carefully administered lidocaine and just gentle sedation and without any complication enter the pleural space with needle and passed a J tipped guidewire over which a dilator and then pigtail catheter placed in the pleural space posteriorly we had a clear yellow fluid that the that drained and was nearly 2 L of of drainage a fter the initial placement and with this there was a small drop in in blood pressure but I do believe it is based on intravascular volume in venous return so we used of volume infusion probably bring her pressure back up to 107/52 with a mean of 71 oxygen saturations 95% without respiratory distress blood gas is simply indicating hyperchloremic non-anion gap metabolic acidosis
[2020-04-01] MEDS: Phenylephrine HCL 20 MG in 0.9 % Sodium Chloride 250 ML 253.07 MG IVCONT ×3 (07:28→10:35)
--- NOTE | 2020-04-01 07:28 | W.PM.CCCN ---
History of Present Illness Data of Consult Service Date: 04/01/20 Requesting physician: Heidi Oswald Primary Care Provider: Unknown Physician HPI Reason for consult: Profound hypotension and acute on chronic hypoxemic respiratory failure and 69-year-old female with history non-small cell carcinoma treated with radiation and there was a question of instituting chemotherapy this on a background of COPD which is smoking related in this lady who is a schizoaffective on several type 1 and type 2 antipsychotics and she herself made a witnessed that coloration and she remains in sinus rhythm and has been given volume boluses and because of the hyperchloremia and hypernatremia using Ringer's lactate Him because of the complete white out of the right lung but no mediastinal shift to the left and I sore smaller left pleural effusion with possible infiltrate And at bedside echo in addition to corroborating fluid and location for tapping showed there was no pericardial effusion and LV and RV function were normal and there was no primary valve disease either and IVC was was flat the compressed implying that intravascular volume may be very low Subsequently enter the right pleural space from the 4th interspace midaxillary line draining pure serous fluid 2 L and had to simultaneously fluid load with Ringer's lactate bringing blood pressure back up to 109/58 with a mean of 70 oxygen saturations were between 95 and 100% on nasal high-flow with with no respiratory distress breathing comfortably Lactate is been negative and her metabolic acidosis is purely hyperchloremic Review of Systems Review of Systems: Yes Unobtainable due to mental status Neurologic: Reports confusion Psychiatric: Psychiatric: Reports confusion PMFSH Past Medical History Medical History Anemia Charcot's arthropathy COPD (chronic obstructive pulmonary disease) Diabetes Diabetes type 2, uncontrolled Fever of unknown origin GERD (gastroesophageal reflux disease) Hyperlipidemia Hypernatremia Hypertension Hypertension Hyperthyroidism Iron deficiency anemia Lung mass Osteopenia Osteoporosis Pleural effusion PVC (premature ventricular contraction) Tachycardia TIA (transient ischemic attack) (~2012) Tremor Umbilical hernia Family History Family History Father Lung cancer Mother Colorectal cancer Surgical History Surgical History History of appendectomy Social History Social History Household Members: None Housing: Other Housing Other:: halfway Do you presently have visiting nurse or other home services: No Alcohol intake: former Smoking Status: Never smoker Packs Per Day: 1 Years Smoked: 50 Use of substances other than those prescribed or required for medical reasons: No Currently Displaying Signs/Symptoms of Drug Intoxication Withdrawal: No Have you been hit, kicked, punched, or otherwise hurt by someone within the past year? If so, by whom?: No Do you feel safe in your current relationship?: Yes Is there a partner from a previous relationship who is making you feel unsafe now?: No Are you made to feel afraid or neglected: No Advance Directives: No Advance Directives Information Provided: No Do you have thoughts of harming others: None Do you have a plan to hurt others: No Plan Recently lost weight without trying: Unsure service: No Current occupational status: disabled [employer] Allergies Allergy/AdvReac Type Severity Reaction Status Date / Time No Known Allergies Allergy Verified 01/16/20 13:13 [No Known Allergies*] Home Medications Medication Instructions Recorded Confirmed Type Opdivo 240 mg IV Q2W 01/04/20 03/31/20 History acetaminophen 650 mg PO Q6H PRN 01/04/20 03/31/20 History albuterol 90 mcg INHALATION Q6H PRN 01/04/20 03/31/20 History ascorbic acid (vitamin C) [Vitamin 500 mg PO BID 01/04/20 03/31/20 History C] aspirin 81 mg PO DAILY 01/04/20 03/31/20 History cholecalciferol (vitamin D3) 50 mcg PO DAILY 01/04/20 03/31/20 History [Vitamin D3] clozapine [Clozaril] 50 mg PO BEDTIME 01/04/20 03/31/20 History ferrous sulfate 325 mg PO BID 01/04/20 03/31/20 History fluticasone propion-salmeterol 1 inh INHALATION BID 01/04/20 03/31/20 History [Advair Diskus] haloperidol 5 mg PO BEDTIME 01/04/20 03/31/20 History mirabegron 50 mg PO DAILY 01/04/20 03/31/20 History trazodone 100 mg PO BEDTIME 01/04/20 03/31/20 History valproic acid 750 mg PO BID 01/04/20 03/31/20 History estradiol [Estrace] 1 g VAGINAL BEDTIME 01/31/20 03/31/20 History glipizide 1 tab PO DAILY 02/28/20 03/31/20 History Physical Exam Vital Signs: Vital Signs: Last Vital Signs Temp 92.5 F L 04/01/20 05:56 Pulse 80 04/01/20 05:56 Resp 20 04/01/20 05:56 BP 91/52 L 04/01/20 05:56 Pulse Ox 94 04/01/20 05:56 Body Mass Index 24.8 Initially patient was obtunded but became somewhat more responsive Nonfocal neurologic Skin intact Sloan draining Cardiovascular via bedside echo shows normal LV and RV function but probable intravascular volume depletion Good bilateral carotid upstrokes neck veins flat Chest percuss dull on the right side with diminished breath sounds and normal percussion on the left side no adventitious sounds Abdomen benign with no organomegaly and good bowel sounds Const: General: confusion Orientation/consciousness: confusion Neuro: General: confusion Results Labs CBC & Chem 7: 04/01/20 05:00 04/01/20 05:00 Labs: Short CBC 04/01/20 Range/Units 05:00 WBC 10.3 (4.8-10.8) X10*3/uL Hgb 8.7 L (12.0-16.0) g/dl Hct 30.3 L (37-47) % Plt Count 111 L (160-400) X10*3/uL BMP 04/01/20 05:00 Sodium 149 H Potassium 4.2 Chloride 118 H Carbon Dioxide 25 BUN 18 H Creatinine 1.04 Calcium 9.9 Liver Function 04/01/20 Range/Units 05:00 Total Bilirubin 0.2 (0.0-1.0) mg/dL AST 26 D (5-31) U/L ALT 25 (0-31) U/L Alkaline Phosphatase 682 H D (39-117) U/L Albumin 2.3 L (3.5-5.0) g/dL Microbiology Microbiology Results: Microbiology 03/31/20 02:29 Blood - Venous Blood Culture - Preliminary No growth after 24 hours. 03/31/20 02:29 Blood - Venous Blood Culture - Preliminary No growth after 24 hours. Assessment and Plan (1) Hypoxia: Status: Acute (2) Pleural effusion: Problem details: Patient is a 69-year-old female with a history of non-small cell lung cancer and recurrent right-sided pleural effusions who presents to the hospital with hypoxic respiratory failure secondary to increased pleural effusion and possible pneumonia. Chest CT performed shows near complete collapse of right-sided lung field with large pleural effusion and necrotic mass versus abscess. Patient has been started on antibiotics Vanco and cefepime with blood cultures pending. I spoke with medicine team Dr. Schulte who has been in touch with IR with plans of a right-sided thoracentesis for tomorrow a.m. due to patient's respiratory status and not appearing in any distress we were both in agreement that this is a procedure that could wait till tomorrow. Would not recommend a Pleurx catheter at this time due to potential abscess. Patient should be made n.p.o. tonight at midnight pending tomorrow's procedure. Status: Acute (3) Sepsis: Qualifiers: Sepsis type: sepsis due to unspecified organism Sepsis acute organ dysfunction status: with acute organ dysfunction Severe sepsis acute organ dysfunction type: acute respiratory failure Acute respiratory failure type: with hypoxia Severe sepsis shock status: without septic shock Qualified Code(s): A41.9 - Sepsis, unspecified organism; R65.20 - Severe sepsis without septic shock; J96.01 - Acute respiratory failure with hypoxia Status: Acute (4) Acute respiratory failure with hypoxia: Status: Acute (5) Hypernatremia: Status: Acute (6) Metabolic encephalopathy: Status: Acute (7) Borderline blood pressure: Status: Acute (8) Fever of unknown origin: Status: Acute (9) Hyperkalemia: Status: Acute (10) Hypotension: Status: Acute (11) GEGE (acute kidney injury): Status: Acute (12) Schizoaffective disorder: Status: Acute (13) Pleural effusion, right: Status: Acute (14) Osteoporosis: Status: Acute (15) Diabetes type 2, uncontrolled: Status: Acute (16) Hyperthyroidism: Status: Acute (17) PVC (premature ventricular contraction): Status: Acute (18) Tachycardia: Status: Acute (19) Hypertension: Status: Acute (20) Non-small cell carcinoma of lung: Qualifiers: Laterality: right Qualified Code(s): C34.91 - Malignant neoplasm of unspecified part of right bronchus or lung Status: Acute At this point chest tube was placed draining 2 L hopefully reach relieving a tamponade situation and repleting intravascular volume which we will recheck by ultrasound of the IVC and I do have some concerns in relation to thyroid will get a thyroid function and may be hold methimazole will continue for now with antibiotics pending culture results and on her her desire not to be intubated by maintaining nasal high-flow following blood gases and she may possibly need a placement of a one-way valve before going home for for this recurrent effusion or speak with the thoracic surgery about possible installation of something to perform a pleurodesis
[2020-04-01] MEDS: cefEPime HCl 2 GM in 0.9 % Sodium Chloride 50 ML IV ×2 (07:46→17:43)
[2020-04-01] MEDS: Lactated Ringers 500 ML 999 ML IVCONT (07:47)
[2020-04-01 08:23] LABS: Glucose, Whole Blood 99 mg/dL (60-115)
[2020-04-01] MEDS: vancomycin HCL 1,000 MG in 0.9 % Sodium Chloride 250 ML 270 MG IV (08:34)
[2020-04-01] MEDS: 0.9 % Sodium Chloride Flush 3 ML SYRINGE IVFLUSH ×4 (08:36→23:59)
[2020-04-01] MEDS: Lactated Ringers 1,000 ML 999 ML IVCONT (10:00)
[2020-04-01] MEDS: Hydrocortisone Sod Succ/PF 100 MG VIAL 50 MG IVPUSH ×2 (10:20→20:33)
[2020-04-01 10:59] LABS: TSH reflex Free T4 20.07 mIU/mL (0.32-4.0)
[2020-04-01 11:11] LABS: MN% 83.3 %; PMN% 16.7 %; WBC Pleural Fluid 0.013 X10*3/uL
[2020-04-01 11:19] LABS: RBC Pleural Fluid < 0.002 X10*3/uL
[2020-04-01 11:44] LABS: Free T4 (Free Thyroxine) 0.67 ng/dL (0.71-1.85)
--- NOTE | 2020-04-01 12:12 | MHC.CM.PN ---
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 PT USES A WALKER TO AMBULATE. PTS BROTHER DARREN ([phone]) IS HER HCP AND MOO MORATAYA IS HER PCP. CURRENT DC PLAN IS TO RETURN TO LONG-TERM WITH NO SERVICES LONG-TERM STAFF WILL TRANSPORT
[2020-04-01 12:20] LABS: Glucose, Whole Blood 76 mg/dL (60-115)
[2020-04-01 13:12] LABS: BF Shift QC OK YES; Lymphocytes Pleural Fluid 45 %; Man Diluent Bkgrd OK YES; Monocytes Pleural Fluid 30 %; Neutrophils Pleural Fluid 15 %; Other Cells Plerual Fl 10 %
--- NOTE | 2020-04-01 13:15 | MHC.CM.PN ---
Addendum entered by Cece Caceres 04/01/20 13:24: Chart copy of IMM sent to [facility] Original Note: MARY spoke to pts brother/HCP Lukasz ([phone]) who reports he was aware the pt was admitted and has plans to visit her in the ICU at 1400 hours today which he has already cleared with night shift supervisor. He reports he does have a copy of pts medicare rights from past admissions, those rights were reviewed and Lukasz reports understanding. MARY will mail another copy to him, he confirms his mailing address is [address] [place] [id number]. Lukasz also confirms the pts DC plan [facility]
[2020-04-01 13:31] LABS: MRSA Nasal PCR POSITIVE (Negative); SA Nasal PCR POSITIVE (Negative)
--- NOTE | 2020-04-01 14:38 | PC.NURSE ---
Pt lethargic, mumbled speech, pupils 1mm reactive to light, unable to answer questions appropriately, started shift on phenylepherine at 6mcg/kg/min. NSR 80's with BPs trending down to SBP 60s. MD at bedside, started on norepinephrine at 0.05mcg/kg/min and vasopressin at 0.04mcg/kg/min. SBP low 100s, 500 ml x2 LR bolus given with positive effect. After, 1L LR bolus given 2/2 flat IVC on bedside echo per MD Marcus. Ultimately, levophed at 0.3mcg/kg/min, vasopressin at 0.04mcg/kg/min, and phenylepherine at 1mcg/kg/min BP currently 98/56. POC 99, 76. HR trending up to 115-120 STACH. On highflow nasal cannula at 50L/min FiO2 70%RR 15-30 shallow, SaO2 97%, dim all lobes, start of shift RLL with coarse crackles, in afternoon, RLL dim. Oropharyngeal suctioning for thick white secretions frequently throughout shift, weak cough. After LR fluid bolus, chest tube drainage rate increased, totaling 220ml serous fluid this shift. Urine output 690ml this shift, clear yellow. Abdomen does appear distended at this time. Pt temp 92.5F, on karissa hugger until afternoon, temp 98, karissa hugger removed. Started on IV steroids. updated pt's brother. Bed locked and in lowest position. Pleural fluid studies sent. Pt is MRSA positive on contact precautions, TSH 20.07, aware.
[2020-04-01] MEDS: Dextrose 5 % and Lactated Ring 1,000 ML 125 ML IVCONT (15:06)
[2020-04-01] MEDS: Levothyroxine Sodium 100 MCG VIAL IVPUSH (15:06)
[2020-04-01 15:23] LABS: PCO2 VBG 57 mmhg; PO2 VBG 58 mmhg; pH VBG 7.21 (7.32-7.43)
[2020-04-01 15:24] LABS: Base Excess VBG -5.9 mmol/L; Blood Gas Serial # 5414; HCO3 VBG 22 mmol/L; Oxygen Saturation VBG 86.8 %
--- NOTE | 2020-04-01 15:26 | XR_ITS ---
EXAMINATION: XR CHEST CLINICAL INFORMATION: Right pleural effusion status post chest tube. COMPARISON: Recent priors. TECHNIQUE: Frontal view of the chest was obtained. FINDINGS: The right pleural pigtail catheter remains in stable position with the tip in the lower right chest. There is been further decrease in size of the residual pleural effusion. There is a residual small pleural effusion. Opacity in the mid lung could represent atelectasis or fluid within the minor fissure. There is persistent opacity at the left base. There is a small left pleural effusion which is increasing in size. Left IJ Port-A-Cath remains in stable position with the tip at the level of the upper SVC. The heart and mediastinal structures are normal. XR/XR chest 1V IMPRESSION: 1. Small right pleural effusion decreased from priors. Residual opacity in the right lung consistent with atelectasis or fluid within the fissure. 2. Stable dense opacity at the left base with small left pleural effusion increasing in size.
[2020-04-01 15:55] LABS: Anion Gap 11 (12-20); Blood Urea Nitrogen 16 mg/dL (9-16); Calcium 9.3 mg/dL (8.4-10.2); Carbon Dioxide 23 mmol/L (22-29); Chloride 121 mmol/L (96-108); Creatinine Clr Calc Pharmacy 42.1; Estimated Glomerular Filt Rate 58; Glucose Random 83 mg/dL (60-115); Potassium 4.3 mmol/l (3.3-5.1); Sodium 151 mmol/L (135-145)
[2020-04-01 16:06] LABS: Ammonia 43 umol/L (13-55)
[2020-04-01 16:28] LABS: Lipase 184 U/L (8-78)
[2020-04-01] MEDS: Dextrose 5 % and 0.45 % NaCl 1,000 ML 100 ML IVCONT (17:05)
--- NOTE | 2020-04-01 17:09 | P.PNTS_ITS ---
Subjective Subjective Date of Service: 04/01/20 Patient reports: other (Pleural effusion ) Interval history: Overnight patient became hypotensive with systolic pressure in 70's. Patient received 1 L of fluid earlier in the night with blood pressure improving but became more hypoxic due to increase in the size of her pleural effusion. Patient was transferred to ICU and a right-sided pigtail catheter was placed for evacuation of large pleural effusion. Approximately 2.1 L of yellow pleural fluid was drained and sent for analysis. Patient was placed on nasal high flow oxygen saturations in the mid 90s to 100%. During my examination this afternoon patient remained minimally responsive, tachypneic and is currently on 3 pressors. Chest x-ray was obtained to confirm chest tube placement for right pleural effusion decreased in size with residual opacity in the right lung consistent with atelectasis or fluid within the fissure. There is a persistent opacity in the left base with a small left-sided pleural effusion. Physical Exam Vital Signs: Vital Signs: Last Vital Signs Temp 99.1 F 04/01/20 16:00 Pulse 116 H 04/01/20 16:00 Resp 33 H 04/01/20 16:00 BP 95/56 L 04/01/20 16:00 Pulse Ox 95 04/01/20 16:00 Body Mass Index 24.8 Const: General: ill appearing and lethargic Orientation/consciousness: lethargic Chest: Other: Right sided pigtail catheter remain sin place attached to atrium resivpoir which is on -20 LWS with approximately 100 cc of serosanguineous fluid. Patient has 2.1 L of chest tube output thus far today.No subcu air hed on right side with crackles heard along left.No detectable air leak. Cardio: Jugular venous distension: no JVD Rate: tachycardic Rhythm: regular rhythm Heart sounds: S1 normal heart sound present, S2 normal heart sound present, no gallops, no murmurs and no rubs GI: Inspection: Yes distended Palpation (GI): Soft to palpation Progress Note: A&P Assessment and plan (1) Pleural effusion: Problem details: Patient is a 69-year-old female with a history of COPD,Schizoaffective disorder non-small cell lung cancer and recurrent right-sided pleural effusions who presents to the hospital with hypoxic respiratory failure secondary to increased pleural effusion and possible pneumonia. Chest CT performed showed near complete collapse of right-sided lung field with large pleural effusion and necrotic mass versus abscess. Patient has been started on antibiotics Vanco and cefepime with blood cultures pending. Overnight patient had become hypotensive with acute respiratory failure, currently on 3 pressors and 50% nasal high flow. s/p right-sided pigtail chest tube which remains on -20 low wall suction. Due to patient's recurrent pleural effusions she may be a candidate for Pleurx catheter however a repeat chest CT with contrast will have to be performed to assess necrotic mass versus abscess moving forward with a Pleurx. Obtain CXR tomorrow am. Status: Acute Fall Risk Details Current Medications: Current Medications Generic Name Dose Route Start Last Admin Trade Name Freq PRN Reason Stop Dose Admin Acetaminophen 650 mg 03/31/20 07:55 Acetaminophen 325 Mg Tablet PO Q6H PRN Pain, Mild (Pain Scale 1-3) Albuterol Sulfate 1 puff 03/31/20 12:37 Albuterol Sulfate 90 Mcg 18 Gm Inhaler INHALE Q6H PRN Wheezing Albuterol/Ipratropium 3 ml 03/31/20 07:55 Albuterol/Iprat 2.5/0.5mg 3 Ml Ampul.Neb INHALE Q4H PRN Shortness of Breath Aspirin 81 mg 04/01/20 09:00 04/01/20 08:37 Aspirin 81 Mg Tab.Chew PO Not Given DAILY [facility] Divalproex Sodium 750 mg 03/31/20 21:00 04/01/20 08:37 Divalproex Sodium Sprinkles 125 Mg Ronald. PO Not Given BID [facility] Docusate Sodium 100 mg 03/31/20 11:42 Docusate Sodium 100 Mg Capsule PO DAILY PRN Constipation Fluticasone/Vilanterol 1 puff 04/01/20 09:00 04/01/20 07:31 Fluticasone/Vilanterol 100/25 Blst.W.Dev INHALE Not Given DAILY [facility] Hydrocortisone Sodium Succinate 50 mg 04/01/20 10:30 04/01/20 10:20 Hydrocortisone Sod Succ/Pf 100 Mg Vial IVPUSH 50 mg BID ANUJ Administration Cefepime HCl 2 gm/ Sodium 50 mls @ 100 mls/hr 03/31/20 06:00 04/01/20 09:56 Chloride IV Infused Q12H ANUJ Infusion Vancomycin HCl 1,000 mg/ 270 mls @ 270 mls/hr 04/01/20 06:00 04/01/20 09:47 Sodium Chloride IV Infused Q24H ANUJ Infusion Phenylephrine HCl 20 mg/ 252 mls @ 0 mls/hr 04/01/20 04:30 04/01/20 12:33 Sodium Chloride IVCONT 1 mcg/kg/min .Q0M ANUJ 42.18 mls/hr Administration Protocol Per Protocol Norepinephrine Bitartrate 8 mg in 250 mls @ 0 mls/hr 04/01/20 05:15 04/01/20 13:11 Levophed IVCONT 0.3 mcg/kg/min .Q0M ANUJ 31.38 mls/hr Titration Protocol Per Protocol Vasopressin 20 unit/ Sodium 101 mls @ 12.12 mls/hr 04/01/20 09:30 04/01/20 10:30 Chloride IVCONT 0.04 unit/min .Q8H20M ANUJ 12.12 mls/hr Administration 0.04 UNIT/MIN Dextrose/Sodium Chloride 1,000 mls @ 100 mls/hr 04/01/20 16:30 D51/2ns IVCONT .Q10H [facility] Insulin Human Lispro 0 unit 03/31/20 07:30 04/01/20 12:34 Insulin Lispro 100 Unit/Ml 3 Ml Vial SUBCUT Not Given QIDACHS [facility] Protocol Levothyroxine Sodium 100 mcg 04/01/20 15:00 04/01/20 15:06 Levothyroxine Sodium 100 Mcg Vial IVPUSH 100 mcg BID@0800,1500 [facility] Administration Mirabegron 50 mg 03/31/20 11:42 04/01/20 08:38 Mirabegron 50 Mg Tab.Er.24h PO Not Given DAILY [facility] Non-Formulary Medication 1 gm 03/31/20 21:00 Estradiol [Estrace] VAGINAL BEDTIME [facility] Non-Formulary Medication 240 mg 03/31/20 11:42 Nivolumab IV Q14D ANUJ Omeprazole 20 mg 03/31/20 11:42 04/01/20 08:35 Omeprazole 20 Mg Capsule. PO Not Given DAILY@0630 [facility] Pharmacy Consult 1 each 03/31/20 04:51 Consult Rx Vancomycin Dosing MISCELLANE DAILY PRN Consult order Sodium Chloride 3 ml 03/31/20 11:42 04/01/20 15:07 0.9 % Sodium Chloride Flush 3 Ml Syringe IVFLUSH 3 ml QSHIFT ANUJ Administration Sodium Chloride 3 ml 04/02/20 00:00 0.9 % Sodium Chloride Flush 3 Ml Syringe IVFLUSH QSHIFT ANUJ Trazodone HCl 100 mg 03/31/20 21:00 03/31/20 21:36 Trazodone Hcl 100 Mg Tablet PO 100 mg BEDTIME ANUJ Administration Vitamin D 50 mcg 03/31/20 11:42 04/01/20 08:37 Cholecalciferol (Vitamin D3) 25 Mcg Tablet PO Not Given DAILY ANUJ Time Spent With Patient Time: Total time spent is greater than 50% in coordination of care (as documented) at patient's floor/unit and/or counseling patient: Time with patient: 15 - 24 minutes
[2020-04-01 17:55] LABS: Glucose, Whole Blood 113 mg/dL (60-115)
[2020-04-01 21:07] LABS: Glucose, Whole Blood 132 mg/dL (60-115)
[2020-04-01 22:40] LABS: Anion Gap 10 (12-20); Blood Urea Nitrogen 17 mg/dL (9-16); Calcium 9.1 mg/dL (8.4-10.2); Carbon Dioxide 23 mmol/L (22-29); Chloride 122 mmol/L (96-108); Creatinine Clr Calc Pharmacy 36.7; Estimated Glomerular Filt Rate 49; Glucose Random 163 mg/dL (60-115); Potassium 4.3 mmol/l (3.3-5.1); Sodium 151 mmol/L (135-145)
[2020-04-01] MEDS: Dextrose 5 % and Lactated Ring 1,000 ML 100 ML IVCONT (23:59)
[2020-04-01] MEDS: Haloperidol Lactate 5 MG/ML VIAL IVPUSH (23:59)
[2020-04-02] VITALS (31 sets, daily range): BP systolic 87–127; BP diastolic 49–74; PULSE 77–116; RESP 11–33; TEMP 34.9–37.1; O2SAT 86–99; BMI 24.8
--- NOTE | 2020-04-02 | XR_ITS ---
EXAMINATION: XR CHEST CLINICAL INFORMATION: Right pleural effusion with chest tube COMPARISON: Previous chest x-rays most recent from yesterday and chest CT most recent 03/31/2020 TECHNIQUE: Frontal view of the chest was obtained. FINDINGS: There is a chest tube at the right lung base that appears unchanged in position. There is a small right pleural effusion or pleural thickening. There is air at the right lung base suggestive of a small hydropneumothorax or partially trapped right lung. There is central right lung mass/consolidation. There is a round or oval-shaped density seen inferior to this in the right infrahilar region. This may represent loculated fluid in a fissure. The cardiac and mediastinal contours are stable. There is a left jugular port with tip projecting over the proximal SVC. There is atelectasis/consolidation at the left lung base. There is a small left pleural effusion. There are degenerative changes of the spine. There may be a mild T12 vertebral body compression fracture. XR/XR chest 1V IMPRESSION: No change from yesterday's exam. Stable position of right chest tube and small right hydropneumothorax likely related to a partially trapped right lung. Central right lung mass/consolidation and round or oval-shaped more inferior density question representing loculated pleural fluid in a fissure. Left lower lobe atelectasis/consolidation and small left pleural effusion.
--- NOTE | 2020-04-02 05:25 | W.PM.CCHP ---
Procedures Central Line Placement Right IJ: Central Line Comments: Emergent Right internal jugular triple lumen central venous catheter placed in usual sterile conditions under ultrasound guidance for appropriate vascular access without immediate complications. Central line position verified with Chest XRAY. Consent for Procedure: Emergent-no informed consent obtained Time out performed: Yes Sterile Technique Used: Yes Patient placed on monitor/pulse ox: Yes prep: mask, gown, gloves and other (Respirator) Central line prep: Chlorhexidine scrub Ultrasound used for placement: Yes Central line lumen inserted: triple Post procedure: sutured in place, good blood return, all ports aspirated, flushed, capped and sterile dressing applied Post procedure x-ray: tip of catheter in good position and no pneumothorax seen Patient tolerated procedure: well and no complications Complications: none
[2020-04-02] MEDS: Midazolam HCl/PF 2 MG/2 ML VIAL IVPUSH (05:52)
[2020-04-02 06:25] LABS: HCO3 VBG 24 mmol/L; Oxygen Saturation VBG 43.1 %; PCO2 VBG 51 mmhg; PO2 VBG 26 mmhg; pH VBG 7.28 (7.32-7.43)
[2020-04-02 06:26] LABS: Blood Gas Serial # 5414
[2020-04-02] MEDS: vancomycin HCL 1,000 MG in 0.9 % Sodium Chloride 250 ML 250 MG IV (06:29)
[2020-04-02] MEDS: cefEPime HCl 2 GM in 0.9 % Sodium Chloride 50 ML IV (06:30)
[2020-04-02 06:50] LABS: Hematocrit 27.5 % (37-47); Hemoglobin 7.7 g/dl (12.0-16.0); Mean Corpuscular Hemoglobin 28.3 pg (27.0-33.0); Mean Corpuscular Volume 101.1 fL (80-98); Mean Platelet Volume 10.4 fL (9.4-12.3); Platelet Count 149 X10*3/uL (160-400); Red Blood Count 2.72 X10*6/uL (4.20-5.50); Red Cell Distribution Width 16.6 % (11.0-16.0); White Blood Count 8.5 X10*3/uL (4.8-10.8)
[2020-04-02 07:03] LABS: Albumin Level 2.3 g/dL (3.5-5.0)
[2020-04-02 07:11] LABS: Anion Gap 9 (12-20); Blood Urea Nitrogen 18 mg/dL (9-16); Calcium 9.1 mg/dL (8.4-10.2); Carbon Dioxide 23 mmol/L (22-29); Chloride 122 mmol/L (96-108); Creatinine Clr Calc Pharmacy 34.5; Estimated Glomerular Filt Rate 46; Glucose Random 205 mg/dL (60-115); Magnesium 1.6 mg/dL (1.6-2.6); Phosphorus 3.5 mg/dL (2.7-4.5); Potassium 4.2 mmol/l (3.3-5.1); Sodium 150 mmol/L (135-145)
[2020-04-02 07:40] LABS: Band Neutrophils Percent 2 % (3-5); Lymphocytes Absolute Manual 0.3 X10*3/uL (0.6-4.8); Lymphocytes Percent Manual 3 % (20-40); Metamyelocytes Absolute 0.2 X10*3/uL; Metamyelocytes Percent 2 %; Myelocytes Absolute 0.4 X10*/uL; Myelocytes Percent 5 %; Neutrophils Absolute Manual 7.6 X10*3/uL (2.2-7.9); Neutrophils Percent Manual 87 % (45-73); Promyelocytes Absolute 0.1 X10*3/uL; Promyelocytes Percent 1 %
[2020-04-02 07:44] LABS: Burr Cells 1+; Schistocytes 1+; Tear Drop Cells 1+
[2020-04-02 07:46] LABS: RBC Morphology NOTED
[2020-04-02 07:47] LABS: Platelet Estimate SLIGHTLY DECREASED (NORMAL); Platelet Morphology Comment NORMAL
[2020-04-02 07:53] LABS: Glucose, Whole Blood 192 mg/dL (60-115)
[2020-04-02] MEDS: Insulin Lispro 100 UNIT/ML 3 ML VIAL SUBCUT (08:53)
[2020-04-02 08:57] LABS: pH Pleural Fluid 7.65
[2020-04-02 08:59] LABS: Amylase Pleural Fluid 8; Glucose Pleural Fluid 91; LDH Pleural Fluid 103; Total Protein Pleural Fluid 2.9
[2020-04-02] MEDS: 0.9 % Sodium Chloride Flush 3 ML SYRINGE IVFLUSH ×2 (09:03→09:10)
[2020-04-02] MEDS: Levothyroxine Sodium 100 MCG VIAL IVPUSH (09:03)
[2020-04-02] MEDS: Hydrocortisone Sod Succ/PF 100 MG VIAL 50 MG IVPUSH (10:12)
[2020-04-02] MEDS: Albumin Human 25 % 100 ML IV ×4 (10:12→21:08)
[2020-04-02] MEDS: Midazolam HCl/PF 2 MG/2 ML VIAL 0.5 MG IVPUSH (10:12)
--- NOTE | 2020-04-02 10:17 | MHC.CLN ---
RE: CONSULT PT IS CURRENTLY NPO RECOMMEND 1200DM WHEN DIET TO ADVANCE WILL START XENIA AND GLUCERNA BID TO INCREASE KCALS AND PROMOTE WOUND HEALING
[2020-04-02] MEDS: Heparin Sodium,Porcine 5,000 UNIT/ML VIAL 5000 UNIT SUBCUT ×2 (11:27→18:07)
[2020-04-02] MEDS: Divalproex Sodium Sprinkles 125 MG CAP.DR.SPR 750 MG PO (11:28)
[2020-04-02 11:41] LABS: Glucose, Whole Blood 114 mg/dL (60-115)
[2020-04-02] MEDS: dexmedeTOMIDidine HCL/NS 400 MCG/100 ML INFUS..BTL 6.97 MCG IVCONT (12:12)
--- NOTE | 2020-04-02 14:27 | PM.CCPN ---
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 Pleural status negative for infectious etiology. No events overnight. Continues to require pressor and high-flow nasal cannula support. Remains confused. Physical Exam Vital Signs: Vital Signs: Last Vital Signs Temp 97.0 F 04/02/20 14:00 Pulse 100 04/02/20 14:00 Resp 29 H 04/02/20 14:00 BP 109/63 04/02/20 14:00 Pulse Ox 94 04/02/20 14:00 Body Mass Index 24.8 Const: General: no acute distress, awake and confusion Orientation/consciousness: confusion Eyes: Sclerae: sclerae normal EOM: EOMs intact bilaterally Neck: Neck: Yes no lymphadenopathy, Yes trachea midline and Yes supple Resp: Effort & Inspection: normal respiratory effort and no respiratory distress Auscultation: clear to auscultation bilaterally Cardio: Rate: tachycardic Rhythm: regular rhythm Heart sounds: no gallops, no murmurs and no rubs GI: Palpation (GI): Soft to palpation and Other GI palpation findings present ( Nontender) Auscultation: normal bowel sounds Neuro: General: confusion Extrem: General: No clubbing, No cyanosis and Yes edema (Trace bilateral) Objective Data Labs CBC & Chem 7: 04/02/20 05:44 04/02/20 05:45 Labs: Laboratory Results - last 24 hr 04/01/20 04/01/20 04/01/20 11:01 11:01 15:12 WBC RBC Hgb Hct MCV MCH MCHC RDW Plt Count MPV Immature Gran % (Auto) Neut % (Auto) Lymph % (Auto) [place] % (Auto) Eos % (Auto) Baso % (Auto) Lymph # (Auto) [place] # (Auto) Eos # (Auto) Baso # (Auto) Abs Immat Gran (auto) Absolute Neuts (auto) Absolute Nucleated RBC Nucleated RBC % (auto) Neutrophils % (Manual) Band Neutrophils % Lymphocytes % (Manual) Metamyelocytes % Myelocytes % Promyelocytes % Abs Neuts (Manual) Lymphocytes # (Manual) Metamyelocytes # Myelocytes # Promyelocytes # Platelet Estimate Plt Morphology Comment RBC Morphology Tear Drop Cells [place] Cells Schistocytes VBG pH VBG pCO2 VBG pO2 VBG HCO3 VBG O2 Saturation VBG Base Excess Sodium 151 H Potassium 4.3 Chloride 121 H Carbon Dioxide 23 Anion Gap 11 L BUN 16 Creatinine 0.96 Estim Creat Clear Calc 42.1 Estimated GFR 58 POC Glucose Random Glucose 83 Calcium 9.3 D Phosphorus Magnesium Ammonia Albumin Lipase 184 H Pleural pH 7.65 Pleural Total Protein 2.9 Pleural LDH 103 Pleural Glucose 91 Pleural Amylase 8 04/01/20 04/01/20 04/01/20 15:12 15:12 17:51 WBC RBC Hgb Hct MCV MCH MCHC RDW Plt Count MPV Immature Gran % (Auto) Neut % (Auto) Lymph % (Auto) [place] % (Auto) Eos % (Auto) Baso % (Auto) Lymph # (Auto) [place] # (Auto) Eos # (Auto) Baso # (Auto) Abs Immat Gran (auto) Absolute Neuts (auto) Absolute Nucleated RBC Nucleated RBC % (auto) Neutrophils % (Manual) Band Neutrophils % Lymphocytes % (Manual) Metamyelocytes % Myelocytes % Promyelocytes % Abs Neuts (Manual) Lymphocytes # (Manual) Metamyelocytes # Myelocytes # Promyelocytes # Platelet Estimate Plt Morphology Comment RBC Morphology Tear Drop Cells [place] Cells Schistocytes VBG pH 7.21 L VBG pCO2 57 VBG pO2 58 VBG HCO3 22 VBG O2 Saturation 86.8 VBG Base Excess -5.9 Sodium Potassium Chloride Carbon Dioxide Anion Gap BUN Creatinine Estim Creat Clear Calc Estimated GFR POC Glucose 113 Random Glucose Calcium Phosphorus Magnesium Ammonia 43 Albumin Lipase Pleural pH Pleural Total Protein Pleural LDH Pleural Glucose Pleural Amylase 04/01/20 04/01/20 04/02/20 20:35 22:02 05:44 WBC RBC Hgb Hct MCV MCH MCHC RDW Plt Count MPV Immature Gran % (Auto) Neut % (Auto) Lymph % (Auto) [place] % (Auto) Eos % (Auto) Baso % (Auto) Lymph # (Auto) [place] # (Auto) Eos # (Auto) Baso # (Auto) Abs Immat Gran (auto) Absolute Neuts (auto) Absolute Nucleated RBC Nucleated RBC % (auto) Neutrophils % (Manual) Band Neutrophils % Lymphocytes % (Manual) Metamyelocytes % Myelocytes % Promyelocytes % Abs Neuts (Manual) Lymphocytes # (Manual) Metamyelocytes # Myelocytes # Promyelocytes # Platelet Estimate Plt Morphology Comment RBC Morphology Tear Drop Cells [place] Cells Schistocytes VBG pH VBG pCO2 VBG pO2 VBG HCO3 VBG O2 Saturation VBG Base Excess Sodium 151 H Potassium 4.3 Chloride 122 H Carbon Dioxide 23 Anion Gap 10 L BUN 17 H Creatinine 1.10 Estim Creat Clear Calc 36.7 Estimated GFR 49 POC Glucose 132 H Random Glucose 163 H D Calcium 9.1 Phosphorus Magnesium Ammonia Albumin 2.3 L Lipase Pleural pH Pleural Total Protein Pleural LDH Pleural Glucose Pleural Amylase 04/02/20 04/02/20 04/02/20 05:44 05:45 05:45 WBC 8.5 RBC 2.72 L Hgb 7.7 L Hct 27.5 L MCV 101.1 H MCH 28.3 MCHC 28.0 L RDW 16.6 H Plt Count 149 L D MPV 10.4 Immature Gran % (Auto) Cancelled Neut % (Auto) Cancelled Lymph % (Auto) Cancelled [place] % (Auto) Cancelled Eos % (Auto) Cancelled Baso % (Auto) Cancelled Lymph # (Auto) Cancelled [place] # (Auto) Cancelled Eos # (Auto) Cancelled Baso # (Auto) Cancelled Abs Immat Gran (auto) Cancelled Absolute Neuts (auto) Cancelled Absolute Nucleated RBC 0.000 Nucleated RBC % (auto) 0.0 Neutrophils % (Manual) 87 H Band Neutrophils % 2 L Lymphocytes % (Manual) 3 L Metamyelocytes % 2 Myelocytes % 5 Promyelocytes % 1 Abs Neuts (Manual) 7.6 Lymphocytes # (Manual) 0.3 L Metamyelocytes # 0.2 Myelocytes # 0.4 Promyelocytes # 0.1 Platelet Estimate SLIGHTLY DECREASED Plt Morphology Comment NORMAL RBC Morphology NOTED Tear Drop Cells 1+ [place] Cells 1+ Schistocytes 1+ VBG pH 7.28 L VBG pCO2 51 VBG pO2 26 VBG HCO3 24 VBG O2 Saturation 43.1 VBG Base Excess -3.0 Sodium 150 H Potassium 4.2 Chloride 122 H Carbon Dioxide 23 Anion Gap 9 L BUN 18 H Creatinine 1.17 Estim Creat Clear Calc 34.5 Estimated GFR 46 POC Glucose Random Glucose 205 H Calcium 9.1 Phosphorus 3.5 Magnesium 1.6 Ammonia Albumin Lipase Pleural pH Pleural Total Protein Pleural LDH Pleural Glucose Pleural Amylase 04/02/20 04/02/20 07:30 11:34 WBC RBC Hgb Hct MCV MCH MCHC RDW Plt Count MPV Immature Gran % (Auto) Neut % (Auto) Lymph % (Auto) [place] % (Auto) Eos % (Auto) Baso % (Auto) Lymph # (Auto) [place] # (Auto) Eos # (Auto) Baso # (Auto) Abs Immat Gran (auto) Absolute Neuts (auto) Absolute Nucleated RBC Nucleated RBC % (auto) Neutrophils % (Manual) Band Neutrophils % Lymphocytes % (Manual) Metamyelocytes % Myelocytes % Promyelocytes % Abs Neuts (Manual) Lymphocytes # (Manual) Metamyelocytes # Myelocytes # Promyelocytes # Platelet Estimate Plt Morphology Comment RBC Morphology Tear Drop Cells [place] Cells Schistocytes VBG pH VBG pCO2 VBG pO2 VBG HCO3 VBG O2 Saturation VBG Base Excess Sodium Potassium Chloride Carbon Dioxide Anion Gap BUN Creatinine Estim Creat Clear Calc Estimated GFR POC Glucose 192 H 114 Random Glucose Calcium Phosphorus Magnesium Ammonia Albumin Lipase Pleural pH Pleural Total Protein Pleural LDH Pleural Glucose Pleural Amylase Microbiology Microbiology Results: Microbiology 03/31/20 02:29 Blood - Venous Blood Culture - Preliminary No growth after 48 hours. 03/31/20 02:29 Blood - Venous Blood Culture - Preliminary No growth after 48 hours. Progress Note: A&P Assessment and plan (1) Acute respiratory failure with hypoxia: Status: Acute Assessment and Plan: Assessment: 69-year-old lady with underlying advanced squamous cell carcinoma of the right lung previously on chemotherapy, recently on Opdivo, admitted with hypotension and hypoxia secondary to recurrent right-sided large effusion requiring chest tube drainage with hospital course further complicated by encephalopathy. Plan: Neuro: Encephalopathy, metabolic versus malignant. Continue to titrate of sedative drips as tolerated. Cardiac: No acute issues. Pulmonary: Acute hypoxic respiratory failure secondary to compressive atelectasis of the right lung secondary to large right-sided recurrent pleural effusion status post chest tube with drainage of 2 L of serous fluid. No infectious etiology noted. Cytology is pending. Thoracic surgery service care appreciated. Continue to titrate off supplemental oxygen as tolerated. Underlying COPD. Renal: Hypernatremia, subacute, likely secondary to extravascular volume shifting. Continue with colloidal support. Endo: No acute issues. GI: No acute issues. ID: No acute issues Heme/Onc: Underlying squamous cell carcinoma of the right lung, recently on Opdivo. Last received on 02/14/2020. Psych: No acute issues. Miscellaneous: No acute issues. Prophylaxis: Heparin Diet: Regular Critical care time spent: 45 minutes (2) Pleural effusion: Status: Acute (3) Schizoaffective disorder: Status: Acute (4) Non-small cell carcinoma of lung: Status: Acute (5) Metabolic encephalopathy: Status: Acute Time Spent With Patient Total time spent with greater than 50% in coordination of care (as documented) at patient's floor/unit and/or counseling patient:: 0 Critical Care Time 45
--- NOTE | 2020-04-02 14:39 | P.PNTS_ITS ---
Subjective Subjective Date of Service: 04/02/20 Interval history: Patient seen and examined this afternoon. At this time unable to obtain a review of systems as patient is heavily sedated on Precedex drip. Overnight her chest tube had put out approximately 280 cc of serous fluid. On -20 low wall suction. Has been weaned down to 2 pressors, remains on 50% high flow. Physical Exam Vital Signs: Vital Signs: Last Vital Signs Temp 97.0 F 04/02/20 14:00 Pulse 100 04/02/20 14:00 Resp 29 H 04/02/20 14:00 BP 109/63 04/02/20 14:00 Pulse Ox 94 04/02/20 14:00 Body Mass Index 24.8 Const: General: ill appearing Orientation/consciousness: Other orientation findings (heavily sedated on precidex drip.) HENMT: Head: Yes normocephalic and Yes atraumatic Neck: Neck: Yes normal visual inspection and Yes trachea midline Chest: Other: Right sided pigtail catheter remains in place attached to [employer] reservoir on waterseal, 280 cc serous fluid output overnight, no air leak detected or crepitus along chest wall. Resp: Other: Diminished breath sounds on the right with scattered rhonchi heard on left. Effort & Inspection: tachypneic Cardio: Rate: tachycardic Rhythm: regular rhythm Heart sounds: S1 normal heart sound present and S2 normal heart sound present GI: Inspection: Yes normal to inspection Palpation (GI): Soft to palpation Auscultation: normal bowel sounds Extrem: General: Yes normal to inspection Right lower extremity: normal to inspection; no edema Left lower extremity: normal to inspection; no edema Progress Note: A&P Assessment and plan (1) Pleural effusion: Status: Acute Assessment and Plan: Patient is a 69-year-old female with a history of COPD,Schizoaffective disorder non-small cell lung cancer and recurrent right-sided pleural effusions who presents to the hospital with hypoxic respiratory failure secondary to increased pleural effusion and possible pneumonia. Chest CT performed showed near complete collapse of right-sided lung field with large pleural effusion and necrotic mass versus abscess. Patient has been started on antibiotics Vanco and cefepime with blood cultures pending. Overnight patient has been weaned garcia to 2 pressors , remains on 50% nasal high flow. s/p right-sided pigtail chest tube which was switched to water seal by ICU heavy line technician. Pleural fluid sent for cytology. Due to patient's recurrent pleural effusions she may be a candidate for Pleurx catheter in the future however a repeat chest CT with contrast will have to be performed to assess necrotic mass versus abscess moving forward with a PleurX Patient's chest tube is being managed by ICU heavy line technician at this time. Thoracic surgery will be signing off at this time. If patient is sent out to floor with indwelling chest tube or if ICU requires any further assistance please do not hesitate to reconsult and contact the thoracic surgical department. Fall Risk Details Current Medications: Current Medications Generic Name Dose Route Start Last Admin Trade Name Freq PRN Reason Stop Dose Admin Acetaminophen 650 mg 03/31/20 07:55 Acetaminophen 325 Mg Tablet PO Q6H PRN Pain, Mild (Pain Scale 1-3) Albuterol/Ipratropium 3 ml 03/31/20 07:55 Albuterol/Iprat 2.5/0.5mg 3 Ml Ampul.Neb INHALE Q4H PRN Shortness of Breath Divalproex Sodium 750 mg 03/31/20 21:00 04/02/20 11:28 Divalproex Sodium Sprinkles 125 Mg Cap.Dr.Spr PO 750 mg BID ANUJ Administration Docusate Sodium 100 mg 03/31/20 11:42 Docusate Sodium 100 Mg Capsule PO DAILY PRN Constipation Fluticasone/Vilanterol 1 puff 04/01/20 09:00 04/02/20 07:20 Fluticasone/Vilanterol 100/25 Blst.W.Dev INHALE Not Given DAILY ANJU Heparin Sodium (Porcine) 5,000 unit 04/02/20 11:00 04/02/20 11:27 Heparin Sodium,Porcine 5,000 Unit/Ml Vial SUBCUT 5,000 unit Q8H ANUJ Administration Phenylephrine HCl 20 mg/ 252 mls @ 0 mls/hr 04/01/20 04:30 04/02/20 01:01 Sodium Chloride IVCONT Infused .Q0M ANUJ Titration Protocol Per Protocol Norepinephrine Bitartrate 8 mg in 250 mls @ 0 mls/hr 04/01/20 05:15 04/02/20 11:36 Levophed IVCONT 0.24 mcg/kg/min .Q0M ANUJ 25.11 mls/hr Titration Protocol Per Protocol Vasopressin 20 unit/ Sodium 101 mls @ 12.12 mls/hr 04/01/20 09:30 04/02/20 10:49 Chloride IVCONT 0.04 unit/min .Q8H20M ANUJ 12.12 mls/hr Administration 0.04 UNIT/MIN Dexmedetomidine HCl 400 mcg in 100 mls @ 0 mls/hr 04/02/20 12:00 04/02/20 12:12 Precedex IVCONT 0.5 mcg/kg/hr .Q0M ANUJ 6.97 mls/hr Administration Protocol Per Protocol Insulin Human Lispro 0 unit 03/31/20 07:30 04/02/20 11:36 Insulin Lispro 100 Unit/Ml 3 Ml Vial SUBCUT Not Given QIDACHS [facility] Protocol Levothyroxine Sodium 100 mcg 04/03/20 06:00 Levothyroxine Sodium 100 Mcg Vial IVPUSH DAILY@0600 [facility] Midazolam HCl 0.5 mg 04/02/20 08:59 04/02/20 10:12 Midazolam Hcl/Pf 2 Mg/2 Ml Vial IVPUSH 0.5 mg Q4H PRN Administration anxiety/restlessness Pharmacy Consult 1 each 03/31/20 04:51 Consult Rx Vancomycin Dosing MISCELLANE DAILY PRN Consult order Sodium Chloride 3 ml 04/02/20 00:00 04/02/20 09:03 0.9 % Sodium Chloride Flush 3 Ml Syringe IVFLUSH 3 ml QSHIFT [facility] Administration Time Spent With Patient Time: Total time spent is greater than 50% in coordination of care (as documented) at patient's floor/unit and/or counseling patient: Time with patient: 15 - 24 minutes
--- NOTE | 2020-04-02 15:24 | PC.NURSE ---
pt on high flow o2, confused, restless and attempting to roll out of bed, [employer] monitor in place, pt continues to pull at high flow o2 and IV lines/port, pt received IV versed x 1, pt started on precedex drip per titration, currently off d/t occasional bradycardia, md aware, thoracic provider at bedside for eval. chest tube to water seal/gravity at this time, 20 ml output on this shift, pt repositioned multiple times, attempted to give depakote orally in applesauce per md pt did not tolerate well, orally suctioned, pt up to 60% on high flow, port intact and patent, chest tube in tact, dressing intact, no drainage noted, adams intact, foam intact to stage 2 on coccyx, pt only oriented to name, levo at 0.24mcg, vaso at 0.04, will cont to monitor
--- NOTE | 2020-04-02 16:08 | P.CNID_ITS ---
History of Present Illness Data of Consult Service Date: 04/02/20 Requesting physician: Chriss Walton Primary Care Provider: Unknown Physician HPI Reason for consult: shortness of breath She presents with shortness of breath for 3 days prior to admission She has right hilar mass and pleural effusion with chest tube. She has no productive sputum She has cytology pending Review of Systems Review of Systems: Yes all other systems are reviewed and are negative Neurologic: Reports confusion Psychiatric: Psychiatric: Reports confusion [facility] Past Medical History Medical History Anemia Charcot's arthropathy COPD (chronic obstructive pulmonary disease) Diabetes Diabetes type 2, uncontrolled Fever of unknown origin GERD (gastroesophageal reflux disease) Hyperlipidemia Hypernatremia Hypertension Hypertension Hyperthyroidism Iron deficiency anemia Lung mass Osteopenia Osteoporosis Pleural effusion PVC (premature ventricular contraction) Tachycardia TIA (transient ischemic attack) (~2012) Tremor Umbilical hernia Family History Family History Father Lung cancer Mother Colorectal cancer Surgical History Surgical History History of appendectomy Social History Social History Household Members: None Housing: Other Housing Other:: correction Do you presently have visiting nurse or other home services: No Alcohol intake: former Smoking Status: Never smoker Packs Per Day: 1 Years Smoked: 50 Use of substances other than those prescribed or required for medical reasons: No Currently Displaying Signs/Symptoms of Drug Intoxication Withdrawal: No Have you been hit, kicked, punched, or otherwise hurt by someone within the past year? If so, by whom?: No Do you feel safe in your current relationship?: Yes Is there a partner from a previous relationship who is making you feel unsafe now?: No Are you made to feel afraid or neglected: No Advance Directives: No Advance Directives Information Provided: No Do you have thoughts of harming others: None Do you have a plan to hurt others: No Plan Recently lost weight without trying: Unsure service: No Current occupational status: disabled Meds Allergies Allergy/AdvReac Type Severity Reaction Status Date / Time No Known Allergies Allergy Verified 01/16/20 13:13 [No Known Allergies*] Home Medications Medication Instructions Recorded Confirmed Type Opdivo 240 mg IV Q2W 01/04/20 03/31/20 History acetaminophen 650 mg PO Q6H PRN 01/04/20 03/31/20 History albuterol 90 mcg INHALATION Q6H PRN 01/04/20 03/31/20 History ascorbic acid (vitamin C) [Vitamin 500 mg PO BID 01/04/20 03/31/20 History C] aspirin 81 mg PO DAILY 01/04/20 03/31/20 History cholecalciferol (vitamin D3) 50 mcg PO DAILY 01/04/20 03/31/20 History [Vitamin D3] clozapine [Clozaril] 50 mg PO BEDTIME 01/04/20 03/31/20 History ferrous sulfate 325 mg PO BID 01/04/20 03/31/20 History fluticasone propion-salmeterol 1 inh INHALATION BID 01/04/20 03/31/20 History [Advair Diskus] haloperidol 5 mg PO BEDTIME 01/04/20 03/31/20 History mirabegron 50 mg PO DAILY 01/04/20 03/31/20 History trazodone 100 mg PO BEDTIME 01/04/20 03/31/20 History valproic acid 750 mg PO BID 01/04/20 03/31/20 History estradiol [Estrace] 1 g VAGINAL BEDTIME 01/31/20 03/31/20 History glipizide 1 tab PO DAILY 02/28/20 03/31/20 History Physical Exam Vital Signs: Vital Signs: Last Vital Signs Temp 96.4 F L 04/02/20 16:00 Pulse 99 04/02/20 16:00 Resp 20 04/02/20 16:00 BP 116/67 04/02/20 16:00 Pulse Ox 93 04/02/20 16:00 Body Mass Index 24.8 Const: General: confusion Orientation/consciousness: confusion HENMT: Head: Yes normal to inspection Mouth: Normal oral and palatal mucosa present Eyes: General: appearance normal, both eyes and all related structures Resp: Effort & Inspection: normal respiratory effort Cardio: Rate: regular rate Rhythm: regular rhythm GI: Palpation (GI): Soft to palpation and not firm : General: Yes no CVA tenderness Back/Spine/Pelvis: Back: no CVA tenderness Neuro: General: confusion Assessment and Plan (1) Acute respiratory failure with hypoxia: Problem details: There is no evidence of empyema She has concern of development of malignancy,although negative so far Status: Acute Would hold antibiotics Check for malignancy (2) Hypoxia: Status: Acute (3) Pleural effusion: Status: Acute Results Labs CBC & Chem 7: 04/02/20 05:44 04/02/20 05:45 Labs: Short CBC 04/02/20 Range/Units 05:44 WBC 8.5 (4.8-10.8) X10*3/uL Hgb 7.7 L (12.0-16.0) g/dl Hct 27.5 L (37-47) % Plt Count 149 L D (160-400) X10*3/uL BMP 04/01/20 04/02/20 22:02 05:45 Sodium 151 H 150 H Potassium 4.3 4.2 Chloride 122 H 122 H Carbon Dioxide 23 23 BUN 17 H 18 H Creatinine 1.10 1.17 Calcium 9.1 9.1 Liver Function 04/02/20 Range/Units 05:44 Albumin 2.3 L (3.5-5.0) g/dL Microbiology Microbiology Results: Microbiology 03/31/20 02:29 Blood - Venous Blood Culture - Preliminary No growth after 48 hours. 03/31/20 02:29 Blood - Venous Blood Culture - Preliminary No growth after 48 hours.
[2020-04-02 16:34] LABS: Glucose, Whole Blood 103 mg/dL (60-115)
[2020-04-02] MEDS: Haloperidol Lactate 5 MG/ML VIAL 10 MG IVPUSH (16:36)
[2020-04-02] MEDS: Magnesium Sulfate/H2O 2 GM/50 ML PIGGYBACK IV (16:41)
[2020-04-02] MEDS: diphenhydrAMINE HCL 50 MG/ML VIAL IVPUSH (18:06)
[2020-04-02 21:05] LABS: Glucose, Whole Blood 105 mg/dL (60-115)
[2020-04-02] MEDS: Morphine Sulfate 2 MG/ML CARTRIDGE IVPUSH (22:38)
[2020-04-03] VITALS (15 sets, daily range): BP systolic 108–124; BP diastolic 49–69; PULSE 86–118; RESP 18–41; TEMP 34.8–36.7; O2SAT 84–94
[2020-04-03] MEDS: 0.9 % Sodium Chloride Flush 3 ML SYRINGE IVFLUSH ×2 (00:16→09:06)
[2020-04-03] MEDS: Heparin Sodium,Porcine 5,000 UNIT/ML VIAL 5000 UNIT SUBCUT (03:14)
[2020-04-03] MEDS: Albumin Human 25 % 100 ML IV ×2 (03:16→09:09)
[2020-04-03] MEDS: Levothyroxine Sodium 100 MCG VIAL IVPUSH (05:49)
[2020-04-03 06:48] LABS: HCO3 VBG 23 mmol/L; Oxygen Saturation VBG 65.4 %; PCO2 VBG 63 mmhg; PO2 VBG 41 mmhg
[2020-04-03 06:50] LABS: pH VBG 7.19 (7.32-7.43)
[2020-04-03 06:58] LABS: Mean Corpuscular Volume 103.8 fL (80-98); NRBC Pct Auto 0.3 /100WBC (0.0-0.2); PLT CLUMP 1
[2020-04-03 07:00] LABS: Hematocrit 24.8 % (37-47); Mean Corpuscular HGB Conc 27.4 g/dl (31.0-35.0); Mean Corpuscular Hemoglobin 28.5 pg (27.0-33.0); Platelet Count 103 X10*3/uL (160-400); Red Blood Count 2.39 X10*6/uL (4.20-5.50); Red Cell Distribution Width 17.2 % (11.0-16.0); White Blood Count 6.8 X10*3/uL (4.8-10.8)
[2020-04-03 07:16] LABS: Vancomycin Trough 19.5 mcg/mL (10.0-20.0)
[2020-04-03 07:17] LABS: Glucose, Whole Blood 45 mg/dL (60-115)
[2020-04-03 07:19] LABS: Hemoglobin 6.8 g/dl (12.0-16.0)
[2020-04-03 07:23] LABS: Albumin Level 3.9 g/dL (3.5-5.0); Blood Urea Nitrogen 22 mg/dL (9-16); Calcium 10.6 mg/dL (8.4-10.2); Creatinine Clr Calc Pharmacy 34.5; Estimated Glomerular Filt Rate 46; Glucose Random 49 mg/dL (60-115); Magnesium 2.5 mg/dL (1.6-2.6); Phosphorus 3.7 mg/dL (2.7-4.5)
[2020-04-03 07:25] LABS: Glucose, Whole Blood 48 mg/dL (60-115)
[2020-04-03 07:35] LABS: TSH reflex Free T4 14.71 mIU/mL (0.32-4.0)
[2020-04-03 07:47] LABS: Atypical Lymph Absolute Manual 0.1 x10*3/uL; Atypical Lymphs Percent Manual 1 % (0-6); Band Neutrophils Percent 11 % (3-5); Lymphocytes Absolute Manual 1.1 X10*3/uL (0.6-4.8); Lymphocytes Percent Manual 16 % (20-40); Metamyelocytes Absolute 0.4 X10*3/uL; Metamyelocytes Percent 6 %; Monocytes Absolute Manual 0.1 X10*3/uL (0.0-1.2); Monocytes Percent Manual 1 % (2-11); Myelocytes Absolute 0.1 X10*/uL; Myelocytes Percent 2 %; Neutrophils Percent Manual 63 % (45-73)
[2020-04-03 07:48] LABS: Platelet Estimate DECREASED (NORMAL); Platelet Morphology Comment NORMAL; RBC Morphology NOTED
[2020-04-03 07:50] LABS: Acanthocytes 1+; Macrocytosis 1+; Ovalocytes 1+; Polychromasia 1+; Stomatocytes 1+; Tear Drop Cells 1+
[2020-04-03 07:52] LABS: Anion Gap 11 (12-20); Carbon Dioxide 22 mmol/L (22-29); Chloride 128 mmol/L (96-108); Potassium 4.1 mmol/l (3.3-5.1); Sodium 157 mmol/L (135-145)
--- NOTE | 2020-04-03 07:55 | PC.NURSE ---
04/02 at 2235 patient with bradycardia and asystole rhythm for 10-20 seconds. This RN at bedside with patient's brother Lukasz. CALVIN Payne called to bedside 2 mg morphine ordered for comfort. Patient's heart rate began to rebound into the 60s then 80s. Morphine administered and patient's heart rate back in the low 100's. Patient's O2 saturation as low as 77%, slowly increased to the mid to high 80s.
[2020-04-03 08:09] LABS: Free T4 (Free Thyroxine) 0.75 ng/dL (0.71-1.85)
[2020-04-03 08:10] LABS: Glucose, Whole Blood 105 mg/dL (60-115)
[2020-04-03 11:17] LABS: Glucose, Whole Blood 78 mg/dL (60-115)
--- NOTE | 2020-04-03 12:35 | MHC.CM.PN ---
Patient remains in ICU on high flow oxygen. Patient showing decreased mentation. Dr Walton will speak to patient's brother/HCP about plan of care. Continue to monitor for d/c needs.
--- NOTE | 2020-04-03 13:10 | PC.NURSE ---
Pt fio2 needing to be titrated throughout the shift. This afternoon, o2 sat requireme.nts up to 100%, and pt noted to be bradying down. MD and RN at bedside, agonal breathing noted. Pt at 1208 with this RN and MD at bedside [place] [facility] notified and case rejected
--- NOTE | 2020-04-03 14:21 | P.DN_ITS ---
Discharge Sum: Prov Provider Primary care physician: Unknown Physician Consults: 03/31/20 07:55 Consult to Pulmonology Routine Consulting Provider: Chaparro Allan Reason for consultation: rt pleural effusion Has provider been notified: No 03/31/20 11:42 Consult to Thoracic Surgery Routine Consulting Provider: Melissa Key Reason for consultation: reccurent pleural effusion due to cancer Has provider been notified: No 03/31/20 14:44 Consult to Infectious Diseases Routine Consulting Provider: Chary Hutchins Reason for consultation: rt pleural effusion ca and pneumonia Has provider been notified: Yes Discharge Sum: Diag Contributing Factors (1) Acute respiratory failure with hypoxia: (2) Hypoxia: (3) Pleural effusion: Discharge Sum: Summary Date and Time Date of admission: 03/31/20 04:48 Date of : 04/03/20 Time of : 12:08 Summary Details: 69-year-old lady with underlying history of schizoaffective disorder with psychotic features, COPD, diabetes mellitus, hypertension, recurrent right- sided pleural effusion, 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 After placement of chest tube patient has had re-expansion of her right lung. However, her hemodynamic status has main compromised secondary to what appears to be in vascular involvement by her underlying tumor. Her overall clinical status continued to slowly deteriorate with worsening hypoxemia requiring increasing concentration of oxygen up to 100% high-flow nasal cannula, exausting the capability of noninvasive oxygenation support. Her DNR/DNI status has been confirmed with her brother and healthcare proxy. Overall poor clinical prognosis discussed. On 04/02/2020 she developed episodes of bradycardia with recovery, that became refractory on 04/03/2020 and patient passed peacefully on 04/03/2020 at 12:08 p.m. Discharge diagnoses 1. Acute hypoxic and hypercapnic respiratory failure 2. Recurrent right-sided pleural effusion 3. Squamous cell carcinoma of the right lung with hilar involvement 4. Bradycardia 5. Distributive shock 6. Metabolic encephalopathy 7. Diabetes mellitus 8. Schizoaffective disorder 9. COPD Additional Data Confirmation of as documented by pronouncing clinician: no pulse, no respirations, no heart sounds and pupils fixed and dilated Family: contacted Attending physician: Chriss Walton MD Was code activated?: No workers compensation claims examiner notified?: No Organ bank notified?: Yes Hospice patient?: No
== END 2020-04-03 13:08 | disposition expired | DRG 871 ==
LOC: HO.ED 04:34 → HO.IMC 10:30 → HO.ICU 04-01 04:16
PROVIDERS: Hospitalist; Internal Medicine Cardiovascular Disease; Physician Assistant; Registered Nurse Community Health; Admitting Provider Internal Medicine; Emergency Provider Internal Medicine; Visit Provider Internal Medicine Pulmonary Disease
DX: A41.9 Sepsis, unspecified organism (principal); J96.01 Acute respiratory failure with hypoxia; J96.02 Acute respiratory failure with hypercapnia; G93.41 Metabolic encephalopathy; C34.91 Malignant neoplasm of unspecified part of right bronchus or lung; J90 Pleural effusion, not elsewhere classified; R65.20 Severe sepsis without septic shock; E11.9 Type 2 diabetes mellitus without complications; F25.9 Schizoaffective disorder, unspecified; Z20.828 Contact with and (suspected) exposure to other viral communicable diseases; R57.8 Other shock; I95.9 Hypotension, unspecified; Z79.82 Long term (current) use of aspirin; Z79.52 Long term (current) use of systemic steroids; Z79.84 Long term (current) use of oral hypoglycemic drugs; Z79.899 Other long term (current) drug therapy; Z66 Do not resuscitate
CPT/HCPCS: 36415; 71045; 71250; 80048; 80053; 80076; 80202; 82040; 82140; 82150; 82803; 82945; 82947; 83605; 83615; 83690; 83735; 83880; 83986; 84100; 84157; 84439; 84443; 84484; 85007; 85025; 85027; 85610; 87040; 87635; 87640; 87641; 88112; 88305; 89051; 93005; 94640; 96361; 96365; 96367; 96375; 99285; 99291; J0692; J1200; J2250; J2270; J2370; J2543; J3370; J3475; P9047